=== PATIENT | male | born 1955 | race American Indian/Alaskan Native ===

== ENCOUNTER 2020-05-20 16:09 | Emergency (ER) | payer MEDICARE, SELFPAY | END 2020-05-20 17:44 | disposition left against medical advice (07) | PROVIDERS: Emergency Provider Emergency Medicine | DX: R51.9 Headache, unspecified (principal) | CPT/HCPCS: 99281 ==

== ENCOUNTER 2020-05-21 11:43 | Emergency (ER) | payer MEDICARE, SELFPAY ==
--- NOTE | 2020-05-21 11:59 | ECG_ITS ---
Test Reason : ARM PAIN Blood Pressure : / mmHG Vent. Rate : 077 BPM Atrial Rate : 077 BPM P-R Int : 156 ms QRS Dur : 154 ms QT Int : 410 ms P-R-T Axes : 071 -60 078 degrees QTc Int : 463 ms Normal sinus rhythm Left axis deviation Left bundle branch block Abnormal ECG When compared with ECG of 18-MAY-2019 22:02, Left bundle branch block is now Present Referred By: Generic ED Physician Electronically Signed By:IMELDA CUEVAS MD
[2020-05-21 12:01] VITALS: BP 161/78; BP 181/94; PULSE 83; PULSE 84; RESP 18; TEMP 36.7; O2SAT 98; O2SAT 99; BMI 25.0
--- NOTE | 2020-05-21 12:45 | ED_ITS ---
HPI - General Adult General Chief complaint: General Medical Stated complaint: numbness/tingling Time Seen by Provider: 05/21/20 11:59 Source: patient Mode of arrival: ambulatory Limitations: no limitations History of Present Illness HPI narrative: Neck pain with right sided arm pain. In addition the patient states that his blood pressure is high Onset (ago): day(s) Location: head, right and upper extremity Radiation: neck Severity: mild Related Data Previous Rx's Medication Instructions Recorded meloxicam [Mobic] 15 mg PO DAILY #10 tab 05/21/20 Allergies Allergy/AdvReac Type Severity Reaction Status Date / Time penicillin V Allergy Unknown Unknown Verified 05/21/20 12:00 Penicillins Allergy Unknown RASH Unverified 04/14/20 15:47 Review of Systems Constitutional: Constitutional: Reports no additional constitutional complaints Eyes: Eyes: Reports no additional eye complaints ENT: Denies dizziness Cardiovascular: Cardiovascular: Reports no additional cardiovascular compla ints Respiratory: Respiratory: Reports as per HPI Gastrointestinal: Gastrointestinal: Reports no additional gastrointestinal complaints Musculoskeletal: Musculoskeletal: Reports no additional musculoskeletal complaints Integumentary/Breasts: Skin/Breast: Denies rash Neurologic: Reports system reviewed and no additional complaints, except as documented, Denies dizziness and Denies Sensory deficit (Neuro) Psychiatric: Psychiatric: Denies anxiety [facility] Past Medical History Medical History (Updated 05/21/20 @ 15:14 by Fab Harrell MD) Asthma Polio Social History Social History Advance Directives: No Advance Directives Information Provided: No Physical Exam Vital Signs: Vital Signs: Vital Signs Temp Pulse Resp BP Pulse Ox 05/21/20 12:01 98.0 F 83 18 161/78 H 99 Body Mass Index 25.0 Const: General: healthy appearing Nutritional Appearance: average body habitus Orientation/consciousness: oriented to person and patient oriented x3 Limitations: no limitations HENMT: Head: Yes normal to inspection Ears: external ears normal General nose exam: Normal external nose present Mouth: Normal oral and palatal mucosa present and oropharynx normal Throat: Yes posterior oropharynx normal Eyes: General: appearance normal, both eyes and all related structures Neck: Other: supple Neck: Yes normal visual inspection Chest: Chest palpation & inspection: normal inspection of the chest Resp: Auscultation: clear to auscultation bilaterally Cardio: Jugular venous distension: no JVD Rate: regular rate Rhythm: regular rhythm Heart sounds: S1 normal heart sound present and S2 normal heart sound present GI: Inspection: Yes normal to inspection Palpation (GI): Soft to palpation, nontender and No hepatosplenomegaly present Auscultation: normal bowel sounds : General: Yes no CVA tenderness Back/Spine/Pelvis: Back: no CVA tenderness Skin: General skin exam: no rashes or lesions noted Neuro: Other: old left atrophied leg secondary to polio, otherwise nonfocal exam General: oriented to person and patient oriented x3 Cranial nerves: Yes CN's II-XII intact bilaterally Motor exam (neuro): Other motor observations present (nonfocal exam outside of atrophied left leg) Sensory Exam: No Sensory deficit (Neuro) Extrem: General: Yes normal to inspection Psych: Appearance: grossly normal Course Course Course Narrative: patient with headache and radicular pain with cervical degenerative disease will dc on [facility] Medical Decision Making MDM Narrative Medical decision making narrative: patient with headache and neck pain most consistent with cervical radiculopaty, head cT negative, Cspine with degenerative changes. Patient with sliht elevation of blood pressure and glucose which can be managed by his PMD as an outpatient Lab Data Result diagrams: 05/21/20 14:36 05/21/20 14:36 Labs: Lab Results 05/21/20 05/21/20 Range/Units 14:36 14:36 WBC 9.1 (4.8-10.8) X10*3/uL RBC 4.91 (4.60-5.80) X10*6/uL Hgb 14.2 (14.0-18.0) g/dl Hct 40.7 L (42-52) % MCV 82.9 (80-98) fL MCH 28.9 (27.0-33.0) pg MCHC 34.9 (31.0-36.0) g/dl RDW 11.9 (11.0-16.0) % Plt Count 234 (160-400) X10*3/uL MPV 9.7 (9.4-12.4) fL Immature Gran % (Auto) 0.3 (0.0-0.4) % Neut % (Auto) 80.7 H (45-73) % Lymph % (Auto) 15.5 L (20-40) % Davison % (Auto) 3.1 (2-11) % Eos % (Auto) 0.1 (0-4) % Baso % (Auto) 0.3 (0-2) % Lymph # (Auto) 1.4 (1.2-4.9) X10*3/uL Davison # (Auto) 0.3 (0.1-1.2) X10*3/uL Eos # (Auto) 0.0 (0.0-0.4) X10*3/uL Baso # (Auto) 0.0 (0.0-0.2) X10*3/uL Abs Immat Gran (auto) 0.03 (0.00-0.03) X10*3/uL Absolute Neuts (auto) 7.3 (2.0-8.3) X10*3/uL Absolute Nucleated RBC 0.000 (0.0-0.012) X10*3/uL Nucleated RBC % (auto) 0.0 (0.0-0.2) /100WBC Sodium 137 (135-145) mmol/L Potassium 4.1 (3.3-5.1) mmol/l Chloride 102 (96-108) mmol/L Carbon Dioxide 26 (22-29) mmol/L Anion Gap 13 (12-20) BUN 13 (9-16) mg/dL Creatinine 0.69 (0.5-1.4) mg/dL Estim Creat Clear Calc 92.8 Estimated GFR > 60 Random Glucose 206 H (60-115) mg/dL Calcium 9.4 (8.4-10.2) mg/dL ECG Data Attestation: I personally reviewed and interpreted this ECG as follows: Interpretation: sinus rate of 80, LBBB old from02/26/18, no acute [facility] Discharge Plan Discharge Clinical Impression: Radicular pain in right arm Headache Qualifiers: Headache type: other headache syndrome Qualified Code(s): G44.89 - Other headache syndrome Patient Disposition: Home, Self-Care Instructions: Acute Headache (ED), Acute Neck Pain (ED) Prescriptions: New meloxicam [Mobic] 15 mg tablet 15 mg PO DAILY Qty: 10 RF: 0 Referrals: Physician,Unknown [Primary Care Provider] - 2 days (Call your doctor for blood pressure check and high sugars as well)
--- NOTE | 2020-05-21 12:51 | CT_ITS ---
EXAMINATION: CT HEAD WITHOUT CONTRAST CLINICAL INFORMATION: Right-sided headache COMPARISON: Portions of a previous study 05/18/19 TECHNIQUE: Multidetector CT examination of the head is performed without contrast. DLP: 757 mGy-cm FINDINGS: There is no evidence of a recent intracranial hemorrhage or extra-axial collection. The midline structures are nondisplaced. The ventricles, cisterns, and sulci are within normal limits. There is no evidence of an intra-axial mass. There are no suspicious focal areas of abnormal brain attenuation. The maddox-white interface is within normal limits. There is no evidence of acute territorial infarct. The mastoids are under pneumatized. CT/CT head/brain wo con IMPRESSION: 1. There is no evidence of a recent intracranial hemorrhage. 2. No acute infarct. 3. No suspicious interval change
--- NOTE | 2020-05-21 12:51 | XR_ITS ---
EXAMINATION: XR CERVICAL SPINE CLINICAL INFORMATION: Radicular neck pain radiating down right arm COMPARISON: None TECHNIQUE: 3 views of the cervical spine were obtained. FINDINGS: Degenerative changes are present in this finding at most levels with mild disc space narrowing and slight sclerosis and osteophyte formation. The findings are most marked at C3-C4, C5-C6 and C6-C7. No soft tissue swelling, fractures or dislocations are seen. XR/XR cervical spine 3V IMPRESSION: Degenerative changes cervical spine as described above
--- NOTE | 2020-05-21 14:27 | PC.NURSE ---
UPDATE TO ELDER ESPINAL VIA PHONE. [phone]
[2020-05-21] MEDS: Ketorolac Tromethamine 30 MG/ML VIAL IVPUSH (14:41)
[2020-05-21 14:44] LABS: MANUAL DIFF FLAG NO
[2020-05-21 14:48] LABS: Basophils Percent Auto 0.3 % (0-2); Eosinophils Percent Auto 0.1 % (0-4); Hematocrit 40.7 % (42-52); Hemoglobin 14.2 g/dl (14.0-18.0); Imm Gran Abs Auto 0.03 X10*3/uL (0.00-0.03); Imm Gran Pct Auto 0.3 % (0.0-0.4); Lymphocytes Absolute Auto 1.4 X10*3/uL (1.2-4.9); Lymphocytes Percent Auto 15.5 % (20-40); Mean Corpuscular HGB Conc 34.9 g/dl (31.0-36.0); Mean Corpuscular Hemoglobin 28.9 pg (27.0-33.0); Mean Corpuscular Volume 82.9 fL (80-98); Mean Platelet Volume 9.7 fL (9.4-12.4); Monocytes Absolute Auto 0.3 X10*3/uL (0.1-1.2); Monocytes Percent Auto 3.1 % (2-11); Neutrophils Absolute Auto 7.3 X10*3/uL (2.0-8.3); Neutrophils Percent Auto 80.7 % (45-73); Platelet Count 234 X10*3/uL (160-400); Red Blood Count 4.91 X10*6/uL (4.60-5.80); Red Cell Distribution Width 11.9 % (11.0-16.0); White Blood Count 9.1 X10*3/uL (4.8-10.8)
[2020-05-21 15:06] LABS: Anion Gap 13 (12-20); Blood Urea Nitrogen 13 mg/dL (9-16); Calcium 9.4 mg/dL (8.4-10.2); Carbon Dioxide 26 mmol/L (22-29); Chloride 102 mmol/L (96-108); Creatinine Clr Calc Pharmacy 92.8; Estimated Glomerular Filt Rate > 60; Glucose Random 206 mg/dL (60-115); Potassium 4.1 mmol/l (3.3-5.1); Sodium 137 mmol/L (135-145)
[2020-05-21 15:11] VITALS: BP 175/83; PULSE 86; RESP 16; TEMP 36.9; O2SAT 99
--- NOTE | 2020-05-21 15:17 | PC.NURSE ---
PAIN IMPROVED 3/10. IS AMBULATORY TO BR WITH CRUTCH IS BASELINE
== END 2020-05-21 15:54 | disposition home or self-care (01) ==
PROVIDERS: Emergency Provider Emergency Medicine
DX: G44.89 Other headache syndrome (principal); M79.601 Pain in right arm; Z79.899 Other long term (current) drug therapy
CPT/HCPCS: 36415; 70450; 72040; 80048; 85025; 93005; 96374; 99284; J1885

== ENCOUNTER → 2020-06-16 14:32 | Outpatient (BNVA) | payer MEDICARE, SELFPAY | PROVIDERS: PCP Family Medicine; Referring Provider Family Medicine; Visit Provider Urology | DX: N40.1 Benign prostatic hyperplasia with lower urinary tract symptoms (principal); N13.8 Other obstructive and reflux uropathy; R35.1 Nocturia; R39.12 Poor urinary stream; N39.0 Urinary tract infection, site not specified; Z79.899 Other long term (current) drug therapy | CPT/HCPCS: 51798; 81002; 99212 ==

== ENCOUNTER 2020-08-03 10:42 | Outpatient (REF) | payer OTHER, SELFPAY | END 2020-08-03 10:43 | disposition home or self-care (01) | LOC: HO.LAB 10:42 | PROVIDERS: Visit Provider Internal Medicine | DX: Z20.828 Contact with and (suspected) exposure to other viral communicable diseases (principal) | CPT/HCPCS: 36415; C9803; U0003 ==

== ENCOUNTER 2020-08-17 11:36 | Outpatient (REF) | payer OTHER, SELFPAY | END 2020-08-17 11:37 | disposition home or self-care (01) | LOC: HO.LAB 11:36 | PROVIDERS: Visit Provider Internal Medicine | DX: Z20.822 Contact with and (suspected) exposure to COVID-19 (principal) | CPT/HCPCS: 36415; C9803; U0003 ==

== ENCOUNTER 2020-10-17 09:42 | Outpatient (REF) | payer OTHER, SELFPAY | END 2020-10-17 09:43 | disposition home or self-care (01) | LOC: HO.LAB 09:42 | PROVIDERS: Visit Provider Internal Medicine | DX: Z20.822 Contact with and (suspected) exposure to COVID-19 (principal) | CPT/HCPCS: 36415; C9803; U0003; U0005 ==

== ENCOUNTER 2020-10-21 09:09 | Outpatient (REF) | payer OTHER, SELFPAY | END 2020-10-21 09:10 | disposition home or self-care (01) | LOC: HO.LAB 09:09 | PROVIDERS: Visit Provider Internal Medicine | DX: N50.811 Right testicular pain (principal); N40.1 Benign prostatic hyperplasia with lower urinary tract symptoms; N13.8 Other obstructive and reflux uropathy; R35.1 Nocturia; Z79.899 Other long term (current) drug therapy; Z20.822 Contact with and (suspected) exposure to COVID-19 | CPT/HCPCS: 36415; 99212; C9803; U0003; U0005 ==

== ENCOUNTER → 2020-12-27 09:20 | Outpatient (BNVA) | payer OTHER, SELFPAY | PROVIDERS: Visit Provider Urology | DX: N39.0 Urinary tract infection, site not specified (principal); N40.1 Benign prostatic hyperplasia with lower urinary tract symptoms; N13.8 Other obstructive and reflux uropathy; R35.1 Nocturia; R39.12 Poor urinary stream | CPT/HCPCS: 51798; 99212 ==

== ENCOUNTER 2021-02-09 12:36 | Outpatient (REF) | payer MEDICARE, SELFPAY | END 2021-02-09 12:37 | disposition home or self-care (01) | LOC: HO.LAB 12:36 | PROVIDERS: Visit Provider Internal Medicine | DX: Z20.822 Contact with and (suspected) exposure to COVID-19 (principal) | CPT/HCPCS: C9803; U0003; U0005 ==

== ENCOUNTER 2021-03-27 09:22 | Day surgery (SDC) | payer MEDICARE, SELFPAY ==
[2021-03-22 08:42] VITALS: BMI 25.0
--- NOTE | 2021-03-24 11:41 | P.CONAN_ITS ---
Documented by User: Martha Figueredo NP 03/24/21 11:42 HPI - Anesthesia Eval Consult details Narrative: 65yo M for Laser Ablation Prostate w/Green Light PMFSH Active Problems Active Problems: All Active Problems (Updated 03/22/21 @ 08:41 by Sharmaine Curran RN) BPH w urinary obs/LUTS (Acute) Nocturia more than twice per night (Acute) Weak urinary stream (Acute) Orchalgia (Acute) Chronic UTI (urinary tract infection) (Acute) Past Medical History Medical History Asthma BPH (benign prostatic hyperplasia) Diabetes Elevated cholesterol Polio Surgical History Surgical History Surgical history unknown Social History Social History Alcohol intake: never Patient Tobacco Use Status: Tobacco use Unknown Advance Directives: No (unknown-voicemail message left) Advance Directives Information Provided: No Advance Directives on File: No Meds Allergies Allergy/AdvReac Type Severity Reaction Status Date / Time Penicillins Allergy Intermediate RASH Verified 03/20/21 12:54 Home Medications Medication Instructions Recorded Confirmed Last Taken Type aspirin 81 mg tablet,delayed 81 mg PO DAILY 06/16/20 06/16/20 Unknown History release atorvastatin 40 mg tablet 40 mg PO DAILY 06/16/20 06/16/20 Unknown History fluticasone propionate 110 1,000,000 mcg PO BID 06/16/20 06/16/20 Unknown History mcg/actuation HFA aerosol inhaler lisinopril 10 mg tablet 10 mg PO DAILY 06/16/20 06/16/20 Unknown History metformin 1,000 mg tablet 1,000 mg PO BID 06/16/20 06/16/20 Unknown History tamsulosin 0.4 mg capsule 0.4 mg PO DAILY 06/16/20 06/16/20 Unknown History acetaminophen 650 mg 650 mg PO Q8H PRN 10/21/20 Unknown History tablet,extended release albuterol sulfate 90 mcg/actuation 0 mcg INHALATION 10/21/20 Unknown History aerosol inhaler benzonatate 100 mg capsule 100 mg PO TID 10/21/20 Unknown History blood sugar diagnostic #10 ea 12/27/20 Unknown History diclofenac sodium 1 % topical gel 1 ea TOPICAL QID 12/27/20 Unknown History lancets 28 gauge #100 ea 12/27/20 Unknown History Exam Exam Date and Time: March 24, 2021 1141 Height,Weight and Vital Signs: Height 5 ft 5 in Weight 68.039 kg Narrative Narrative: EKG 04/2020 Vent. Rate : 077 BPM ? ? Atrial Rate : 077 BPM ?? P-R Int : 156 ms? QRS Dur : 154 ms ? ? QT Int : 410 ms ? ? ? P-R-T Axes : 071 -60 078 degrees ?? QTc Int : 463 ms ? Normal sinus rhythm Left axis deviation Left bundle branch block Abnormal ECG When compared with ECG of 18-MAY-2019 22:02, Left bundle branch block is now Present Assessment and Plan Assessment Anesthesia Assessment: Chart Reviewed Documented by User: Elisa Newton MD 03/27/21 12:33 [facility] Past Medical History Medical History Asthma BPH (benign prostatic hyperplasia) Diabetes Elevated cholesterol Polio Family History Family history of problems with anesthesia: No Surgical History Surgical History Surgical history unknown History of Problems with Anesthesia: No Social History Social History Alcohol intake: never Patient Tobacco Use Status: Tobacco use Unknown Advance Directives: No (unknown-voicemail message left) Advance Directives Information Provided: No Advance Directives on File: No Meds Allergies Allergy/AdvReac Type Severity Reaction Status Date / Time Penicillins Allergy Intermediate RASH Verified 03/20/21 12:54 Home Medications Medication Instructions Recorded Confirmed Last Taken Type aspirin 81 mg tablet,delayed 81 mg PO DAILY 06/16/20 06/16/20 Unknown History release atorvastatin 40 mg tablet 40 mg PO DAILY 06/16/20 06/16/20 Unknown History fluticasone propionate 110 1,000,000 mcg PO BID 06/16/20 06/16/20 Unknown History mcg/actuation HFA aerosol inhaler lisinopril 10 mg tablet 10 mg PO DAILY 06/16/20 06/16/20 Unknown History metformin 1,000 mg tablet 1,000 mg PO BID 06/16/20 06/16/20 Unknown History tamsulosin 0.4 mg capsule 0.4 mg PO DAILY 06/16/20 06/16/20 Unknown History acetaminophen 650 mg 650 mg PO Q8H PRN 10/21/20 Unknown History tablet,extended release albuterol sulfate 90 mcg/actuation 0 mcg INHALATION 10/21/20 Unknown History aerosol inhaler benzonatate 100 mg capsule 100 mg PO TID 10/21/20 Unknown History blood sugar diagnostic #10 ea 12/27/20 Unknown History diclofenac sodium 1 % topical gel 1 ea TOPICAL QID 12/27/20 Unknown History lancets 28 gauge #100 ea 12/27/20 Unknown History Exam Airway Mallampati Class: II TM Dist: >3cm Neck ROM: Full Assessment and Plan Assessment Anesthesia Assessment: Anesthesia Plan Discussed Final Anesthetic Review Family History of Problems with Anesthesia: No History of Problems with Anesthesia: No NPO: Yes ASA Class: II Final Preanesthetic Review: No Changes in Pt Med Stat, Meds/Allgs Chart Reviewed, Consent Obtained/Reviewed and Anes Risks/Benef Reviewed Patient Risk: Low Procedure Risk: Low Assessment/Block/Sedation in SS: Assess/Block/Sedation-SS Anesthetic Plan Anesthetic Plan: GA Disposition: Standard PACU
[2021-03-27] VITALS (7 sets, daily range): BP systolic 114–135; BP diastolic 53–74; PULSE 65–75; RESP 14–18; TEMP 36.1–36.4; O2SAT 98–100
[2021-03-27] MEDS: Lactated Ringers 1,000 ML 100 ML IVCONT (11:57)
[2021-03-27] MEDS: levoFLOXacin/D5W 500 MG/100 ML PIGGYBACK 100 MG IV (12:03)
[2021-03-27 12:04] LABS: Glucose, Whole Blood 131 mg/dL (60-115)
--- NOTE | 2021-03-27 12:18 | P.HPSUR_ITS ---
Pre-Procedural Eval Section A Date of Service: 03/27/21 Section B Chief Complaint: Benign Prostatic hyperplasia Details of Present Illness: Laser enucleation of prostate Relevant Social History: None Present Medications: see Short Stay Collaborative assessment Medical History: No relevant PMH History of Previous Operations: No relevant previous surgery Allergies: Allergies Allergy/AdvReac Type Severity Reaction Status Date / Time Penicillins Allergy Intermediate RASH Verified 03/20/21 12:54 Review of Systems Sugical H&P ROS: Negative: Constitution, Cardiovascular, Respiratory, Neurological, Psychiatric, Hem-Onc, Allergic/Immunologic, Gastrointestinal, Ge nitourinary, Musculoskeletal, Integumentary, Endocrine and Eyes/Ears/Nose/Throat Exam Surgical H&P Exam: Normal: HEENT, Normal: Heart, Normal: Lungs, Normal: Extremities, Normal: Abdomen, Normal: Skin and Normal: Neurological Plan Diagnosis/Plan: Unchanged (GreenLight laser enucleation of the prostate) I have reviewed the history and physical and performed a pertinent physical examination on my patient. No changes have occurred unless specified.
--- NOTE | 2021-03-27 13:14 | P.OP_ITS ---
Operative Note Operative Note Date of Service: 03/27/21 Narrative: PreOperative Diagnosis: Recurrent BPH Post Operative Diagnosis: Recurrent BPH with bladder diverticula Procedure: 1. Transurethral incision of the prostate with GreenLight laser 2. Ablation of 2 bladder diverticula Surgeon: Dr Rusty Ho Anesthesia: General Indications for procedure: This is a 65-year-old male. Persistent urgency frequency. Prior prostate procedure recommendation for repeat TURP with examination of bladder during anesthesia. Procedure: After informed consent was verified the patient was brought to the operating room and placed in a supine position. Anesthesia was administered per protocol. The patient was placed in a modified dorsal lithotomy position and prepped and draped in a sterile fashion. Safety pause time-out was performed. A 23 Danish laser cystoscope was inserted per urethra. There was apical annular stricture which was passed. Left lateral lobe recurrent. There was also marked trabeculation throughout the bladder indicative of OAB phenomena. There were 2 small bladder diverticulum noted. The 1st step used the GreenLight laser to ablate bladder diverticulum. Incisions in each diverticulum were made at the 9 and 3 o'clock position in order to relax the diverticulum. Using low power settings and 20 w the mucosa in each was ablated to create scarring. On the prostate the recurrent left lateral lobe was ablated using 80 w settings. Two incisions were made in line with the ureteric orifice coming down to the veru in taken down to the level of the bladder fibers. These both exposed stones were imbedded in the deep tissue. At the completion of the procedure a belladonna suppository was placed. A 22 Danish cystoscope with 30 degree balloon was placed. This was placed on drainage. He tolerated procedure well was extubated in operating and transferred in stable condition to the recovery area Total power used 7500 joules, 2 minutes 10 sec lasing time Pathology: [] Drains: []
[2021-03-27] MEDS: fentaNYL citrate/PF 100 MCG/2 ML VIAL 50 MCG IVPUSH (13:44)
[2021-03-27] MEDS: oxyCODONE HCl Immed Release 5 MG TABLET PO (13:44)
== END 2021-03-27 14:50 | disposition home or self-care (01) ==
PROVIDERS: Visit Provider Urology
PROC: (CPT 52648; principal; 2021-03-27 11:30)
DX: N40.1 Benign prostatic hyperplasia with lower urinary tract symptoms (principal); R35.0 Frequency of micturition; R39.15 Urgency of urination; N32.3 Diverticulum of bladder; N32.89 Other specified disorders of bladder; J45.909 Unspecified asthma, uncomplicated; E11.9 Type 2 diabetes mellitus without complications; Z79.84 Long term (current) use of oral hypoglycemic drugs; Z79.82 Long term (current) use of aspirin; Z79.51 Long term (current) use of inhaled steroids; Z79.899 Other long term (current) drug therapy; Z88.0 Allergy status to penicillin
CPT/HCPCS: 52648; 52214; 52305; 82947; J1100; J1956; J2250; J2405; J3010

== ENCOUNTER → 2021-03-30 08:26 | Outpatient (BNVA) | payer MEDICARE, SELFPAY | PROVIDERS: Visit Provider Urology | DX: R35.1 Nocturia (principal); N40.1 Benign prostatic hyperplasia with lower urinary tract symptoms; N13.8 Other obstructive and reflux uropathy; N32.81 Overactive bladder; R33.8 Other retention of urine; E11.9 Type 2 diabetes mellitus without complications; E78.00 Pure hypercholesterolemia, unspecified; Z86.12 Personal history of poliomyelitis; Z88.0 Allergy status to penicillin; Z46.6 Encounter for fitting and adjustment of urinary device | CPT/HCPCS: 51700; 51798; 99212 ==

== ENCOUNTER 2021-04-08 15:46 | Emergency (ER) | payer MEDICARE, SELFPAY ==
--- NOTE | 2021-04-08 20:54 | PC.NURSE ---
Pt from home with family. Pt reports he had a procedure on 03/07 to check his prostate. Pt and family state that since the procedure, he has had blood in his urine but yesterday, pt states that he passed many blood clots. Prt reports +dysuria since the procedure, states he was given ABX by the MD who performed his procedure. UA obtained and sent. Awaiting primary MD berry.
[2021-04-08 20:59] VITALS: BP 104/48; PULSE 98; RESP 18; TEMP 36.8; O2SAT 99; BMI 19.2
[2021-04-08 21:23] LABS: Appearance Urine HAZY; Color Urine YELLOW; Glucose Urine UA NEG (NEG); Leukocyte Esterase Urine 3+ (NEG); Nitrite Urine NEG (NEG); UACC Culture Trigger YES; Urine Blood 3+ (NEG); Urine Ketones NEG (NEG); Urine Protein TRACE MG/DL (NEG-TRACE)
--- NOTE | 2021-04-08 22:05 | ED_ITS ---
HPI - Male Genitourinary General Chief complaint: Urogenital-Male Stated complaint: blood in urine Time Seen by Provider: 04/08/21 21:44 Source: patient and family (Daughter) Mode of arrival: ambulatory History of Present Illness HPI Narrative: 65-year-old male with history diabetes and BPH underwent prostatic surgery on 03/30 and states that since that time he has had continued hematuria and continues to have burning on urination. He denies any associated fever, chills but states he is having some right-sided flank pain. And otherwise denies any nausea or vomiting. In addition, he denies any headache, dizziness, shortness of breath, palpitations, or fatigue. Related Data Home Medications Medication Instructions Recorded Confirmed aspirin 81 mg tablet,delayed 81 mg PO DAILY 06/16/20 06/16/20 release atorvastatin 40 mg tablet 40 mg PO DAILY 06/16/20 06/16/20 fluticasone propionate 110 1,000,000 mcg PO BID 06/16/20 06/16/20 mcg/actuation HFA aerosol inhaler lisinopril 10 mg tablet 10 mg PO DAILY 06/16/20 06/16/20 metformin 1,000 mg tablet 1,000 mg PO BID 06/16/20 06/16/20 tamsulosin 0.4 mg capsule 0.4 mg PO DAILY 06/16/20 06/16/20 acetaminophen 650 mg 650 mg PO Q8H PRN 10/21/20 tablet,extended release albuterol sulfate 90 mcg/actuation 0 mcg INHALATION 10/21/20 aerosol inhaler benzonatate 100 mg capsule 100 mg PO TID 10/21/20 blood sugar diagnostic #10 ea 12/27/20 diclofenac sodium 1 % topical gel 1 ea TOPICAL QID 12/27/20 lancets 28 gauge #100 ea 12/27/20 alcohol swabs 1 pad TOPICAL TID 03/30/21 Previous Rx's Medication Instructions Recorded meloxicam 15 mg tablet (Mobic) 15 mg PO DAILY #10 tab 05/21/20 sulfamethoxazole 800 1 tab PO BID 14 Days #28 tab 06/16/20 mg-trimethoprim 160 mg tablet (Bactrim DS) tramadol 50 mg tablet 50 mg PO Q8H PRN 7 Days #20 tab 09/28/20 sulfamethoxazole 800 1 tab PO BID 5 Days #10 tab 10/21/20 mg-trimethoprim 160 mg tablet (Bactrim DS) finasteride 5 mg tablet 5 mg PO DAILY 90 Days #90 tab 02/16/21 trimethoprim 100 mg tablet 100 mg PO Q12H 10 Days #20 tab 03/27/21 oxybutynin chloride 10 mg 10 mg PO DAILY 30 Days #30 tab 03/30/21 tablet,extended release 24 hr sulfamethoxazole 800 1 tab PO Q12H 10 Days #20 tab 04/08/21 mg-trimethoprim 160 mg tablet (Bactrim DS) Allergies Allergy/AdvReac Type Severity Reaction Status Date / Time Penicillins Allergy Intermediate RASH Verified 04/08/21 21:03 Review of Systems Review of Systems: Pertinent positives and negatives as stated in HPI 10 point review of systems is otherwise negative. [facility] Past Medical History Source: nursing notes reviewed Medical History Asthma BPH (benign prostatic hyperplasia) Diabetes Elevated cholesterol Polio Surgical History Surgical history unknown Social History Social History Alcohol intake: never Patient Tobacco Use Status: Tobacco use Unknown Advance Directives: No Advance Directives Information Provided: No Physical Exam Vital Signs: Vital Signs: Last Vital Signs Temp 98.3 F 04/08/21 20:59 Pulse 98 04/08/21 20:59 Resp 18 04/08/21 20:59 BP 104/48 L 04/08/21 20:59 Pulse Ox 99 04/08/21 20:59 Body Mass Index 19.2 VITAL SIGNS: Reviewed. GENERAL: Well developed, well nourished, in no acute distress. HEAD: Normocephalic/atraumatic EYES: PERRLA, EOMI OROPHARYNX: no oral lesions noted, posterior pharynx clear LUNGS: Normal breath sounds. No adventitious sounds or accessory muscle use. SpO2<99> CARDIOVASCULAR: Regular rate and rhythm without noted murmurs ABDOMEN: Soft, tenderness on palpation over suprapubic area without rebound, non-distended with bowel sounds, no CVA tenderness SKIN: Inspection of the skin reveals no rashes NEUROLOGIC: Alert and oriented x 4. Course Course Course Narrative: 65-year-old male with history and clinical presentation suggestive of hematuria likely residual from prostatic procedure. With the cystitis symptoms and evidence on the urinalysis of infection patient will be treated for a prostatitis and initial Bactrim will be provided here in the emergency room. Urinalysis did show hematuria, but patient is certainly in asymptomatic for blood loss. Patient understands and plans on following up with Dr. León in the office on Saturday morning. MDM - Male Genitourinary Lab Data Labs: Lab Results 04/08/21 Range/Units 20:53 Urine Color YELLOW Urine Appearance HAZY Urine pH 6.0 (5.0-8.0) Ur Specific Saxis 1.010 (1.005-1.025) Urine Protein TRACE (NEG-TRACE) MG/DL Urine Glucose (UA) NEG (NEG) MG/DL Urine Ketones NEG (NEG) MG/DL Urine Blood 3+ H (NEG) Urine Nitrite NEG (NEG) Ur Leukocyte Esterase 3+ H (NEG) Discharge Plan Discharge Clinical Impression: Prostatitis Patient Disposition: Home, Self-Care Instructions: Prostatitis (ED) Additional Instructions: 1. Reanude todos los medicamentos caseros. 2. Contin?e bebiendo xochilt agua. 3. Complete todo el ciclo de antibi?ticos y meet un seguimiento con el Dr. Ho el lunes por la ma?adrianna. Regrese a la bety de emergencias por un empeoramiento kaitlyn de los s?ntomas. Prescriptions: New sulfamethoxazole-trimethoprim [Bactrim DS] 800-160 mg tablet 1 tab PO Q12H 10 Days Qty: 20 RF: 0 No Action tramadol 50 mg tablet 50 mg PO Q8H PRN (Reason: pain) 7 Days Qty: 20 RF: 0 finasteride 5 mg tablet 5 mg PO DAILY 90 Days Qty: 90 RF: 2 meloxicam [Mobic] 15 mg tablet 15 mg PO DAILY Qty: 10 RF: 0 trimethoprim 100 mg tablet 100 mg PO Q12H 10 Days Qty: 20 RF: 0 tamsulosin 0.4 mg capsule 0.4 mg PO DAILY RF: 0 atorvastatin 40 mg tablet 40 mg PO DAILY RF: 0 metformin 1,000 mg tablet 1,000 mg PO BID RF: 0 fluticasone propionate 110 mcg/actuation HFA aerosol inhaler 1,000,000 mcg PO BID RF: 0 aspirin 81 mg tablet,delayed release (DR/EC) 81 mg PO DAILY RF: 0 lisinopril 10 mg tablet 10 mg PO DAILY RF: 0 sulfamethoxazole-trimethoprim [Bactrim DS] 800-160 mg tablet 1 tab PO BID 14 Days Qty: 28 RF: 0 sulfamethoxazole-trimethoprim [Bactrim DS] 800-160 mg tablet 1 tab PO BID 5 Days Qty: 10 RF: 0 oxybutynin chloride 10 mg tablet extended release 24hr 10 mg PO DAILY 30 Days Qty: 30 RF: 1 Referrals: Rusty Ho MD [Physician] - 2 days (Patient with cystitis like symptoms, continued hematuria, positive leukocyte esterase and started on Bactrim DS.) Print Language: Bulgarian
[2021-04-08 22:22] LABS: Bacteria Urine 1+ /LPF; Mucus Urine 1+ /LPF; RBC Urine 30-49 /HPF (0); Squamous Epithelial Cell Urine 1+ /LPF; WBC Clumps Urine NOTED
[2021-04-08 22:33] VITALS: BP 119/68; PULSE 82; RESP 16
--- NOTE | 2021-04-08 22:36 | PC.NURSE ---
Pt and family at bed anxious for discharge, refusing to wait for architectural technician.
== END 2021-04-08 22:37 | disposition home or self-care (01) ==
PROVIDERS: Emergency Provider Student in an Organized Health Care Education/Training Program
DX: N41.9 Inflammatory disease of prostate, unspecified (principal)
CPT/HCPCS: 81001; 87086; 87088; 87186; 99283; 99284

== ENCOUNTER 2021-05-08 18:27 | Inpatient (IN) | payer MEDICARE, SELFPAY ==
--- NOTE | ~2021-05-08 | US_ITS ---
EXAMINATION: US SCROTUM CLINICAL INFORMATION: Testicular pain and swelling. COMPARISON: None TECHNIQUE: A sonogram of the scrotum was performed assessing maddox-scale appearance and color Doppler flow. Spectral Doppler analysis of the arterial and venous flow were performed in the testes bilaterally. FINDINGS: RIGHT: Right testicle measures 3.7 x 2.5 x 2.7 cm, volume 12.8 mL. There is some heterogeneous Betty 80 of the right testicle but focal testicular parenchymal lesions are visualized. Spectral Doppler analysis of the arterial and venous flow is increased in the right testis. The epididymis is diffusely enlarged, heterogeneous, and hypervascular. There is a small right hydrocele with a few low-level internal echoes. Right epididymal Doppler flow is increased. LEFT: Left testicle measures 3.9 x 2.0 x 2.2 cm, volume 8.7 mL. There is some heterogeneity of the left testicle but no focal testicular parenchymal lesions are visualized. Spectral Doppler analysis of the arterial and venous flow is normal in the left testis. Left epididymal head is normal in size. No left hydrocele or varicocele is seen. Left epididymal Doppler flow is normal. US/US scrotum doppler IMPRESSION: The right epididymis is enlarged, heterogeneous, and hypervascular consistent with acute right epididymitis. There is asymmetrically increased vascularity within the right testicle compared to the left suggesting component of acute orchitis as well.
--- NOTE | ~2021-05-08 | CT_ITS ---
EXAMINATION: CT ABDOMEN AND PELVIS WITHOUT CONTRAST CLINICAL INFORMATION: Flank pain and abdominal pain. Testicular swelling. COMPARISON: CT abdomen/pelvis dated from 12/15/2019. TECHNIQUE: Multidetector volumetric imaging was performed from the superior aspect of the liver through the pubic symphysis. Sagittal and coronal reformatted images were obtained on the technologist's workstation. This CT examination was performed using dose optimization techniques as appropriate, variously including the following: *Automated exposure control *Adjustment of mA and/or kV according to patient size (this includes techniques or standardized protocols for targeted exams where dose is matched to indication/reason for exam; i.e. extremities or head) *Use of iterative reconstruction technique DLP: 355 mGy-cm FINDINGS: LUNG BASES: Tiny calcified granuloma in the right lower lobe (80 to: 4). Mild subsegmental atelectasis. No focal consolidation or pleural effusion. LIVER, GALLBLADDER, AND BILIARY TREE: The liver is normal in size, shape, and attenuation. No focal hepatic lesion or biliary ductal dilatation is present. The gallbladder is unremarkable with no evidence of radiopaque gallstones, gallbladder wall thickening, or obvious pericholecystic inflammatory changes. PANCREAS: A few small parenchymal hypodensities likely representing areas of intraparenchymal fat and are similar to prior. The main pancreatic duct is nondilated. No surrounding free fluid or fat stranding. SPLEEN: Unremarkable. ADRENAL GLANDS: Unremarkable. KIDNEYS AND URETERS: The kidneys are normal in size, shape, and attenuation. Redemonstration of a 3.6 cm cyst in the left kidney (54:6) and an exophytic 1.8 cm cyst off the upper pole of the right kidney (28:3). In the lower pole of the left kidney (50: 6) and upper pole of the right kidney (47:6) there are too small to characterize hypodensities that statistically are likely to represent simple cysts and do not requires further workup. In the mid pole the right kidney there is a questionable punctate nonobstructive stone (50: 6). No hydronephrosis, or hydroureter. No perinephric stranding. BLADDER: The urinary bladder wall is slightly trabeculated and very minimally thickened. There is no significant perivesical fat stranding. GASTROINTESTINAL TRACT: The stomach is nondilated. There is fecalization of some loops of small bowel suggesting slow transit. There is significant stool burden throughout the colon, largest in the rectum without associated inflammatory changes. No bowel obstruction. Normal appendix. ABDOMINAL WALL: Tiny fat-containing umbilical hernia. LYMPH NODES: Lack of intravenous contrast and paucity of intra-abdominal fat limits evaluation of lymph nodes. However, accounting for these limitations, there is no lymphadenopathy by size criteria. VASCULAR: Scattered atherosclerotic disease of the abdominal aorta. No aneurysmal dilatation. PELVIC VISCERA: Prostatectomy. Refer to same day scrotal ultrasound for appreciation of findings suspicious for right epididymitis. OSSEOUS STRUCTURES: Again noted is asymmetric fatty atrophy of the muscles of the left hip and left thigh, unchanged. No acute or aggressive osseous abnormalities. Multilevel degenerative changes. CT/CT abdomen pelvis wo con IMPRESSION: Questionable punctate nonobstructing stone in the mid pole the right kidney. No hydronephrosis or hydroureter. Fecalization within some loops of the small bowel and large amount of stool throughout the colon suggests slow transit and constipation. Minimal trabeculation and thickening of the urinary bladder without significant perivesical fat stranding. Correlate clinically for cystitis. Refer to same day scrotal ultrasound for visualization of findings suspicious for right epididymitis and possibly right orchitis.
[2021-05-08 18:32] VITALS: BP 149/80; PULSE 110; RESP 16; TEMP 37.6; O2SAT 96; BMI 22.4
--- NOTE | 2021-05-08 20:12 | ED_ITS ---
HPI - Male Genitourinary General Chief complaint: Urogenital-Male Stated complaint: testicle pain Source: patient Mode of arrival: ambulatory Limitations: language barrier History of Present Illness HPI Narrative: 65-year-old male presents with 1 week of testicular pain and swelling, abdominal pain and a generalized feeling of unwellness. Has had a past history of orchitis. MD Complaint: testicle pain, testicle swelling and dysuria Onset (ago): week(s) (1) Duration: constant Location: right testicle and abdomen Severity: severe Severity scale (1-10): 10 Quality: aching Relieving factors: none Exacerbating factors: palpation and movement Associated symptoms: Reports denies other symptoms Related Data Home Medications Medication Instructions Recorded Confirmed aspirin 81 mg tablet,delayed 81 mg PO DAILY 06/16/20 06/16/20 release atorvastatin 40 mg tablet 40 mg PO DAILY 06/16/20 06/16/20 fluticasone propionate 110 1,000,000 mcg PO BID 06/16/20 06/16/20 mcg/actuation HFA aerosol inhaler lisinopril 10 mg tablet 10 mg PO DAILY 06/16/20 06/16/20 metformin 1,000 mg tablet 1,000 mg PO BID 06/16/20 06/16/20 tamsulosin 0.4 mg capsule 0.4 mg PO DAILY 06/16/20 06/16/20 acetaminophen 650 mg 650 mg PO Q8H PRN 10/21/20 tablet,extended release albuterol sulfate 90 mcg/actuation 0 mcg INHALATION 10/21/20 aerosol inhaler benzonatate 100 mg capsule 100 mg PO TID 10/21/20 blood sugar diagnostic #10 ea 12/27/20 diclofenac sodium 1 % topical gel 1 ea TOPICAL QID 12/27/20 lancets 28 gauge #100 ea 12/27/20 alcohol swabs 1 pad TOPICAL TID 03/30/21 Previous Rx's Medication Instructions Recorded meloxicam 15 mg tablet (Mobic) 15 mg PO DAILY #10 tab 05/21/20 sulfamethoxazole 800 1 tab PO BID 14 Days #28 tab 06/16/20 mg-trimethoprim 160 mg tablet (Bactrim DS) tramadol 50 mg tablet 50 mg PO Q8H PRN 7 Days #20 tab 09/28/20 sulfamethoxazole 800 1 tab PO BID 5 Days #10 tab 10/21/20 mg-trimethoprim 160 mg tablet (Bactrim DS) finasteride 5 mg tablet 5 mg PO DAILY 90 Days #90 tab 02/16/21 trimethoprim 100 mg tablet 100 mg PO Q12H 10 Days #20 tab 03/27/21 oxybutynin chloride 10 mg 10 mg PO DAILY 30 Days #30 tab 03/30/21 tablet,extended release 24 hr sulfamethoxazole 800 1 tab PO Q12H 10 Days #20 tab 04/08/21 mg-trimethoprim 160 mg tablet (Bactrim DS) cefuroxime axetil 500 mg tablet 500 mg PO BID 7 Days #14 tab 04/12/21 Allergies Allergy/AdvReac Type Severity Reaction Status Date / Time Penicillins Allergy Intermediate RASH Verified 04/08/21 21:03 Review of Systems Review of Systems: Constitutional: No Fever, No Chills ENT/Mouth: No Ear Pain, No Hoarseness, No sore throat Eyes: No Eye Pain, No Swelling, No Redness, No Foreign Body Cardiovascular: No Chest Pain, No SOB Respiratory: No Cough, No Dyspnea Gastrointestinal: Positive flank pain, No Nausea, No Vomiting, No Diarrhea, positive abdominal Pain Genitourinary: Positive right testicular pain and swelling, Dysuria, No Hematuria Musculoskeletal: No joint pain, No Myalgias, No Joint Swelling Skin: No Skin lacerations, No rash Neuro: No Weakness, No Numbness, No Paresthesias, No Loss of Consciousness, No Dizziness, No Headache Psych: No Anxiety/Panic, No Depression Heme/Lymph: no easy bruising, no Lymphadenopathy Endocrine: No Polyuria, No Polydipsia Yes all other systems are reviewed and are negative PMFSH Past Medical History Attestation statement: The following information was validated with the patient. Source: old records reviewed Medical History Asthma BPH (benign prostatic hyperplasia) Diabetes Elevated cholesterol Polio Surgical History Surgical history unknown Social History Social History Alcohol intake: never Patient Tobacco Use Status: Tobacco use Unknown Advance Directives: No Advance Directives Information Provided: No Physical Exam Vital Signs: Vital Signs: Last Vital Signs Temp 100 F 10/11/21 21:58 Pulse 94 05/08/21 21:58 Resp 15 05/08/21 22:06 BP 142/79 H 05/08/21 21:58 Pulse Ox 98 05/08/21 21:58 Body Mass Index 22.4 Appearance: Alert. Oriented X3. Moderate distress. Eyes: Pupils equal, round and reactive to light. Sclera nonicteric. ENT: Pharynx normal. Moist mucous membranes. Neck: Normal inspection. Neck supple. CVS: Normal heart rate and rhythm. Pulses normal. Respiratory: No respiratory distress. Breath sounds normal. Abdomen: Soft and diffusely tender, nonrigid, negative Spence's, McBurney's and psoas. Skin: Skin warm and dry. Normal skin color. Normal skin turgor. Extremities: No lower extremity edema. Moves all extremities against resistance. Neuro: No motor deficit. No sensory deficit. Cranial nerves 2-12 intact. : General: Yes CVA tenderness bilateral Penis: normal penis Meatus: meatus normal Scrotum: erythematous and scrotal swelling Testes: Enlarged testicle(s) present and epididymal tenderness Back/Spine/Pelvis: Back: CVA tenderness Course Course Course Narrative: 65-year-old male presents with 1 week of testicular pain and abdominal pain. Has a history of orchitis. Right testicle swollen, extraordinarily tender to palpation, more pain on elevation with both testicles. No inguinal hernia noted. No penile discharge or lesions noted. ordered te sticular duplex to rule out torsion, will give ceftriaxone and azithromycin to cover for GC chlamydia verses orchitis versus UTI versus pyelo. 10:30 p.m. tiger text consult with Dr. Ho regarding findings of Doppler and CT scan. Plan of care is to admit to Medicine with an addition of 1 g of cef triaxone to equal 2 g. 10:59 p.m. discussion with hospitalist regarding plan of care to admit for o rchitis, epididymitis, and kidney stone with trabeculated bladder. Consultations Consultation #1: Ambrocio Time: 23:00 MDM - Male Genitourinary MDM Narrative Medical decision making narrative: Orchitis, torsion, kidney stone Differential Diagnosis Differential diagnosis: Likely urinary tract infection, urethritis, epididymitis and prostatitis Medical Records Attestation: I reviewed the patient's medical records. Lab Data Attestation: I reviewed the patient's lab results. Result diagrams: 05/08/21 21:04 05/08/21 21:04 Labs: Lab Results 05/08/21 05/08/21 05/08/21 Range/Units 21:04 21:04 21:04 WBC 17.9 H (4.8-10.8) X10*3/uL RBC 4.67 (4.60-5.80) X10*6/uL Hgb 13.5 L (14.0-18.0) g/dl Hct 38.5 L (42-52) % MCV 82.4 (80-98) fL MCH 28.9 (27.0-33.0) pg MCHC 35.1 (31.0-36.0) g/dl RDW 12.7 (11.0-16.0) % Plt Count 200 (160-400) X10*3/uL MPV 10.2 (9.4-12.4) fL Immature Gran % (Auto) 0.6 H (0.0-0.4) % Neut % (Auto) 87.2 H (45-73) % Lymph % (Auto) 5.9 L (20-40) % [place] % (Auto) 6.0 (2-11) % Eos % (Auto) 0.1 (0-4) % Baso % (Auto) 0.2 (0-2) % Lymph # (Auto) 1.1 L (1.2-4.9) X10*3/uL [place] # (Auto) 1.1 (0.1-1.2) X10*3/uL Eos # (Auto) 0.0 (0.0-0.4) X10*3/uL Baso # (Auto) 0.0 (0.0-0.2) X10*3/uL Abs Immat Gran (auto) 0.11 H (0.00-0.03) X10*3/uL Absolute Neuts (auto) 15.6 H (2.0-8.3) X10*3/uL Absolute Nucleated RBC 0.000 (0.0-0.012) X10*3/uL Nucleated RBC % (auto) 0.0 (0.0-0.2) /100WBC Sodium 137 (135-145) mmol/L Potassium 4.7 (3.3-5.1) mmol/L Chloride 106 (96-108) mmol/L Carbon Dioxide 22 (22-29) mmol/L Anion Gap 14 (12-20) BUN 16 (9-16) mg/dL Creatinine 0.72 (0.5-1.4) mg/dL Estim Creat Clear Calc 87.4 Estimated GFR > 60 Random Glucose 188 H (60-115) mg/dL Lactic Acid (0.5-2.0) mmol/L Calcium 9.4 (8.4-10.2) mg/dL Total Bilirubin 0.6 (0.0-1.0) mg/dL AST 34 (5-37) U/L ALT 27 (0-40) U/L Alkaline Phosphatase 93 (39-117) U/L Total Protein 7.4 (6.5-8.0) g/dL Albumin 4.0 (3.5-5.0) g/dL Urine Color YELLOW Urine Appearance HAZY Urine pH 6.0 (5.0-8.0) Ur Specific [place] 1.020 (1.005-1.025) Urine Protein NEG (NEG-TRACE) MG/DL Urine Glucose (UA) NEG (NEG) MG/DL Urine Ketones NEG (NEG) MG/DL Urine Blood 2+ H (NEG) Urine Nitrite NEG (NEG) Ur Leukocyte Esterase 1+ H (NEG) Urine RBC 0-2 (0) /HPF Urine WBC 1-4 (0-4) /HPF Ur Squamous Epith Cells NONE /LPF Urine Bacteria 1+ /LPF Urine Mucus TRACE /LPF COVID-19 (MELODIE) (Negative) COVID-19 Clin Com 05/08/21 05/08/21 Range/Units 21:05 21:48 WBC (4.8-10.8) X10*3/uL RBC (4.60-5.80) X10*6/uL Hgb (14.0-18.0) g/dl Hct (42-52) % MCV (80-98) fL MCH (27.0-33.0) pg MCHC (31.0-36.0) g/dl RDW (11.0-16.0) % Plt Count (160-400) X10*3/uL MPV (9.4-12.4) fL Immature Gran % (Auto) (0.0-0.4) % Neut % (Auto) (45-73) % Lymph % (Auto) (20-40) % [place] % (Auto) (2-11) % Eos % (Auto) (0-4) % Baso % (Auto) (0-2) % Lymph # (Auto) (1.2-4.9) X10*3/uL [place] # (Auto) (0.1-1.2) X10*3/uL Eos # (Auto) (0.0-0.4) X10*3/uL Baso # (Auto) (0.0-0.2) X10*3/uL Abs Immat Gran (auto) (0.00-0.03) X10*3/uL Absolute Neuts (auto) (2.0-8.3) X10*3/uL Absolute Nucleated RBC (0.0-0.012) X10*3/uL Nucleated RBC % (auto) (0.0-0.2) /100WBC Sodium (135-145) mmol/L Potassium (3.3-5.1) mmol/L Chloride (96-108) mmol/L Carbon Dioxide (22-29) mmol/L Anion Gap (12-20) BUN (9-16) mg/dL Creatinine (0.5-1.4) mg/dL Estim Creat Clear Calc Estimated GFR Random Glucose (60-115) mg/dL Lactic Acid 0.9 (0.5-2.0) mmol/L Calcium (8.4-10.2) mg/dL Total Bilirubin (0.0-1.0) mg/dL AST (5-37) U/L ALT (0-40) U/L Alkaline Phosphatase (39-117) U/L Total Protein (6.5-8.0) g/dL Albumin (3.5-5.0) g/dL Urine Color Urine Appearance Urine pH (5.0-8.0) Ur Specific [place] (1.005-1.025) Urine Protein (NEG-TRACE) MG/DL Urine Glucose (UA) (NEG) MG/DL Urine Ketones (NEG) MG/DL Urine Blood (NEG) Urine Nitrite (NEG) Ur Leukocyte Esterase (NEG) Urine RBC (0) /HPF Urine WBC (0-4) /HPF Ur Squamous Epith Cells /LPF Urine Bacteria /LPF Urine Mucus /LPF COVID-19 (MELODIE) Negative (Negative) COVID-19 Clin Com See Note Imaging Data Scrotal ultrasound: Attestation: I personally reviewed and interpreted this imaging study as follows: Radiologist's impression: EXAMINATION: US SCROTUM CLINICAL INFORMATION: Testicular pain and swelling. COMPARISON: None TECHNIQUE: A sonogram of the scrotum was performed assessing maddox-scale appearance and color Doppler flow. Spectral Doppler analysis of the arterial and venous flow were performed in the testes bilaterally. FINDINGS: RIGHT: Right testicle measures 3.7 x 2.5 x 2.7 cm, volume 12.8 mL. There is some heterogeneous Betty 80 of the right testicle but focal testicular parenchymal lesions are visualized. Spectral Doppler analysis of the arterial and venous flow is increased in the right testis. The epididymis is diffusely enlarged, heterogeneous, and hypervascular. There is a small right hydrocele with a few low-level internal echoes. Right epididymal Doppler flow is increased. LEFT: Left testicle measures 3.9 x 2.0 x 2.2 cm, volume 8.7 mL. There is some heterogeneity of the left testicle but no focal testicular parenchymal lesions are visualized. Spectral Doppler analysis of the arterial and venous flow is normal in the left testis. Left epididymal head is normal in size. No left hydrocele or varicocele is seen. Left epididymal Doppler flow is normal. US/US scrotum doppler IMPRESSION: The right epididymis is enlarged, heterogeneous, and hypervascular consistent with acute right epididymitis. ? There is asymmetrically increased vascularity within the right testicle compared to the left suggesting component of acute orchitis as well. CT scan - abdomen: Attestation: I personally reviewed and interpreted this imaging study as follows: Radiologist's impression: EXAMINATION: CT ABDOMEN AND PELVIS WITHOUT CONTRAST? CLINICAL INFORMATION: Flank pain and abdominal pain. Testicular swelling.? COMPARISON: CT abdomen/pelvis dated from 12/15/2019.? TECHNIQUE: Multidetector volumetric imaging was performed from the superior aspect of the liver through the pubic symphysis. Sagittal and coronal reformatted images were obtained on the technologist's workstation.? This CT examination was performed using dose optimization techniques as appropriate, variously including the following: *Automated exposure control *Adjustment of mA and/or kV according to patient size (this includes techniques or standardized protocols for targeted exams where dose is matched to indication/reason for exam; i.e. extremities or head) *Use of iterative reconstruction technique DLP: 355 mGy-cm FINDINGS: LUNG BASES: Tiny calcified granuloma in the right lower lobe (80 to: 4). Mild subsegmental atelectasis. No focal consolidation or pleural effusion.? LIVER, GALLBLADDER, AND BILIARY TREE: The liver is normal in size, shape, and attenuation. No focal hepatic lesion or biliary ductal dilatation is present. The gallbladder is unremarkable with no evidence of radiopaque gallstones, gallbladder wall thickening, or obvious pericholecystic inflammatory changes.? PANCREAS: A few small parenchymal hypodensities likely representing areas of intraparenchymal fat and are similar to prior. The main pancreatic duct is nondilated. No surrounding free fluid or fat stranding.? SPLEEN: Unremarkable.? ADRENAL GLANDS: Unremarkable.? KIDNEYS AND URETERS: The kidneys are normal in size, shape, and attenuation. Redemonstration of a 3.6 cm cyst in the left kidney (54:6) and an exophytic 1.8 cm cyst off the upper pole of the right kidney (28:3). In the lower pole of the left kidney (50: 6) and upper pole of the right kidney (47:6) there are too small to characterize hypodensities that statistically are likely to represent simple cysts and do not requires further workup. In the mid pole the right kidney there is a questionable punctate nonobstructive stone (50: 6). No hydronephrosis, or hydroureter. No perinephric stranding. ? BLADDER: The urinary bladder wall is slightly trabeculated and very minimally thickened. There is no significant perivesical fat stranding. ? GASTROINTESTINAL TRACT: The stomach is nondilated. There is fecalization of some loops of small bowel suggesting slow transit. There is significant stool burden throughout the colon, largest in the rectum without associated inflammatory changes. No bowel obstruction. Normal appendix.? ABDOMINAL WALL: Tiny fat-containing umbilical hernia.? LYMPH NODES: Lack of intravenous contrast and paucity of intra-abdominal fat limits evaluation of lymph nodes. However, accounting for these limitations, there is no lymphadenopathy by size criteria. VASCULAR: Scattered atherosclerotic disease of the abdominal aorta. No aneurysmal dilatation. PELVIC VISCERA: Prostatectomy. Refer to same day scrotal ultrasound for appreciation of findings suspicious for right epididymitis.? OSSEOUS STRUCTURES: Again noted is asymmetric fatty atrophy of the muscles of the left hip and left thigh, unchanged. No acute or aggressive osseous abnormalities. Multilevel degenerative changes.? CT/CT abdomen pelvis wo con IMPRESSION: Questionable punctate nonobstructing stone in the mid pole the right kidney. No hydronephrosis or hydroureter. ? Fecalization within some loops of the small bowel and large amount of stool throughout the colon suggests slow transit and constipation. ? Minimal trabeculation and thickening of the urinary bladder without significant perivesical fat stranding. Correlate clinically for cystitis. Refer to same day scrotal ultrasound for visualization of findings suspicious for right epididymitis and possibly right orchitis. Critical Care Time Critical Care Time Critical Care Time: Yes Total Critical Care Time: 45 Attestation: I have personally provided critical care time exclusive of time spent on separately billable procedures. Time includes review of laboratory data, radiology results, discussion with consultants, and monitoring for potential decompensation. Interventions were performed as documented.
[2021-05-08 20:38] VITALS: BP 150/80; PULSE 98; RESP 16; TEMP 38.7; O2SAT 99
[2021-05-08 21:14] LABS: MANUAL DIFF FLAG NO
[2021-05-08 21:18] LABS: Appearance Urine HAZY; Basophils Percent Auto 0.2 % (0-2); Color Urine YELLOW; Eosinophils Percent Auto 0.1 % (0-4); Glucose Urine UA NEG (NEG); Hematocrit 38.5 % (42-52); Hemoglobin 13.5 g/dl (14.0-18.0); Imm Gran Abs Auto 0.11 X10*3/uL (0.00-0.03); Imm Gran Pct Auto 0.6 % (0.0-0.4); Leukocyte Esterase Urine 1+ (NEG); Lymphocytes Absolute Auto 1.1 X10*3/uL (1.2-4.9); Lymphocytes Percent Auto 5.9 % (20-40); Mean Corpuscular HGB Conc 35.1 g/dl (31.0-36.0); Mean Corpuscular Hemoglobin 28.9 pg (27.0-33.0); Mean Corpuscular Volume 82.4 fL (80-98); Mean Platelet Volume 10.2 fL (9.4-12.4); Monocytes Absolute Auto 1.1 X10*3/uL (0.1-1.2); Neutrophils Absolute Auto 15.6 X10*3/uL (2.0-8.3); Neutrophils Percent Auto 87.2 % (45-73); Nitrite Urine NEG (NEG); Platelet Count 200 X10*3/uL (160-400); Red Blood Count 4.67 X10*6/uL (4.60-5.80); Red Cell Distribution Width 12.7 % (11.0-16.0); UACC Culture Trigger YES; Urine Blood 2+ (NEG); Urine Ketones NEG (NEG); Urine Protein NEG (NEG-TRACE); White Blood Count 17.9 X10*3/uL (4.8-10.8)
[2021-05-08 21:25] LABS: Bacteria Urine 1+ /LPF; Mucus Urine TRACE /LPF
[2021-05-08 21:26] LABS: RBC Urine 0-2 /HPF (0)
[2021-05-08 21:47] LABS: Lactic Acid 0.9 mmol/L (0.5-2.0)
[2021-05-08 21:56] LABS: Alanine Aminotransferase 27 U/L (0-40); Alkaline Phosphatase 93 U/L (39-117); Anion Gap 14 (12-20); Aspartate Amino Transferase 34 U/L (5-37); Bilirubin Total 0.6 mg/dL (0.0-1.0); Blood Urea Nitrogen 16 mg/dL (9-16); Calcium 9.4 mg/dL (8.4-10.2); Carbon Dioxide 22 mmol/L (22-29); Chloride 106 mmol/L (96-108); Creatinine Clr Calc Pharmacy 87.4; Estimated Glomerular Filt Rate > 60; Glucose Random 188 mg/dL (60-115); Potassium 4.7 mmol/L (3.3-5.1); Sodium 137 mmol/L (135-145); Total Protein 7.4 g/dL (6.5-8.0)
[2021-05-08 21:58] VITALS: BP 142/79; PULSE 94; RESP 20; TEMP 37.7; O2SAT 98
[2021-05-08] MEDS: 0.9 % Sodium Chloride 1,000 ML 999 ML IVCONT (21:59)
--- NOTE | 2021-05-08 22:00 | PC.NURSE ---
Pt resting on stretcher in NAD, breathing with ease on RA. Pt English speaking primarily, able to communicate effectively in Slov[place] with this RN. Pt's labs obtained by DALE Bee with exception of 2nd set of blood cultures and lucas swab. This RN to collect remaining labs. Pt placed on bedside lunchroom monitor, VSS. Pt c/o R testicular pain. Pt to be medicated per MAR for pain/discomfort and with abx. Stretcher in lowest locked position, rails raised, call eid within reach. Pt with red fall prevention socks, red fall wrist band and red falling star posted outside of room.
[2021-05-08 22:06] VITALS: RESP 15
[2021-05-08] MEDS: cefTRIAXone sodium 1 GM in 0.9 % Sodium Chloride 50 ML IV (22:06)
[2021-05-08] MEDS: Morphine Sulfate 2 MG/ML CARTRIDGE IVPUSH (22:06)
[2021-05-08] MEDS: oxyCODONE HCl Immed Release 5 MG TABLET PO (22:07)
[2021-05-08] MEDS: Azithromycin 500 MG TABLET 1000 MG PO (22:07)
[2021-05-08 22:19] LABS: COVID-19 Test Negative (Negative); IDNOW Serial# 55D5AD1C
--- NOTE | 2021-05-08 23:00 | PM.IMHP ---
History of Present Illness Date of Service: 05/08/21 Chief Complaint: Abdominal pain/testicular pain 65-year-old male with a past medical history of hypertension, hyperlipidemia, diabetes, BPH, overactive bladder, history of UTIs, history of prostatitis presented to the hospital with a chief complaint of abdominal pain/testicular pain. Patient reports that for the past 1 week he has been having testicular pain; complains of urinary frequency and dysuria; also complains of lower abdominal discomfort. Patient reported subjective fevers. Denies any nausea vomiting or diarrhea. Denies any chest pain palpitations lightheadedness or dizziness. Denies any numbness tingling or focal weakness. Review of all other systems is negative except mentioned above ER course: Per ER team patient exam was fairly benign; noted mild tenderness in the lower abdomen; discussed with Dr. cano who recommended to admit to Medicine Service. Patient was given ceftriaxone and azithromycin. Cultures were sent. Admitted for further management. CT abdomen showed colonic stool as well as findings concerning for acute right epididymitis/orchitis. Ultrasound was negative for testicular torsion. [facility] Medical History (Updated 05/08/21 @ 23:00 by Felipe Albrecht MD) Asthma BPH (benign prostatic hyperplasia) Diabetes Elevated cholesterol Polio Pertinent family history: Reviewed; diabetes runs in the family Surgical History Surgical history unknown Social History Alcohol intake: never Patient Tobacco Use Status: Tobacco use Unknown Advance Directives: No Advance Directives Information Provided: No Meds Allergies Allergy/AdvReac Type Severity Reaction Status Date / Time Penicillins Allergy Intermediate RASH Verified 04/08/21 21:03 Active Medications: Current Medications Acetaminophen (Acetaminophen 325 Mg Tablet) 650 mg PO Q6H PRN PRN Reason: Pain, Mild (Pain Scale 1-3) Docusate Sodium (Docusate Sodium 100 Mg Capsule) 100 mg PO BID JULI Sodium Chloride (Ns) 1,000 mls @ 100 mls/hr IVCONT .Q10H JULI Magnesium Hydroxide (Milk Of Magnesia 30 Ml Oral.Susp) 30 ml PO DAILY PRN PRN Reason: Constipation Pharmacy Consult (Consult Rx Perform Med Rec) 1 each MISCELLANE ONCE STA Stop: 05/08/21 22:52 Sodium Chloride (0.9 % Sodium Chloride Flush 3 Ml Syringe) 3 ml IVFLUSH QSHIFT [facility] Home Medications Medication Instructions Recorded Confirmed Last Taken Type aspirin 81 mg tablet,delayed 81 mg PO DAILY 06/16/20 06/16/20 Unknown History release atorvastatin 40 mg tablet 40 mg PO DAILY 06/16/20 06/16/20 Unknown History fluticasone propionate 110 1,000,000 mcg PO BID 06/16/20 06/16/20 Unknown History mcg/actuation HFA aerosol inhaler lisinopril 10 mg tablet 10 mg PO DAILY 06/16/20 06/16/20 Unknown History metformin 1,000 mg tablet 1,000 mg PO BID 06/16/20 06/16/20 Unknown History tamsulosin 0.4 mg capsule 0.4 mg PO DAILY 06/16/20 06/16/20 Unknown History acetaminophen 650 mg 650 mg PO Q8H PRN 10/21/20 Unknown History tablet,extended release albuterol sulfate 90 mcg/actuation 0 mcg INHALATION 10/21/20 Unknown History aerosol inhaler benzonatate 100 mg capsule 100 mg PO TID 10/21/20 Unknown History blood sugar diagnostic #10 ea 12/27/20 Unknown History diclofenac sodium 1 % topical gel 1 ea TOPICAL QID 12/27/20 Unknown History lancets 28 gauge #100 ea 12/27/20 Unknown History alcohol swabs 1 pad TOPICAL TID 03/30/21 Unknown History Physical Exam Vital Signs and Narrative: Vital Signs: Last Vital Signs Temp 100 F 05/08/21 21:58 Pulse 94 05/08/21 21:58 Resp 15 05/08/21 22:06 BP 142/79 H 05/08/21 21:58 Pulse Ox 98 05/08/21 21:58 Body Mass Index 22.4 Gen: Appears be in no acute distress HEENT: NCAT, Moist mucosa. Pulmonary: Vesicular breath sounds, fair air entry CVS: Normal S1-S2 Abdomen: BS+, Soft, mildly tender in the lower abdomen; no guarding no rigidity Extremities: Warm well perfused Neuro: Alert and awake. Results Labs CBC and Chem 7: 05/08/21 21:04 05/08/21 21:04 Labs: Laboratory Results - last 24 hr 05/08/21 05/08/21 05/08/21 21:04 21:04 21:04 MCV 82.4 MCH 28.9 MCHC 35.1 RDW 12.7 Plt Count 200 MPV 10.2 Immature Gran % (Auto) 0.6 H Neut % (Auto) 87.2 H Lymph % (Auto) 5.9 L [place] % (Auto) 6.0 Eos % (Auto) 0.1 Baso % (Auto) 0.2 Lymph # (Auto) 1.1 L [place] # (Auto) 1.1 Eos # (Auto) 0.0 Baso # (Auto) 0.0 Abs Immat Gran (auto) 0.11 H Absolute Neuts (auto) 15.6 H Absolute Nucleated RBC 0.000 Nucleated RBC % (auto) 0.0 Anion Gap 14 Estim Creat Clear Calc 87.4 Estimated GFR > 60 Random Glucose 188 H Lactic Acid Calcium 9.4 Total Bilirubin 0.6 AST 34 ALT 27 Alkaline Phosphatase 93 Total Protein 7.4 Albumin 4.0 Urine Color YELLOW Urine Appearance HAZY Urine pH 6.0 Ur Specific [place] 1.020 Urine Protein NEG Urine Glucose (UA) NEG Urine Ketones NEG Urine Blood 2+ H Urine Nitrite NEG Ur Leukocyte Esterase 1+ H Urine RBC 0-2 Urine WBC 1-4 Ur Squamous Epith Cells NONE Urine Bacteria 1+ Urine Mucus TRACE COVID-19 (MELODIE) COVID-19 Clin Com 05/08/21 05/08/21 21:05 21:48 MCV MCH MCHC RDW Plt Count MPV Immature Gran % (Auto) Neut % (Auto) Lymph % (Auto) [place] % (Auto) Eos % (Auto) Baso % (Auto) Lymph # (Auto) [place] # (Auto) Eos # (Auto) Baso # (Auto) Abs Immat Gran (auto) Absolute Neuts (auto) Absolute Nucleated RBC Nucleated RBC % (auto) Anion Gap Estim Creat Clear Calc Estimated GFR Random Glucose Lactic Acid 0.9 Calcium Total Bilirubin AST ALT Alkaline Phosphatase Total Protein Albumin Urine Color Urine Appearance Urine pH Ur Specific [place] Urine Protein Urine Glucose (UA) Urine Ketones Urine Blood Urine Nitrite Ur Leukocyte Esterase Urine RBC Urine WBC Ur Squamous Epith Cells Urine Bacteria Urine Mucus COVID-19 (MELODIE) Negative COVID-19 Clin Com See Note Imaging Radiologist's Impressions: Impressions Scrotum Ultrasound 05/08/21 20:12 IMPRESSION: The right epididymis is enlarged, heterogeneous, and hypervascular consistent with acute right epididymitis. There is asymmetrically increased vascularity within the right testicle compared to the left suggesting component of acute orchitis as well. Abdomen/Pelvis CT 05/08/21 20:21 IMPRESSION: Questionable punctate nonobstructing stone in the mid pole the right kidney. No hydronephrosis or hydroureter. Fecalization within some loops of the small bowel and large amount of stool throughout the colon suggests slow transit and constipation. Minimal trabeculation and thickening of the urinary bladder without significant perivesical fat stranding. Correlate clinically for cystitis. Refer to same day scrotal ultrasound for visualization of findings suspicious for right epididymitis and possibly right orchitis. Assessment and Plan (1) Epididymitis: Status: Acute (2) Orchitis: Status: Acute (3) Kidney stone: Status: Acute 65-year-old male with a past medical history of hypertension, hyperlipidemia, diabetes, BPH, overactive bladder, history of UTIs, history of prostatitis presented to the hospital with a chief complaint of abdominal pain/testicular pain. Noted to have acute right epididymitis/orchitis. Also has constipation. Admitted for further management. Acute right epididymitis/orchitis: Will keep the patient on levofloxacin. Follow cultures Urology team was notified by the ER team; ID consult for further recommendations Constipation: Bowel regimen Diabetes: Insulin sliding scale. Hypertension/hyperlipidemia: Continue home medications History of BPH: Continue Flomax DVT prophylaxis: SCD boots Code status: Full code Quality Stroke Does the patient have a stroke diagnosis?: No VTE Prior VTE?: No VTE Risk Level:: Medical - low VTE Device Contraindication: N/A - Device Ordered VTE Drug Contraindication: Treatment Not Indicated
[2021-05-08] MEDS: levoFLOXacin/D5W 750 MG/150 ML PIGGYBACK 100 MG IV (23:26)
[2021-05-08] MEDS: 0.9 % Sodium Chloride 1,000 ML 100 ML IVCONT (23:27)
[2021-05-08 23:39] VITALS: BP 145/71; PULSE 100; RESP 16; TEMP 37.4; O2SAT 96
--- NOTE | 2021-05-08 23:45 | PC.NURSE ---
Pt resting on stretcher in NAD, breathing with ease on RA. Pt reports no pain at this time. Pt medicated per SEP, POC glucose assessed. Pt stretcher in low locked position, rails raised, call eid within reach.
[2021-05-08 23:57] LABS: Glucose, Whole Blood 185 mg/dL (60-115)
[2021-05-09 01:23] LABS: CT PCR NOT DETECTED (Not Detect.); NG PCR NOT DETECTED (Not Detect.)
[2021-05-09 02:00] VITALS: BP 136/79; PULSE 97; RESP 16; TEMP 37.2; O2SAT 97
--- NOTE | 2021-05-09 02:06 | PC.NURSE ---
Pt resting on stretcher in NAD, breathing with ease on RA. Pt denies pain at this time. Pt offers no complaints. Pt stretcher remains in lowest locked position, rails raised, call eid and urinal within reach.
[2021-05-09 04:00] VITALS: BP 142/76; PULSE 98; RESP 15; O2SAT 100
--- NOTE | 2021-05-09 06:46 | PHA.MEDREC ---
Pharmacy Consult ? Medication Reconciliation Med Rec complete overnight by RN. Pharmacy reviewed med rec. There are no remarkable issues for provider's attention. Tessa Beaver, VanessaD
[2021-05-09 07:15] LABS: MANUAL DIFF FLAG NO
[2021-05-09] MEDS: Acetaminophen 325 MG TABLET 650 MG PO (07:18)
[2021-05-09 07:23] LABS: Basophils Percent Auto 0.2 % (0-2); Eosinophils Percent Auto 0.1 % (0-4); Hematocrit 34.7 % (42-52); Hemoglobin 12.1 g/dl (14.0-18.0); Imm Gran Abs Auto 0.09 X10*3/uL (0.00-0.03); Imm Gran Pct Auto 0.5 % (0.0-0.4); Lymphocytes Absolute Auto 1.9 X10*3/uL (1.2-4.9); Lymphocytes Percent Auto 10.7 % (20-40); Mean Corpuscular HGB Conc 34.9 g/dl (31.0-36.0); Mean Corpuscular Hemoglobin 29.1 pg (27.0-33.0); Mean Corpuscular Volume 83.4 fL (80-98); Monocytes Absolute Auto 1.3 X10*3/uL (0.1-1.2); Monocytes Percent Auto 7.1 % (2-11); Neutrophils Absolute Auto 14.5 X10*3/uL (2.0-8.3); Neutrophils Percent Auto 81.4 % (45-73); Platelet Count 190 X10*3/uL (160-400); Red Blood Count 4.16 X10*6/uL (4.60-5.80); Red Cell Distribution Width 12.9 % (11.0-16.0); White Blood Count 17.8 X10*3/uL (4.8-10.8)
[2021-05-09 07:34] LABS: Glucose, Whole Blood 162 mg/dL (60-115)
[2021-05-09 08:06] VITALS: PULSE 78; O2SAT 98
[2021-05-09] MEDS: Albuterol Sulfate 90 MCG 8 GM INHALER 2 PUFF INHALE (08:06)
[2021-05-09 08:08] LABS: Anion Gap 9 (12-20); Blood Urea Nitrogen 10 mg/dL (9-16); Calcium 8.5 mg/dL (8.4-10.2); Carbon Dioxide 25 mmol/L (22-29); Chloride 108 mmol/L (96-108); Creatinine Clr Calc Pharmacy 98.3; Estimated Glomerular Filt Rate > 60; Glucose Random 162 mg/dL (60-115); Potassium 3.9 mmol/L (3.3-5.1); Sodium 138 mmol/L (135-145)
[2021-05-09] MEDS: 0.9 % Sodium Chloride 1,000 ML 100 ML IVCONT ×2 (08:52→21:48)
[2021-05-09 09:19] VITALS: BP 142/76
[2021-05-09] MEDS: Tamsulosin HCL 0.4 MG CAPSULE PO (09:19)
[2021-05-09] MEDS: lisinopriL 10 MG TABLET PO (09:19)
[2021-05-09] MEDS: Aspirin Enteric Coated 81 MG TABLET.DR PO (09:20)
[2021-05-09] MEDS: Docusate Sodium 100 MG CAPSULE PO ×2 (09:20→21:49)
[2021-05-09] MEDS: Finasteride 5 MG TABLET PO (10:01)
--- NOTE | 2021-05-09 12:45 | P.PNIM_ITS ---
Subjective Subjective Date of Service: 05/10/21 Interval History: Patient being followed for abdominal pain diagnosed to have acute right epididymitis and orchitis, at present feeling better with less abdominal pain, denies fever, no chills, denies dysuria. Review of Systems General no headache, no dizziness, no fever chills. CVS no chest pain, no palpitation. Respiratory no cough, no sob. Gastrointestinal no nausea, no vomiting, less abdominal pain no urinary frequency or dysuria Physical Exam Vital Signs: Vital Signs: Last Vital Signs Temp 98.9 F 05/09/21 02:00 Pulse 78 05/09/21 08:06 Resp 15 05/09/21 04:00 BP 142/76 H 05/09/21 09:19 Pulse Ox 100 05/09/21 04:00 Body Mass Index 22.4 General awake alert x3,no acute distress. Neck supple no JVD. CVS regular rate rhythm, Respiratory lungs clear to auscultation, no respiratory distress, no wheeze, no rhonchi. Gastrointestinal abdomen soft, mild lower abdomen tenderness, bowel sounds audible, no guarding , no rigidity. Extremities no edema. Neuro nonfocal , speech clear. scrotum erythematous and swollen with enlarged tender rt.testicles Skin no rash Objective Data Active Medications Acetaminophen (Acetaminophen 325 Mg Tablet) 650 mg PO Q6H PRN PRN Reason: Pain, Mild (Pain Scale 1-3) Last Admin: 05/09/21 07:18 Dose: 650 mg Documented by: GEORGE Albuterol Sulfate (Albuterol Sulfate 90 Mcg 8 Gm Inhaler) 2 puff INHALE DAILY [facility] Last Admin: 05/09/21 08:06 Dose: 2 puff Documented by: AMANDA Aspirin (Aspirin Enteric Coated 81 Mg Tablet.) 81 mg PO DAILY [facility] Last Admin: 05/09/21 09:20 Dose: 81 mg Documented by: GEORGE Atorvastatin Calcium (Atorvastatin Calcium 40 Mg Tablet) 40 mg PO BEDTIME [facility] Dextrose (Dextrose 50 % 25 Gm/50 Ml Vial) 25 gm IVPUSH Q15M PRN; Protocol PRN Reason: per Hypoglycemia Standing Ord. Docusate Sodium (Docusate Sodium 100 Mg Capsule) 100 mg PO BID [facility] Last Admin: 05/09/21 09:20 Dose: 100 mg Documented by: GEORGE Finasteride (Finasteride 5 Mg Tablet) 5 mg PO DAILY [facility] Last Admin: 05/09/21 10:01 Dose: 5 mg Documented by: GEORGE Glucose (Glucose Gel 15 Gm Gel..Gram.) 15 gm PO Q15M PRN; Protocol PRN Reason: per Hypoglycemia Standing Ord. Sodium Chloride (Ns) 1,000 mls @ 100 mls/hr IVCONT .Q10H [facility] Last Admin: 05/09/21 08:52 Dose: 100 mls/hr Documented by: GEORGE Levofloxacin (Levaquin) 750 mg in 150 mls @ 100 mls/hr IV Q24H [facility] Last Infusion: 05/09/21 01:02 Dose: 0 mls/hr Documented by: REMINGTON Insulin Human Lispro (Insulin Lispro 100 Unit/Ml 3 Ml Vial) 0 unit SUBCUT QIDACHS [facility]; Protocol Last Admin: 05/09/21 08:06 Dose: Not Given Documented by: GEORGE Non-Admin Reason: See Note Lisinopril (Lisinopril 10 Mg Tablet) 10 mg PO DAILY [facility]; Protocol Last Admin: 05/09/21 09:19 Dose: 10 mg Documented by: GEORGE Magnesium Hydroxide (Milk Of Magnesia 30 Ml Oral.Susp) 30 ml PO DAILY PRN PRN Reason: Constipation Melatonin (Melatonin 3 Mg Tablet) 6 mg PO BEDTIME PRN PRN Reason: Insomnia Oxybutynin Chloride (Oxybutynin Chloride Er 5 Mg Tab.Er.24) 10 mg PO DAILY [facility] Last Admin: 05/09/21 09:20 Dose: 10 mg Documented by: GEORGE Senna (Sennosides 8.6 Mg Tablet) 17.2 mg PO BEDTIME PRN PRN Reason: Constipation Sodium Chloride (0.9 % Sodium Chloride Flush 3 Ml Syringe) 3 ml IVFLUSH QSHIFT [facility] Last Admin: 05/09/21 08:06 Dose: Not Given Documented by: GEORGE Non-Admin Reason: Med Not Available Tamsulosin HCl (Tamsulosin Hcl 0.4 Mg Capsule) 0.4 mg PO DAILY [facility] Last Admin: 05/09/21 09:19 Dose: 0.4 mg Documented by: GEORGE Labs CBC & Chem 7: 05/10/21 10:57 05/09/21 06:57 Labs: Laboratory Results - last 24 hr 05/08/21 05/08/21 05/08/21 21:04 21:04 21:04 MCV 82.4 MCH 28.9 MCHC 35.1 RDW 12.7 Plt Count 200 MPV 10.2 Immature Gran % (Auto) 0.6 H Neut % (Auto) 87.2 H Lymph % (Auto) 5.9 L [place] % (Auto) 6.0 Eos % (Auto) 0.1 Baso % (Auto) 0.2 Lymph # (Auto) 1.1 L [place] # (Auto) 1.1 Eos # (Auto) 0.0 Baso # (Auto) 0.0 Abs Immat Gran (auto) 0.11 H Absolute Neuts (auto) 15.6 H Absolute Nucleated RBC 0.000 Nucleated RBC % (auto) 0.0 Anion Gap 14 Estim Creat Clear Calc 87.4 Estimated GFR > 60 POC Glucose Random Glucose 188 H Lactic Acid Calcium 9.4 Total Bilirubin 0.6 AST 34 ALT 27 Alkaline Phosphatase 93 Total Protein 7.4 Albumin 4.0 Urine Color YELLOW Urine Appearance HAZY Urine pH 6.0 Ur Specific [place] 1.020 Urine Protein NEG Urine Glucose (UA) NEG Urine Ketones NEG Urine Blood 2+ H Urine Nitrite NEG Ur Leukocyte Esterase 1+ H Urine RBC 0-2 Urine WBC 1-4 Ur Squamous Epith Cells NONE Urine Bacteria 1+ Urine Mucus TRACE Chlam trachomat DNA PCR COVID-19 (MELODIE) COVID-19 Clin Com N.gonorrhoeae DNA (PCR) 05/08/21 05/08/21 05/08/21 21:04 21:05 21:48 MCV MCH MCHC RDW Plt Count MPV Immature Gran % (Auto) Neut % (Auto) Lymph % (Auto) [place] % (Auto) Eos % (Auto) Baso % (Auto) Lymph # (Auto) [place] # (Auto) Eos # (Auto) Baso # (Auto) Abs Immat Gran (auto) Absolute Neuts (auto) Absolute Nucleated RBC Nucleated RBC % (auto) Anion Gap Estim Creat Clear Calc Estimated GFR POC Glucose Random Glucose Lactic Acid 0.9 Calcium Total Bilirubin AST ALT Alkaline Phosphatase Total Protein Albumin Urine Color Urine Appearance Urine pH Ur Specific [place] Urine Protein Urine Glucose (UA) Urine Ketones Urine Blood Urine Nitrite Ur Leukocyte Esterase Urine RBC Urine WBC Ur Squamous Epith Cells Urine Bacteria Urine Mucus Chlam trachomat DNA PCR NOT DETECTED COVID-19 (MELODIE) Negative COVID-19 Clin Com See Note N.gonorrhoeae DNA (PCR) NOT DETECTED 05/08/21 05/09/21 05/09/21 23:52 06:57 06:57 MCV 83.4 MCH 29.1 MCHC 34.9 RDW 12.9 Plt Count 190 MPV 10.0 Immature Gran % (Auto) 0.5 H Neut % (Auto) 81.4 H Lymph % (Auto) 10.7 L [place] % (Auto) 7.1 Eos % (Auto) 0.1 Baso % (Auto) 0.2 Lymph # (Auto) 1.9 [place] # (Auto) 1.3 H Eos # (Auto) 0.0 Baso # (Auto) 0.0 Abs Immat Gran (auto) 0.09 H Absolute Neuts (auto) 14.5 H Absolute Nucleated RBC 0.000 Nucleated RBC % (auto) 0.0 Anion Gap 9 L Estim Creat Clear Calc 98.3 Estimated GFR > 60 POC Glucose 185 H Random Glucose 162 H Lactic Acid Calcium 8.5 D Total Bilirubin AST ALT Alkaline Phosphatase Total Protein Albumin Urine Color Urine Appearance Urine pH Ur Specific [place] Urine Protein Urine Glucose (UA) Urine Ketones Urine Blood Urine Nitrite Ur Leukocyte Esterase Urine RBC Urine WBC Ur Squamous Epith Cells Urine Bacteria Urine Mucus Chlam trachomat DNA PCR COVID-19 (MELODIE) COVID-19 Clin Com N.gonorrhoeae DNA (PCR) 05/09/21 07:31 MCV MCH MCHC RDW Plt Count MPV Immature Gran % (Auto) Neut % (Auto) Lymph % (Auto) [place] % (Auto) Eos % (Auto) Baso % (Auto) Lymph # (Auto) [place] # (Auto) Eos # (Auto) Baso # (Auto) Abs Immat Gran (auto) Absolute Neuts (auto) Absolute Nucleated RBC Nucleated RBC % (auto) Anion Gap Estim Creat Clear Calc Estimated GFR POC Glucose 162 H Random Glucose Lactic Acid Calcium Total Bilirubin AST ALT Alkaline Phosphatase Total Protein Albumin Urine Color Urine Appearance Urine pH Ur Specific [place] Urine Protein Urine Glucose (UA) Urine Ketones Urine Blood Urine Nitrite Ur Leukocyte Esterase Urine RBC Urine WBC Ur Squamous Epith Cells Urine Bacteria Urine Mucus Chlam trachomat DNA PCR COVID-19 (MELODIE) COVID-19 Clin Com N.gonorrhoeae DNA (PCR) Microbiology Microbiology Results: Microbiology 05/08/21 Unknown Urine Culture - Preliminary Urine clean catch - Clean Catch Midstream Gram negative nora Assessment and Plan (1) Epididymitis: Status: Acute (2) Orchitis: Status: Acute (3) Diabetes: Status: Acute (4) Overactive bladder: Status: Acute Assessment and Plan: 65-year-old male with a past medical history of hypertension, hyperlipidemia, diabetes, BPH, overactive bladder, history of UTIs, history of prostatitis presented to the hospital with a chief complaint of abdominal pain/testicular pain.? Noted to have acute right epididymitis/orchitis.? Sepsis due to Acute right epididymitis/orchitis: Continue IV Levaquin Fever resolved persistent leukocytosis Urine culture growing Gram-negative rods, blood cultures x2 pending Await Urology input Case discussed with ID she agrees with above antibiotic Constipation:? Bowel regimen Diabetes: Blood sugars stable, continue diabetic diet and Insulin sliding scale. Hypertension/hyperlipidemia:? Continue home medications History of BPH:? Continue Flomax, oxybutynin and Proscar DVT prophylaxis:? SCD boots Code status:? Full code Quality Stroke Does the patient have a stroke diagnosis?: No VTE Prior VTE?: No VTE Risk Level:: Medical - low VTE Device Contraindication: N/A - Device Ordered VTE Drug Contraindication: Treatment Not Indicated
[2021-05-09 12:47] LABS: Glucose, Whole Blood 119 mg/dL (60-115)
--- NOTE | 2021-05-09 14:42 | MHC.CM.PN ---
Met with patient and conference interpreter in regards to discharge planning. Patient lives with his , ambulates with crutches and had no services prior to coming to the hospital. PCP verified as Wilber [facility]. HCP completed, signed and witnessed. Original given to patient. Copy placed in chart. IMM explained and signed. Patient received 2 Covid vaccines but doesn't know which brand or when. Patient's daughter will transport him home when medically stable. Continue to monitor for d/c needs.
[2021-05-09 17:53] LABS: Glucose, Whole Blood 156 mg/dL (60-115)
--- NOTE | 2021-05-09 19:12 | PC.NURSE ---
REPORT FROM BRITTANIE AT 19:30, PT ADMIT AND AWAITING ROOM ASSIGNMENT.
[2021-05-09 19:25] VITALS: BP 133/70; PULSE 84; RESP 16; O2SAT 99
--- NOTE | 2021-05-09 20:26 | PC.NURSE ---
URINAL EMPTIED, APROX 500 ML URINE. PT REPORT GIVEN TO FLOOR. PT READY FOR TRANSPORT.
[2021-05-09 21:16] VITALS: BP 148/67; PULSE 82; RESP 15; TEMP 36.6; O2SAT 99
[2021-05-09 21:23] VITALS: BMI 23.4
[2021-05-09 21:23] LABS: Glucose, Whole Blood 173 mg/dL (60-115)
[2021-05-09] MEDS: Atorvastatin Calcium 40 MG TABLET PO (21:49)
[2021-05-09] MEDS: levoFLOXacin/D5W 750 MG/150 ML PIGGYBACK 100 MG IV (21:49)
[2021-05-10] VITALS: BP 148/79; PULSE 77; RESP 16; TEMP 37; O2SAT 98
[2021-05-10 03:16] VITALS: BP 146/73; PULSE 79; RESP 16; TEMP 36.4; O2SAT 100
[2021-05-10 07:14] VITALS: BP 132/72; PULSE 72; RESP 18; TEMP 36.7; O2SAT 97
[2021-05-10 07:19] LABS: Glucose, Whole Blood 117 mg/dL (60-115)
[2021-05-10] MEDS: Tamsulosin HCL 0.4 MG CAPSULE PO (07:49)
[2021-05-10] MEDS: Docusate Sodium 100 MG CAPSULE PO (07:50)
[2021-05-10] MEDS: lisinopriL 10 MG TABLET PO (07:50)
[2021-05-10] MEDS: Finasteride 5 MG TABLET PO (07:50)
[2021-05-10] MEDS: Aspirin Enteric Coated 81 MG TABLET.DR PO (07:50)
[2021-05-10 11:17] LABS: MANUAL DIFF FLAG NO
[2021-05-10 11:20] LABS: Basophils Percent Auto 0.4 % (0-2); Eosinophils Absolute Auto 0.1 X10*3/uL (0.0-0.4); Eosinophils Percent Auto 1.6 % (0-4); Hematocrit 34.9 % (42-52); Hemoglobin 12.1 g/dl (14.0-18.0); Imm Gran Abs Auto 0.03 X10*3/uL (0.00-0.03); Imm Gran Pct Auto 0.4 % (0.0-0.4); Lymphocytes Absolute Auto 1.5 X10*3/uL (1.2-4.9); Lymphocytes Percent Auto 18.3 % (20-40); Mean Corpuscular HGB Conc 34.7 g/dl (31.0-36.0); Mean Corpuscular Hemoglobin 29.2 pg (27.0-33.0); Mean Corpuscular Volume 84.1 fL (80-98); Mean Platelet Volume 9.8 fL (9.4-12.4); Monocytes Absolute Auto 0.5 X10*3/uL (0.1-1.2); Monocytes Percent Auto 6.4 % (2-11); Neutrophils Absolute Auto 5.9 X10*3/uL (2.0-8.3); Neutrophils Percent Auto 72.9 % (45-73); Platelet Count 194 X10*3/uL (160-400); Red Blood Count 4.15 X10*6/uL (4.60-5.80); Red Cell Distribution Width 12.9 % (11.0-16.0); White Blood Count 8.1 X10*3/uL (4.8-10.8)
[2021-05-10 11:36] VITALS: BP 114/62; PULSE 76; RESP 18; TEMP 36.4; O2SAT 98
[2021-05-10 11:40] LABS: Glucose, Whole Blood 114 mg/dL (60-115)
--- NOTE | 2021-05-10 12:27 | P.CNUR_ITS ---
History of Present Illness Consult details Consult date: 05/09/21 Narrative: Mendez is a male known to Urology Prior prostate procedure Presents with epididymitis UA performed has no evidence of UTI responding to iv antibiotics Treat for 14 days Review of Systems Constitutional: Constitutional: Denies chills and Denies fever(s) Cardiovascular: Cardiovascular: Reports no additional cardiovascular complaints and Denies syncope Respiratory: Respiratory: Denies cough Gastrointestinal: Gastrointestinal: Denies abdominal pain and Denies heartburn Genitourinary: Genitourinary: Reports as per HPI and Denies change in libido Neurologic: Denies syncope Psychiatric: Psychiatric: Denies change in libido Endocrine: Endocrine: Denies change in libido [facility] Past Medical History Medical History Asthma BPH (benign prostatic hyperplasia) Diabetes Elevated cholesterol Overactive bladder Polio Surgical History Surgical History (Updated 05/24/21 @ 14:05 by ANA Melendez) History of surgery Surgical history unknown Social History Social History Household Members: Spouse Housing: House Do you presently have visiting nurse or other home services: No Alcohol intake: never Patient Tobacco Use Status: Never used Tobacco service: No Current occupational status: retired Meds Allergies Allergy/AdvReac Type Severity Reaction Status Date / Time Penicillins Allergy Intermediate RASH Verified 05/24/21 14:04 Active Medications: Current Medications Acetaminophen (Acetaminophen 325 Mg Tablet) 650 mg PO Q6H PRN PRN Reason: Pain, Mild (Pain Scale 1-3) Last Admin: 05/09/21 07:18 Dose: 650 mg Documented by: Albuterol Sulfate (Albuterol Sulfate 90 Mcg 8 Gm Inhaler) 2 puff INHALE DAILY [facility] Last Admin: 05/10/21 08:30 Dose: Not Given Documented by: Aspirin (Aspirin Enteric Coated 81 Mg Tablet.Dr) 81 mg PO DAILY [facility] Last Admin: 05/10/21 07:50 Dose: 81 mg Documented by: Atorvastatin Calcium (Atorvastatin Calcium 40 Mg Tablet) 40 mg PO BEDTIME [facility] Last Admin: 05/09/21 21:49 Dose: 40 mg Documented by: Dextrose (Dextrose 50 % 25 Gm/50 Ml Vial) 25 gm IVPUSH Q15M PRN; Protocol PRN Reason: per Hypoglycemia Standing Ord. Docusate Sodium (Docusate Sodium 100 Mg Capsule) 100 mg PO BID [facility] Last Admin: 05/10/21 07:50 Dose: 100 mg Documented by: Finasteride (Finasteride 5 Mg Tablet) 5 mg PO DAILY [facility] Last Admin: 05/10/21 07:50 Dose: 5 mg Documented by: Glucose (Glucose Gel 15 Gm Gel..Gram.) 15 gm PO Q15M PRN; Protocol PRN Reason: per Hypoglycemia Standing Ord. Levofloxacin (Levaquin) 750 mg in 150 mls @ 100 mls/hr IV Q24H [facility] Last Infusion: 05/09/21 23:46 Dose: Infused Documented by: Insulin Human Lispro (Insulin Lispro 100 Unit/Ml 3 Ml Vial) 0 unit SUBCUT QIDACHS [facility]; Protocol Last Admin: 05/10/21 12:00 Dose: Not Given Documented by: Lisinopril (Lisinopril 10 Mg Tablet) 10 mg PO DAILY [facility]; Protocol Last Admin: 05/10/21 07:50 Dose: 10 mg Documented by: Magnesium Hydroxide (Milk Of Magnesia 30 Ml Oral.Susp) 30 ml PO DAILY PRN PRN Reason: Constipation Melatonin (Melatonin 3 Mg Tablet) 6 mg PO BEDTIME PRN PRN Reason: Insomnia Oxybutynin Chloride (Oxybutynin Chloride Er 5 Mg Tab.Er.24) 10 mg PO DAILY [facility] Last Admin: 05/10/21 07:49 Dose: 10 mg Documented by: Senna (Sennosides 8.6 Mg Tablet) 17.2 mg PO BEDTIME PRN PRN Reason: Constipation Sodium Chloride (0.9 % Sodium Chloride Flush 3 Ml Syringe) 3 ml IVFLUSH QSHIFT [facility] Last Admin: 05/10/21 07:51 Dose: Not Given Documented by: Tamsulosin HCl (Tamsulosin Hcl 0.4 Mg Capsule) 0.4 mg PO DAILY [facility] Last Admin: 05/10/21 07:49 Dose: 0.4 mg Documented by: Home Medications Medication Instructions Recorded Confirmed Last Taken Type blood sugar diagnostic #10 ea 12/27/20 Unknown History lancets 28 gauge #100 ea 12/27/20 Unknown History acetaminophen 650 mg 650 mg PO DAILY 05/08/21 05/08/21 Unknown History tablet,extended release (8 Hour Pain Reliever) albuterol sulfate 90 mcg/actuation 2 puff INHALATION DAILY 05/08/21 05/08/21 Unknown History aerosol inhaler (Ventolin HFA) aspirin 81 mg tablet,delayed 1 tab PO DAILY 05/08/21 05/08/21 Unknown History release atorvastatin 40 mg tablet 1 tab PO BEDTIME 05/08/21 05/08/21 Unknown History diclofenac sodium 1 % topical gel 1 applic TOPICAL QID 05/08/21 05/08/21 Unknown History finasteride 5 mg tablet 1 tab PO DAILY 05/08/21 05/08/21 Unknown History fluticasone propionate 110 2 puff INHALATION BID 05/08/21 05/08/21 Unknown History mcg/actuation HFA aerosol inhaler (Flovent HFA) lisinopril 10 mg tablet 1 tab PO DAILY 05/08/21 05/08/21 Unknown History metformin 1,000 mg tablet 1 tab PO BID 05/08/21 05/08/21 Unknown History tamsulosin 0.4 mg capsule 1 cap PO DAILY 05/08/21 05/08/21 Unknown History blood-glucose meter (DZZOMStyle #1 ea 05/24/21 Unknown History Moffit Lite) Physical Exam Vital Signs: Vital Signs: Last Vital Signs Temp 97.6 F 05/10/21 11:36 Pulse 76 05/10/21 11:36 Resp 18 05/10/21 11:36 BP 114/62 05/10/21 11:36 Pulse Ox 98 05/10/21 11:36 Body Mass Index 23.4 Const: General: cooperative, healthy appearing, comfortable and no acute distress Orientation/consciousness: patient oriented x3 HENMT: Face and sinus: Yes normal facial exam Mouth: moist mucous membranes Neck: Neck: Yes normal visual inspection, Yes full ROM and Yes trachea midline Chest: Chest palpation & inspection: normal inspection of the chest Resp: Effort & Inspection: normal respiratory effort, able to speak in complete sentences and no respiratory distress GI: Inspection: Yes normal to inspection Back/Spine/Pelvis: Cervical Spine: normal cervical lordosis Thoracic/Lumbar Spine: thoracic and lumbar spine normal to inspection Skin: General skin exam: no rashes or lesions noted Neuro: General: patient oriented x3, gait normal, tone normal and moves all extremities Extrem: General: Yes normal to inspection and Yes capillary refill normal Results Labs Result diagrams: 05/10/21 10:57 05/09/21 06:57 Labs: Abnormal lab results 05/09/21 05/09/21 05/09/21 Range/Units 12:42 17:47 21:19 RBC (4.60-5.80) X10*6/uL Hgb (14.0-18.0) g/dl Hct (42-52) % Lymph % (Auto) (20-40) % POC Glucose 119 H 156 H 173 H (60-115) mg/dL 05/10/21 05/10/21 Range/Units 07:12 10:57 RBC 4.15 L (4.60-5.80) X10*6/uL Hgb 12.1 L (14.0-18.0) g/dl Hct 34.9 L (42-52) % Lymph % (Auto) 18.3 L (20-40) % POC Glucose 117 H (60-115) mg/dL Short CBC 05/10/21 Range/Units 10:57 WBC 8.1 (4.8-10.8) X10*3/uL Hgb 12.1 L (14.0-18.0) g/dl Hct 34.9 L (42-52) % Plt Count 194 (160-400) X10*3/uL Urine 05/08/21 Range/Units 21:04 Urine Color YELLOW Urine Appearance HAZY Urine pH 6.0 (5.0-8.0) Ur Specific [place] 1.020 (1.005-1.025) Urine Protein NEG (NEG-TRACE) MG/DL Urine Glucose (UA) NEG (NEG) MG/DL All other labs normal. Assessment and Plan (1) Epididymitis: Status: Acute Outpatient follow-up of stream Procedures Date of Service Date of Service: 05/10/21
--- NOTE | 2021-05-10 13:03 | P.DS_ITS ---
DS: Providers Provider Date of Service: 05/10/21 Date of admission: 05/08/21 22:57 Primary care physician: Wilber Bush MD Consults: 05/08/21 22:53 Consult to Infectious Diseases Routine Consulting Provider: Cheli Benito Reason for consultation: Orchitis/epidimitis 05/08/21 23:00 Consult to Urology Routine Consulting Provider: Rusty Cano Reason for consultation: renal stone; epididymitis/orchitis DS: Diagnosis Discharge Diagnosis (1) Epididymitis: Status: Acute (2) Orchitis: Status: Acute (3) Diabetes: Status: Acute (4) Overactive bladder: Status: Acute DS: Summary Hospital Course Hospital Course: History of presenting illness Date of Service: 05/08/21 Chief Complaint: Abdominal pain/testicular pain 65-year-old male with a past medical history of hypertension, hyperlipidemia, diabetes, BPH, overactive bladder, history of UTIs, history of prostatitis presented to the hospital with a chief complaint of abdominal pain/testicular pain. Patient reports that for the past 1 week he has been having testicular pain; complains of urinary frequency and dysuria; also complains of lower abdominal discomfort.? Patient reported subjective fevers. Denies any nausea vomiting or diarrhea. Denies any chest pain palpitations lightheadedness or dizziness. Denies any numbness tingling or focal weakness. Review of all other systems is negative except mentioned above ER course: Per ER team patient exam was fairly benign; noted mild tenderness in the lower abdomen; discussed with Dr. cano who recommended to admit to Medicine Service.? Patient was given ceftriaxone and azithromycin.? Cultures were sent.? Admitted for further management. CT abdomen showed colonic stool as well as findings concerning for acute right epididymitis/orchitis. Ultrasound was negative for testicular torsion. Hospital course 65-year-old male with a past medical history of hypertension, hyperlipidemia, diabetes, BPH, overactive bladder, history of UTIs, history of prostatitis presented to the hospital with a chief complaint of abdominal pain/testicular pain.? Noted to have acute right epididymitis/orchitis and sepsis, patient treated with IV antibiotics urine culture grew E coli blood cultures x2 remain negative, patient seen by Urology they recommend outpatient follow-up. Case discussed with infectious disease Dr. Benito she recommend 2 weeks of by mouth antibiotic since patient is hemodynamically stable abdominal pain has resolved, with significant improvement in right testicular swelling and redness therefore he is being discharged home to finish 2 weeks course of Ceftin twice daily and to have outpatient follow-up with Dr. Cano CT scan of abdomen also showed Constipation, therefore he is being discharged on stool softeners, recommend to drink plenty of fluids and avoid constipation Diabetes:? Blood sugars stable, continue diabetic diet and metformin Hypertension/hyperlipidemia:? Continue home medications History of BPH:? Continue Flomax, oxybutynin and Proscar and follow-up with Dr. Cano. Time Spent with Patient Time attestation: Total time spent providing and/or coordinating discharge services: Discharge coordination time: Greater than 30 minutes Quality: Stroke Does the patient have a stroke diagnosis?: No Physical Exam Vital Signs: Vital Signs: Last Vital Signs Temp 97.6 F 05/10/21 11:36 Pulse 76 05/10/21 11:36 Resp 18 05/10/21 11:36 BP 114/62 05/10/21 11:36 Pulse Ox 98 05/10/21 11:36 Body Mass Index 23.4 General awake aler t x3,no acute dist ress.? Neck supple no JVD. CVS? regu lar rate rhythm, R espiratory lungs c lear to auscultati on, no respiratory distress, no whee ze, no rhonchi. Ga strointestinal abd omen soft, nontend er, bowel sounds a udible, no guardin g , no rigidity. E xtremities no? sharon ma. Neuro nonfocal , speech clear. G U? significant imp rovement in scrota l erythema and rt. testicular tendern ess Skin no rash DS: Data Data Completed and Pending Labs on day of discharge: Laboratory Results - last 24 hr 05/09/21 05/09/21 05/10/21 17:47 21:19 07:12 WBC RBC Hgb Hct MCV MCH MCHC RDW Plt Count MPV Immature Gran % (Auto) Neut % (Auto) Lymph % (Auto) [place] % (Auto) Eos % (Auto) Baso % (Auto) Lymph # (Auto) [place] # (Auto) Eos # (Auto) Baso # (Auto) Abs Immat Gran (auto) Absolute Neuts (auto) Absolute Nucleated RBC Nucleated RBC % (auto) POC Glucose 156 H 173 H 117 H 05/10/21 05/10/21 10:57 11:34 WBC 8.1 RBC 4.15 L Hgb 12.1 L Hct 34.9 L MCV 84.1 MCH 29.2 MCHC 34.7 RDW 12.9 Plt Count 194 MPV 9.8 Immature Gran % (Auto) 0.4 Neut % (Auto) 72.9 Lymph % (Auto) 18.3 L [place] % (Auto) 6.4 Eos % (Auto) 1.6 Baso % (Auto) 0.4 Lymph # (Auto) 1.5 [place] # (Auto) 0.5 Eos # (Auto) 0.1 Baso # (Auto) 0.0 Abs Immat Gran (auto) 0.03 Absolute Neuts (auto) 5.9 Absolute Nucleated RBC 0.000 Nucleated RBC % (auto) 0.0 POC Glucose 114 Preliminary micro results at discharge 05/08/21 21:56 Blood Culture - Preliminary Blood - Venous No growth after 24 hours. 05/08/21 21:04 Blood Culture - Preliminary Blood - Venous No growth after 24 hours. Discharge Plan Discharge Patient Disposition: Home, Self-Care Discharge Diagnosis: Sepsis Acute Epididymitis Constipation Referrals: Wilber Bush MD [Primary Care Provider] - 1 Week Discharge Medications: New docusate sodium 100 mg Capsule 100 mg PO BID Qty: 60 RF: 0 cefuroxime axetil 500 mg tablet 500 mg PO Q12H 14 Days Qty: 28 RF: 0 Continued atorvastatin 40 mg tablet 1 tab PO BEDTIME RF: 0 oxybutynin chloride 10 mg tablet extended release 24hr 1 tab PO DAILY RF: 0 aspirin 81 mg tablet,delayed release (DR/EC) 1 tab PO DAILY RF: 0 acetaminophen [8 Hour Pain Reliever] 650 mg tablet extended release 650 mg PO DAILY RF: 0 tamsulosin 0.4 mg capsule 1 cap PO DAILY RF: 0 metformin 1,000 mg tablet 1 tab PO BID RF: 0 lisinopril 10 mg tablet 1 tab PO DAILY RF: 0 albuterol sulfate [Ventolin HFA] 90 mcg/actuation HFA aerosol inhaler 2 puff inhalation DAILY RF: 0 finasteride 5 mg tablet 1 tab PO DAILY RF: 0 Flovent HFA 110 mcg/actuation HFA aerosol inhaler 2 puff inhalation BID RF: 0 diclofenac sodium 1 % gel 1 applic topical QID RF: 0 Discharge Orders: Discharge Order (Routine); Ordered 05/10/21 Ordered By: Ashli Moore Diet: diabetic diet Activity on Discharge: As tolerated Stand Alone Forms: Patient Portal Discharge page Care Plan Goals: take ceftin twice daily for 2 weeks and follow-up with Urology Health Concerns: cont. all home meds drink fluids,avoid constipation take stool softners as needed Plan of Treatment: outpt. follow up with pcp and uro in 1 -2 weeks Assessment: as above
--- NOTE | 2021-05-10 13:27 | MHC.CM.PN ---
PATIENT IS RETURNING HOME WITH NO NEED FOR SERVICES RN AWARE OF PLAN. FAMILY TO TRANSPORT.
== END 2021-05-10 13:59 | disposition home or self-care (01) | DRG 872 ==
LOC: HO.ED 22:58 → HO.EDOVER 23:10 → HO.S3 05-09 18:42
PROVIDERS: Nurse Practitioner Family; Admitting Provider Hospitalist; Emergency Provider Emergency Medicine Emergency Medical Services; PCP Internal Medicine; Visit Provider Hospitalist
DX: A41.9 Sepsis, unspecified organism (principal); N45.3 Epididymo-orchitis; N40.0 Benign prostatic hyperplasia without lower urinary tract symptoms; N20.0 Calculus of kidney; E11.9 Type 2 diabetes mellitus without complications; K59.00 Constipation, unspecified; B96.20 Unspecified Escherichia coli [E. coli] as the cause of diseases classified elsewhere; I10 Essential (primary) hypertension; E78.5 Hyperlipidemia, unspecified; Z87.440 Personal history of urinary (tract) infections; Z20.822 Contact with and (suspected) exposure to COVID-19; Z79.82 Long term (current) use of aspirin; Z79.84 Long term (current) use of oral hypoglycemic drugs; Z79.899 Other long term (current) drug therapy
CPT/HCPCS: 36415; 74176; 80048; 80053; 81001; 82947; 83605; 85025; 87040; 87086; 87088; 87186; 87491; 87591; 87635; 93975; 94640; 99285; J0696; J1956; J2270

== ENCOUNTER 2021-05-16 13:47 | Outpatient (REF) | payer MEDICARE, SELFPAY | END 2021-05-16 13:48 | disposition home or self-care (01) | LOC: HO.LAB 13:47 | PROVIDERS: Visit Provider Internal Medicine | DX: Z20.822 Contact with and (suspected) exposure to COVID-19 (principal) | CPT/HCPCS: C9803; U0003; U0005 ==

== ENCOUNTER → 2021-05-24 13:50 | Outpatient (BNVA) | payer MEDICARE, SELFPAY | PROVIDERS: PCP Internal Medicine; Visit Provider Urology | DX: N45.2 Orchitis (principal); N40.1 Benign prostatic hyperplasia with lower urinary tract symptoms; N13.8 Other obstructive and reflux uropathy; N32.81 Overactive bladder; E11.9 Type 2 diabetes mellitus without complications; E78.00 Pure hypercholesterolemia, unspecified; Z88.0 Allergy status to penicillin | CPT/HCPCS: 51798; 99212 ==

== ENCOUNTER → 2021-11-29 13:14 | Outpatient (BNVA) | payer MEDICARE, SELFPAY | PROVIDERS: PCP Internal Medicine; Visit Provider Urology | DX: N40.1 Benign prostatic hyperplasia with lower urinary tract symptoms (principal); N13.8 Other obstructive and reflux uropathy; R35.1 Nocturia; R39.12 Poor urinary stream | CPT/HCPCS: 51798; 99212 ==

== ENCOUNTER 2022-04-04 14:55 | Outpatient (REF) | payer MEDICARE, SELFPAY | END 2022-04-04 14:56 | disposition home or self-care (01) | LOC: HO.LAB 14:55 | PROVIDERS: PCP Internal Medicine; Visit Provider Urology | DX: N40.1 Benign prostatic hyperplasia with lower urinary tract symptoms (principal); N13.8 Other obstructive and reflux uropathy; N39.0 Urinary tract infection, site not specified | CPT/HCPCS: 52000; 99212 ==

== ENCOUNTER 2022-04-09 11:14 | Outpatient (REF) | payer OTHER, SELFPAY ==
[2022-04-09 12:18] LABS: Urine Cytology See Pathology rpt
== END 2022-04-09 11:15 | disposition home or self-care (01) ==
LOC: HO.LAB 11:14
PROVIDERS: Visit Provider Urology
DX: R31.29 Other microscopic hematuria (principal)
CPT/HCPCS: 88112

== ENCOUNTER 2022-05-24 09:03 | Outpatient (REF) | payer OTHER, SELFPAY ==
--- NOTE | ~2022-05-24 | US_ITS ---
EXAMINATION: US RETROPERITONEAL LIMITED (RENAL ONLY) CLINICAL INFORMATION: Calculus of kidney. COMPARISON: CT abdomen and pelvis 05/08/2021. Renal ultrasound 03/15/2019. TECHNIQUE: Real-time imaging of the kidneys. Technically difficult study secondary to bowel gas. FINDINGS: RIGHT KIDNEY: 8.5 x 3.5 x 4.4 cm (SAG x AP x TRV). The kidney is normal in size, contour, and echogenicity. Renal cortical thickness is normal. No renal calculi or hydronephrosis. There is a 2.2 cm simple cyst in the upper to midpole, for which no imaging follow-up is routinely recommended. LEFT KIDNEY: 9.6 x 5.1 x 5.0 cm (SAG x AP x TRV). The kidney is normal in size, contour, and echogenicity. Renal cortical thickness is normal. No renal calculi or hydronephrosis. There is a 3.6 cm simple cyst in the interpolar region for which no imaging follow-up is routinely recommended. US/US renal BI IMPRESSION: No nephrolithiasis or hydronephrosis.
== END 2022-05-24 09:04 | disposition home or self-care (01) ==
LOC: HO.US 09:03
PROVIDERS: Visit Provider Urology
DX: N20.0 Calculus of kidney (principal); N39.0 Urinary tract infection, site not specified
CPT/HCPCS: 76775

== ENCOUNTER → 2022-06-07 14:47 | Outpatient (BNVA) | payer OTHER, SELFPAY | PROVIDERS: PCP Internal Medicine; Visit Provider Urology | DX: N45.2 Orchitis (principal); N40.1 Benign prostatic hyperplasia with lower urinary tract symptoms; N13.8 Other obstructive and reflux uropathy; R35.1 Nocturia | CPT/HCPCS: Q3014 ==

== ENCOUNTER 2022-07-29 08:20 | Emergency (ER) | payer OTHER, SELFPAY ==
--- NOTE | ~2022-07-29 | XR_ITS ---
EXAMINATION: XR CHEST CLINICAL INFORMATION: Shortness of breath COMPARISON: May 18, 2019 TECHNIQUE: 2 views of the chest were obtained. FINDINGS: No significant abnormality is noted involving the heart, lungs, mediastinum, bony thorax or soft tissues. XR/XR chest 2V IMPRESSION: No acute disease.
[2022-07-29 08:23] VITALS: BP 120/60; PULSE 89; RESP 19; TEMP 36.6; O2SAT 98; BMI 26.6
[2022-07-29 09:24] LABS: Influenza A PCR NEGATIVE (Negative); Influenza B PCR NEGATIVE (Negative); Resp Syncy Virus RNA Qual PCR NEGATIVE (Negative); SARS COV2 PCR INHOUSE POSITIVE (Negative)
--- NOTE | 2022-07-29 09:56 | ED_ITS ---
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 Patient was exposed to his was also was having the same symptoms but no recent travel. Related Data Home Medications Medication Instructions Recorded Confirmed blood sugar diagnostic #10 ea 12/27/20 04/18/22 lancets 28 gauge #100 ea 12/27/20 04/18/22 acetaminophen 650 mg 650 mg PO DAILY 05/08/21 04/18/22 tablet,extended release (8 Hour Pain Reliever) albuterol sulfate 90 mcg/actuation 2 puff inhalation DAILY 05/08/21 04/18/22 aerosol inhaler (Ventolin HFA) aspirin 81 mg tablet,delayed 1 tab PO DAILY 05/08/21 04/18/22 release atorvastatin 40 mg tablet 1 tab PO BEDTIME 05/08/21 04/18/22 fluticasone propionate 110 2 puff inhalation BID 05/08/21 04/18/22 mcg/actuation HFA aerosol inhaler (Flovent HFA) lisinopril 10 mg tablet 1 tab PO DAILY 05/08/21 04/18/22 metformin 1,000 mg tablet 1 tab PO BID 05/08/21 04/18/22 blood-glucose meter (FreeStyle #1 ea 05/24/21 04/18/22 [place] Lite kit) alcohol swabs (Easy Touch Alcohol 1 pad topical TID 06/04/22 Prep Pads) Previous Rx's Medication Instructions Recorded finasteride 5 mg tablet 5 mg PO DAILY #90 tabs 04/09/22 docusate calcium 240 mg capsule 240 mg PO BEDTIME PRN constipation 04/18/22 90 days #90 caps oxybutynin chloride 10 mg 10 mg PO DAILY #90 tabs 05/17/22 tablet,extended release 24 hr bisacodyl 5 mg tablet,delayed 10 mg PO ONCE 1 day #2 tabs 07/04/22 release (Dulcolax (bisacodyl)) polyethylene glycol 3350 17 238 g PO ONCE 1 day #238 grams 07/04/22 gram/dose oral powder (Miralax) Allergies Allergy/AdvReac Type Severity Reaction Status Date / Time Penicillins Allergy Intermediate RASH Verified 06/04/22 14:28 Review of Systems Review of Systems: All other systems are reviewed and are negative Constitutional: Reports as per HPI and Reports no additional constitutional complaints Eyes: Reports as per HPI and Reports no additional eye complaints Reports system reviewed and no additional complaints, except as documented Cardiovascular: Reports as per HPI and Reports no additional cardiovascular complaints Respiratory: Reports as per HPI and Reports no additional respiratory complaints Gastrointestinal: Reports as per HPI and Reports no additional gastrointestinal complaints Genitourinary: Reports no additional female genitourinary complaints Musculoskeletal: Reports no additional musculoskeletal complaints Skin/Breast: Reports system reviewed and no additional complaints, except as docu Psychiatric: Reports no additional psychiatric complaints Endocrine: Reports no additional endocrine complaints Hematologic/Lymphatic: Reports no additional hematologic/lymphatic complaints Allergic/Immunologic: Reports no additional allergic/immunologic complaints Reports system reviewed and no additional complaints, except as documented and Reports Abnormal speech present [facility] Past Medical History Medical History Asthma BPH (benign prostatic hyperplasia) Diabetes Overactive bladder Polio Surgical History History of surgery Surgical history unknown Family History Family History Father Substance use disorder Mother Diabetes Hypertension Asthma Brother No problems noted. Social History Social History Household Members: Spouse Housing: House Do you presently have visiting nurse or other home services: No Alcohol intake: never Patient Tobacco Use Status: Former Tobacco user Tobacco use type: Cigarette e-Cigarette/Vaping Use: Never Used Second Hand Smoke Exposure: No Advance Directives: Yes Advance Directives on File: Yes Advance Directives Date on File: 04/18/22 service: No Current occupational status: retired Cognitive needs: Yes Hearing needs: No Vision needs: No Physical Exam Vital Signs: Vital Signs: Last Vital Signs Temp 98 F 07/29/22 08:23 Pulse 89 07/29/22 08:23 Resp 19 07/29/22 08:23 BP 120/60 07/29/22 08:23 Pulse Ox 98 07/29/22 08:23 O2 Del Method 07/29/22 08:23 BMI result Body Mass Index 26.6 Vital signs have been reviewed as appeared to be correct. Blood pressure normal. Heart rate normal. Respiration rate normal. Temperature normal. Oxygen saturation normal. Appearance: Alert. Oriented X3. No acute distress. Head: Normal external exam. Normocephalic. Atraumatic. No Pereyra signs noted. No raccoon eyes noted Eyes: PERRLA. EOMI. Conjunctiva and sclera normal. Eyelids normal. ENT: TM's Normal. Pharynx normal. Uvula midline. Moist mucous membranes. No trismus noted. No drooling noted. No muffled voice noted. Neck: Normal inspection. Neck supple. FROM. No adenopathy. Thyroid Normal. No me ningeal signs. No neck mass noted. CVS: Normal heart rate and rhythm. Heart sound normal. No murmurs noted. Pulses normal throughout. Respiratory: No respiratory distress. Painless inspiration. Breath sounds normal. No wheezes/rales/rhonchi noted. Chest nontender. No accessory muscle usage noted or decreased air movement noted. Abdomen: Soft and nontender. Bowel sounds normal in all 4 quadrants. No distention noted. No organomegaly noted. No visible injury noted. Back: No CVA tenderness. Full range of motion noted. Skin: Skin warm and dry. Normal skin color. Normal skin turgor. No ra shes/lesions/lacerations noted. Extremities: No lower extremity edema. Extremities exhibit normal range of motion. Extremities nontender. Neuro: Oriented X 3. Cranial nerve exam: II-XII are grossly intact No motor deficit. No sensory deficit. Reflexes normal. Course Course Course Narrative: COVID-19 infection, patient was instructed to use Tylenol to control fever and symptoms and stay home for self quarantine for 5 days, keep social distancing, facemask, frequent handwashing. Medical Decision Making Differential Diagnosis Differential Diagnoses: The differential diagnosis associated with the pres entation includes (RSV, COVID-19 infection, influenza, pneumonia.) Lab Data MDM Lab Attestation statement: I reviewed the patient's lab results. Labs: Lab Results 07/29/22 Range/Units 08:29 Influenza Type A (PCR) NEGATIVE (Negative) Influenza Type B (PCR) NEGATIVE (Negative) RSV RNA Qual (PCR) NEGATIVE (Negative) SARS-CoV-2 RNA (RT-PCR) POSITIVE A (Negative) Independent Interpretation I performed an independent interpretation of an: Plain X-Ray (No acute pathology.) Radiology Impression Discussion of test interpretation with radiology: I have reviewed the radiologist's reading. Discharge Plan Discharge Clinical Impression: COVID-19 virus infection Patient Disposition: Home, Self-Care Instructions: COVID-19 (Coronavirus Disease 2019) (ED) Prescriptions: No Action finasteride 5 mg tablet 5 mg PO DAILY Qty: 90 1RF oxybutynin chloride 10 mg tablet extended release 24hr 10 mg PO DAILY Qty: 90 3RF bisacodyl [Dulcolax (bisacodyl)] 5 mg tablet,delayed release (DR/EC) 10 mg PO ONCE 1 Days Qty: 2 0RF Rx Instructions: take orally as directed prior to colonoscopy polyethylene glycol 3350 [Miralax] 17 gram/dose powder 238 g PO ONCE 1 Days Qty: 238 0RF Rx Instructions: take orally as directed prior to colonoscopy atorvastatin 40 mg tablet 1 tab PO BEDTIME aspirin 81 mg tablet,delayed release (DR/EC) 1 tab PO DAILY acetaminophen [8 Hour Pain Reliever] 650 mg tablet extended release 650 mg PO DAILY metformin 1,000 mg tablet 1 tab PO BID lisinopril 10 mg tablet 1 tab PO DAILY albuterol sulfate [Ventolin HFA] 90 mcg/actuation HFA aerosol inhaler 2 puff inhalation DAILY Flovent HFA 110 mcg/actuation HFA aerosol inhaler 2 puff inhalation BID docusate calcium 240 mg capsule 240 mg PO BEDTIME PRN (Reason: constipation) 90 Days Qty: 90 1RF (DME) lancets 28 gauge misc See Rx Instructions topical TID Qty: 100 Rx Instructions: As directed (DME) blood sugar diagnostic Strip See Rx Instructions Not Applicable .MEDSUPPLY Qty: 10 Rx Instructions: As directed (DME) blood-glucose meter [FreeStyle [place] Lite] Kit See Rx Instructions .ROUTE .MEDSUPPLY Qty: 1 Rx Instructions: As directed alcohol swabs [Easy Touch Alcohol Prep Pads] Pads, Medicated 1 pad topical TID Referrals: Ashley Butcher MD [Primary Care Provider] -
== END 2022-07-29 10:16 | disposition home or self-care (01) ==
PROVIDERS: Emergency Provider Emergency Medicine; PCP Internal Medicine
DX: U07.1 COVID-19 (principal)
CPT/HCPCS: 0241U; 71046; 99283

== ENCOUNTER 2022-12-03 10:28 | Outpatient (REF) | payer OTHER, SELFPAY ==
[2022-12-03 13:35] LABS: Alanine Aminotransferase 25 U/L (0-40); Albumin Level 3.9 g/dL (3.5-5.0); Alkaline Phosphatase 88 U/L (39-117); Anion Gap 13 (12-20); Aspartate Amino Transferase 19 U/L (5-37); Bilirubin Total 0.6 mg/dL (0.0-1.0); Blood Urea Nitrogen 13 mg/dL (9-16); Calcium 9.6 mg/dL (8.4-10.2); Carbon Dioxide 25 mmol/L (22-29); Chloride 108 mmol/L (96-108); Cholesterol 158 mg/dL; Estimated Glomerular Filt Rate > 60; Glucose Fasting 160 mg/dL (60-99); HDL Cholesterol 51 mg/dL; LDL Cholesterol Calculated 89 mg/dl; Potassium 4.4 mmol/L (3.3-5.1); Sodium 142 mmol/L (135-145); Total Protein 6.7 g/dL (6.5-8.0); Triglycerides 91 mg/dL
[2022-12-03 19:14] LABS: Creatinine Urine 80.07 mg/dL; Microalbum/Creatinine Ratio Ur 34.9 ug/mg cr
== END 2022-12-03 10:29 | disposition home or self-care (01) ==
LOC: HO.LAB 10:28
PROVIDERS: PCP Internal Medicine; Visit Provider Internal Medicine
DX: E11.9 Type 2 diabetes mellitus without complications (principal); E78.5 Hyperlipidemia, unspecified
CPT/HCPCS: 36415; 80053; 80061; 82043

== ENCOUNTER → 2022-12-04 11:29 | Outpatient (BNVA) | payer OTHER, SELFPAY | PROVIDERS: PCP Internal Medicine; Visit Provider Urology | DX: N40.1 Benign prostatic hyperplasia with lower urinary tract symptoms (principal); N13.8 Other obstructive and reflux uropathy; R32 Unspecified urinary incontinence; R35.1 Nocturia; N45.3 Epididymo-orchitis; Z79.82 Long term (current) use of aspirin; Z79.899 Other long term (current) drug therapy | CPT/HCPCS: 51798; 99212 ==

== ENCOUNTER → 2023-01-02 07:43 | Day surgery (SDC) | payer OTHER, SELFPAY ==
[2022-12-31 15:02] VITALS: BMI 21.6
--- NOTE | 2023-01-01 12:07 | P.CONAN_ITS ---
Documented by User: Martha Figueredo NP 01/01/23 12:07 HPI - Anesthesia Eval Consult details Narrative: 67yo M for Colonoscopy PMFSH Active Problems Active Problems: All Active Problems (Updated 12/31/22 @ 15:57 by Ashley Jamison MD) Leg length discrepancy (Acute) History of post-polio syndrome (Acute) BPH w urinary obs/LUTS (Acute) Nocturia more than twice per night (Acute) Weak urinary stream (Acute) Orchalgia (Acute) Chronic UTI (urinary tract infection) (Acute) Epididymitis (Acute) Orchitis (Acute) Kidney stone (Acute) Hyperlipidemia LDL goal <70 (Acute) Weight loss (Acute) Essential hypertension (Acute) Constipation by delayed colonic transit (Acute) COVID-19 virus infection (Acute) Physical exam (Acute) Urinary incontinence (Acute) Asthma (Acute) Diabetes (Acute) Past Medical History Medical History (Updated 12/31/22 @ 15:57 by Ashley Jamison MD) Asthma BPH (benign prostatic hyperplasia) Diabetes Overactive bladder Polio Family History Family History Father Substance use disorder Mother Diabetes Hypertension Asthma Brother No problems noted. Family history of problems with anesthesia: No Surgical History Surgical History (Updated 12/31/22 @ 15:02 by Sujey Lopez RN) History of surgery History of surgery on lower extremity Hx of colonoscopy History of Problems with Anesthesia: No Social History Social History Household Members: Spouse Housing: House Are you a primary rn wound care to a significant other at home: No Do you presently have visiting nurse or other home services: No Alcohol intake: never Patient Tobacco Use Status: Never used Tobacco e-Cigarette/Vaping Use: Never Used Second Hand Smoke Exposure: No Have you been hit, kicked, punched, or otherwise hurt by someone within the past year? If so, by whom?: No Are you DNR?: No Advance Directives: Yes Advance Directives Information Provided: No Advance Directives on File: Yes Advance Directives Date on File: 04/18/22 Recently lost weight without trying: No Nutrition Risks: No Nutritional Risk service: No Current occupational status: retired Cognitive needs: Yes Hearing needs: No Vision needs: No Meds Allergies Allergy/AdvReac Type Severity Reaction Status Date / Time Penicillins Allergy Intermediate RASH, itchy Verified 12/31/22 14:57 Home Medications Medication Instructions Recorded Confirmed Last Taken Type blood sugar diagnostic #10 ea 12/27/20 12/04/22 Unknown History lancets 28 gauge #100 ea 12/27/20 12/04/22 Unknown History acetaminophen 650 mg 650 mg PO DAILY 05/08/21 12/04/22 Unknown History tablet,extended release (8 Hour Pain Reliever) albuterol sulfate 90 mcg/actuation 2 puff inhalation DAILY 05/08/21 12/31/22 Unknown History aerosol inhaler (Ventolin HFA) aspirin 81 mg tablet,delayed 1 tab PO DAILY 05/08/21 01/02/23 12/26/22 History release atorvastatin 40 mg tablet 1 tab PO BEDTIME 05/08/21 12/31/22 Unknown History fluticasone propionate 110 2 puff inhalation BID 05/08/21 12/31/22 Unknown History mcg/actuation HFA aerosol inhaler (Flovent HFA) lisinopril 10 mg tablet 1 tab PO DAILY 05/08/21 12/31/22 Unknown History blood-glucose meter (FreeStyle #1 ea 05/24/21 12/04/22 Unknown History [place] Lite kit) alcohol swabs (Easy Touch Alcohol 1 pad topical TID 06/04/22 12/04/22 Unknown History Prep Pads) Exam Exam Date and Time: January 01, 2023 1207 Height,Weight and Vital Signs: Height 5 ft 5 in Weight 58.967 kg Pertinent Lab Results Pertinent Lab Results: Laboratory Tests 05/10/21 12/03/22 10:57 10:46 WBC 8.1 Hgb 12.1 L Hct 34.9 L Plt Count 194 Sodium 142 Potassium 4.4 Chloride 108 Carbon Dioxide 25 BUN 13 Creatinine 0.80 Assessment and Plan Assessment Anesthesia Assessment: Chart Reviewed Final Anesthetic Review Family History of Problems with Anesthesia: No History of Problems with Anesthesia: No Documented by User: Celestina Perez MD 01/02/23 08:51 [facility] Past Medical History Medical History (Updated 12/31/22 @ 15:57 by Ashlye Jamison MD) Asthma BPH (benign prostatic hyperplasia) Diabetes Overactive bladder Polio Family History Family History Father Substance use disorder Mother Diabetes Hypertension Asthma Brother No problems noted. Surgical History Surgical History (Updated 12/31/22 @ 15:02 by Sujey Lopez RN) History of surgery History of surgery on lower extremity Hx of colonoscopy Social History Social History Household Members: Spouse Housing: House Are you a primary rn wound care to a significant other at home: No Do you presently have visiting nurse or other home services: No Alcohol intake: never Patient Tobacco Use Status: Never used Tobacco e-Cigarette/Vaping Use: Never Used Second Hand Smoke Exposure: No Have you been hit, kicked, punched, or otherwise hurt by someone within the past year? If so, by whom?: No Are you DNR?: No Advance Directives: Yes Advance Directives Information Provided: No Advance Directives on File: Yes Advance Directives Date on File: 04/18/22 Recently lost weight without trying: No Nutrition Risks: No Nutritional Risk service: No Current occupational status: retired Cognitive needs: Yes Hearing needs: No Vision needs: No Meds Allergies Allergy/AdvReac Type Severity Reaction Status Date / Time Penicillins Allergy Intermediate RASH, itchy Verified 12/31/22 14:57 Home Medications Medication Instructions Recorded Confirmed Last Taken Type blood sugar diagnostic #10 ea 12/27/20 12/04/22 Unknown History lancets 28 gauge #100 ea 12/27/20 12/04/22 Unknown History acetaminophen 650 mg 650 mg PO DAILY 05/08/21 12/04/22 Unknown History tablet,extended release (8 Hour Pain Reliever) albuterol sulfate 90 mcg/actuation 2 puff inhalation DAILY 05/08/21 12/31/22 Unknown History aerosol inhaler (Ventolin HFA) aspirin 81 mg tablet,delayed 1 tab PO DAILY 05/08/21 01/02/2312/26/23 History release atorvastatin 40 mg tablet 1 tab PO BEDTIME 05/08/21 12/31/22 Unknown History fluticasone propionate 110 2 puff inhalation BID 05/08/21 12/31/22 Unknown History mcg/actuation HFA aerosol inhaler (Flovent HFA) lisinopril 10 mg tablet 1 tab PO DAILY 05/08/21 12/31/22 Unknown History blood-glucose meter (FreeStyle #1 ea 05/24/21 12/04/22 Unknown History [place] Lite kit) alcohol swabs (Easy Touch Alcohol 1 pad topical TID 06/04/22 12/04/22 Unknown History Prep Pads) Exam Airway Mallampati Class: II TM Dist: >3cm Neck ROM: Full Heart: rrr Lungs: cta Assessment and Plan Assessment Anesthesia Assessment: Anesthesia Plan Discussed and Chart Reviewed Final Anesthetic Review NPO: Yes ASA Class: III Final Preanesthetic Review: No Changes in Pt Med Stat, Meds/Allgs Chart Reviewed and Consent Obtained/Reviewed Patient Risk: Intermediate Procedure Risk: Intermediate Anesthetic Plan Anesthetic Plan: MAC: Disposition: Standard PACU
[2023-01-02 08:07] LABS: Glucose, Whole Blood 181 mg/dL (60-115)
[2023-01-02 08:11] VITALS: BP 125/73; PULSE 76; RESP 18; TEMP 36.1; O2SAT 99
[2023-01-02] MEDS: Lactated Ringers 1,000 ML 100 ML IVCONT (08:40)
[2023-01-02 08:43] VITALS: BMI 21.6
--- NOTE | 2023-01-02 08:45 | PC.NURSE ---
Chest clear, slightly diminished base, no wheezing.
--- NOTE | 2023-01-02 08:46 | MHC.SHP ---
Pre-Procedural Eval Section A Date of Service: 01/02/23 Section B Chief Complaint: Encounter for screening for malignant neoplasm of Relevant Family History (Specify if Yes): No Relevant Social History: None Present Medications: see Short Stay Collaborative assessment Medical History: Significant History (Asthma BPH (benign prostatic hyperplasia) Diabetes Overactive bladder Polio) History of Previous Operations: Relevant previous surgery/procedure and date(s) (History of surgery History of surgery on lower extremity Hx of colonoscopy) Allergies: Allergies Allergy/AdvReac Type Severity Reaction Status Date / Time Penicillins Allergy Intermediate RASH, itchy Verified 12/31/22 14:57 Review of Systems Sugical H&P ROS: Negative: Constitution, Cardiovascular, Respiratory, Neurological, Psychiatric, Hem-Onc, Allergic/Immunologic, Gastrointestinal, Genitourinary, Musculoskeletal, Integumentary, Endocrine and Eyes/Ears/Nose/Throat Exam Surgical H&P Exam: Normal: HEENT, Normal: Heart, Normal: Lungs, Normal: Extremities, Normal: Abdomen, Normal: Skin and Normal: Neurological Plan Diagnosis/Plan: Unchanged I have reviewed the history and physical and performed a pertinent physical examination on my patient. No changes have occurred unless specified. Time Spent With Patient Time: Total time managing care of this patient today ____ minutes.
[2023-01-02] MEDS: Sodium Phosphate,Mono-Dibasic 133 ML ENEMA PR (08:47)
--- NOTE | 2023-01-02 08:50 | PC.NURSE ---
[facility] Warp Yarn Sorter at bedside, all data verified. Patient has no further questions
--- NOTE | 2023-01-02 09:01 | W.PM.OPN ---
Operative Note Operative Note Date of Service: 01/02/23 Narrative: Operative Information Procedure Description: Colonoscopy Indication: screening Anesthesia: MAC COLONOSCOPY Instrument: Olympus variable stiffness pediatric scope 190L Colonoscopy Monitoring: Vital signs and clinical assessment, continuous EKG monitoring, Pulse oximetry, Carbon Dioxide monitoring and blood pressure monitoring were done throughout the procedure. Colon withdrawal time was 8 minutes. Procedure: The patient was placed in the left lateral decubitis position and pre-procedure medications were administered. After a digital rectal examination of the ano-rectum, the video colonoscope was inserted into the rectum and advanced through the colon to the cecum/TI. The colonoscope was slowly withdrawn in a retrograde panoramic fashion and the colon mucosa was carefully examined including a retroflexed view of the rectum. Findings and interventions are described below. Procedure Difficulty: moderate due to looping Findings: Terminal Ileum-not intubated due to looping Cecum:normal Ascending Colon: normal Transverse Colon - 4-5 mm sessile polyp removed with cold forceps Descending Colon:normal Sigmoid Colon: normal Rectum: Retroflexion with small internal hemorrhoids, grade I Anorectum - normal Colon preparation: [place] Bowel Preparation Scale Right colon; 1-2 Transverse colon: 2 Left colon; 2 (0 = Unprepared colon segment with mucosa not seen due to solid stool that cannot be cleared. 1 = Portion of mucosa of the colon segment seen, but other areas of the colon segment not well seen due to staining, residual stool and/or opaque liquid. 2 = Minor amount of residual staining, small fragments of stool and/or opaque liquid, but mucosa of colon segment seen well. 3 = Entire mucosa of colon segment seen well with no residual staining, small fragments of stool or opaque liquid) Impression and Post Procedure Diagnosis: polyp internal hemorrhoids Plan: High fiber diet leaflet Avoid straining at stool, epsom salts and sitz bath, anusol supps or cream Repeat Colonoscopy in 3 years due to fair prep on right side or earlier if clinically indicated Above findings were reviewed with the patient and relevant handouts were provided if indicated.
[2023-01-02 09:28] VITALS: BP 103/52; PULSE 71; RESP 16; TEMP 36.2; O2SAT 96
[2023-01-02 09:45] VITALS: BP 114/57; PULSE 70; RESP 16; TEMP 36.2; O2SAT 98
--- NOTE | 2023-01-02 11:22 | PC.NURSE ---
Patient assisted to chair demonstrating safe technique and representing competent decision making. Patient stated and demonstrated safe dressing and that he would like to dress himself. Discussed to stay seated while dressing. patient repeated back...patient while behind curtain heard yelling suzi Where in which case I pulled the curtain back to find the patient on the ground holding the back of his head. At no time did the patient loose consciousness. Patient lifted to chair with md. Pastrana's assistance who went to speak with md. Burleson. patient assisted with team back to stretcher where he remained until md. brar assessed at bedside. As per md. Brar see her note on the anesthesia record. Patient refused transfer to e.d. and with network services project manager present signed ama stating he feels well and does not with to go to e.d. Patient brought home in wheelchair.
== END | disposition home or self-care (01) ==
PROVIDERS: PCP Internal Medicine; Visit Provider Internal Medicine Gastroenterology
PROC: 0DJD8ZZ Inspection of Lower Intestinal Tract, Via Natural or Artificial Opening Endoscopic (ICD-10-PCS; CPT 45378; principal; 2023-01-02 09:20)
DX: Z12.11 Encounter for screening for malignant neoplasm of colon (principal); K63.5 Polyp of colon; N32.81 Overactive bladder; K64.0 First degree hemorrhoids; J45.909 Unspecified asthma, uncomplicated; E11.9 Type 2 diabetes mellitus without complications; N40.1 Benign prostatic hyperplasia with lower urinary tract symptoms; N39.498 Other specified urinary incontinence; R39.12 Poor urinary stream; R35.1 Nocturia; M21.762 Unequal limb length (acquired), left tibia; Z86.12 Personal history of poliomyelitis; Z79.82 Long term (current) use of aspirin; Z79.51 Long term (current) use of inhaled steroids; Z79.899 Other long term (current) drug therapy; Z88.0 Allergy status to penicillin
CPT/HCPCS: 45380; 82947; 88305

== ENCOUNTER 2023-03-25 07:54 | Outpatient (AMB) | payer OTHER, SELFPAY ==
--- NOTE | 2023-03-25 07:57 | MHC.PC.OV ---
Vital Signs 03/25/23 07:58 Height 5 ft 5 in Weight 124 lb BMI 20.6 BP 114/70 Blood Pressure Location Lt brachial Position Sitting Intake Visit Reasons: dm Intake Note: Patient here for a follow up DM Extractor And Wringer Operator Required: No Accompanied by: Self / Same As Patient Allergies Penicillins Allergy (Intermediate, Verified 03/25/23 08:08) RASH, itchy Medication List - Last Reconciled 03/25/23 by Ashley Jamison MD acetaminophen ER (8 Hour Pain Reliever) 650 mg PO DAILY PRN 90 days [adult diapers pull-ups As directed] alcohol swabs (Easy Touch Alcohol Prep Pads) 1 pad topical TID aspirin 81 mg PO DAILY 90 days atorvastatin 40 mg PO BEDTIME 90 days blood sugar diagnostic As directed blood-glucose meter (FreeStKashmir Luxury Hair [place] Lite kit) As directed disposable gloves As directed docusate calcium 240 mg PO BEDTIME PRN 90 days finasteride 5 mg PO DAILY fluticasone propionate 110 mcg/actuation (Flovent HFA) 2 puffs inhalation BID 30 days lancets As directed [left foot brace/Kafo adjustment As directed] lisinopril 10 mg PO DAILY 90 days metformin 1,000 mg PO BID 90 days oxybutynin chloride ER 10 mg PO DAILY [personal wipes As directed] sitagliptin phosphate (Januvia) 25 mg PO DAILY 90 days Ventolin HFA 90 mcg/actuation (albuterol sulfate) 2 puffs inhalation DAILY 30 days NS Tobacco use date assessed: 08/07/22 Fall risk assessment: No Falls in past year Last assessed Fall Risk: 03/25/23 Dental Screening Dental Screen Date: 03/25/23 Did you have a dental visit in the last 12 months?: No Did you have a dental problem in the last 6 months where you did not have access to dental care?: No Was dental information given to patient?: Patient has dentist HPI HPI Comments History of Present Illness Details This is a 67-year-old male with hypertension, diabetes mellitus type 2, hyperlipidemia and constipation that comes today for follow-up on his conditions. Blood pressure stable. A1c not on goal and I will increase Januvia from 25 mg to 50 mg. Lipid panel will be order and his LDL goal should be less than 70. Constipation stable with medications. 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 Complains of left foot deformity due to special boot not fitting properly. [facility] Medical History Asthma BPH (benign prostatic hyperplasia) Diabetes Overactive bladder Polio Surgical History History of surgery History of surgery on lower extremity Hx of colonoscopy Family History Father Substance use disorder Mother Diabetes Hypertension Asthma Brother No problems noted. Social History Household Members: Spouse Housing: House Are you a primary career resource specialist to a significant other at home: No Do you presently have visiting nurse or other home services: No Alcohol intake: never Patient Tobacco Use Status: Never used Tobacco e-Cigarette/Vaping Use: Never Used Second Hand Smoke Exposure: No Advance Directives Date on File: 04/18/22 service: No Current occupational status: retired Cognitive needs: Yes Hearing needs: No Vision needs: No Questionnaire Thrive Questionnaire Date Thrive assessed: 11/21/22 KEN-7 AMB Questionnaire KEN-7 Date KEN - 7 assessed: 11/21/22 Source: Developed by Drs. Nikhil Guevara, Brianna Barrera, Cr Christensen and colleagues, with an educational adan from [employer]. Review of Systems Const All systems reviewed & are unremarkable except as noted in HPI and below Eyes Reports no additional complaints, Denies change in vision and Denies other visual disturbances Card Denies chest pain at rest, Denies chest pain with activity, Denies edema, Denies irregular heart rhythm, Denies claudication, Denies dyspnea, Denies dyspnea on exertion, Denies orthopnea, Denies paroxysmal nocturnal dyspnea and Denies slow heart rate Resp Denies cough, Denies dyspnea and Denies dyspnea on exertion GI Denies abdominal pain, Denies change in bowel habits, Denies excessive flatus, Denies nausea and Denies vomiting Denies urinary hesitancy, Denies urinary incontinence and Denies urinary urgency Musc Denies abnormal gait, Denies atrophy, Denies deformity and Denies limited range of motion Skin/Breast Denies bleeding lesions, Denies changing lesions and Denies rash Neuro Denies abnormal gait and Denies lack of coordination Physical exam (Primary Care) Vital Signs: Last Vital Signs BP 114/70 03/25/23 07:58 BMI result Body Mass Index 20.6 Tobacco/Smoking Status: Tobacco use Status Tobacco use date assessed 08/07/22 03/25/23 08:05 Patient Tobacco Use Status Never used Tobacco 03/25/23 08:05 Tobacco use type 11/21/22 13:59 e-Cigarette/Vaping Use Never Used 03/25/23 08:05 Thrive Assessment: Date of Thrive Assessment Date Thrive assessed 11/21/22 03/25/23 08:05 Eyes General: appearance normal, both eyes and all related structures Eyelids: Yes eyelids normal Conjunctivae: conjunctivae normal Neck Neck: Yes normal visual inspection and Yes supple Resp Effort & Inspection: normal respiratory effort Auscultation: clear to auscultation bilaterally Cardio Jugular venous distension: no JVD Rate: regular rate Rhythm: regular rhythm Heart sounds: S1 normal heart sound present and S2 normal heart sound present Extrem Other: left foot inwardly deviated and significantly smaller than the right. Left leg shorter than the right General: Yes full ROM Results AMB Hemoglobin A1c AMB Hemoglobin A1c 7.3 % Last Edit by ANA Yo on 03/25/23 08:10 Results Reviewed Results Reviewed: Laboratory Last Values Hgb A1c (Clinic) 7.3 % (4.0-6.0) H 03/25/23 08:05 Assessment and Plan Assessment & Plan (1) Diabetes: Comment: taking metformin Code(s): E11.9 - Type 2 diabetes mellitus without complications Plan: Continue metformin. Increase Januvia from 25 mg to 50 mg. A1c goal is equal or less than 7%. (2) Essential hypertension: Code(s): I10 - Essential (primary) hypertension Plan: Continue lisinopril. Blood pressure goal is equal or less than 130/80. (3) Hyperlipidemia LDL goal <70: Code(s): E78.5 - Hyperlipidemia, unspecified Plan: Continue statins. Repeat lipid panel. LDL goal is less than 70. (4) Constipation by delayed colonic transit: Code(s): K59.01 - Slow transit constipation Plan: Continue docusate as needed. Orders: Orders Lipid Panel Today E78.5 - Hyperlipidemia, unspecified Microalbumin, Random (w Creat) Today E11.9 - Type 2 diabetes mellitus without complications Comprehensive [place]. Panel Fast Today E11.9 - Type 2 diabetes mellitus without complications Complete Blood Count Auto Diff Today D64.9 - Anemia, unspecified IRON PROFILE Today D64.9 - Anemia, unspecified AMB Hemoglobin A1c Today E11.9 - Type 2 diabetes mellitus without complications Medications: New sitagliptin phosphate (Januvia) 50 mg PO DAILY 90 days 90 tabs 1RF E11.9 - Type 2 diabetes mellitus without complications Discontinued sitagliptin phosphate (Januvia) Discontinued Reason: Patient Completed Course 25 mg PO DAILY 90 days 90 tabs 0RF Coding Level of Care Code Est Pt Level 4 (06409) Diagnoses Diabetes E11.9 Essential hypertension I10 Hyperlipidemia LDL goal <70 E78.5 Constipation by delayed colonic transit K59.01 Time Spent (min) 23
[2023-03-25 07:58] VITALS: BP 114/70; BMI 20.6
== END 2023-03-25 08:16 | disposition home or self-care (01) ==
PROVIDERS: PCP Internal Medicine; Visit Provider Internal Medicine
DX: E11.9 Type 2 diabetes mellitus without complications (principal); I10 Essential (primary) hypertension; E78.5 Hyperlipidemia, unspecified; K59.01 Slow transit constipation
CPT/HCPCS: 83036; 99214

== ENCOUNTER 2023-03-26 09:08 | Outpatient (REF) | payer OTHER, SELFPAY ==
[2023-03-26 09:24] LABS: MANUAL DIFF FLAG NO
[2023-03-26 09:30] LABS: Basophils Percent Auto 0.7 % (0-2); Eosinophils Absolute Auto 0.1 X10*3/uL (0.0-0.4); Eosinophils Percent Auto 2.2 % (0-4); Hemoglobin 13.4 g/dl (14.0-18.0); Imm Gran Abs Auto 0.01 X10*3/uL (0.00-0.03); Imm Gran Pct Auto 0.2 % (0.0-0.4); Lymphocytes Absolute Auto 2.3 X10*3/uL (1.2-4.9); Lymphocytes Percent Auto 38.9 % (20-40); Mean Corpuscular HGB Conc 34.4 g/dl (31.0-36.0); Mean Corpuscular Hemoglobin 28.3 pg (27.0-33.0); Mean Corpuscular Volume 82.5 fL (80.0-98.0); Mean Platelet Volume 9.7 fL (9.4-12.4); Monocytes Absolute Auto 0.4 X10*3/uL (0.1-1.2); Monocytes Percent Auto 6.3 % (2-11); Neutrophils Percent Auto 51.7 % (45-73); Platelet Count 240 X10*3/uL (160-400); Red Blood Count 4.73 X10*6/uL (4.60-5.80); Red Cell Distribution Width 12.8 % (11.0-16.0); White Blood Count 5.8 X10*3/uL (4.8-10.8)
[2023-03-26 10:27] LABS: Alanine Aminotransferase 18 U/L (0-40); Albumin Level 3.8 g/dL (3.5-5.0); Alkaline Phosphatase 71 U/L (39-117); Anion Gap 9 (12-20); Aspartate Amino Transferase 19 U/L (5-37); Bilirubin Total 0.3 mg/dL (0.0-1.0); Blood Urea Nitrogen 20 mg/dL (9-16); Calcium 9.6 mg/dL (8.4-10.2); Carbon Dioxide 24 mmol/L (22-29); Chloride 112 mmol/L (96-108); Cholesterol 171 mg/dL (<200); Estimated Glomerular Filt Rate > 60; Glucose Fasting 153 mg/dL (60-99); HDL Cholesterol 43 mg/dL (>40); Iron 50 mcg/dL (45-160); LDL Cholesterol Calculated 108 mg/dL (<100); Percent Iron Saturation 20 % (15-50); Potassium 4.1 mmol/L (3.3-5.1); Sodium 141 mmol/L (135-145); Total Iron Binding Capacity 253 mcg/dL (228-428); Total Protein 7.1 g/dL (6.5-8.0); Triglycerides 103 mg/dL (<150); Unsaturated Iron Binding 203 ug/dL
[2023-03-26 10:43] LABS: Vitamin D 25-OH Total 41.9 ng/mL (>30)
[2023-03-26 10:55] LABS: Creatinine Urine 78.31 mg/dL; Microalbum/Creatinine Ratio Ur 42.1 ug/mg cr (<30)
[2023-03-26 10:56] LABS: Folate 12.9 ng/mL (> or = 4.0); Vitamin B12 528 pg/mL (200-900)
== END 2023-03-26 09:09 | disposition home or self-care (01) ==
LOC: HO.LAB 09:08
PROVIDERS: PCP Internal Medicine; Visit Provider Internal Medicine
DX: E11.9 Type 2 diabetes mellitus without complications (principal); D64.9 Anemia, unspecified; I10 Essential (primary) hypertension; E78.5 Hyperlipidemia, unspecified; E53.8 Deficiency of other specified B group vitamins; E55.9 Vitamin D deficiency, unspecified
CPT/HCPCS: 36415; 80053; 80061; 82043; 82306; 82607; 82746; 83540; 85025

== ENCOUNTER 2023-04-13 09:54 | Emergency (ER) | payer OTHER, SELFPAY ==
--- NOTE | ~2023-04-13 | CT_ITS ---
EXAMINATION: CT ABDOMEN AND PELVIS WITH CONTRAST CLINICAL INFORMATION: Left lower quadrant pain COMPARISON: Renal ultrasound 05/24/2022, CT abdomen and pelvis 05/08/2021 TECHNIQUE: Multidetector volumetric images were obtained from the superior aspect of the liver through the pubic symphysis following administration 85 mL of Omnipaque 350 intravenous contrast. Sagittal and coronal reformatted images were obtained on the technologist's workstation. Oral contrast: No This CT examination was performed using dose optimization techniques as appropriate, variously including the following: *Automated exposure control *Adjustment of mA and/or kV according to patient size (this includes techniques or standardized protocols for targeted exams where dose is matched to indication/reason for exam; i.e. extremities or head) *Use of iterative reconstruction technique DLP: 269 mGy-cm FINDINGS: LUNG BASES: The visualized lung bases are unremarkable. LIVER, GALLBLADDER, AND BILIARY TREE: The liver is normal in size, shape, and attenuation. No focal hepatic lesion or biliary ductal dilatation is present. The gallbladder is unremarkable with no evidence of radiopaque gallstones, gallbladder wall thickening, or obvious pericholecystic inflammatory changes. PANCREAS: Unremarkable. SPLEEN: Unremarkable. ADRENAL GLANDS: Unremarkable. KIDNEYS AND URETERS: The kidneys are normal in size, shape, and attenuation. No hydronephrosis, hydroureter, or calculi seen. No perinephric stranding. Multiple bilateral benign Bosniak class I renal cysts are noted which require no additional imaging or follow-up. No solid renal masses are seen. BLADDER: Unremarkable. GASTROINTESTINAL TRACT: The small and large bowel are unremarkable. The appendix is not identified but there is no evidence of appendicitis. ABDOMINAL WALL: No significant hernia is appreciated. LYMPH NODES: No retroperitoneal lymphadenopathy VASCULAR: Unremarkable. PELVIC VISCERA: Status post prostatectomy. OSSEOUS STRUCTURES: Mild scoliosis is present with degenerative changes in the spine. No bony destructive lesions CT/CT abdomen pelvis w IV con IMPRESSION: A cause for the patient's left lower quadrant pain has not been found. Incidental findings as described above. Fleischner guidelines were followed.
[2023-04-13 09:56] VITALS: BP 109/70; PULSE 85; RESP 14; TEMP 36.3; O2SAT 98; BMI 20.8
[2023-04-13 10:41] LABS: MANUAL DIFF FLAG NO
[2023-04-13 10:49] LABS: Basophils Percent Auto 0.3 % (0-2); Eosinophils Percent Auto 0.3 % (0-4); Hematocrit 39.5 % (42.0-52.0); Hemoglobin 13.6 g/dl (14.0-18.0); Imm Gran Abs Auto 0.03 X10*3/uL (0.00-0.03); Imm Gran Pct Auto 0.3 % (0.0-0.4); Lymphocytes Absolute Auto 1.6 X10*3/uL (1.2-4.9); Mean Corpuscular HGB Conc 34.4 g/dl (31.0-36.0); Mean Corpuscular Hemoglobin 28.1 pg (27.0-33.0); Mean Corpuscular Volume 81.6 fL (80.0-98.0); Mean Platelet Volume 9.8 fL (9.4-12.4); Monocytes Absolute Auto 0.4 X10*3/uL (0.1-1.2); Neutrophils Absolute Auto 6.5 x10*3/uL (2.0-8.3); Neutrophils Percent Auto 75.1 % (45-73); Platelet Count 239 X10*3/uL (160-400); Red Blood Count 4.84 X10*6/uL (4.60-5.80); Red Cell Distribution Width 12.6 % (11.0-16.0); White Blood Count 8.7 X10*3/uL (4.8-10.8)
[2023-04-13 10:58] LABS: Alanine Aminotransferase 14 U/L (0-40); Albumin Level 3.8 g/dL (3.5-5.0); Alkaline Phosphatase 70 U/L (39-117); Anion Gap 11 (12-20); Aspartate Amino Transferase 17 U/L (5-37); Bilirubin Total 0.4 mg/dL (0.0-1.0); Blood Urea Nitrogen 13 mg/dL (9-16); Calcium 9.9 mg/dL (8.4-10.2); Carbon Dioxide 23 mmol/L (22-29); Chloride 108 mmol/L (96-108); Creatinine Clr Calc Pharmacy 85.9; Estimated Glomerular Filt Rate > 60; Glucose Random 141 mg/dL (60-115); Lipase 32 U/L (8-78); Potassium 4.1 mmol/L (3.3-5.1); Sodium 138 mmol/L (135-145); Total Protein 7.1 g/dL (6.5-8.0)
--- NOTE | 2023-04-13 10:58 | ED.ABDPAIN ---
HPI - Abdominal Pain General Chief Complaint: Abdominal Pain Stated Complaint: ABD PAIN Time Seen by Provider: 04/13/23 10:01 Source: patient Mode of arrival: ambulatory History of Present Illness HPI narrative: 67-year-old male who presents with abdominal discomfort for the past couple of days without associated fevers or chills but reports nausea but unable to vomit. Patient has continued to have bowel movements and describes the pain is being the left lower quadrant. Patient is a known diabetic. Related Data Home Medications Medication Instructions Recorded Confirmed blood sugar diagnostic #10 ea 12/27/20 03/25/23 lancets 28 gauge #100 ea 12/27/20 03/25/23 blood-glucose meter (FreeStyle #1 ea 05/24/21 03/25/23 Ringle Lite kit) alcohol swabs (Easy Touch Alcohol 1 pad topical TID 06/04/22 03/25/23 Prep Pads) Previous Rx's Medication Instructions Recorded adult diapers pull-ups #240 ea 11/01/22 disposable gloves #100 ea 11/01/22 personal wipes #200 ea 11/01/22 left foot brace/Kafo adjustment #1 ea 01/07/23 Ventolin HFA 90 mcg/actuation 2 puff inhalation DAILY 30 days 01/24/23 aerosol inhaler (albuterol sulfate) #18 grams acetaminophen 650 mg 650 mg PO DAILY PRN fever or pain 01/24/23 tablet,extended release (8 Hour 90 days #90 tabs Pain Reliever) aspirin 81 mg tablet,delayed 81 mg PO DAILY 90 days #90 tabs 01/24/23 release docusate calcium 240 mg capsule 240 mg PO BEDTIME PRN constipation 01/24/23 90 days #90 caps finasteride 5 mg tablet 5 mg PO DAILY #90 tabs 01/24/23 lisinopril 10 mg tablet 10 mg PO DAILY 90 days #90 tabs 01/24/23 metformin 1,000 mg tablet 1,000 mg PO BID 90 days #180 tabs 01/24/23 oxybutynin chloride 10 mg 10 mg PO DAILY #90 tabs 01/24/23 tablet,extended release 24 hr fluticasone propionate 110 2 puff inhalation BID 30 days #12 02/23/23 mcg/actuation HFA aerosol inhaler grams (Flovent HFA) sitagliptin phosphate 50 mg tablet 50 mg PO DAILY 90 days #90 tabs 03/25/23 (Januvia) atorvastatin 80 mg tablet 80 mg PO BEDTIME 90 days #90 tabs 03/27/23 nitrofurantoin 100 mg PO Q12H 7 days #14 caps 04/13/23 monohydrate/macrocrystals 100 mg capsule (Macrobid) Allergies Allergy/AdvReac Type Severity Reaction Status Date / Time Penicillins Allergy Intermediate RASH, itchy Verified 03/25/23 08:08 Review of Systems Review of Systems Pertinent positives and negatives as stated in [facility] Past Medical History Source: nursing notes reviewed Medical History Overactive bladder BPH (benign prostatic hyperplasia) Diabetes Asthma Polio Surgical History History of surgery on lower extremity Hx of colonoscopy History of surgery Family History Family History Father Substance use disorder Mother Diabetes Hypertension Asthma Brother No problems noted. Social History Social History Household Members: Spouse Housing: House Are you a primary day care home provider to a significant other at home: No Do you presently have visiting nurse or other home services: No Alcohol intake: never Patient Tobacco Use Status: Never used Tobacco e-Cigarette/Vaping Use: Never Used Second Hand Smoke Exposure: No Advance Directives: Yes Advance Directives on File: Yes Advance Directives Date on File: 04/18/22 service: No Current occupational status: retired Cognitive needs: Yes Hearing needs: No Vision needs: No Physical Exam ED Vital Signs: Vital Signs - 24 hr 04/13/23 09:56 04/13/23 12:29 Temperature 97.4 F Pulse Rate 85 72 Respiratory Rate 14 16 Blood Pressure 109/70 155/86 H Pulse Oximetry 98 98 Oxygen Delivery Method Room Air Room Air BMI result Body Mass Index 20.8 VITAL SIGNS: Reviewed. GENERAL: Well developed, well nourished, in no acute distress. HEAD: Normocephalic/atraumatic EYES: PERRLA, EOMI EARS: Ext canals without abnormality NOSE: Nares patent bilateral OROPHARYNX: no oral lesions noted, posterior pharynx clear NECK: Supple, no adenopathy LUNGS: Normal breath sounds. No adventitious sounds or accessory muscle use. SpO2<98> CARDIOVASCULAR: Regular rate and rhythm without noted murmurs ABDOMEN: Soft, LLQ pain on palpation without rebound, non-distended with hypoactive bowel sounds. MUSCULOSKELETAL: No tenderness, deformities, or effusions noted on gross inspection. EXTREMITIES: No cyanosis, clubbing or edema. SKIN: Inspection of the skin reveals no rashes NEUROLOGIC: Alert and oriented x 4. Strength and sensation to light touch were grossly intact x 4. Medical Decision Making Medical Decision Making [facility] Narrative: 67-year-old male with history and clinical presentation, DDX: SBO, divertiluitis, urinary retention, UTI, renal colic I reviewed all investigations and hematologic indices are negative for leukocytosis and chronically stable normocytic anemia without thrombocytopenia. Chemistry indices are grossly within normal limits without evidence of LORE and no electrolyte or liver enzyme abnormalities. There is a mild hyperglycemia. CT scan is negative for SBO, renal colic, diverticulitis no evidence to suggest cholecystitis. Bladder scan with significant from was 400 cc of urine within the bladder, patient was able to void a very small amount and PVR-over 200. Urinalysis significant for wbc's and bacteria and will be treated with antibiotics despite the fact that there is no leukocyte esterase or nitrite positivity. Patient had a Thompson catheter placed and will be discharged with a leg bag and provided a referral for Urology. All of this was explained to him via a dry transfer worker. Differential Diagnosis Differential Diagnoses: The differential diagnosis associated with the presentation includes Please see the discussion above Admission/Observation Consideration of admission/observation: Escalation of care including admission/observation considered Please see the discussion above Lab Data [facility] Lab Attestation statement: I reviewed the patient's lab results. Please see the discussion above 04/13/23 10:34 04/13/23 10:34 Labs: Lab Results 04/13/23 04/13/23 Range/Units 10:34 14:41 WBC 8.7 (4.8-10.8) X10*3/uL RBC 4.84 (4.60-5.80) X10*6/uL Hgb 13.6 L (14.0-18.0) g/dl Hct 39.5 L (42.0-52.0) % MCV 81.6 (80.0-98.0) fL MCH 28.1 (27.0-33.0) pg MCHC 34.4 (31.0-36.0) g/dl RDW 12.6 (11.0-16.0) % Plt Count 239 (160-400) X10*3/uL MPV 9.8 (9.4-12.4) fL Immature Gran % (Auto) 0.3 (0.0-0.4) % Neut % (Auto) 75.1 H (45-73) % Lymph % (Auto) 19.0 L (20-40) % [place] % (Auto) 5.0 (2-11) % Eos % (Auto) 0.3 (0-4) % Baso % (Auto) 0.3 (0-2) % Lymph # (Auto) 1.6 (1.2-4.9) X10*3/uL [place] # (Auto) 0.4 (0.1-1.2) X10*3/uL Eos # (Auto) 0.0 (0.0-0.4) X10*3/uL Baso # (Auto) 0.0 (0.0-0.2) X10*3/uL Abs Immat Gran (auto) 0.03 (0.00-0.03) X10*3/uL Absolute Neuts (auto) 6.5 (2.0-8.3) x10*3/uL Absolute Nucleated RBC 0.000 (0.0-0.012) X10*3/uL Nucleated RBC % (auto) 0.0 (0.0-0.2) /100WBC Sodium 138 (135-145) mmol/L Potassium 4.1 (3.3-5.1) mmol/L Chloride 108 (96-108) mmol/L Carbon Dioxide 23 (22-29) mmol/L Anion Gap 11 L (12-20) BUN 13 (9-16) mg/dL Creatinine 0.66 (0.5-1.4) mg/dL Estim Creat Clear Calc 85.9 Estimated GFR > 60 Random Glucose 141 H (60-115) mg/dL Calcium 9.9 (8.4-10.2) mg/dL Total Bilirubin 0.4 (0.0-1.0) mg/dL AST 17 (5-37) U/L ALT 14 (0-40) U/L Alkaline Phosphatase 70 (39-117) U/L Total Protein 7.1 (6.5-8.0) g/dL Albumin 3.8 (3.5-5.0) g/dL Lipase 32 (8-78) U/L Urine Color Yellow Urine Appearance Clear Urine pH 6.0 (5.0-9.0) Ur Specific [place] >= 1.030 H (1.005-1.025) Urine Protein Negative (Neg-Trace) mg/dL Urine Glucose (UA) Negative (Negative) mg/dL Urine Ketones Negative (Negative) mg/dL Urine Blood Trace H (Negative) Urine Nitrite Negative (Negative) Ur Leukocyte Esterase Negative (Negative) Urine RBC 0-2 (0-2) /HPF Urine WBC 6-10 H (0-5) /HPF Ur Squamous Epith Cells 0-2 (0-2) /HPF Urine Bacteria 4+ (None Seen) Hyaline Casts 0-2 (0-2) /LPF Radiology Impression Discussion of test interpretation with radiology: I have reviewed the radiologist's reading. Radiologist Impression: Please see the discussion above External Record Review External record reviewed: Outpatient record, Prior outpatient labs and Prior outpatient radiology Chronic Conditions Patient?s care impacted by: Hypertension Medications Administered Discontinued Medications Generic Name Dose Route Start Last Admin Trade Name Freq PRN Reason Stop Dose Admin Iohexol 85 ml 04/13/23 11:40 04/13/23 11:41 Iohexol 350 Mg/Ml 100 Ml Infus..Btl IV 04/13/23 11:41 85 ml ONCE ONE Administration Lidocaine HCl 10 ml 04/13/23 14:36 04/13/23 14:54 Lidocaine Hcl 2 % Urojet 10 Ml Jel.Pf.Hayde TOPICAL 04/13/23 14:37 10 ml ONCE ONE Administration Critical Care Time Critical Care Time Critical Care Time: Yes Total Critical Care Time: 30 Attestation: I personally attest to this time spent taking care of the patient. Discharge Plan Discharge Clinical Impression: Urinary retention, Acute UTI, Difficult Thompson catheter placement Patient Disposition: Home, Self-Care Instructions: Urinary Retention in Men (ED), Urinary Tract Infection in Men (ED), Thompson Catheter Placement and Care (ED) Additional Instructions: 1. Reanudar todos los medicamentos caseros seg?n lo recetado. 2. Complete el tratamiento con antibi?ticos seg?n lo prescrito. 3. Llame al ur?logo el lunes por la ma?ashley para programar sanket fly para sanket reevaluaci?n y un mayor tratamiento ambulatorio. 4. Tambi?n meet un seguimiento con hall proveedor de atenci?n primaria el lunes por la ma?ashley. Regrese a la bety de emergencias si los s?ntomas empeoran. 1. Resume all home medications as prescribed. 2. Complete the course of antibiotics as prescribed. 3. Please call the urologist on Saturday to set up an appointment for re-evaluation and further outpatient management. 4. Please follow-up with your primary care provider on Saturday as well. Return to the ER for any worsening symptoms. Prescriptions: New nitrofurantoin monohyd/m-cryst [Macrobid] 100 mg capsule 100 mg PO Q12H 7 Days Qty: 14 0RF Rx Instructions: must administer with a meal/food No Action (DME) adult diapers pull-ups small See Rx Instructions .Route .MEDSUPPLY Qty: 240 11RF Rx Instructions: As directed (DME) disposable gloves Package See Rx Instructions .Route Qty: 100 11RF Rx Instructions: As directed (DME) personal wipes See Rx Instructions .Route .MEDSUPPLY Qty: 200 11RF Rx Instructions: As directed (DME) left foot brace/Kafo adjustment See Rx Instructions .Route .MEDSUPPLY Qty: 1 0RF Rx Instructions: As directed acetaminophen [8 Hour Pain Reliever] 650 mg tablet extended release 650 mg PO DAILY PRN (Reason: fever or pain) 90 Days Qty: 90 2RF albuterol sulfate [Ventolin HFA] 90 mcg/actuation HFA aerosol inhaler 2 puff inhalation DAILY 30 Days Qty: 18 2RF aspirin 81 mg tablet,delayed release (DR/EC) 81 mg PO DAILY 90 Days Qty: 90 1RF docusate calcium 240 mg capsule 240 mg PO BEDTIME PRN (Reason: constipation) 90 Days Qty: 90 1RF metformin 1,000 mg tablet 1,000 mg PO BID 90 Days Qty: 180 2RF lisinopril 10 mg tablet 10 mg PO DAILY 90 Days Qty: 90 1RF finasteride 5 mg tablet 5 mg PO DAILY Qty: 90 1RF oxybutynin chloride 10 mg tablet extended release 24hr 10 mg PO DAILY Qty: 90 3RF fluticasone propionate [Flovent HFA] 110 mcg/actuation HFA aerosol inhaler 2 puff inhalation BID 30 Days Qty: 12 1RF atorvastatin 80 mg tablet 80 mg PO BEDTIME 90 Days Qty: 90 1RF Januvia 50 mg tablet 50 mg PO DAILY 90 Days Qty: 90 1RF (DME) lancets 28 gauge misc See Rx Instructions topical TID Qty: 100 Rx Instructions: As directed (DME) blood sugar diagnostic Strip See Rx Instructions Not Applicable .MEDSUPPLY Qty: 10 Rx Instructions: As directed (DME) blood-glucose meter [FreeStyle Ringle Lite] Kit See Rx Instructions .ROUTE .MEDSUPPLY Qty: 1 Rx Instructions: As directed alcohol swabs [Easy Touch Alcohol Prep Pads] Pads, Medicated 1 pad topical TID Referrals: Batsheva Wood MD [Physician] - Ashley Butcher MD [Primary Care Provider] - Print Language: Armenian
[2023-04-13] MEDS: iohexoL 350 MG/ML 100 ML INFUS..BTL 85 ML IV (11:41)
[2023-04-13 12:29] VITALS: BP 155/86; PULSE 72; RESP 16; O2SAT 98
--- NOTE | 2023-04-13 14:36 | PC.NURSE ---
unsuccessful first attempt at placing coude tip weiss cath. aware. order for urojet and second nurse will attempt
[2023-04-13 14:49] LABS: Appearance Urine Clear; Color Urine Yellow; Glucose Urine UA Negative (Negative); Leukocyte Esterase Urine Negative (Negative); Nitrite Urine Negative (Negative); Specific Gravity - Urine >= 1.030 (1.005-1.025); UMIC TRIGGER UACC YES; Urine Blood Trace (Negative); Urine Ketones Negative (Negative); Urine Protein Negative (Neg-Trace)
[2023-04-13 14:54] LABS: Bacteria Urine 4+ (None Seen); Hyaline Casts Urine 0-2 /LPF (0-2); RBC Urine 0-2 /HPF (0-2); Squamous Epithelial Cell Urine 0-2 /HPF (0-2); UACC Culture Trigger YES
[2023-04-13] MEDS: Lidocaine HCl 2 % Urojet 10 ML JEL.PF.APP TOPICAL (14:54)
[2023-04-13 15:17] VITALS: BP 146/81; PULSE 72; RESP 18; TEMP 36.5; O2SAT 99
[2023-04-13] MEDS: Nitrofurantoin Monohyd/M-Cryst 100 MG CAPSULE PO (15:31)
== END 2023-04-13 15:37 | disposition home or self-care (01) ==
PROVIDERS: Emergency Provider Student in an Organized Health Care Education/Training Program; PCP Internal Medicine
DX: N39.0 Urinary tract infection, site not specified (principal); R33.9 Retention of urine, unspecified; R10.9 Unspecified abdominal pain
CPT/HCPCS: 36415; 51702; 74177; 80053; 81001; 83690; 85025; 87086; 87088; 87186; 99284; Q9967

== ENCOUNTER → 2023-04-23 09:15 | Outpatient (BNVA) | payer OTHER, SELFPAY | PROVIDERS: PCP Internal Medicine; Visit Provider Urology | DX: R33.9 Retention of urine, unspecified (principal) | CPT/HCPCS: 51700; 51798 ==

== ENCOUNTER 2023-06-06 08:47 | Outpatient (AMB) | payer OTHER, SELFPAY ==
--- NOTE | 2023-06-06 09:19 | A.OFFVIS_ITS ---
Intake Intake Visit Reasons: 6m follow up/PVR Intake Note: Patient is Present for Follow Up Urology Medication:Finasteride, Oxybutynin Antibiotic Allergies: Penicillins Blood Thinners: Aspirin PVR: 0 Allergies Penicillins Allergy (Intermediate, Verified 06/06/23 09:20) RASH, itchy Medication List - Last Reconciled 06/06/23 by Rusty Ho MD acetaminophen ER (8 Hour Pain Reliever) 650 mg PO DAILY PRN 90 days [adult diapers pull-ups As directed] alcohol swabs (Easy Touch Alcohol Prep Pads) 1 pad topical TID aspirin 81 mg PO DAILY 90 days atorvastatin 80 mg PO BEDTIME 90 days blood sugar diagnostic As directed blood-glucose meter (FreeStyle [place] Lite kit) As directed disposable gloves As directed docusate calcium 240 mg PO BEDTIME PRN 90 days finasteride 5 mg PO DAILY fluticasone propionate 110 mcg/actuation (Flovent HFA) 2 puffs inhalation BID 30 days lancets As directed [left foot brace/Kafo adjustment As directed] lisinopril 10 mg PO DAILY 90 days metformin 1,000 mg PO BID 90 days nitrofurantoin monohyd/m-cryst 100 mg (Macrobid) 100 mg PO Q12H 7 days oxybutynin chloride ER 10 mg PO DAILY [personal wipes As directed] sitagliptin phosphate (Januvia) 50 mg PO DAILY 90 days Ventolin HFA 90 mcg/actuation (albuterol sulfate) 2 puffs inhalation DAILY 30 days NS HPI HPI Comments History of Present Illness Details Mendez is a pleasant [place]ian speaking male. He is a patient of . He is seen for the following urologic conditions - lower urinary tract symptoms - prior epididymo-orchitis Liberian translation provided in office by qualified emergency medical services coordinator Can stop finasteride Continues with oxybutynin for diabetic cystopathy with overactive bladder 6 month review tele Lower Urinary Tract Symptoms: Had marginal improvement with urination with tamsulosin Current visit is for further evaluation of, lower urinary tract symptoms, predominate irritative symptoms. Current treatment includes medication, tamsulosin and finasteride - cystoscopy 04/19 prior TURP, inflamed bladder post UTI - responded to 3 months low-dose antibiotic Results from testing include renal/bladder us Yes 02/14 bladder trabeculation Prostate with calcifications PVR 50 prostate size 20 Testicular/Scotal orchalgia-swelling: Setting of diabetes Episode January 2020 that resolved with antibiotics Primary complaint of pain and swelling, right, testicle(s). The symptoms started or were observed: two weeks ago. Onset of pain was gradual. Imaging includes testicular ultrasound - epididymo-orchitis right side. Relevant medical history diabetes Yes Complicated infected surgery none heavy physical exertion No epididymitis No prostatitis No recent UTIs No STD's No urinary catheterization No irritable bowel syndrome No PFSH Medical History (Updated 06/06/23 @ 09:48 by Rusty Ho MD) Overactive bladder BPH (benign prostatic hyperplasia) Diabetes Asthma Polio Surgical History History of surgery on lower extremity Hx of colonoscopy History of surgery Family History Father Substance use disorder Mother Diabetes Hypertension Asthma Brother No problems noted. Social History Household Members: Spouse Housing: House Are you a primary critical care unit nurse to a significant other at home: No Do you presently have visiting nurse or other home services: No Alcohol intake: never Patient Tobacco Use Status: Never used Tobacco e-Cigarette/Vaping Use: Never Used Second Hand Smoke Exposure: No Advance Directives Date on File: 04/18/22 service: No Current occupational status: retired Cognitive needs: Yes Hearing needs: No Vision needs: No Review of Systems Const Denies chills and Denies fever(s) Card Reports no additional complaints and Denies syncope Resp Denies cough GI Denies abdominal pain and Denies heartburn Reports as per HPI and Denies change in libido Neuro Denies syncope Psych Denies change in libido Endo Denies change in libido Physical Exam Const General: cooperative, healthy appearing, comfortable and no acute distress Orientation/consciousness: patient oriented x3 HEENT Face and sinus: Yes normal facial exam Mouth: moist mucous membranes Neck Neck: Yes normal visual inspection, Yes full ROM and Yes trachea midline Chest Chest palpation & inspection: normal inspection of the chest Resp Effort & Inspection: normal respiratory effort, able to speak in complete sentences and no respiratory distress GI Inspection: Yes normal to inspection Back/Spine/Pelvis Cervical Spine: normal cervical lordosis Thoracic/Lumbar Spine: thoracic and lumbar spine normal to inspection Skin General skin exam: no rashes or lesions noted Neuro General: patient oriented x3, gait normal, tone normal and moves all extremities Extrem General: Yes normal to inspection and Yes capillary refill normal Office Procedures Post Void Residual Post Residual Void Post Void Residual (PVR): 0 11999-Edls Void Residual by ultrasound Assessment & Plan Assessment & Plan (1) Nocturia more than twice per night: Code(s): R35.1 - Nocturia (2) Overactive bladder: Code(s): N32.81 - Overactive bladder Plan Continue oxybuytinin Orders: Orders AMB Post Void Residual by ultrasound Today R32 - Unspecified urinary incontinence Medications: Refilled oxybutynin chloride ER 10 mg PO DAILY 90 tabs 3RF Discontinued finasteride Discontinued Reason: Patient Completed Course 5 mg PO DAILY 90 tabs 1RF Patient Instructions: Imaging studies, laboratory and physical exam results were discussed and reviewed in detail. No major barriers to patient understanding were identified. An opportunity to ask questions regarding the treatment plan was provided. All questions were answered. The patient expressed understanding and agreement with the above treatment plan. The patient is aware they should contact our office by phone for worsening of their current condition or the appearance of new urologic symptoms. Compliance is encouraged with any medications and followup testing that is ordered. It is a privilege to participate in the urologic care of your patient. If you have any questions or concerns regarding treatment for the above conditions, or other urologic issues, please do not hesitate to contact me. The office telephone contact is [phone]. This note is constructed using voice recognition software. While every effort has been made to ensure accuracy galvanizer errors may have been included. Yours sincerely, Dr Rusty Ho MD, [facility] - Urology Providers of Expert, Compassionate Care for the Genitourinary System Coding Level of Care Code Est Pt Level 3 (14060) Diagnoses Nocturia more than twice per night R35.1 Overactive bladder N32.81 CPT Codes Post Residual Void - PVR CPT Code: 12932-Etxh Void Residual by ultrasound ([id number])
== END 2023-06-06 09:44 | disposition home or self-care (01) ==
PROVIDERS: Visit Provider Urology
DX: R35.1 Nocturia (principal); N32.81 Overactive bladder
CPT/HCPCS: 99213

== ENCOUNTER → 2023-06-06 08:47 | Outpatient (BNVA) | payer OTHER, SELFPAY | PROVIDERS: Visit Provider Urology | DX: R35.1 Nocturia (principal); N32.81 Overactive bladder | CPT/HCPCS: 51798; 99212 ==

== ENCOUNTER 2023-12-05 09:36 | Outpatient (AMB) | payer OTHER, SELFPAY ==
--- NOTE | 2023-12-05 09:38 | MHC.OFFVIS ---
Intake Visit Reasons: 6m follow up Intake Note: Patient is Present for Telephone Follow Up For Urology Med: Oxybutynin Antibiotic Allergy:Penicillins Blood Thinner:Aspirin Allergies Penicillins Allergy (Intermediate, Verified 06/06/23 09:20) RASH, itchy Medication List - Last Reconciled 12/05/23 by Rusty Ho MD acetaminophen ER (8 Hour Pain Reliever) 650 mg PO DAILY PRN 90 days [adult diapers pull-ups As directed] alcohol swabs (Easy Touch Alcohol Prep Pads) 1 pad topical TID aspirin 81 mg PO DAILY 90 days atorvastatin 80 mg PO BEDTIME 90 days blood sugar diagnostic As directed blood-glucose meter (FreeStyle [place] Lite kit) As directed disposable gloves As directed docusate calcium 240 mg PO BEDTIME PRN 90 days fluticasone furoate 50 mcg/actuation (Arnuity Ellipta) 1 inh inhalation DAILY 30 days fluticasone propionate 110 mcg/actuation 2 puffs inhalation BID 30 days lancets As directed [left foot brace/Kafo adjustment As directed] lisinopril 10 mg PO DAILY 90 days meloxicam 15 mg PO DAILY 30 days metformin 1,000 mg PO BID 90 days nitrofurantoin monohyd/m-cryst 100 mg (Macrobid) 100 mg PO Q12H 7 days oxybutynin chloride ER 10 mg PO DAILY [personal wipes As directed] sitagliptin phosphate (Januvia) 50 mg PO DAILY 90 days sulfamethoxazole-trimethoprim 800-160 mg (Bactrim DS) 1 tab PO BID 14 days Ventolin HFA 90 mcg/actuation (albuterol sulfate) 2 puffs inhalation DAILY 30 days NS HPI Comments Details: Mendez is a pleasant [place] Korean speaking male. He is a patient of . He is seen for the following urologic conditions - lower urinary tract symptoms - prior epididymo-orchitis South Korean translation provided in office by qualified biomedical engineering aide Telemedicine Evaluation 15 min Consultation Doximity Hayde Video attempted Previously stopped finasteride Continues with oxybutynin for diabetic cystopathy with overactive bladder Six-month follow-up office PSA Lower Urinary Tract Symptoms: Had marginal improvement with urination with tamsulosin Current visit is for further evaluation of, lower urinary tract symptoms, predominate irritative symptoms. Current treatment includes medication, tamsulosin and finasteride - cystoscopy 04/19 prior TURP, inflamed bladder post UTI - responded to 3 months low-dose antibiotic Results from testing include renal/bladder us Yes 02/14 bladder trabeculation Prostate with calcifications PVR 50 prostate size 20 Testicular/Scotal orchalgia-swelling: Setting of diabetes Episode January 2020 that resolved with antibiotics Primary complaint of pain and swelling, right, testicle(s). The symptoms started or were observed: two weeks ago. Onset of pain was gradual. Imaging includes testicular ultrasound - epididymo-orchitis right side. Relevant medical history diabetes Yes Complicated infected [facility] Medical History (Updated 06/06/23 @ 09:48 by Rusty Ho MD) Overactive bladder BPH (benign prostatic hyperplasia) Diabetes Asthma Polio Surgical History History of surgery on lower extremity Hx of colonoscopy History of surgery Family History Father Substance use disorder Mother Diabetes Hypertension Asthma Brother No problems noted. Social History Household Members: Spouse Housing: House Are you a primary daycare provider to a significant other at home: No Do you presently have visiting nurse or other home services: No Alcohol intake: never Patient Tobacco Use Status: Never used Tobacco e-Cigarette/Vaping Use: Never Used Second Hand Smoke Exposure: No Advance Directives Date on File: 04/18/22 service: No Current occupational status: retired Cognitive needs: Yes Hearing needs: No Vision needs: No Review of Systems Const All systems reviewed & are unremarkable except as noted in HPI and below Reports no additional complaints Resp Reports no additional complaints GI Reports no additional complaints Reports as per HPI Musc Reports no additional complaints Physical Exam Telemedicine evaluation Appropriate responses Regular breathing rate and rhythm HEENT Head: Yes normal to inspection Ears: hearing grossly normal bilaterally Eyes General: appearance normal, both eyes and all related structures Neck Neck: Yes normal visual inspection Chest Chest palpation & inspection: normal inspection of the chest Resp Effort & Inspection: normal respiratory effort and able to speak in complete sentences Telehealth Telehealth [facility]health [facility] Location of provider rendering services: practice address Location of patient: address on file Patient Identification confirmed using: Name, : Yes Telehealth method: video Patient verbally consented to treatment: Yes Patient verbally consented to billing insurance company: Yes Patient informed of any privacy concerns related to visit: Yes Minutes spent on Phone/Video with Pt.: 15 Assessment & Plan Assessment & Plan (1) Overactive bladder: Code(s): N32.81 - Overactive bladder Category: Medical (2) BPH w urinary obs/LUTS: Code(s): N40.1 - Benign prostatic hyperplasia with lower urinary tract symptoms; N13.8 - Other obstructive and reflux uropathy Category: Medical (3) Nocturia more than twice per night: Code(s): R35.1 - Nocturia Category: Medical Plan Six-month follow-up Orders: Orders Prostate Specific Antigen 6 Months N13.8 - Other obstructive and reflux uropathy, N40.1 - Benign prostatic hyperplasia with lower urinary tract symptoms Patient Instructions: Imaging studies, laboratory and physical exam results were discussed and reviewed in detail. No major barriers to patient understanding were identified. An opportunity to ask questions regarding the treatment plan was provided. All questions were answered. The patient expressed understanding and agreement with the above treatment plan. The patient is aware they should contact our office by phone for worsening of their current condition or the appearance of new urologic symptoms. Compliance is encouraged with any medications and followup testing that is ordered. It is a privilege to participate in the urologic care of your patient. If you have any questions or concerns regarding treatment for the above conditions, or other urologic issues, please do not hesitate to contact me. The office telephone contact is [phone]. This note is constructed using voice recognition software. While every effort has been made to ensure accuracy cloth reeler errors may have been included. Yours sincerely, Dr Rusty Ho MD, [facility] - Urology Providers of Expert, Compassionate Care for the Genitourinary System Coding Level of Care Code Tele Est Pt Level 3 (79012) Diagnoses Overactive bladder N32.81 BPH w urinary obs/LUTS N40.1; N13.8 Nocturia more than twice per night R35.1
== END 2023-12-05 09:55 | disposition home or self-care (01) ==
LOC: HO.HUSH 09:36
PROVIDERS: PCP Internal Medicine; Visit Provider Urology
DX: N32.81 Overactive bladder (principal); N40.1 Benign prostatic hyperplasia with lower urinary tract symptoms; N13.8 Other obstructive and reflux uropathy; R35.1 Nocturia
CPT/HCPCS: 99213

== ENCOUNTER → 2023-12-05 09:36 | Outpatient (BNVA) | payer OTHER, SELFPAY | PROVIDERS: PCP Internal Medicine; Visit Provider Urology ==

== ENCOUNTER 2024-02-19 12:23 | Outpatient (REF) | payer OTHER, SELFPAY ==
--- NOTE | ~2024-02-19 | XR_ITS ---
EXAMINATION: XR CHEST CLINICAL INFORMATION: Shortness of breath COMPARISON: 07/29/2022, without interval change TECHNIQUE: 2 views of the chest were obtained. FINDINGS: No significant abnormality is noted involving the heart, lungs, mediastinum, bony thorax or soft tissues. XR/XR chest 2V IMPRESSION: Unremarkable examination without interval change.
== END 2024-02-19 12:24 | disposition home or self-care (01) ==
LOC: HO.XRAY 12:23
PROVIDERS: PCP Internal Medicine; Visit Provider Internal Medicine
DX: J45.20 Mild intermittent asthma, uncomplicated (principal); R63.4 Abnormal weight loss
CPT/HCPCS: 36415; 71046; 87209; 87329; 87338

== ENCOUNTER 2024-02-20 09:25 | Outpatient (REF) | payer OTHER, SELFPAY ==
[2024-02-20 14:07] LABS: MANUAL DIFF FLAG NO
[2024-02-20 14:10] LABS: Basophils Absolute Auto 0.1 X10*3/uL (0.0-0.2); Basophils Percent Auto 0.8 % (0-2); Eosinophils Absolute Auto 0.1 X10*3/uL (0.0-0.4); Eosinophils Percent Auto 2.2 % (0-4); Hematocrit 38.6 % (42.0-52.0); Hemoglobin 12.9 g/dl (14.0-18.0); Imm Gran Abs Auto 0.02 X10*3/uL (0.00-0.03); Imm Gran Pct Auto 0.3 % (0.0-0.4); Lymphocytes Absolute Auto 2.2 X10*3/uL (1.2-4.9); Lymphocytes Percent Auto 37.3 % (20-40); Mean Corpuscular HGB Conc 33.4 g/dl (31.0-36.0); Mean Corpuscular Hemoglobin 28.4 pg (27.0-33.0); Mean Platelet Volume 10.4 fL (9.4-12.4); Monocytes Absolute Auto 0.4 X10*3/uL (0.1-1.2); Monocytes Percent Auto 6.6 % (2-11); Neutrophils Absolute Auto 3.1 x10*3/uL (2.0-8.3); Neutrophils Percent Auto 52.8 % (45-73); Platelet Count 232 X10*3/uL (160-400); Red Blood Count 4.54 X10*6/uL (4.60-5.80); Red Cell Distribution Width 12.8 % (11.0-16.0)
[2024-02-20 14:34] LABS: Alanine Aminotransferase 18 U/L (0-40); Albumin Level 3.7 g/dL (3.5-5.0); Alkaline Phosphatase 67 U/L (39-117); Anion Gap 12 (12-20); Aspartate Amino Transferase 18 U/L (5-37); Bilirubin Total 0.3 mg/dL (0.0-1.0); Blood Urea Nitrogen 16 mg/dL (9-16); Calcium 9.6 mg/dL (8.4-10.2); Carbon Dioxide 24 mmol/L (22-29); Chloride 110 mmol/L (96-108); Cholesterol 177 mg/dL (<200); Estimated Glomerular Filt Rate > 60; Glucose Random 118 mg/dL (60-115); HDL Cholesterol 46 mg/dL (>40); LDL Cholesterol Calculated 110 mg/dL (<100); Potassium 4.1 mmol/L (3.3-5.1); Sodium 142 mmol/L (135-145); Total Protein 6.7 g/dL (6.5-8.0); Triglycerides 107 mg/dL (<150)
[2024-02-20 14:42] LABS: TSH reflex Free T4 0.67 uIU/mL (0.32-4.0)
[2024-02-24 17:18] LABS: Immunoglobulin A 234 mg/dL (70-320); Transglutaminase IgA <1.0 U/mL
== END 2024-02-20 09:26 | disposition home or self-care (01) ==
LOC: HO.CHCLDS 09:25
PROVIDERS: Visit Provider Internal Medicine
DX: R63.4 Abnormal weight loss (principal)
CPT/HCPCS: 80053; 80061; 82784; 84443; 85025; 86364

== ENCOUNTER 2024-03-11 09:27 | Outpatient (REF) | payer OTHER, SELFPAY ==
[2024-03-11 14:32] LABS: Immature Retic Fraction 7.3 % (2.3-13.4); Retic HGB Equivalent 33.1 pg (30.0-35.0); Reticulocyte Percent 1.2 % (0.5-1.8); Reticulocytes Absolute 0.054 X10*6/uL (0.026-0.095)
[2024-03-11 14:53] LABS: Iron 87 mcg/dL (45-160); Percent Iron Saturation 34 % (15-50); Total Iron Binding Capacity 256 mcg/dL (228-428); Unsaturated Iron Binding 169 ug/dL
[2024-03-11 15:13] LABS: Ferritin 133 ng/mL (20-250)
== END 2024-03-11 09:28 | disposition home or self-care (01) ==
LOC: HO.CHCLDS 09:27
PROVIDERS: Visit Provider Internal Medicine
DX: D50.9 Iron deficiency anemia, unspecified (principal)
CPT/HCPCS: 36415; 82728; 83540; 85045

== ENCOUNTER 2024-04-01 12:51 | Outpatient (RCR) | payer OTHER, SELFPAY | END 2024-09-01 08:56 | disposition home or self-care (01) | LOC: HO.PT 12:51 | PROVIDERS: PCP Internal Medicine; Visit Provider Internal Medicine | DX: R39.81 Functional urinary incontinence (principal); R15.9 Full incontinence of feces ==

== ENCOUNTER 2024-05-11 13:02 | Emergency (ER) | payer OTHER, SELFPAY ==
--- NOTE | ~2024-05-11 | XR_ITS ---
EXAMINATION: XR SHOULDER, LEFT CLINICAL INFORMATION: Pain. COMPARISON: None available. TECHNIQUE: Four views of the left shoulder. FINDINGS: There is no fracture. No dislocation. No acute abnormality. Mild spurs and subchondral cystic changes from degenerative change at the acromioclavicular joint. No soft tissue calcification. XR/XR shoulder LT min 2V IMPRESSION: 1. No acute abnormality. 2. Mild degenerative change of the acromioclavicular joint. Electronically signed by: Juan Mckeon MD 05/11/2024 02:59 PM EDT RP
--- NOTE | ~2024-05-11 | XR_ITS ---
EXAMINATION: XR HUMERUS, LEFT CLINICAL INFORMATION: Pain. COMPARISON: None available. TECHNIQUE: AP and lateral views of the left humerus. FINDINGS: The bones and soft tissues are normal. No fracture. Imaged portions of the shoulder and elbow are unremarkable. XR/XR humerus LT IMPRESSION: Normal left humerus. Electronically signed by: uJan Mckeon MD 05/11/2024 03:11 PM EDT
[2024-05-11 13:08] VITALS: BP 115/67; PULSE 75; RESP 18; TEMP 37; O2SAT 99; BMI 22.0
--- NOTE | 2024-05-11 13:08 | ED_ITS ---
HPI - Extremity Injury (Upper) General Chief Complaint: Extremity Injury, Upper Stated Complaint: shoulder pain Time Seen by Provider: 05/11/24 15:28 Source: patient Mode of arrival: ambulatory Limitations: no limitations History of Present Illness ED Provider: Irlanda Boston PA-C HPI narrative: 68 yo male with history of DM, asthma, hx recurrent UTIs, BPH, HTN, constipation who presents to the ER for evaluation of left shoulder pain x2 days s/p struggling to change a tire at home. Patient states he was attempting to loosen a bolt when he felt a pain in his shoulder. He has tried lidocaine patch, icy hot, ibuprofen with some improvement in pain. He reports having polio when he was younger which resulted in a shorter left like in his resolved he does have to use a crutch on his left side. Pain is worse with using the crutch, but tolerable. Denies paresthesias, fever, N/V, CP, SOB. MD complaint: injury to: left and shoulder Onset (ago): day(s) Other Extremity Injury: left: shoulder Other injuries: none Place: home Relieving factors: none Exacerbating factors: movement of extremity Context: other Associated symptoms: denies other symptoms Related Data Home Medications ?Medication ?Instructions ?Recorded ?Confirmed blood sugar diagnostic #10 ea 12/27/20 12/05/23 lancets 28 gauge #100 ea 12/27/20 12/05/23 blood-glucose meter (FreeStyle #1 ea 05/24/21 12/05/23 [place] Lite kit) alcohol swabs (Easy Touch Alcohol 1 pad topical TID 06/04/22 12/05/23 Prep Pads) Previous Rx's ?Medication ?Instructions ?Recorded adult diapers pull-ups #240 ea 11/01/22 disposable gloves #100 ea 11/01/22 personal wipes #200 ea 11/01/22 left foot brace/Kafo adjustment #1 ea 01/07/23 Ventolin HFA 90 mcg/actuation 2 puff inhalation DAILY 30 days 01/24/23 aerosol inhaler (albuterol sulfate) #18 grams docusate calcium 240 mg capsule 240 mg PO BEDTIME PRN constipation 01/24/23 90 days #90 caps nitrofurantoin 100 mg PO Q12H 7 days #14 caps 04/13/23 monohydrate/macrocrystals 100 mg capsule (Macrobid) oxybutynin chloride 10 mg 10 mg PO DAILY #90 tabs 06/06/23 tablet,extended release 24 hr fluticasone furoate 50 1 inh inhalation DAILY 30 days #30 07/26/23 mcg/actuation blister powder for ea inhalation (Arnuity Ellipta) meloxicam 15 mg tablet 15 mg PO DAILY 30 days #30 tabs 08/29/23 sulfamethoxazole 800 1 tab PO BID 14 days #28 tabs 08/29/23 mg-trimethoprim 160 mg tablet (Bactrim DS) fluticasone propionate 110 2 puff inhalation BID 30 days #12 10/23/23 mcg/actuation HFA aerosol inhaler grams atorvastatin 80 mg tablet 80 mg PO BEDTIME 90 days #90 tabs 02/26/24 lisinopril 10 mg tablet 10 mg PO DAILY 90 days #90 tabs 03/23/24 metformin 1,000 mg tablet 1,000 mg PO BID 90 days #180 tabs 03/23/24 sitagliptin phosphate 50 mg tablet 50 mg PO DAILY 90 days #90 tabs 03/23/24 (Januvia) acetaminophen 650 mg 650 mg PO DAILY PRN fever or pain 04/13/24 tablet,extended release (8 Hour 90 days #90 tabs Pain Reliever) aspirin 81 mg tablet,delayed 81 mg PO DAILY 90 days #90 tabs 04/20/24 release lidocaine 5 % topical patch 1 patch topical DAILY #15 ea 05/11/24 Allergies Allergy/AdvReac Type Severity Reaction Status Date / Time Penicillins Allergy Intermediate RASH, itchy Verified 05/11/24 13:12 Review of Systems Review of Systems: Yes all other systems are reviewed and are negative [facility] Past Medical History Medical History Overactive bladder BPH (benign prostatic hyperplasia) Diabetes Asthma Polio Surgical History History of surgery on lower extremity Hx of colonoscopy History of surgery Family History Family History Father Substance use disorder Mother Diabetes Hypertension Asthma Brother No problems noted. Social History Social History Household Members: Spouse Housing: House Are you a primary janitor caretaker to a significant other at home: No Do you presently have visiting nurse or other home services: No Alcohol intake: never Patient Tobacco Use Status: Never used Tobacco e-Cigarette/Vaping Use: Never Used Second Hand Smoke Exposure: No Advance Directives: No Advance Directives Information Provided: No Advance Directives Date on File: 04/18/22 Do you have a plan to hurt others: No Plan service: No Current occupational status: retired Cognitive needs: Yes Hearing needs: No Vision needs: No Physical Exam Vital Signs: Vital Signs: Last Vital Signs Temp 98.3 F 05/11/24 16:58 Pulse 77 05/11/24 16:58 Resp 18 05/11/24 16:58 BP 116/63 05/11/24 16:58 Pulse Ox 99 05/11/24 16:58 O2 Del Method Room Air 05/11/24 16:58 BMI result Body Mass Index 22.0 Appearance: Alert. Oriented X3. Sitting on stretcher, in no acute distress. HEENT: No obvious external abnormalities to inspection. Neck: Normal inspection. Neck supple. CVS: Normal heart rate and rhythm. Pulses normal. Respiratory: No respiratory distress. Abdomen: Normal external inspection Skin: Skin warm and dry. Normal skin color. Normal skin turgor. No rashes. Extremities: Left shoulder- Mild pain and tenderness elicited upon palpation of shoulder, limited range of motion to shoulder flexion, extension, abduction, adduction, internal and external rotation due to pain. Patient unable to perform special tests for rotator cuff injury due to pain with ROM. No lower extremity edema. No joint swelling. Neuro/psych: Oriented X 3. No motor deficit. No sensory deficit. CN II-XII intact. Normal speech and cognition. Course Course Course Narrative: This is an RME: Additional HPI, ROS, PE not included below will be deferred to primary provider. RME assessment and note performed by: Renetta Vallejo PA-C This is a 10-wwve[age]vw-male, with a hx of hypertension, hyperlipidemia, diabetes, BPH, overactive bladder, history of UTIs, history of prostatitis, who presents to the ER with complaints of left shoulder pain x 2 days. He was attempting to change a tire today and felt pain in his left shoulder. Plan: xray left shoulder/humerus Medical Decision Making Medical Decision Making [facility] Narrative: 68 yo male with history of DM, asthma, hx recurrent UTIs, BPH, HTN, constipation who presents to the ER for evaluation of left shoulder pain x2 days s/p struggling to change a tire at home. On exam, patient is sitting comfortably in bed, nontoxic appearing, neurovascularly intact, with left shoulder mild pain and tenderness elicited upon palpation of shoulder, limited range of motion to shoulder flexion, extension, abduction, adduction, internal and external rotation due to pain. Patient unable to perform special tests for rotator cuff injury due to pain with ROM. Concern for shoulder sprain, strain, dislocation, fracture, rotator cuff injury, joint separation, OA, unlikely cellulitis, osteomyelitis as there is minimal to no swelling, warmth, erythema to the affected area. Plan: X-ray left shoulder and humerus Left shoulder x-ray showed no acute abnormalities, mild degenerative change noted to the acromioclavicular joint. Normal left humerus. Patient states that stable for discharge home with lidocaine patches. Patient to take OTC Tylenol p.r.n. for pain. Increase activity as tolerated & f/u with PCP and orthopedics as needed. Differential Diagnosis Differential Diagnoses: The differential diagnosis associated with the presentation includes As above. Independent Interpretation I performed an independent interpretation of an: Plain X-Ray Interpretation: no acute fracture or dislocation Radiology Impression Discussion of test interpretation with radiology: I have reviewed the radiologist's reading. External Record Review External record reviewed: Outpatient record, Prior outpatient labs and Prior outpatient radiology Prescription Management I considered prescription management with: Pain Medication Chronic Conditions Patient?s care impacted by: Hypertension Critical Care Time Critical Care Time Critical Care Time: No Discharge Plan Discharge Clinical Impression: Left shoulder strain Patient Disposition: Home, Self-Care Instructions: Shoulder Sprain (ED), Shoulder Pain (ED) Additional Instructions: continue motrin and tylenol as needed for pain follow up with your PCP and orthopedics if no improvement with rest, pain medication, ice and conservative management If you develop new or worsening symptoms call 911 or come back to the ER for further evaluation. XR/XR shoulder LT min 2V IMPRESSION: 1. No acute abnormality. 2. Mild degenerative change of the acromioclavicular joint. Prescriptions: New lidocaine 5 % adhesive patch,medicated 1 patch topical DAILY Qty: 15 0RF Rx Instructions: leave on most painful area for up to 12 hrs No Action (DME) adult diapers pull-ups small See Rx Instructions .Route .MEDSUPPLY Qty: 240 11RF Rx Instructions: As directed (DME) disposable gloves Package See Rx Instructions .Route Qty: 100 11RF Rx Instructions: As directed (DME) personal wipes See Rx Instructions .Route .MEDSUPPLY Qty: 200 11RF Rx Instructions: As directed (DME) left foot brace/Kafo adjustment See Rx Instructions .Route .MEDSUPPLY Qty: 1 0RF Rx Instructions: As directed albuterol sulfate [Ventolin HFA] 90 mcg/actuation HFA aerosol inhaler 2 puff inhalation DAILY 30 Days Qty: 18 2RF docusate calcium 240 mg capsule 240 mg PO BEDTIME PRN (Reason: constipation) 90 Days Qty: 90 1RF Arnuity Ellipta 50 mcg/actuation blister with device 1 inh inhalation DAILY 30 Days Qty: 30 4RF sulfamethoxazole-trimethoprim [Bactrim DS] 800-160 mg tablet 1 tab PO BID 14 Days Qty: 28 0RF meloxicam 15 mg tablet 15 mg PO DAILY 30 Days Qty: 30 0RF fluticasone propionate 110 mcg/actuation HFA aerosol inhaler 2 puff inhalation BID 30 Days Qty: 12 3RF atorvastatin 80 mg tablet 80 mg PO BEDTIME 90 Days Qty: 90 5RF lisinopril 10 mg tablet 10 mg PO DAILY 90 Days Qty: 90 5RF Januvia 50 mg tablet 50 mg PO DAILY 90 Days Qty: 90 5RF metformin 1,000 mg tablet 1,000 mg PO BID 90 Days Qty: 180 8RF acetaminophen [8 Hour Pain Reliever] 650 mg tablet extended release 650 mg PO DAILY PRN (Reason: fever or pain) 90 Days Qty: 90 8RF aspirin 81 mg tablet,delayed release (DR/EC) 81 mg PO DAILY 90 Days Qty: 90 5RF nitrofurantoin monohyd/m-cryst [Macrobid] 100 mg capsule 100 mg PO Q12H 7 Days Qty: 14 0RF Rx Instructions: must administer with a meal/food (DME) lancets 28 gauge misc See Rx Instructions topical TID Qty: 100 Rx Instructions: As directed (DME) blood sugar diagnostic Strip See Rx Instructions Not Applicable .MEDSUPPLY Qty: 10 Rx Instructions: As directed (DME) blood-glucose meter [FreeStyle [place] Lite] Kit See Rx Instructions .ROUTE .MEDSUPPLY Qty: 1 Rx Instructions: As directed alcohol swabs [Easy Touch Alcohol Prep Pads] Pads, Medicated 1 pad topical TID oxybutynin chloride 10 mg tablet extended release 24hr 10 mg PO DAILY Qty: 90 3RF Referrals: [facility] [place] Orthopedic Surgeons [Provider Group] (XR/XR shoulder LT min 2V IMPRESSION: 1. No acute abnormality. 2. Mild degenerative change of the acromioclavicular joint.) Interventions: ED Discharge Assessment Last Done: 05/11/24 16:58 Discharge Date/Time: 05/11/24 17:02 Print Language: Ethiopian
[2024-05-11 15:39] VITALS: BP 112/68; PULSE 72; RESP 18; TEMP 36.8; O2SAT 99
--- NOTE | 2024-05-11 15:40 | PC.NURSE ---
patient a&ox3, c/o 04/07 lt shoulder pain, vss, pt states he used lido patch at home without relief.
[2024-05-11 16:58] VITALS: BP 116/63; PULSE 77; RESP 18; TEMP 36.8; O2SAT 99
== END 2024-05-11 17:02 | disposition home or self-care (01) ==
PROVIDERS: Emergency Provider Emergency Medicine
DX: S46.912A Strain of unspecified muscle, fascia and tendon at shoulder and upper arm level, left arm, initial encounter (principal); M25.512 Pain in left shoulder; I10 Essential (primary) hypertension; E11.9 Type 2 diabetes mellitus without complications; X58.XXXA Exposure to other specified factors, initial encounter; Y93.89 Activity, other specified; Y92.89 Other specified places as the place of occurrence of the external cause; Y99.8 Other external cause status; Z79.899 Other long term (current) drug therapy; Z79.84 Long term (current) use of oral hypoglycemic drugs
CPT/HCPCS: 73030; 73060; 99283

== ENCOUNTER 2024-05-26 10:39 | Outpatient (AMB) | payer OTHER, SELFPAY ==
--- NOTE | 2024-05-26 10:59 | A.OFFVIS_ITS ---
Vital Signs 05/26/24 11:00 Height 5 ft 5 in Weight 130 lb BMI 21.6 Handedness Left Intake Visit Reasons: Left shoulder pain and weakness Intake Note: Mendez is a 68 year old male who presents with complaints of progressively worsening left shoulder pain and weakness. The patient states that his pain and weakness began approximately 1 year ago after lifting a heavy object. Then reaggravated his left shoulder recently while removing a tire. Since that time he has not been able to lift his left hand above shoulder height. He has failed the last 6 weeks of conservative treatment which has included physical therapy exercises, topical creams, Tylenol and anti-inflammatory medicines. He denies any other injuries. He has also tried lidocaine patches which gave him minimal relief. The patient states that prior to this recent injury he was able to lift his left hand above shoulder height without difficulty. Accompanied by: Daughter Allergies Penicillins Allergy (Intermediate, Verified 05/26/24 11:04) RASH, itchy Medication List - Last Reconciled 05/26/24 by Nato Rodriguez MD acetaminophen ER (8 Hour Pain Reliever) 650 mg PO DAILY PRN 90 days [adult diapers pull-ups As directed] alcohol swabs (Easy Touch Alcohol Prep Pads) 1 pad topical TID aspirin 81 mg PO DAILY 90 days atorvastatin 80 mg PO BEDTIME 90 days blood sugar diagnostic As directed blood-glucose meter (FreeStyle [place] Lite kit) As directed disposable gloves As directed docusate calcium 240 mg PO BEDTIME PRN 90 days fluticasone furoate 50 mcg/actuation (Arnuity Ellipta) 1 inh inhalation DAILY 30 days fluticasone propionate 110 mcg/actuation 2 puffs inhalation BID 30 days lancets As directed [left foot brace/Kafo adjustment As directed] lidocaine 5% 1 patch topical DAILY lisinopril 10 mg PO DAILY 90 days meloxicam 15 mg PO DAILY 30 days oxybutynin chloride ER 10 mg PO DAILY [personal wipes As directed] sitagliptin phosphate (Januvia) 50 mg PO DAILY 90 days Ventolin HFA 90 mcg/actuation (albuterol sulfate) 2 puffs inhalation DAILY 30 days NS [facility] Medical History Overactive bladder BPH (benign prostatic hyperplasia) Diabetes Asthma Polio Surgical History History of surgery on lower extremity Hx of colonoscopy History of surgery Family History Father Substance use disorder Mother Diabetes Hypertension Asthma Brother No problems noted. Social History Household Members: Spouse Housing: House Are you a primary healthcare interpreter to a significant other at home: No Do you presently have visiting nurse or other home services: No Alcohol intake: never Patient Tobacco Use Status: Never used Tobacco e-Cigarette/Vaping Use: Never Used Second Hand Smoke Exposure: No Advance Directives Date on File: 04/18/22 service: No Current occupational status: disabled Cognitive needs: Yes Hearing needs: No Vision needs: No Physical Exam Vital Signs: BMI result Body Mass Index 21.6 Const Other: Well-nourished well-developed very friendly male awake alert and oriented x3 in no acute distress Extrem Other: Bilateral upper extremity examination shows good capillary refill, no skin lesions noted, normal sensation light touch left shoulder examination shows decreased active range of motion but almost full passive range of motion when compared to his right shoulder, 3/5 strength with supraspinatus testing, positive impingement signs, tenderness over his acromioclavicular joint, no instability Results Reviewed Results Reviewed: X-rays of the patient's left shoulder taken previously show severe acromioclavicular joint space narrowing, a type 2 acromion, no acute bony abnormalities Assessment & Plan Assessment & Plan (1) Rotator cuff insufficiency of right shoulder: Code(s): M25.311 - Other instability, right shoulder Category: Medical Plan Mr. Yepez presents with progressively worsening left shoulder pain and weakness most likely due to a full-thickness rotator cuff tear. Thus, I will send the patient for an MRI of his left shoulder for further evaluation. I will see him back once the MRI is completed to discuss the findings and treatment options. He will continue with his range of motion exercises in the meantime to prevent stiffness. I spent 20 minutes in reviewing the patient's records and imaging studies, seeing the patient and documenting in the medical record. Orders: Orders MR shoulder RT wo con Today M25.311 - Other instability, right shoulder Coding Level of Care Code New Pt Level 3 (85253) Complex EM visit Add On G2211 Diagnoses Rotator cuff insufficiency of right shoulder M25.311
[2024-05-26 11:00] VITALS: BMI 21.6
== END 2024-05-26 11:27 | disposition home or self-care (01) ==
PROVIDERS: Visit Provider Orthopaedic Surgery
DX: M25.312 Other instability, left shoulder (principal)
CPT/HCPCS: 99203; G2211

== ENCOUNTER → 2024-05-26 10:39 | Outpatient (BNVA) | payer OTHER, SELFPAY | PROVIDERS: Visit Provider Orthopaedic Surgery | DX: M25.311 Other instability, right shoulder (principal) | CPT/HCPCS: 99202 ==

== ENCOUNTER 2024-06-03 10:00 | Outpatient (RCR) | payer OTHER, SELFPAY | END 2024-06-24 11:24 | disposition home or self-care (01) | LOC: HO.PT 10:00 | PROVIDERS: PCP Internal Medicine; Visit Provider Internal Medicine | DX: M54.50 Low back pain, unspecified (principal); G89.29 Other chronic pain | CPT/HCPCS: 97110; 97162 ==

== ENCOUNTER 2024-06-09 09:29 | Outpatient (REF) | payer OTHER, SELFPAY ==
[2024-06-09 11:38] LABS: Prostate Specific Antigen 5.64 ng/mL (<0.05-4.0)
== END 2024-06-09 09:30 | disposition home or self-care (01) ==
LOC: HO.LAB 09:29
PROVIDERS: PCP Internal Medicine; Visit Provider Urology
DX: N40.1 Benign prostatic hyperplasia with lower urinary tract symptoms (principal); N13.8 Other obstructive and reflux uropathy; Z12.5 Encounter for screening for malignant neoplasm of prostate
CPT/HCPCS: 36415; 84153

== ENCOUNTER 2024-06-10 09:38 | Outpatient (AMB) | payer OTHER, SELFPAY ==
--- NOTE | 2024-06-10 09:47 | MHC.OFFVIS ---
Intake Visit Reasons: 6M PSA/PVR(set) Intake Note: Patient is present for PSA/PVR Follow Up Urology Med: Oxybutynin Antibiotic Allergy: None Blood Thinner: Aspirin Last PVR:0ML Todays PVR:0ml Commercial Real Estate Agent Required: Yes Commercial Real Estate Agent Language: Propeller Mechanic Services: Commercial Real Estate Agent Present Director Compliance: Director Compliance Present Accompanied by: Self / Same As Patient Allergies Penicillins Allergy (Intermediate, Verified 06/10/24 09:50) RASH, itchy HPI Comments Details: Mendez is a pleasant Andorran speaking male. He is a patient of . He is seen for the following urologic conditions - lower urinary tract symptoms - prior epididymo-orchitis Andorran translation provided in office by qualified medical claims analyst Previously stopped finasteride Continues with oxybutynin for diabetic cystopathy with overactive bladder PVR 0 PSA 06/21 5.7 Repeat PSA in six-month on finasteride Continue oxybutynin Lower Urinary Tract Symptoms: Had marginal improvement with urination with tamsulosin Current visit is for further evaluation of, lower urinary tract symptoms, predominate irritative symptoms. Current treatment includes medication, tamsulosin and finasteride - cystoscopy 04/19 prior TURP, inflamed bladder post UTI - responded to 3 months low-dose antibiotic Results from testing include renal/bladder us Yes 02/14 bladder trabeculation Prostate with calcifications PVR 50 prostate size 20 Testicular/Scotal orchalgia-swelling: Setting of diabetes Episode January 2020 that resolved with antibiotics Primary complaint of pain and swelling, right, testicle(s). The symptoms started or were observed: two weeks ago. Onset of pain was gradual. Imaging includes testicular ultrasound - epididymo-orchitis right side. Relevant medical history diabetes Yes Complicated infected [facility] Medical History Overactive bladder BPH (benign prostatic hyperplasia) Diabetes Asthma Polio Surgical History History of surgery on lower extremity Hx of colonoscopy History of surgery Family History Father Substance use disorder Mother Diabetes Hypertension Asthma Brother No problems noted. Social History Household Members: Spouse Housing: House Are you a primary manager care to a significant other at home: No Do you presently have visiting nurse or other home services: No Alcohol intake: never Patient Tobacco Use Status: Never used Tobacco e-Cigarette/Vaping Use: Never Used Second Hand Smoke Exposure: No Advance Directives Date on File: 04/18/22 service: No Current occupational status: disabled Cognitive needs: Yes Hearing needs: No Vision needs: No Review of Systems Const Denies chills and Denies fever(s) Card Reports no additional complaints and Denies syncope Resp Denies cough GI Denies abdominal pain and Denies heartburn Reports as per HPI and Denies change in libido Neuro Denies syncope Psych Denies change in libido Endo Denies change in libido Physical Exam Const General: cooperative, healthy appearing, comfortable and no acute distress Orientation/consciousness: patient oriented x3 HEENT Face and sinus: Yes normal facial exam Mouth: moist mucous membranes Neck Neck: Yes normal visual inspection, Yes full ROM and Yes trachea midline Chest Chest palpation & inspection: normal inspection of the chest Resp Effort & Inspection: normal respiratory effort, able to speak in complete sentences and no respiratory distress GI Inspection: Yes normal to inspection Back/Spine/Pelvis Cervical Spine: normal cervical lordosis Thoracic/Lumbar Spine: thoracic and lumbar spine normal to inspection Skin General skin exam: no rashes or lesions noted Neuro General: patient oriented x3, gait normal, tone normal and moves all extremities Extrem General: Yes normal to inspection and Yes capillary refill normal Office Procedures Post Void Residual Post Residual Void Post Void Residual (PVR): 0 [id number] Void Residual by ultrasound Assessment & Plan Assessment & Plan (1) Elevated PSA: Code(s): R97.20 - Elevated prostate specific antigen [PSA] Category: Medical (2) Overactive bladder: Code(s): N32.81 - Overactive bladder Category: Medical Plan Restart finasteride Six-month follow-up repeat PSA Refill oxybutynin Orders: Orders AMB Post Void Residual by ultrasound Today N13.8 - Other obstructive and reflux uropathy, N40.1 - Benign prostatic hyperplasia with lower urinary tract symptoms PSA,Total (Free>4and<10) 6 Months R97.20 - Elevated prostate specific antigen [PSA] Medications: New finasteride 5 mg PO DAILY 90 days 90 tabs 1RF N13.8 - Other obstructive and reflux uropathy, N40.1 - Benign prostatic hyperplasia with lower urinary tract symptoms, R33.9 - Retention of urine, unspecified, R97.20 - Elevated prostate specific antigen [PSA] Refilled oxybutynin chloride ER 10 mg PO DAILY 90 tabs 3RF Patient Instructions: Imaging studies, laboratory and physical exam results were discussed and reviewed in detail. No major barriers to patient understanding were identified. An opportunity to ask questions regarding the treatment plan was provided. All questions were answered. The patient expressed understanding and agreement with the above treatment plan. The patient is aware they should contact our office by phone for worsening of their current condition or the appearance of new urologic symptoms. Compliance is encouraged with any medications and followup testing that is ordered. It is a privilege to participate in the urologic care of your patient. If you have any questions or concerns regarding treatment for the above conditions, or other urologic issues, please do not hesitate to contact me. The office telephone contact is [phone]. This note is constructed using voice recognition software. While every effort has been made to ensure accuracy cryptographic vulnerability analyst errors may have been included. Yours sincerely, Dr Rusty Ho MD, [facility] - Urology Providers of Expert, Compassionate Care for the Genitourinary System Coding Level of Care Code Est Pt Level 4 (75568) Diagnoses Elevated PSA R97.20 Overactive bladder N32.81 CPT Codes Post Residual Void - PVR CPT Code: 82132-[facility] Void Residual by ultrasound ([id number])
== END 2024-06-10 10:13 | disposition home or self-care (01) ==
PROVIDERS: PCP Internal Medicine; Visit Provider Urology
DX: R97.20 Elevated prostate specific antigen [PSA] (principal); N32.81 Overactive bladder
CPT/HCPCS: 99214

== ENCOUNTER → 2024-06-10 09:38 | Outpatient (BNVA) | payer OTHER, SELFPAY | PROVIDERS: PCP Internal Medicine; Visit Provider Urology | DX: N32.81 Overactive bladder (principal); R97.20 Elevated prostate specific antigen [PSA] | CPT/HCPCS: 51798; 99212 ==

== ENCOUNTER 2024-07-03 11:16 | Outpatient (REF) | payer OTHER, SELFPAY ==
--- OUTSIDE RECORDS SUMMARY | 2024-07-08 07:51 | XMS_ITS | Data Portability ---
Author Organization [employer] Address [address] [place] [phone] Care Team Providers Care Specialist Icu Name Role Phone [facility] Referring Provider [phone] Assessment Encounter Date Assessment Date Assessment LastModified by Organization Details LastModified Time 07/05/2023 07/05/2023 I have reviewed and agree with the assessment and plan as documented by the outpatient phlebotomist. I provided real-time medical direction for this encounter and was immediately available to provide additional phone-based assistance as needed. 67M presenting with right leg pain. Denies trauma or injury. Suspects related to overuse. Pt with no acute distress, vitals at baseline. No obvious trauma to lower extremities. Deformity to left lower leg at baseline. Will proceed with Toradol 15mg IM, no contraindications noted. Red flags and return precautions discussed. paysola Not available 07/05/2023 15:10:40 Plan of Treatment Reminders Order Date Submit Date Provider Last Modified By Organization Details Last Modified Time Details Appointments None recorded. Lab None recorded. Referral None recorded. Procedures None recorded. Surgeries None recorded. Imaging None recorded. Medication Orders ketorolac 15 mg/mL injection solution 2022 023 paysola Not available 15:11:43 Patient TargetsNo targets recorded. Patient InstructionsNo instructions recorded. Reason for Referral None Reported. Medical Equipment None Reported. Medications Name Sig Start Date Stop Date Status Note LastModified by Organization Details LastModified Time ketorolac 15 mg/mL injection solution Inject 1 mL as needed by intramuscul ar route. 2022 active Not Available Not Available Not Avai lable atorvastatin 40 mg tablet active Not Available Not Available Not Available atorvastatin 80 mg tablet TAKE 1 TABLET ORALLY AT BEDTIME FOR 90 DAYS active Not Available Not Available No t Available oxybutynin chloride ER 10 mg tablet,exten ded release 24 hr active Not Available Not Available Not Available FreeStyle Lancets 28 gauge active Not Available Not Available Not Available aspirin 81 mg tablet,delay ed release active Not Available Not Available N ot Available acetaminophe n ER 650 mg tablet,exten ded release active Not Available Not Available Not Available ketorolac 0.5 % eye drops PLACE 1 DROP IN BOTH EYES 4 TIMES DAILY active Not Available Not Available Not Available metformin 1,000 mg tablet TOME NORMA TABLETA DOS VECES AL D A active Not Available Not Available No t Available lisinopril 10 mg tablet active Not Available Not Available Not Available finasteride 5 mg tablet active Not Available Not Available Not Available Ventolin HFA 90 mcg/actuatio n aerosol inhaler active Not Available Not Available Not Available nitrofuranto in monohydrate/ macrocrystal s 100 mg capsule TOME NORMA C PSULA CADA 12 HORAS CON ALIMENTO POR 7 D active Not Available Not Available N ot Available Flovent HFA 110 mcg/actuatio n aerosol inhaler active Not Available Not Available Not Available Januvia 25 mg tablet active Not Available Not Available No t Available Januvia 50 mg tablet active Not Available Not Available No t Available FreeStyle Lite Strips active Not Available Not Available Not Available Easy Touch Alcohol Prep Pads active Not Available Not Available Not Available Vitals Date Recorded Heart rate Respiratory rate Body temperature Oxygen saturation Oxygen saturation in Arterial blood by Pulse oximetry Systolic blood pressure Diastolic blood pressure Provider Name and Address Organization Details Last Updated DateTime 3 65 /min 16 /min 98.4 [degF] 99 % 99 % 128 mm[Hg] 78 mm[Hg] Not Available [facility] - production 3 13:48:13 Social History None recorded. Functional Status None recorded. Mental Status None recorded. Family History Nothing Reported. Medical History No medical history recorded. Past Encounters Encounter ID Performer Location Encounter Start Date Encounter Closed Date Diagnosis/Indication Diagnosis SNOMED-CT Code Diagnosis ICD10 Code [id number] Polly Hook MD [facility] - [facility] [address] [place] [phone] 07/05/2023 13:48:11 07/08/2023 16:46:11 Pain in right lower limb 717034002 M79.604 Health Concerns Section Related Observation LastModified by Organization Detai ls LastModified Time None Recorded Concern Status LastModified by Organization Details LastModified Time None Recorded Advance Directives Directive None Recorded Payers Encounter Date Sequence Insurance Name Policy Number Policy Melara Covered Member ID Melara Member ID Guarantor Name 07/05/[address] [facility] - DOS ON OR AFTER 2022 - DUAL ELIGIBLE - RESIDENTIAL OPTIONS AND ONE CARE (MEDICARE REPLACEMENT/ADV ANTAGE - HMO) Mendez Yepez [id number] Mendez Yepez Notes Date Note Type Note Provider Name and Address Organization Details Recorded Time 07/05/2023 text/html [facility] Nursing Assessment: Reason For Request: right leg pain Chief Complaints: Pain PMH: Hypertension, Diabetes, COPD/Asthma Allergies: No Known Comments: Members daughter calling in to place a referral, member identified via /name. Member who had polio and his left leg never developed, and he usually hobbles on his right leg. At approximately 1 am member started experiencing pain to his right leg, and is now unable to fully press foot flat. It was noted that member did partake in strenuous activity yesterday (cleaning out a garage), question of pulled muscle. Member has attempted IBU with no relief. Denies falls, trauma, no swelling, bruising, redness or warmth. Member would like to be evaluated. .................. .................. .................. .................. .................. .................. .................. ............... [employer] Technical Lead Senior Developer Note From Alen Avila: Dispatched to the call address for the male with foot pain. Pt states he was working on cleaning a garage yesterday and thinks he over did it. He has a left leg deformity from and compensates with his right side. Pt states the top and bottom of his foot is sore to the point that it hurts to walk. Pt has taken Tylenol with little relief. Pt was found laying in bed, CAOx4, airway open and patent, breathing non labored, able to speak in full sentences, -JVD, -HEENT, skin PWD with good turgor, abd soft non tender/distended, pupils PERRL, +CMSx4, feet without edema, reddening or bruising. [facility] consulted. Pt advised to use ice/heat as needed and to take motrin. Pt advised to follow up with PCP. Pt given 600m PO Ibuprofen. Red flags discussed. ALL times are approx. .................. .................. .................. .................. .................. .................. .................. ............... Disposition: Fulfilled Polly Hook MD [address] [facility],[address], [place], [address], [place] - [employer] 07/05/2023 15:11:53
== END 2024-07-03 11:17 | disposition home or self-care (01) ==
LOC: HO.MRI 11:16
PROVIDERS: PCP Internal Medicine; Visit Provider Orthopaedic Surgery
DX: Z13.89 Encounter for screening for other disorder (principal)

== ENCOUNTER 2024-07-07 12:58 | Outpatient (REF) | payer OTHER, SELFPAY | END 2024-07-07 12:59 | disposition home or self-care (01) | LOC: HO.MRI 12:58 | PROVIDERS: PCP Internal Medicine; Visit Provider Orthopaedic Surgery | DX: M25.312 Other instability, left shoulder (principal) | CPT/HCPCS: 73221 ==

== ENCOUNTER 2024-08-20 09:34 | Outpatient (AMB) | payer OTHER, SELFPAY ==
[2024-08-20 09:36] VITALS: BMI 21.6
--- NOTE | 2024-08-20 09:36 | MHC.OFFVIS ---
Vital Signs 08/20/24 09:36 Height 5 ft 5 in Weight 130 lb BMI 21.6 Intake Visit Reasons: OV - Left Shoulder - Discuss Surgery Per Dr. Rodriguez Intake Note: Mendez is a 68 year old left hand dominant male who presents today as he was referred by Dr. Rodriguez to discuss possible surgical intervention of his left shoulder. Patient reports that he has had ongoing left shoulder pain for about 1 year now and has recently had increased pain since removing a tire. MRI done at [facility] [place]: IMPRESSION: 1. Completely torn and retracted supraspinatus tendon with mild muscle edema/atrophy and fatty infiltration. 2. Ill-defined undersurface partial tearing of the distal infraspinatus tendon. 3. Type os acromiale with mild degenerative change. Moderate hypertrophic acromioclavicular osteoarthritis. 4. Mild undersurface tearing of the posterior labrum. Degeneration/undersurface fraying of the superior labrum. 5. Moderate glenohumeral joint effusion. Allergies Penicillins Allergy (Intermediate, Verified 06/10/24 09:50) RASH, itchy HPI HPI OV - Left Shoulder - Discuss Surgery Per Dr. Rodriguez: Details: Mendez is a 68 year old -- hand dominant male who presents today as he was referred by Dr. Rodriguez to discuss possible surgical intervention of his left shoulder. Patient reports that he has had ongoing left shoulder pain for about 1 year now and has recently had increased pain since removing a tire. He felt good about 6 months ago so this is not chronic. He describes occasional pain at night and occasional difficulty with lifting activities but much of the time he states pain is minimal and tolerable. He is left-hand dominant. [facility] Medical History Overactive bladder BPH (benign prostatic hyperplasia) Diabetes Asthma Polio Surgical History History of surgery on lower extremity Hx of colonoscopy History of surgery Family History Father Substance use disorder Mother Diabetes Hypertension Asthma Brother No problems noted. Social History Household Members: Spouse Housing: House Are you a primary child care centre director to a significant other at home: No Do you presently have visiting nurse or other home services: No Alcohol intake: never Patient Tobacco Use Status: Never used Tobacco e-Cigarette/Vaping Use: Never Used Second Hand Smoke Exposure: No Advance Directives Date on File: 04/18/22 service: No Current occupational status: disabled Cognitive needs: Yes Hearing needs: No Vision needs: No Physical Exam Vital Signs: BMI result Body Mass Index 21.6 Extrem Other: Left shoulder with full range of motion. There is 4/5 strength with empty can testing but otherwise pretty unremarkable exam Results Reviewed Results Reviewed: I personally reviewed the MR images. MRI done at [facility] [place]: IMPRESSION: 1. Completely torn and retracted supraspinatus tendon with mild muscle edema/atrophy and fatty infiltration. 2. Ill-defined undersurface partial tearing of the distal infraspinatus tendon. 3. Type os acromiale with mild degenerative change. Moderate hypertrophic acromioclavicular osteoarthritis. 4. Mild undersurface tearing of the posterior labrum. Degeneration/undersurface fraying of the superior labrum. 5. Moderate glenohumeral joint effusion. Assessment & Plan Assessment & Plan (1) Rotator cuff insufficiency of left shoulder: Code(s): M25.312 - Other instability, left shoulder Category: Medical Plan: Rotator cuff insufficiency bordering on rotator cuff arthropathy but he has only been in pain for a few months and his motions maintained. I recommend injections should the pain worsen and/or physical therapy but at this time he will modify his activities. No surgery recommended. He will follow up as needed. Coding Level of Care Code Est Pt Level 3 (10905) Diagnoses Rotator cuff insufficiency of left shoulder M25.312
--- OUTSIDE RECORDS SUMMARY | 2024-08-20 10:44 | XMS_ITS | Clinical Summary ---
Author Organization [address] [facility] Address [address] [place] [address] Phone Care Team Providers Care Rubber Attacher Name Role Phone Mt Guerrero MD Primary Care Provider [phone] Allergies Active Allergy Reactions Criticality Noted Date Comments Penicillins 07/16/2024 Medications No known medications Active Problems Problem Noted Date Diagnosed Date Type 2 diabetes mellitus 07/13/2024 Functional urinary incontinence 07/13/2024 Full incontinence of feces 07/13/2024 Weight loss 07/13/2024 Chronic midline low back pain without sciatica 1 09/13/2023 Mild intermittent asthma 07/13/2024 Leg length discrepancy 07/13/2024 Encounters Date Type Department Care Team Description 07/16/2024 9:00 AM EST Consult Orthopedic Surgery [facility] [address] [phone] Brenden Longoria, DPM Poliomyelitis (Primary Dx); Acquired unequal limb length; Neuropathy; Dermatophytosis of nail; Pain in toe of left foot; Pain in toe of right foot; Corns and callosities; Metatarsalgia of both feet; Diabetic mononeuropathy simplex (CMS/HCC); Type II diabetes mellitus with peripheral circulatory disorder (CMS/HCC) from Last 3 Months Social History Tobacco Use Types Packs/Day Years Used Date Smoking Tobacco: Never Assessed Sex and Gender Information Value Date Recorded Sex Assigned at Not on file Gender Identity Not on file Sexual Orientation Not on file Job Start Date Occupation Industry Not on file Not on file Not on file Last Filed Vital Signs Vital Sign Reading Time Taken Comments Blood Pressure - - Pulse - - Temperature - - Respiratory Rate - - Oxygen Saturation - - Inhaled Oxygen Concentration - - Weight 61.7 kg (136 lb) 07/16/2024 9:14 AM EST Height 165.1 cm (5' 5 ) 07/16/2024 9:14 AM EST Body Mass Index 22.63 07/16/2024 9:14 AM EST Plan of Treatment Upcoming Encounters Date Type Department Care Team (Late st Contact Info) Description 10/14/2024 1:30 PM EDT Office Visit Orthopedic Surgery - [place] [address] [phone] Brenden Longoria, DPM [address] [place] [address] Health Maintenance Due Date Last Done Comments Diabetes: Annual GFR (Glomerular Filtration Rate) 1954 Diabetes: Annual Foot Exam 1964 Diabetes: Annual Retina Eye Exam 1964 RSV Immunization Patients 60+ Years Old (1 - Risk 60-74 years 1-dose series) 2014 Zoster Vaccines (2 of 3) 04/02/2017 02/05/2017 Colorectal Cancer Screening: Colonoscopy 06/26/2022 Falls Risk Assessment 06/26/2022 Hepatitis C Screening 06/26/2022 Social Influencers of Health Screening 06/26/2022 Diabetes: Annual Urine Albumin-Creatinine Ratio (uACR) 07/13/2024 Diabetes: Blood Sugar Control Test (HGBA1C) 11/10/2024 05/12/2024 Depression Screening 02/18/2025 02/19/2024 DTaP,Tdap,and Td Vaccines (4 - Td or Tdap) 10/02/2026 10/02/2016, 02/21/2012, 07/17/2007 Cholesterol Screening (Lipid Panel) 02/19/2029 02/20/2024 COVID-19 Vaccine Completed 05/12/2024, 11/2020, 01/09/2021 Influenza Vaccine Completed 05/12/2024, , 04/30/2019, Additional history exists Pneumococcal Vaccine: 65+ Years Completed 05/12/2024, 09/10/2016, 08/12/2015, Additional history exists HIB Vaccines Aged Out No longer eligi ble based on patient's age to complete this topic HPV Vaccines Aged Out No longer eligi ble based on patient's age to complete this topic Hepatitis A Vaccines Aged Out No long er eligible based on patient's age to complete this topic Hepatitis B Vaccines Aged Out No long er eligible based on patient's age to complete this topic IPV Vaccines Aged Out No longer eligi ble based on patient's age to complete this topic MMR Vaccines Aged Out No longer eligi ble based on patient's age to complete this topic Meningococcal ACWY Vaccine Aged Out N o longer eligible based on patient's age to complete this topic RSV Immunization Patients Under 20 months Aged Out No longer eligible based on patient's age to complete this topic Varicella Vaccines Aged Out No longer eligible based on patient's age to complete this topic Care Teams Rubber Attacher Relationship Specialty Start Date End Date Mt Guerrero MD [address] [place] [address] PCP - General 04/15/24
== END 2024-08-20 10:09 | disposition home or self-care (01) ==
PROVIDERS: PCP Internal Medicine; Visit Provider Orthopaedic Surgery
DX: M25.312 Other instability, left shoulder (principal)
CPT/HCPCS: 99213

== ENCOUNTER → 2024-08-20 09:34 | Outpatient (BNVA) | payer OTHER, SELFPAY | PROVIDERS: PCP Internal Medicine; Visit Provider Orthopaedic Surgery | DX: M25.312 Other instability, left shoulder (principal) | CPT/HCPCS: 99212 ==

== ENCOUNTER 2024-09-24 12:03 | Outpatient (REF) | payer OTHER, SELFPAY ==
--- OUTSIDE RECORDS SUMMARY | 2024-09-24 14:35 | XMS_ITS | Data Portability ---
Author Organization [employer] Address [address] [place] [address] Care Team Providers Care Attending Urologist Name Role Phone [facility] Referring Provider Assessment Encounter Date Assessment Date Assessment LastModified by Organization Details LastModified Time 07/05/2023 07/05/2023 I have reviewed and agree with the assessment and plan as documented by the hogshead mat inspector. I provided real-time medical direction for this [...] Diagnosis/Indication Diagnosis SNOMED-CT Code Diagnosis ICD10 Code Diagnosis Note [id number] Polly Hook MD Main - [facility] [address] [place] [phone] 07/05/2023 13:48:11 07/08/2023 16:46:11 Pain in right lower limb [id number] M79.604 Health Concerns Section Related Observation LastModified by Organization Detai ls LastModified Time None Recorded Concern Status LastModified by Organization Details LastModified Time None Recorded Advance Directives Directive None Recorded Payers Encounter Date Sequence Insurance Name Policy Number Policy Melara Covered Member ID Melara Member ID Guarantor Name 07/05/2023 1 [facility] - DOS ON OR AFTER 2022 - DUAL ELIGIBLE - HALFWAY OPTIONS AND ONE CARE (MEDICARE REPLACEMENT/ADV ANTAGE - HMO) Mendez Yepez [id number] Mendez Yepez Notes Date Note Type Note [...] .................. .................. .................. .................. .................. .................. ............... Core Shaper Sides Note From Alen Avila: Dispatched to the [...] ............... Disposition: Fulfilled Polly Hook MD [address] [facility],[address], [place], [address], [place] - [employer] 07/05/2023 15:11:53
--- OUTSIDE RECORDS SUMMARY | 2024-09-24 14:35 | XMS_ITS | Clinical Summary ---
Author Organization 175 [facility] Address [address] [place] [address] Phone Care Team Providers Care Translator Interpreter Name Role Phone Mt Guerrero MD Primary Care Provider [phone] Allergies Active Allergy Reactions Criticality Noted Date [...] 07/16/2024 9:00 AM EST Consult Orthopedic Surgery - [place] [address] [phone] Brenden Longoria, DPM Poliomyelitis (Primary [...] Recorded Sex Assigned at Not on file Legal Sex Male 10:11 AM EST Gender Identity Not on file Sexual Orientation Not on file Last Filed Vital Signs [...] PM EDT Office Visit Orthopedic Surgery - [place] [address] [phone] Brenden Longoria, DPM [address] [address] Health Maintenance Due Date Last Done Comments [...] , 04/30/2019, Additional history exists Pneumococcal Vaccine: 50+ Years Completed 05/12/2024, 09/10/2016, 08/12/2015, Additional history [...] patient's age to complete this topic Meningococcal B Vacine Aged Out No lo nger eligible based on patient's age to complete this topic RSV Immunization Patients Under 20 months Aged Out No longer eligible based on patient's age to complete this topic Varicella Vaccines Aged Out No longer eligible based on patient's age to complete this topic Insurance [employer] [id number] Care Teams Translator Interpreter Relationship Specialty Start Date End Date Mt Guerrero MD [address] [place] [address] PCP - General 04/15/24
[2024-09-24 15:06] LABS: Creatinine Urine 79.33 mg/dL; Microalbum/Creatinine Ratio Ur 30.2 ug/mg cr (<30)
[2024-09-25 08:14] LABS: ~HepC Num1 0.11 S/CO (0.00-0.79); ~Hepatitis C Antibody Nonreactive (Nonreactive)
== END 2024-09-24 12:04 | disposition home or self-care (01) ==
LOC: HO.CHCLDS 12:03
PROVIDERS: Visit Provider Internal Medicine
DX: E11.65 Type 2 diabetes mellitus with hyperglycemia (principal)
CPT/HCPCS: 36415; 82043; 82570; 86803

== ENCOUNTER 2024-11-23 09:16 | Outpatient (REF) | payer OTHER, SELFPAY ==
--- OUTSIDE RECORDS SUMMARY | 2024-11-23 10:10 | XMS_ITS | Encounter Summary ---
Author Organization [employer] Address [address] [facility] [address] [place] [address] Care Team Providers Care Director Of Public Works Name Role Phone Mt Guerrero MD Primary Care Provider [phone] Encounter Details Date Type Department Care Team (Late st Contact Info) Description 08/07/2023 Abstract [facility] [address] [place] [address] Bertha Edwards DDS [address] [place], [place] [phone] Social History Tobacco Use Types Packs/Day Years Used Date Smoking Tobacco: Never Passive Smoke Exposure: Never Smokeless Tobacco: Never Alcohol Use Standard Drinks/Week Comments Defer 0 (1 standard drink = 0.6 oz pur e alcohol) Sex and Gender Information Value Date Recorded Sex Assigned at Male 05/28/2022 10:16 AM EDT Legal Sex Male 10:16 AM EDT Gender Identity Male 05/28/2022 10:16 AM EDT Sexual Orientation Straight 05/28/2022 10 :16 AM EDT documented as of this encounter Plan of Treatment Upcoming Encounters Date Type Department Care Team (Late st Contact Info) Description 11/27/2024 8:00 AM EDT Office Visit [facility] [address] [place] [address] Maria Alejandra Danielson DMD 12/03/2024 9:00 AM EDT Medication Management [facility] PED[facility] [address] [place] [address] Vero Molina, PharmD [address] [place], [place] [phone] 12/22/2024 9:30 AM EDT Office Visit [facility] [address] [place] [address] Mt Guerrero MD [address] [place] [address] documented as of this encounter Visit Diagnoses Not on filedocumented in this encounter Care Teams Director Of Public Works Relationship Specialty Start Date End Date Mt Guerrero MD [address] [place] [address] PCP - General Internal Medicine 02/19/24 documented as of this encounter
--- OUTSIDE RECORDS SUMMARY | 2024-11-23 10:10 | XMS_ITS | Data Portability ---
Author Organization [employer] Address [address] [place] [phone] Care Team Providers Care School Photographs Detailer Name Role Phone [facility] Referring Provider [phone] Assessment Encounter Date Assessment Date Assessment LastModified by Organization Details LastModified Time 07/05/2023 07/05/2023 I have reviewed and agree with the assessment and plan as documented by the health club manager. I provided real-time medical direction for this [...] SNOMED-CT Code Diagnosis ICD10 Code Diagnosis Note [id number] Polly Hook MD Main - [facility] [address] [place] [phone] 07/05/2023 13:48:11 07/08/2023 16:46:11 Pain in right lower limb [id number] M79.604 Health Concerns Section Related Observation LastModified by Organization Detai ls LastModified Time None Recorded Concern Status LastModified by Organization Details LastModified Time None Recorded Advance Directives Directive None Recorded Payers Encounter Date Sequence Insurance Name Policy Number Policy Melara Covered Member ID Melara Member ID Guarantor Name 07/05/2023 1 [facility] - DOS ON OR AFTER 2022 - DUAL ELIGIBLE - [employer]CI OPTIONS AND ONE CARE (MEDICARE REPLACEMENT/ADV ANTAGE - HMO) Mendez Yepez [id number] Mendez Yepez Notes Date Note Type Note [...] .................. .................. .................. .................. .................. .................. ............... Clinical Lab Clerk Note From Alen Avila: Dispatched to the [...] ............... Disposition: Fulfilled Polly Hook MD [address] [facility],[address], [place], [address], [place] - [employer] 07/05/2023 15:11:53
--- OUTSIDE RECORDS SUMMARY | 2024-11-23 10:10 | XMS_ITS | Encounter Summary ---
Author Organization [employer] Address [address] [facility] [address] [place] [address] Care Team Providers Care Dental Cream Maker Name Role Phone Mt Guerrero MD Primary Care Provider [phone] Encounter Details Date Type Department Care Team (Latest Contact Info) Description 09/22/2018 Abstract [facility] Dental, Provider, DDS Social History Tobacco Use Types Packs/Day Years [...] Upcoming Encounters Date Type Department Care Team ( st Contact Info) Description 11/27/2024 8:00 AM EDT Office Visit [facility] ADULT DENTAL [address] [place] [address] Maria Alejandra Danielson DMD 12/03/2024 9:00 AM EDT Medication Management [facility] MED & PEDS [address] [place] [address] Vero Molina, PharmD [address] [place] [address] 12/22/2024 9:30 AM EDT Office Visit [facility] MED [facility] PEDS [address] [place] [address] Mt Guerrero MD [address] [place] [address] documented as of this encounter Visit Diagnoses Not on filedocumented in this encounter Care Teams Dental Cream Maker Relationship Specialty Start Date End Date Mt Guerrero MD [address] [place] [address] PCP - General Internal Medicine 02/19/24 documented as of this encounter
--- OUTSIDE RECORDS SUMMARY | 2024-11-23 10:10 | XMS_ITS | Clinical Summary ---
Author Organization 175 [facility] Address 175 [place] [address] Phone Care Team Providers Care Washery Boss Name Role Phone Mt Guerrero MD Primary Care Provider [phone] [phone] Allergies Active Allergy Reactions Criticality Noted Date Comments Penicillins 07/16/2024 Medications No known medications Active Problems Problem Noted Date Diagnosed Date Type 2 diabetes mellitus (CMS/[facility] V24, CMS/[facility] V 28) 07/13/2024 Functional urinary incontinence 07/13/2024 Full incontinence of feces 07/13/2024 Weight loss 07/13/2024 Chronic midline low back pain without sciatica 1 09/13/2023 Mild intermittent asthma 07/13/2024 Leg length discrepancy 07/13/2024 Social History Tobacco Use Types Packs/Day Years [...] Upcoming Encounters Date Type Department Care Team ([facility] Contact Info) Description 12/28/2024 10:45 AM EDT Office Visit Orthopedic Surgery [facility] [address] [phone] Brenden Longoria, DPM [address] [address] Health Maintenance Due Date Last Done Comments Diabetes: Annual GFR (Glomerular Filtration Rate) 1954 Diabetes: Annual Foot Exam 1964 Diabetes: Annual Retina Eye Exam 1964 RSV Immunization Adult Patients (1 - Risk 60-74 years 1-dose series) 2014 Zoster Vaccines (2 of 3) 04/02/2017 02/05/2017 Colorectal Cancer Screening: Colonoscopy 06/26/2022 Falls Risk Assessment 06/26/2022 Hepatitis C Screening 06/26/2022 Social Influencers of Health Screening 06/26/2022 Diabetes: Annual Urine Albumin-Creatinine Ratio (uACR) 07/13/2024 COVID-19 Vaccine ( season) 2024 05/12/2024, 01/30/2021, 01/09/2021 Diabetes: Blood Sugar Control Test (HGBA1C) 11/10/2024 05/12/2024 Depression Screening 02/18/2025 02/19/2024 DTaP,Tdap,and Td Vaccines (4 - Td or Tdap) 10/02/2026 10/02/2016, 02/21/2012, 07/17/2007 Cholesterol Screening (Lipid Panel) 02/19/2029 02/20/2024 Influenza Vaccine Completed 05/12/2024, , 04/30/2019, Additional [...] age to complete this topic Meningococcal B Vaccine Aged Out No l onger eligible based on patient's age to complete this topic RSV Immunization Patients Under 20 months Aged Out No longer eligible based on patient's age to complete this topic Varicella Vaccines Aged Out No longer eligible based on patient's age to complete this topic Insurance [employer] [place] [id number] Care Teams Washery Boss Relationship Specialty Start Date End Date Mt Guerrero MD [address] [place] [address] PCP - General 04/15/24
--- OUTSIDE RECORDS SUMMARY | 2024-11-23 10:10 | XMS_ITS | Encounter Summary ---
Author Organization [employer] Address 75 [facility] 7t [place] [address] Care Team Providers Care Neon Electrician Name Role Phone Mt Guerrero MD Primary Care Provider [phone]- [phone] Reason for Visit * Reason Comments Med Refill Encounter Details Date Type Department Care Team (Late Contact Info) Description 06/24/2024 Refill [facility] MEDICINE [address] [place], [place] [phone] Mt Guerrero MD [address] [place], [place] [phone] Social History Tobacco Use Types Packs/Day Years Used Date Smoking Tobacco: Never Passive Smoke Exposure: Never Smokeless Tobacco: Never Alcohol Use Standard Drinks/Week Comments Defer 0 (1 standard drink = 0.6 oz pur e alcohol) Depression Answer Date Recorded Patient Health Questionnaire-9 Score 8 02/19/2024 Patient Health Questionnaire-9 Score 8 02/19/2024 Last PHQ-9: Questionnaire Data Not on file 0 02/19/2024 Depression Answer Date Recorded Patient Health Questionnaire-2 Score 1 02/19/2024 Sex and Gender Information Value Date Recorded Sex Assigned at Male 05/28/2022 10:16 AM EDT Legal Sex Male 10:16 AM EDT Gender Identity Male 05/28/2022 10:16 AM EDT Sexual Orientation Straight 05/28/2022 10 :16 AM EDT documented as of this encounter Plan of Treatment Upcoming Encounters Date Type Department Care Team (Late Contact Info) Description 11/27/2024 8:00 AM EDT Office Visit [facility] ADULT DENTAL [address] [place], [place] [phone] Maria Alejandra Danielson DMD 12/03/2024 9:00 AM EDT Medication Management [facility] PED[facility] [address] [place] [address] Vero Molina, PharmD 230 [place] [address] 12/22/2024 9:30 AM EDT Office Visit [facility] 505 [place] [address] Mt Guerrero MD [address] [place] [address] documented as of this encounter Visit Diagnoses Not on filedocumented in this encounter Additional Health Concerns Assessment Noted Time PHQ-9 Depression Total Score: 8 02/19/20 10:12 AM EDT documented as of this encounter Care Teams Neon Electrician Relationship Specialty Start Date End Date Mt Guerrero MD [address] [place] [address] PCP - General Internal Medicine 02/19/24 documented as of this encounter
--- OUTSIDE RECORDS SUMMARY | 2024-11-23 10:10 | XMS_ITS | Encounter Summary ---
Author Organization [employer] Address 75 [facility] 7t [place] [address] Care Team Providers Care Chicken And Fish Cleaner Name Role Phone Mt Guerrero MD Primary Care Provider [phone]- [phone] Encounter Details Date Type Department Care Team (Late Contact Info) Description 05/12/2024 Orders Only [facility] MED & PEDS [address] [place] [address] Mt Guerrero MD [address] [place] [address] Social History Tobacco Use Types Packs/Day Years [...] Description 11/27/2024 8:00 AM EDT Office Visit [facility] ADULT DENTAL 505 [place] [address] Maria Alejandra Danielson DMD 12/03/2024 9:00 AM EDT Medication Management [facility] MED & PEDS [address] [place], [place] [phone] Vero Molina, PharmD 230 [place] [address] 12/22/2024 9:30 AM EDT Office Visit [facility] MED & PEDS [address] [place], [place] [phone] Mt Guerrero MD [address] [place] [address] documented as of this encounter Procedures Procedure Name Priority Date/Time Associated Diagnosis Comments HM COLONOSCOPY Routine 01/28/2023 3:17 PM EDT documented in this encounter Results * Hm Colonoscopy (01/28/2023 3:17 PM EDT) Mt Guerrero MD HEALTH MAINTENANCE Final Re sult documented in this encounter Visit Diagnoses Not on filedocumented in this encounter Additional Health Concerns Assessment Noted Time PHQ-9 Depression Total Score: 8 02/19/20 10:12 AM EDT documented as of this encounter Care Teams Chicken And Fish Cleaner Relationship Specialty Start Date End Date Mt Guerrero MD [address] [place] [address] PCP - General Internal Medicine 02/19/24 documented as of this encounter
--- OUTSIDE RECORDS SUMMARY | 2024-11-23 10:10 | XMS_ITS | Clinical Summary ---
Author Organization [employer] Address 75 [facility] 7t [place] [address] Care Team Providers Care Floor Broker Name Role Phone Mt Guerrero MD Primary Care Provider Allergies Active Allergy Reactions Criticality Noted Date Comments Penicillin G 10/21/2017 Medications acetaminophen (Tylenol 8 Hour) 650 MG ER tablet 3 Active Aspirin Low Dose 81 MG EC tablet 3 Active lisinopril 10 MG tablet 3 Active oxybutynin XL (Ditropan-XL) 10 MG 24 hr tablet 3 Active SITagliptin (Januvia) 50 MG tabletIndicatio ns:Type 2 diabetes mellitus with hyperglycemia, without long-term current use of insulin ([facility]) Take 1 tablet (50 mg) by mouth Once per day. 30 tablet 11 4 05/12/20 25 Active finasteride (Proscar) 5 MG tablet Take 1 tablet (5 mg) by mouth Once per day. 90 tablet 4 Active Arnuity Ellipta 100 MCG/ACT inhaler INHALE 1 PUFF BY MOUTH ONCE A DAY RINSE MOUTH WITH WATER AFTER USE TO REDUCE AFTERTASTE AND INCIDENT OF CANDIDIASIS . DO NOT SWALLOW 30 each 3 5 Active Ventolin HFA 108 (90 Base) MCG/ACT inhaler INHALE TWO PUFFS BY MOUTH EVERY 4 TO 6 HOURS NEEDED FOR WHEEZING ( BULK) 18 g 1 5 Active atorvastatin (Lipitor) 40 MG tablet TAKE ONE TABLET BY MOUTH ONCE DAILY ^1R4 30 tablet 2 5 Active Active Problems Problem Noted Date Diagnosed Date Poliomyelitis 09/24/2024 Benign prostatic hyperplasia 02/19/2024 Overview (02/19/2024): sees urohx turp Diabetes mellitus 02/19/2024 Hematuria 02/19/2024 Overview (02/19/2024): neg w/up from uro, followed by uro (dr jesus) Asthma 02/19/2024 Calculus of kidney 02/19/2024 Overview (02/19/2024): neg ct 04/04 for stones Urinary incontinence 02/19/2024 Full incontinence of feces 02/19/2024 Encounters Date Type Department Care Team Description 11/11/[address] [address] Mt Guerrero MD Results 10/29/[address] [address] Mt Guerrero MD 10/28/[address] [address] Mt Guerrero MD Appointment Request 10/09/[address] [address] Mt Guerrero MD 10/02/2024 9:00 AM EST Office Visit [facility] ADULT DENTAL [address] [place] [address] Sujey Aguilar DDS 09/25/[address] [address] Mt Guerrero MD Results 09/24/2024 11:30 AM EST Office Visit [facility] MED & PEDS [address] [place] [address] Mt Guerrero MD Type 2 diabetes mellitus with hyperglycemia, without long-term current use of insulin ([facility]) (Primary Dx); Benign prostatic hyperplasia, unspecified whether lower urinary tract symptoms present; Functional urinary incontinence; Poliomyelitis 09/24/[address] [address] Mt Guerrero MD 09/24/2024 Travel 09/21/2024 Telephone [facility] MED & PEDS [address] [place] [address] Mt Guerrero MD CHART PREP 09/10/2024 Patient Outreach [facility] MED[facility]INE [address] [place] [address] Mt Guerrero MD Pre-visit Planning (Pre visit planning LVM ) 08/31/2024 Orders Only [facility] ADULT DENTAL [address] [place] [address] Russel Garner DMD from Last 3 Months Immunizations Name Administration Dates Next Due Influenza Whole 05/20/2006 Influenza injectable quadriv alent preservative free 08/07/2022 Influenza, High Dose Seasona l, Preservative Free 05/12/2024 Influenza, IIV3, injectable 04/30/2019,0 08/11/2018,06/03/2017,09/10,06/22/2013,03/25/2012,04/12/2011 ,04/27/2010,07/17/2007 Influenza, Injectable, MDCK, preservative free 08/12/2015 Pfizer Covid-19 Vaccine 12+ 05/12/2024 Pneumococcal Conjugate PCV 13 09/10/2016 Pneumococcal Conjugate PCV 20 05/12/2024 Pneumococcal Polysaccharide PPSV23 08/12/2015, RSV Bivalent 10/08/2024 Td (adult), 5 Lf tetanus tox oid, preservative free, adsorbed 02/21/2012 Td (adult), unspecified 07/17/2007 Tdap 10/08/2024,10/02/2016 Zoster, live 02/05/2017 Family History Medical History Relation Name Comments Diabetes type II Brother Heart attack Brother Diabetes type II Mother Hypertension Mother Relation Name Status Comments Brother Maternal Grandfather Alive Mother Social History Tobacco Use Types Packs/Day Years Used Date Smoking Tobacco: Never Passive Smoke Exposure: Never Smokeless Tobacco: Never Tobacco Cessation:Counseling Given: Not Answered Alcohol Use Standard Drinks/Week Comments Defer 0 (1 standard drink = 0.6 oz pur e alcohol) Depression Answer Date Recorded Patient Health Questionnaire-9 Score 1 09/24/2024 Patient Health Questionnaire-9 Score 1 09/24/2024 Last PHQ-9: Questionnaire Data Not on file 0 09/24/2024 Housing Stability Answer Date Recorded What is your housing situation today? I have melinda denson 09/24/[address] you li ve. Do you have problems with any of the following? None of the above 09/24/2024 Food Insecurity Answer Date Recorded Within the past 12 months, y ou worried that your food would run out before you got money to buy more: Never True 09/24/2024 Within the past 12 months,th e food you bought just didn't last and you didn't have enough money to get more: Never True Transportation Answer Date Recorded In the past 12 months, has l ack of transportation kept you from medical appts, meetings, work or from getting things needed for daily living? No 09/24/2024 Utilities Answer Date Recorded In the past 12 months, has t he electric, gas, oil or water company threatened to shut off services in your home? No 09/24/2024 Depression Answer Date Recorded Patient Health Questionnaire-2 Score 0 09/24/2024 Internet Access Answer Date Recorded Internet Access Q1 Yes 09/24/2024 Internet Access Q2 Not on file 09/24/2024 Sex and Gender Information Value Date Recorded Sex Assigned at Male 05/28/2022 10:16 AM EDT Legal Sex Male 10:16 AM EDT Gender Identity Male 05/28/2022 10:16 AM EDT Sexual Orientation Straight 05/28/2022 10 :16 AM EDT Last Filed Vital Signs Vital Sign Reading Time Taken Comments Blood Pressure 130/70 10/02/2024 9:02 AM EST Pulse 78 09/24/2024 11:34 AM EST Temperature 36.4 ??C (97.6 ??F) 05/12/2024 2:07 PM ED T Respiratory Rate 20 09/24/2024 11:34 AM EST Oxygen Saturation 99% 09/24/2024 11:34 AM EST Inhaled Oxygen Concentration - - Weight 60.8 kg (134 lb) 09/24/2024 11:34 AM EST Height 165.1 cm (5' 5 ) 09/24/2024 11:34 AM EST Body Mass Index 22.3 09/24/2024 11:34 AM EST Plan of Treatment Upcoming Encounters Date Type Department Care Team (Late st Contact Info) Description 11/27/2024 8:00 AM EDT Office Visit [facility] ADULT DENTAL [address] [place], [place] [phone] Maria Alejandra Danielson DMD 12/03/2024 9:00 AM EDT Medication Management [facility] MED & PEDS [address] [place], [place] [phone] Vero Molina, PharmD [address] [place] [address] 12/22/2024 9:30 AM EDT Office Visit [facility] MED & PEDS [address] [place], [place] [phone] Mt Guerrero MD 505 [place], [place] [phone] Health Maintenance Due Date Last Done Comments CT Colonography 1954 FIT DNA/Cologuard 1954 FIT 1954 FOBT 1955 Sigmoidoscopy 1954 Diabetes: Foot Exam 1964 Eye Exam 1964 Zoster Vaccines (2 of 3) 04/02/2017 02/05/2017 Diabetes: Hemoglobin A1C 12/22/2024 025, 05/12/2024, 02/19/2024 Dental Oral Exam 12/29/2024 06/29/2024, , 09/14/2020, Additional history exists Dental Prophylaxis 12/29/2024 06/29/2024, 0 04/26/2023, 04/17/2019, Additional history exists Lipid Panel 02/19/2025 02/20/2024 Dental X-Ray: Bitewings 06/30/2025 06/29/20, 04/26/2023, 09/14/2020, Additional history exists Alcohol/Substance Use Screening 09/24/2025 09/24/2024 Depression Screening 09/24/2025 09/24/2024, 02/27/20 25 Diabetes: Urine Protein Screening 09/24/2025 09/24/2024 SDOH Screening 09/24/2025 09/24/2024 Tobacco Screening 10/02/2025 10/02/2024 Colonoscopy 01/03/2026 05/12/2024, 07/0 09/2022, 01/02/2023 Colorectal Cancer Screening 01/03/2026 Dental X-Ray: Full Mouth 10/09/2026 024, 04/26/2023, 10/21/2017 DTaP/Tdap/Td Vaccines (3 - Td or Tdap) 10/08/2034 10/08/2024, 10/02/2016, 02/21/2012, Additional history exists COVID-19 Vaccine Completed 05/12/2024, 11/2020, 01/09/2021 Influenza Vaccine Completed 05/12/2024, , 04/30/2019, Additional history exists Pneumococcal Vaccine: 50+ Years Completed 05/12/2024, 09/10/2016, 08/12/2015, Additional history exists Hepatitis C Screening Completed 09/24/2024 RSV Patients and Patients Aged 60 years or older Completed 10/08/2024 HIB Vaccines Aged Out No longer eligi [...] patient's age to complete this topic Meningococcal Vaccine Aged Out No [place] eligible based on patient's age to complete this topic RSV under 20 months Aged Out No longe r eligible based on patient's age to complete this topic Rotavirus Vaccines Aged Out No longer eligible based on patient's age to complete this topic Procedures Procedure Name Priority Date/Time Associated Diagnosis Comments DENTURE IMPRESSION Routine 10/02/2024 9: 00 AM EST POCT GLUCOSE Routine 09/24/2024 1:45 PM EST Type 2 diabetes mellitus with hyperglycemia, without long-term current use of insulin ([facility]) POCT GLYCATED HEMOGLOBIN, TOTAL Routine 09/24/2024 1:44 PM EST Type 2 diabetes mellitus with hyperglycemia, without long-term current use of insulin (CMS/HCC) ALBUMIN, RANDOM URINE W/CREATININE Routine 09/24/2024 12:10 PM EST Type 2 diabetes mellitus with hyperglycemia, without long-term current use of insulin (CMS/HCC) HEPATITIS C AB W/REFL TO HCV RNA, QN, PCR Routine 09/24/2024 12:04 PM EST Type 2 diabetes mellitus with hyperglycemia, without long-term current use of insulin (CMS/HCC) Full PROPHYLAXIS - ADULT Routine 06/29/2024 1:00 PM EST Partial edentulism, unspecified edentulism class BITEWINGS - 4 RADIOGRAPHIC IMAGES Routine 06/29/2024 1:00 PM EST Partial edentulism, unspecified edentulism class PERIODIC ORAL EVALUATION - ESTABLISHED PATIENT Routine 06/29/2024 1:00 PM EST Partial edentulism, unspecified edentulism class COLONOSCOPY Routine 05/12/2024 3:09 PM EDT LIPID PANEL, STANDARD Routine 02/20/2024 9:34 AM EDT Weight loss PANORAMIC RADIOGRAPHIC IMAGE Routine 10/09/2023 9:30 AM EDT from Last 3 Months or Most Recently Relevant to Health Maintenance Results * POCT Glucose (09/24/2024 1:45 PM EST) Glucose Blood, POC 190 60 - 200 mg/dL QC Media Lot # [id number] Lot# Expiration Date [id number] Comment:random Blood Capillary blood specimen / Unknown 09/24/2024 1:45 PM EST Mt Guerrero MD POINT OF CARE TEST ENTER/ED IT ORDERABLES Final Result * (ABNORMAL) POCT HGB A1C (09/24/2024 1:44 PM EST) Hemoglobin A1C 8.2(A) 4.0 - 6.0 % QC Media Lot # [id number] Lot# Expiration Date [id number] Blood 09/24/2024 1:44 PM EST Mt Guerrero MD POINT OF CARE TEST ENTER/ED IT ORDERABLES Final Result * (ABNORMAL) Albumin, Random Urine W/Creatinine (09/24/2024 12:10 PM EST) Creatinine, Urine 79.33 mg/dL [facility] Microalbumin Urine 24.0 mg/L H [facility] Microalbum Creatinine Ratio Ur 30.2(H) <30 ug/mg cr [facility] Comment:Albumin/Creatinine R atio Reference Ranges: Normal: < 30 ug/mg creatinine Microalbuminuria: 30 - 300 ug/mg creatinineClinical Albuminuria: > 300 ug/mg creatinine Urine (Urine, Random) 09/24/2024 12:10 PM EST 09/24/2024 2:06 PM EST us Mt Guerrero MD LAB URINE ORDERABLES Final Result Performing Organization Address City/[facility]/ZIP Co de Phone Number [facility] [address] [place] [phone] * Hepatitis C Antibody with Reflex to HCV, RNA, Quantitative, Real-Time PCR (09/24/2024 12:04 PM EST) Hepatitis C Antibody Nonreactive Nonreactive [facility] Comment:Antibodies to HCV no t detected; does not exclude early acuteHCV infection. Blood Venous blood specimen / Unknown 09/24/2024 12:04 PM EST 09/24/2024 2:20 PM EST Mt Guerrero MD LAB BLOOD ORDERABLES Final Result Performing Organization Address City/[facility]/ZIP Co de Phone Number [facility] [address] [place] [phone] * (ABNORMAL) Lipid Panel, Standard (02/20/2024 9:34 AM EDT) Triglycerides 107 <150 mg/dL [facility] Comment:Desirable Triglyceri de: less than 150 mg/dLBorderline High Triglyceride 150-199 mg/dLHigh Triglyceride: 200-499 mg/dLVery High Triglyceride: greater than or equal to 5OO mg/dL Cholesterol 177 <200 mg/dL [facility] Comment:Desirable Cholestero l: less than 200 mg/dLBorderline High Cholesterol: 200-239 mg/dLHigh Cholesterol: greater than 239 mg/dL LDL Cholesterol Calculated 110(H) <100 mg/dL [facility] Comment:Desirable LDL: less than 100 mg/dLNear Optimal/Above Optimal LDL: 110- 129 mg/dLBorderline High LDL: 130-159 mg/dLHigh LDL: 160-189 mg/dLVery High LDL: greater than or equal to 190 mg/dL HDL Cholesterol 46 >40 mg/dL [facility] Comment:Desirable HDL: great er than 40 mg/dL Note: This HDL assay may give artificially low results in patients with liver disease. Blood Venous blood specimen / Unknown 02/20/2024 9:34 AM EDT 02/20/2024 2:03 PM EDT us Mt Guerrero MD LAB BLOOD ORDERABLES Final Result [facility] [address] [place] [phone] * Colonoscopy (01/28/2023 3:17 PM EDT) us Mt Guerrero MD HEALTH MAINTENANCE Final Re sult from Last 3 Months or Most Recently Relevant to Health Maintenance Insurance [id number]PC OPTIONS (O D-SNP) DENTAL [facility] Care Teams Floor Broker Relationship Specialty Start Date End Date Mt Guerrero MD [address] [place] [phone] PCP - General Internal Medicine 02/19/24
--- OUTSIDE RECORDS SUMMARY | 2024-11-23 10:10 | XMS_ITS | Encounter Summary ---
Author Organization [employer] Address [address] [facility] [address] [place] [address] Care Team Providers Care Hvac Sheet Metal Installer Helper Name Role Phone Mt Guerrero MD Primary Care Provider [phone]- [phone] Reason for Visit * Reason Onset Date Comments Appointment Request 10/28/2024 Encounter Details Date Type Department Care Team ([facility] st Contact Info) Description 10/28/2024 Telephone [facility] MEDICINE [address] [place] [address] Mt Guerrero MD [address] [place] [address] Appointment Request Social History Tobacco Use Types Packs/Day Years [...] AM EDT documented as of this encounter Miscellaneous Notes * Telephone Encounter - Janneth Bledsoe - 10/28/2024 2:18 PM EDT Tc from pt requesting r/s 10/29 with Vero Molina. (Appt Note: ICE PULLER CDTM (IP) documented in this encounter Plan of Treatment Upcoming Encounters Date Type Department Care Team (Late st Contact Info) Description 11/27/2024 8:00 AM EDT Office Visit [facility] ADULT DENTAL [address] [place] [address] Maria Alejandra Danielson DMD 12/03/2024 9:00 AM EDT Medication Management [facility] MED & PEDS [address] [place] [address] Vero Molina, PharmD [address] [place] [address] 12/22/2024 9:30 AM EDT Office Visit [facility] MED & PEDS [address] [place] [address] Mt Guerrero MD [address] [place] [address] documented as of this encounter Visit Diagnoses Not on filedocumented in this encounter Additional Health Concerns Assessment Noted Time PHQ-9 Depression Total Score: 1 09/24/19 25 11:38 AM EST documented as of this encounter Care Teams Hvac Sheet Metal Installer Helper Relationship Specialty Start Date End Date Mt Guerrero MD [address] [place] [address] PCP - General Internal Medicine 02/19/24 documented as of this encounter
--- OUTSIDE RECORDS SUMMARY | 2024-11-23 10:10 | XMS_ITS | Encounter Summary ---
Author Organization [employer] Address 75 [facility] 7t [place] [address] Care Team Providers Care Surgical Sales Representative Name Role Phone Mt Guerrero MD Primary Care Provider [phone]- [phone] Encounter Details Date Type Department Care Team (Late st Contact Info) Description 02/20/2024 Orders Only [facility] [address] [place] [address] Provider, MD Curtis Social History Tobacco Use Types Packs/Day Years [...] Description 11/27/2024 8:00 AM EDT Office Visit [facility] ADULT DENTAL [address] [place] [address] Maria Alejandra Danielson DMD 12/03/2024 9:00 AM EDT Medication Management [facility] MED & PEDS [address] [place], [place] [phone] Vero Molina PharmD [address] [place] [address] 12/22/2024 9:30 AM EDT Office Visit [facility] MED & PEDS [address] [place] [address] Mt Guerrero MD [address] [place] [address] documented as of this encounter Procedures Procedure Name Priority Date/Time Associated Diagnosis Comments SURGICAL PATHOLOGY Routine 01/03/2024 9:48 AM EDT documented in this encounter Results * Surgical Pathology (01/03/2024 9:48 AM EDT) us Historical Provider LAB PATHOLOGY ORDERABLES Final Result documented in this encounter Visit Diagnoses Not on filedocumented in this encounter Additional Health Concerns Assessment Noted Time PHQ-9 Depression Total Score: 8 02/19/20 10:12 AM EDT documented as of this encounter Care Teams Surgical Sales Representative Relationship Specialty Start Date End Date Mt Guerrero MD [address] [place] [address] PCP - General Internal Medicine 02/19/24 documented as of this encounter
--- OUTSIDE RECORDS SUMMARY | 2024-11-23 10:10 | XMS_ITS | Encounter Summary ---
Author Organization [employer] Address 75 [facility] 7t [place] [address] Care Team Providers Care Electro Mechanical Technologist Name Role Phone Mt Guerrero MD Primary Care Provider +1- [phone] Reason for Visit * Reason Comments Med Refill Encounter Details Date Type Department Care Team (Late Contact Info) Description 06/24/[address] [facility] MEDICINE [address] [place], [place] [phone] Mt Guerrero MD [address] [place], [place] [phone] Social History Tobacco Use Types Packs/Day Years [...] Description 11/27/2024 8:00 AM EDT Office Visit [facility] ADULT DENTAL [address] [place], [place] [phone] Maria Alejandra Danielson DMD 12/03/2024 9:00 AM EDT Medication Management [facility]ED[facility] [address] [place] [address] Vero Molina, PharmD 230 [place] [address] 12/22/2024 9:30 AM EDT Office Visit [facility] [address] [place] [address] Mt Guerrero MD [address] [place] [address] documented as of this encounter Visit Diagnoses Not on filedocumented in this encounter Additional Health Concerns Assessment Noted Time PHQ-9 Depression Total Score: 8 02/19/20 10:12 AM EDT documented as of this encounter Care Teams Electro Mechanical Technologist Relationship Specialty Start Date End Date Mt Guerrero MD [address] [place] [address] PCP - General Internal Medicine 02/19/24 documented as of this encounter
--- OUTSIDE RECORDS SUMMARY | 2024-11-23 10:10 | XMS_ITS | Encounter Summary ---
Author Organization [employer] Address 75 [facility] 7t [place] [address] Care Team Providers Care Safety Person Name Role Phone Mt Guerrero MD Primary Care Provider +1- [phone] Reason for Visit * Reason Comments Med Refill Encounter Details Date Type Department Care Team (Late Contact Info) Description 06/24/2024 Refill [facility] MEDICINE 230 [place], [place] [phone] Mt Guerrero MD 505 [place], [place] [phone] Social History Tobacco Use Types Packs/Day Years [...] Description 11/27/2024 8:00 AM EDT Office Visit [facility] CHC ADULT DENTAL [address] [place], [place] [phone] Maria Alejandra Danielson DMD 12/03/2024 9:00 AM EDT Medication Management [facility] MED & PEDS [address] [place] [address] Vero Molina, PharmD 230 [place] [address] 12/22/2024 9:30 AM EDT Office Visit [facility] MED & PEDS [address] [place] [address] Mt Guerrero MD 505 [place] [address] documented as of this encounter Visit Diagnoses Not on filedocumented in this encounter Additional Health Concerns Assessment Noted Time PHQ-9 Depression Total Score: 8 02/19/20 10:12 AM EDT documented as of this encounter Care Teams Safety Person Relationship Specialty Start Date End Date Mt Guerrero MD 505 [place] [address] PCP - General Internal Medicine 02/19/24 documented as of this encounter
--- OUTSIDE RECORDS SUMMARY | 2024-11-23 10:10 | XMS_ITS | Encounter Summary ---
Author Organization [employer] Address 75 [facility] 7t [place] [address] Care Team Providers Care Linux System Admin Name Role Phone Mt Guerrero MD Primary Care Provider +1- [phone] Encounter Details Date Type Department Care Team (Latest Contact Info) Description 09/14/2020 Abstract [facility] CONVERSIONS Dental, Provider, DDS Social History Tobacco [...] Description 11/27/2024 8:00 AM EDT Office Visit [facility] ADULT DENTAL 505 [place] [address] Maria Alejandra Danielson DMD 12/03/2024 9:00 AM EDT Medication Management [facility] MED & PEDS 505 [place] [address] Vero Molina, PharmD 230 [place] [address] 12/22/2024 9:30 AM EDT Office Visit [facility] MED & PEDS 505 [place] [address] Mt Guerrero MD 505 [place] [address] documented as of this encounter Visit Diagnoses Not on filedocumented in this encounter Care Teams Linux System Admin Relationship Specialty Start Date End Date Mt Guerrero MD [address] [place] [address] PCP - General Internal Medicine 02/19/24 documented as of this encounter
--- OUTSIDE RECORDS SUMMARY | 2024-11-23 10:10 | XMS_ITS | Encounter Summary ---
Author Organization [employer] Address 75 [facility] 7t [place] [address] Care Team Providers Care Superintendent Terminal Name Role Phone Mt Guerrero MD Primary Care Provider +1- [phone] Encounter Details Date Type Department Care Team (Latest Contact Info) Description 04/17/2019 Abstract [facility] CONVERSIONS Dental, Provider, DDS Social History Tobacco [...] Description 11/27/2024 8:00 AM EDT Office Visit [facility] ADULT DENTAL 505 [place] [address] Maria Alejandra Danielson DMD 12/03/2024 9:00 AM EDT Medication Management [facility] MED & PEDS 505 [place] [address] Vero Molina, PharmD 230 [place] [address] 12/22/2024 9:30 AM EDT Office Visit [facility] MED & PEDS [address] [place] [address] Mt Guerrero MD 505 [place] [address] documented as of this encounter Visit Diagnoses Not on filedocumented in this encounter Care Teams Superintendent Terminal Relationship Specialty Start Date End Date Mt Guerrero MD [address] [place] [address] PCP - General Internal Medicine 02/19/24 documented as of this encounter
--- OUTSIDE RECORDS SUMMARY | 2024-11-23 10:10 | XMS_ITS | Encounter Summary ---
Author Organization [employer] Address 75 [facility] 7t [place] [address] Care Team Providers Care Career Developer Name Role Phone Mt Guerrero MD Primary Care Provider +1- [phone] Encounter Details Date Type Department Care Team (Late st Contact Info) Description 06/07/2023 Abstract [facility] ADULT DENTAL 505 [place] [address] Bertha Edwards DDS 505 [place], [place] [phone] Social History Tobacco Use Types Packs/Day Years [...] 8:00 AM EDT Office Visit [facility] ADULT DENTAL 505 [place] [address] Maria Alejandra Danielson DMD 12/03/2024 9:00 AM EDT Medication Management [facility] MED & PEDS 505 [place] [address] Vero Molina, PharmD 230 [place], [place] [phone] 12/22/2024 9:30 AM EDT Office Visit [facility] MED & PEDS 505 [place] [address] Mt Guerrero MD 505 [place] [address] documented as of this encounter Visit Diagnoses Not on filedocumented in this encounter Care Teams Career Developer Relationship Specialty Start Date End Date Mt Guerrero MD 505 [place] [address] PCP - General Internal Medicine 02/19/24 documented as of this encounter
--- OUTSIDE RECORDS SUMMARY | 2024-11-23 10:10 | XMS_ITS | Encounter Summary ---
Author Organization [employer] Address 75 [facility] 7t [place] [address] Care Team Providers Care Vacuum Drum Drier Operator Name Role Phone Mt Guerrero MD Primary Care Provider +1- [phone] Encounter Details Date Type Department Care Team (Late st Contact Info) Description 02/20/2024 Orders Only [facility] MED & PEDS [address] [place], [place] [phone] Mt Guerrero MD 505 [place] [address] Microcytic anemia (Primary Dx) Social History Tobacco Use Types Packs/Day Years [...] Description 11/27/2024 8:00 AM EDT Office Visit [facility] ADULT DENTAL 505 [place] [address] Maria Alejandra Danielson DMD 12/03/2024 9:00 AM EDT Medication Management [facility] MED & PEDS [address] [place] [address] Vero Molina, PharmD [address] [place] [address] 12/22/2024 9:30 AM EDT Office Visit [facility] MED & PEDS [address] [place] [address] Mt Guerrero MD [address] [place] [address] documented as of this encounter Procedures Procedure Name Priority Date/Time Associated Diagnosis Comments IRON AND TOTAL IRON BINDING CAPACITY Routine 03/11/2024 9:30 AM EDT Microcytic anemia RETICULOCYTE COUNT Routine 03/11/2024 9: 30 AM EDT Microcytic anemia FERRITIN Routine 03/11/2024 9:30 AM EDT Microcytic anemia documented in this encounter Results * Reticulocyte Count (03/11/2024 9:30 AM EDT) Reticulocytes Absolute 0.054 0.026 - 0.095 X10*6/uL [facility] Immature Retic Fraction 7.3 2.3 - 13.4 % [facility] Retic HGB Equivalent 33.1 30.0 - 35.0 pg [facility] Reticulocyte Percent 1.2 0.5 - 1.8 % [facility] Blood Venous blood specimen / Unknown 03/11/2024 9:30 AM EDT 03/11/2024 2:20 PM EDT Mt Guerrero MD LAB BLOOD ORDERABLES Final Result [facility] [address] [place] [address] [phone] * Ferritin (03/11/2024 9:30 AM EDT) Ferritin 133 20 - 250 ng/mL [facility] Blood Venous blood specimen / Unknown 03/11/2024 9:30 AM EDT 03/11/2024 2:20 PM EDT us Mt Guerrero MD LAB BLOOD ORDERABLES Final Result Performing Organization Address [facility] de Phone Number [facility] [address] [place] [phone] * Iron And Total Iron Binding Capacity (03/11/2024 9:30 AM EDT) Iron 87 45 - 160 mcg/dL [facility] Total Iron Binding Capacity 256 228 - 428 mcg/dL [facility] Percent Iron Saturation 34 15 - 50 % [facility] Unsaturated Iron Binding 169 ug/dL [facility] Blood Venous blood specimen / Unknown 03/11/2024 9:30 AM EDT 03/11/2024 2:20 PM EDT us Mt Guerrero MD LAB BLOOD ORDERABLES Final Result Performing Organization Address [facility] Phone Number [facility] [address] [place] [phone] documented in this encounter Visit Diagnoses Diagnosis Microcytic anemia- Primary Unspecified iron deficiency anemia documented in this encounter Additional Health Concerns Assessment Noted Time PHQ-9 Depression Total Score: 8 02/19/20 10:12 AM EDT documented as of this encounter Care Teams Vacuum Drum Drier Operator Relationship Specialty Start Date End Date Mt Guerrero MD [address] [place] [address] PCP - General Internal Medicine 02/19/24 documented as of this encounter
--- OUTSIDE RECORDS SUMMARY | 2024-11-23 10:10 | XMS_ITS | Encounter Summary ---
Author Organization [employer] Address [address] [place] [address] 7t [place] [address] Care Team Providers Care Dyed Yarn Operator Name Role Phone Mt Guerrero MD Primary Care Provider +1- [phone] Reason for Referral * Consultation (Routine) - Pending Review Specialty Diagnoses / Procedures Referred By Jonathan beaulieu Referred To Contact Podiatry Diagnoses Type 2 diabetes mellitus with hyperglycemia, without long-term current use of insulin ([facility]) Mt Guerrero MD [address] [place] [address] Phone: tel: fax: Brenden Longoria DPM Phone: tel: fax: Referral ID Status Reason Start Date Expiration Date Visits Requested Visits Authorized [id number] Pending Review Specialty Services Required 04/13/2024 04/13/2025 1 1 * Consultation (Routine) - Closed Specialty Diagnoses / Procedures Referred By Jonathan beaulieu Referred To Contact Physical Therapy Diagnoses Chronic midline low back pain without sciatica Mt Guerrero MD [address] [place] [address] Phone: tel: fax: [facility] Physical Therapy [address] [place] [address] Phone: tel: fax: Referral ID Status Reason Start Date Expiration Date V isits Requested Visits Authorized [id number] Closed Specialty Services Required 04/03/2024 04/03/2025 1 1 Encounter Details Date Type Department Care Team ([facility] Contact Info) Description 04/03/[address] [facility] MED & PEDS [address] [place] [address] Mt Guerrero MD [address] [place] [address] Chronic midline low back pain without sciatica (Primary Dx); Type 2 diabetes mellitus with hyperglycemia, without long-term current use of insulin ([facility]) Social History Tobacco Use Types Packs/Day Years [...] Description 11/27/2024 8:00 AM EDT Office Visit [facility] ADULT DENTAL [address] [place] [address] Maria Alejandra Danielson DMD 12/03/2024 9:00 AM EDT Medication Management [facility] MED & PEDS [address] [place] [address] Vero Molina, PharmD 230 [place] [address] 12/22/2024 9:30 AM EDT Office Visit [facility] MED & PEDS [address] [place] [address] Mt Guerrero MD [address] [place] [address] Scheduled Referrals Name Type Priority Associated Diagnoses Orde r Schedule Referral to Physical Therapy Outpatient Referral Routine Chronic midline low back pain without sciatica Expected: 04/03/2024 (Approximate), Expires: 04/03/2025 Referral to Podiatry Outpatient Referral Routine Type 2 diabetes mellitus with hyperglycemia, without long-term current use of insulin (CMS/HCC) Expected: 04/13/2024 (Approximate), Expires: 04/13/2025 documented as of this encounter Visit Diagnoses Diagnosis Chronic midline low back pain without sciatica- Primary Type 2 diabetes mellitus with hyperglycemia, without long-term current use of insulin (CMS/HCC) documented in this encounter Additional Health Concerns Assessment Noted Time PHQ-9 Depression Total Score: 8 02/19/20 24 10:12 AM EDT documented as of this encounter Care Teams Dyed Yarn Operator Relationship Specialty Start Date End Date Mt Guerrero MD [address] [place] [address] PCP - General Internal Medicine 02/19/24 documented as of this encounter
[2024-11-23 10:55] LABS: PSA,Total (Free>4and<10) 3.77 ng/mL (0.00-4.00)
== END 2024-11-23 09:17 | disposition home or self-care (01) ==
LOC: HO.LAB 09:16
PROVIDERS: PCP Internal Medicine; Visit Provider Urology
DX: R97.20 Elevated prostate specific antigen [PSA] (principal); Z12.5 Encounter for screening for malignant neoplasm of prostate
CPT/HCPCS: 36415; 84153

== ENCOUNTER 2024-12-22 09:52 | Outpatient (REF) | payer OTHER, SELFPAY ==
--- OUTSIDE RECORDS SUMMARY | 2024-12-22 10:31 | XMS_ITS | Encounter Summary ---
Author Organization [employer] Address 75 [facility] 7t [place] [address] Care Team Providers Care Assessment Manager Name Role Phone Mt Guerrero MD Primary Care Provider +1- [phone] Vero Molina PharmD Unavailable [phone] Encounter Details Date Type Department Care Team (Latest Contact Info) Description 09/14/2020 Abstract [facility] CONVERSIONS Dental, Provider, DDS Social History Tobacco [...] Care Team (Late st Contact Info) Description 12/31/2024 9:30 AM EDT Medication Management [facility] MED & PEDS [address] [place] [address] Vero Molina, PharmD [address] [place] [address] 03/23/2025 3:15 PM EDT Office Visit [facility] MED & PEDS [address] [place] [address] Mt Guerrero MD [address] [place] [address] documented as of this encounter Visit Diagnoses Not on filedocumented in this encounter Care Teams Assessment Manager Relationship Specialty Start Date End Date Mt Guerrero MD [address] [place] [address] PCP - General Internal Medicine 02/19/24 Vero Molina PharmD [address] [place] [address] Pharmacist Internal Medicine 12/03/24 documented as of this encounter
[2024-12-22 14:33] LABS: MANUAL DIFF FLAG NO
[2024-12-22 14:36] LABS: Basophils Percent Auto 0.6 % (0-2); Eosinophils Absolute Auto 0.2 X10*3/uL (0.0-0.4); Eosinophils Percent Auto 2.9 % (0-4); Hematocrit 38.4 % (42.0-52.0); Hemoglobin 12.9 g/dl (14.0-18.0); Imm Gran Abs Auto 0.02 X10*3/uL (0.00-0.03); Imm Gran Pct Auto 0.4 % (0.0-0.4); Lymphocytes Absolute Auto 1.9 X10*3/uL (1.2-4.9); Lymphocytes Percent Auto 36.3 % (20-40); Mean Corpuscular HGB Conc 33.6 g/dl (31.0-36.0); Mean Corpuscular Hemoglobin 28.4 pg (27.0-33.0); Mean Corpuscular Volume 84.6 fL (80.0-98.0); Mean Platelet Volume 11.1 fL (9.4-12.4); Monocytes Absolute Auto 0.4 X10*3/uL (0.1-1.2); Monocytes Percent Auto 7.9 % (2-11); Neutrophils Absolute Auto 2.7 x10*3/uL (2.0-8.3); Neutrophils Percent Auto 51.9 % (45-73); Platelet Count 182 X10*3/uL (160-400); Red Blood Count 4.54 X10*6/uL (4.60-5.80); Red Cell Distribution Width 12.8 % (11.0-16.0); White Blood Count 5.2 X10*3/uL (4.8-10.8)
[2024-12-22 15:03] LABS: Alanine Aminotransferase 30 U/L (0-40); Albumin Level 3.7 g/dL (3.5-5.0); Alkaline Phosphatase 67 U/L (39-117); Anion Gap 9 (12-20); Aspartate Amino Transferase 46 U/L (5-37); Bilirubin Total 0.4 mg/dL (0.0-1.0); Blood Urea Nitrogen 24 mg/dL (9-16); Carbon Dioxide 26 mmol/L (22-29); Chloride 109 mmol/L (96-108); Cholesterol 194 mg/dL (<200); Estimated Glomerular Filt Rate > 60; Glucose Random 127 mg/dL (60-115); HDL Cholesterol 45 mg/dL (>40); LDL Cholesterol Calculated 121 mg/dL (<100); Potassium 4.4 mmol/L (3.3-5.1); Sodium 140 mmol/L (135-145); Total Protein 6.6 g/dL (6.5-8.0); Triglycerides 141 mg/dL (<150)
[2024-12-22 15:06] LABS: Creatinine Urine 58.24 mg/dL; Microalbum/Creatinine Ratio Ur 27.4 ug/mg cr (<30)
[2024-12-22 15:09] LABS: TSH reflex Free T4 1.08 uIU/mL (0.32-4.0)
== END 2024-12-22 09:53 | disposition home or self-care (01) ==
LOC: HO.CHCLDS 09:52
PROVIDERS: Visit Provider Internal Medicine
DX: E11.65 Type 2 diabetes mellitus with hyperglycemia (principal)
CPT/HCPCS: 36415; 80053; 80061; 82043; 82570; 84443; 85025

== ENCOUNTER 2024-12-23 09:45 | Outpatient (REF) | payer OTHER, SELFPAY ==
[2024-12-23 16:52] LABS: Urine Cytology See Pathology rpt
== END 2024-12-23 09:46 | disposition home or self-care (01) ==
LOC: HO.LAB 09:45
PROVIDERS: PCP Internal Medicine; Visit Provider Urology
DX: N39.0 Urinary tract infection, site not specified (principal)
CPT/HCPCS: 81003; 88112; 99212

== ENCOUNTER 2024-12-23 09:45 | Outpatient (AMB) | payer OTHER, SELFPAY ==
--- NOTE | 2024-12-23 10:05 | A.OFFVIS_ITS ---
Intake Visit Reasons: 6m/ PSA Intake Note: Patient is present for 6M/PSA Urology Medication:OXYBUTYNIN,FINASTERIDE Antibiotic Allergy:PENICILLINS Blood Thinner:ASPIRIN New Business Clerk Required: No Allergies Penicillins Allergy (Intermediate, Verified 12/23/24 10:06) RASH, itchy HPI Comments Details: Mendez is a pleasant Sami speaking male. He is a patient of . 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 Current treatment includes medication, tamsulosin and finasteride - cystoscopy 04/19 prior TURP, inflamed bladder post UTI - responded to 3 months low-dose antibiotic Results from testing include renal/bladder us Yes 02/14 bladder trabeculation Prostate with calcifications PVR 50 prostate size 20 Testicular/Scotal orchalgia-swelling: Setting of diabetes Episode January 2020 that resolved with antibiotics Primary complaint of pain and swelling, right, testicle(s). The symptoms started or were observed: two weeks ago. Onset of pain was gradual. Imaging includes testicular ultrasound - epididymo-orchitis right side. Relevant medical history diabetes Yes Complicated infected PFSH Medical History Overactive bladder BPH (benign prostatic hyperplasia) Diabetes Asthma Polio Surgical History History of surgery on lower extremity Hx of colonoscopy History of surgery Family History Father Substance use disorder Mother Diabetes Hypertension Asthma Brother No problems noted. Social History Household Members: Spouse Housing: House Are you a primary behavioral health care manager to a significant other at home: No Do you presently have visiting nurse or other home services: No Alcohol intake: never Patient Tobacco Use Status: Never used Tobacco e-Cigarette/Vaping Use: Never Used Second Hand Smoke Exposure: No Advance Directives Date on File: 04/18/22 service: No Current occupational status: disabled Cognitive needs: Yes Hearing needs: No Vision needs: No Review of Systems Const Denies chills and Denies fever(s) Card Reports no additional complaints and Denies syncope Resp Denies cough GI Denies abdominal pain and Denies heartburn Reports as per HPI and Denies change in libido Neuro Denies syncope Psych Denies change in libido Endo Denies change in libido Physical Exam Const General: cooperative, healthy appearing, comfortable and no acute distress Orientation/consciousness: patient oriented x3 HEENT Face and sinus: Yes normal facial exam Mouth: moist mucous membranes Neck Neck: Yes normal visual inspection, Yes full ROM and Yes trachea midline Chest Chest palpation & inspection: normal inspection of the chest Resp Effort & Inspection: normal respiratory effort, able to speak in complete sentences and no respiratory distress GI Inspection: Yes normal to inspection Back/Spine/Pelvis Cervical Spine: normal cervical lordosis Thoracic/Lumbar Spine: thoracic and lumbar spine normal to inspection Skin General skin exam: no rashes or lesions noted Neuro General: patient oriented x3, gait normal, tone normal and moves all extremities Extrem General: Yes normal to inspection and Yes capillary refill normal Results AMB Urinalysis, Automated UA Leukoctes 70 Og/uL Last Edit by SHITAL Stallworth on 12/23/24 10:24 UA Nitrite Positive Last Edit by SHITAL Stallworth on 12/23/24 10:24 UA Urobilinogen 0.2 mg/dL Last Edit by SHITAL Stallworth on 12/23/24 10:2 4 UA Protein 15 mg/dL Last Edit by SHITAL Stallworth on 12/23/24 10:24 UA pH 6.0 Last Edit by SHITAL Stallworth on 12/23/24 10:24 UA Blood 80 Félix/uL Last Edit by SHITAL Stallworth on 12/23/24 10:24 UA Specific [place] 1.020 Last Edit by SHITAL Stallworth on 12/23/24 10: 24 UA Ketone Negative Last Edit by SHITAL Stallworth on 12/23/24 10:24 UA Bilirubin 0 mg/dL Last Edit by SHITAL Stallworth on 12/23/24 10:24 UA Glucose 0 mg/dL Last Edit by SHITAL Stallworth on 12/23/24 10:24 Results Reviewed Results Reviewed: Laboratory Last Values Urine pH (Auto) 6.0 12/23/24 10:23 Specific [place] (Auto) 1.020 12/23/24 10:23 Urine Protein (Auto) 15 mg/dL 12/23/24 10:23 Glucose (UA)(Auto) 0 mg/dL 12/23/24 10:23 Urine Ketones (Auto) Negative 12/23/24 10:23 Urine Blood (Auto) 80 Félix/uL 12/23/24 10:23 Urine Nitrite (Auto) Positive 12/23/24 10:23 Urine Bilirubin (Auto) 0 mg/dL 12/23/24 10:23 Urine Urobilinogen (Auto) 0.2 mg/dL 12/23/24 10:23 Leukocyte Esterase (Auto) 70 Og/uL 12/23/24 10:23 Assessment & Plan Assessment & Plan (1) BPH w urinary obs/LUTS: Code(s): N40.1 - Benign prostatic hyperplasia with lower urinary tract symptoms; N13.8 - Other obstructive and reflux uropathy Category: Medical (2) Overactive bladder: Code(s): N32.81 - Overactive bladder Category: Medical Plan Six-month follow-up PSA and PVR Orders: Orders Urine Cytology Today N39.0 - Urinary tract infection, site not specified AMB Urinalysis Automated Today Z13.9 - Encounter for screening, unspecified Patient Instructions: This note is constructed using voice recognition software. While every effort has been made to ensure accuracy risk advisor errors may have been included. Imaging studies, laboratory and physical exam results were discussed and reviewed in detail. No major barriers to patient understanding were identified. An opportunity to ask questions regarding the treatment plan was provided. All questions were answered. The patient expressed understanding and agreement with the above treatment plan. The patient is aware they should contact our office by phone for worsening of their current condition or the appearance of new urologic symptoms. Compliance is encouraged with any medications and followup testing that is ordered. It is a privilege to participate in the urologic care of your patient. If you have any questions or concerns regarding treatment for the above conditions, or other urologic issues, please do not hesitate to contact me. The office telephone contact is [phone]. Sincerely, Dr Rusty Ho MD, [facility] - Urology Compassionate Specialist Care for the Genitourinary System Coding Level of Care Code Est Pt Level 3 (64422) Complex EM visit Add On G2211 Diagnoses BPH w urinary obs/LUTS N40.1; N13.8 Overactive bladder N32.81
== END 2024-12-23 10:52 | disposition home or self-care (01) ==
LOC: HO.HUSH 09:45
PROVIDERS: PCP Internal Medicine; Visit Provider Urology
DX: N40.1 Benign prostatic hyperplasia with lower urinary tract symptoms (principal); N13.8 Other obstructive and reflux uropathy; N32.81 Overactive bladder; Z13.9 Encounter for screening, unspecified
CPT/HCPCS: 99213; G2211

== ENCOUNTER 2025-02-19 09:09 | Outpatient (REF) | payer OTHER, SELFPAY ==
--- NOTE | ~2025-02-19 | US_ITS ---
CLINICAL HISTORY: Transaminitis Ultrasound of the abdomen Comparison: CT/SR - CT ABDOMEN PELVIS WITH IV CONTRAST - 04/13/23 11:25 EDT Findings: The liver is normal in size, measuring 13.7cm. Normal echogenicity without focal lesions. Normal flow is visualized within the portal vein. Dilation of the intrahepatic bile ducts in the right lobe of the liver, not seen on the prior study. No cholelithiasis. No gallbladder wall thickening or pericholecystic fluid. Negative Spence's sign. The common bile duct is normal, measuring 0.4cm. Unremarkable limited evaluation of the pancreas. The right kidney is normal in echogenicity and size, measuring 10.2cm. No nephrolithiasis or hydronephrosis. There are multiple cysts, largest is in the midportion measures 2.3 x 1.3 x 1.7 cm. The left kidney is normal echogenicity and size, measuring 12.2cm. No nephrolithiasis or hydronephrosis. There are multiple cysts, the largest measures 3.8 x 4.0 x 4.5 cm. The spleen is without focal lesions and normal in size, measuring 7.9cm. The aorta and IVC are unremarkable. No ascites. Impression: Intrahepatic biliary ductal dilatation of uncertain etiology. No extrahepatic biliary ductal dilatation. Evaluate further with cross-sectional imaging. Consider CT or MR liver mass protocol. This document has been electronically signed by: Evette Taylor MD on 02/20/2025 14:32:10
--- OUTSIDE RECORDS SUMMARY | 2025-02-19 09:26 | XMS_ITS | Clinical Summary ---
Author Organization [facility] Address [address] [place] [address] Phone Care Team Providers Care Aircraft Worker Name Role Phone Mt Guerrero MD Primary Care Provider [phone] [phone] Allergies Active Allergy Reactions Criticality Noted Date Comments Penicillins 07/16/2024 Medications No known medications Active Problems Problem Noted Date Diagnosed Date Type 2 diabetes mellitus (CMS/[facility] V24, CMS/[facility] V 28) 07/13/2024 Functional urinary incontinence 07/13/2024 [...] 07/16/2024 9:14 AM EST Plan of Treatment Health Maintenance Due Date Last Done Comments [...] Diabetes: Annual Urine Albumin-Creatinine Ratio (uACR) 07/13/2024 Depression Screening 07/29/2024 COVID-19 Vaccine ( season) 2024 05/12/2024, 01/30/2021, 01/09/2021 Diabetes: Blood Sugar Control Test (HGBA1C) 11/10/2024 05/12/2024 Influenza Vaccine (#1) 2025 , 08/07/2022, 04/30/2019, Additional history exists DTaP,Tdap,and Td Vaccines (4 - Td or Tdap) 10/02/2026 10/02/2016, 02/21/2012, 07/17/2007 Cholesterol Screening (Lipid Panel) 02/19/2029 02/20/2024 Pneumococcal Vaccine: 50+ Years Completed 05/12/2024, 09/10/2016, [...] to complete this topic Insurance [employer] Care Teams Aircraft Worker Relationship Specialty Start Date End Date Mt Guerrero MD [address] [place] [address] PCP - General 04/15/24
== END 2025-02-19 09:10 | disposition home or self-care (01) ==
LOC: HO.US 09:09
PROVIDERS: PCP Internal Medicine; Visit Provider Internal Medicine
DX: R74.01 Elevation of levels of liver transaminase levels (principal)
CPT/HCPCS: 76700

== ENCOUNTER → 2025-02-19 09:13 | Outpatient (BNV) | payer OTHER, SELFPAY | PROVIDERS: PCP Internal Medicine; Visit Provider Radiology Diagnostic Radiology | DX: R74.01 Elevation of levels of liver transaminase levels (principal) | CPT/HCPCS: 76700 ==

== ENCOUNTER 2025-04-08 10:24 | Outpatient (REF) | payer MEDICARE, MEDICAID, SELFPAY ==
--- NOTE | ~2025-04-08 | MR_ITS ---
EXAMINATION: MR ABDOMEN WITHOUT THEN WITH IV CONTRAST HISTORY: Disease of biliary tract COMPARISON: Correlation is made with an abdominal ultrasound dated 02/19/2025. TECHNIQUE: Axial in and out of phase T1-weighted gradient echo, axial diffusion weighted, and axial and coronal HASTE T2 with fat saturation images were obtained through the abdomen. Subsequently, fat suppressed axial and coronal T1-weighted images were obtained after the intravenous administration of 6.5 mL Gadavist. FINDINGS: Liver: There is no loss of signal intensity in the liver on opposed phase imaging to suggest steatosis. There is no enhancing liver mass. The hepatic and portal veins are patent. There is no intrahepatic biliary dilatation. Gallbladder/biliary tree: No gallstones are identified. The common bile duct is normal in caliber. No intraluminal filling defects are identified to suggest choledocholithiasis. Spleen: The spleen is unremarkable. Pancreas: The pancreas is unremarkable. There is no enhancing pancreatic mass. The pancreatic duct is normal in caliber. Adrenals: The adrenal glands are unremarkable. Kidneys: There are bilateral renal cysts measuring up to 1.9 cm on the right and 4.5 cm on the left.. There is no hydronephrosis. Lymph nodes: There is no retroperitoneal lymphadenopathy in the upper abdomen. Fluid: There is no ascites in the upper abdomen. Visualized bowel: The visualized small and large bowel loops are unremarkable in appearance. Visualized bones: The visualized bones demonstrate normal marrow signal intensity. MR/MR abdomen wo/w con IMPRESSION: 1. No evidence of intrahepatic or extrahepatic biliary ductal dilatation. 2. Bilateral renal cysts as described. Electronically signed by: Nikhil Venegas MD 04/08/2025 11:40 AM EDT
== END 2025-04-08 10:25 | disposition home or self-care (01) ==
LOC: HO.MRI 10:24
PROVIDERS: PCP Internal Medicine; Visit Provider Internal Medicine
DX: K83.8 Other specified diseases of biliary tract (principal)
CPT/HCPCS: 74183; A9585

== ENCOUNTER → 2025-04-08 10:46 | Outpatient (BNV) | payer MEDICARE, MEDICAID, SELFPAY | PROVIDERS: PCP Internal Medicine; Visit Provider Radiology Diagnostic Radiology | DX: N28.1 Cyst of kidney, acquired (principal) | CPT/HCPCS: 74183 ==

== ENCOUNTER 2025-06-14 08:09 | Outpatient (REF) | payer OTHER, SELFPAY ==
[2025-06-14 09:58] LABS: PSA,Total (Free>4and<10) 5.59 ng/mL (0.00-4.00)
[2025-06-16 13:23] LABS: Free Prostate Spec Ag 0.5 ng/mL; Percent Free Prostate Spec Ag 9 % (calc) (>25)
== END 2025-06-14 08:10 | disposition home or self-care (01) ==
LOC: HO.LAB 08:09
PROVIDERS: Visit Provider Urology
DX: R97.20 Elevated prostate specific antigen [PSA] (principal); N40.1 Benign prostatic hyperplasia with lower urinary tract symptoms; N13.8 Other obstructive and reflux uropathy; Z12.5 Encounter for screening for malignant neoplasm of prostate
CPT/HCPCS: 36415; 84153; 84154

== ENCOUNTER 2025-06-22 09:51 | Outpatient (REF) | payer OTHER, SELFPAY | END 2025-06-22 09:52 | disposition home or self-care (01) | LOC: HO.LAB 09:51 | PROVIDERS: PCP Internal Medicine; Visit Provider Urology | DX: R97.20 Elevated prostate specific antigen [PSA] (principal); R32 Unspecified urinary incontinence; N39.0 Urinary tract infection, site not specified; N32.81 Overactive bladder | CPT/HCPCS: 51798; 87086; 87088; 87186; 99212 ==

== ENCOUNTER 2025-06-22 09:51 | Outpatient (AMB) | payer OTHER, SELFPAY ==
--- OUTSIDE RECORDS SUMMARY | 2025-06-21 09:30 | XMS_ITS | Encounter Summary ---
Demographics Address [address] [facility] [address] [place] [address] Mobile Phone Work Phone Home Phone Email Address Preferred Language es Marital Status Unknown Cheondoism Affiliation Unknown Race Other Race Ethnic Group Unknown Author Organization [employer] Address [address] [place] [address] Care Team Providers Care Assistant Printer Floor Covering Name Role Phone Mt Guerrero MD Primary Care Provider [phone] Vero Molina PharmD Unavailable [phone] Reason for Visit * Reason Comments Routine Cleaning Dental Exam Encounter Details Date Type Department Care Team ([facility] Contact Info) Description 06/21/2025 9:30 AM EST Office Visit [facility] [address] [place] [address] Karri Guerrero Dental calculus (Primary Dx) Social History Tobacco Use Types [...] AM EDT documented as of this encounter Last Filed Vital Signs Vital Sign Reading Time Taken Comments Blood Pressure 124/68 06/21/2025 9:41 AM EST Pulse 70 06/21/2025 9:41 AM EST Temperature - - Respiratory Rate - - Oxygen Saturation - - Inhaled Oxygen Concentration - - Weight - - Height - - Body Mass Index - - documented in this encounter Plan of Treatment Upcoming Encounters Date Type Department Care Team (Late st Contact Info) Description 06/29/2025 3:30 PM EST Office Visit [facility] [address] [place] [address] Danis Lewis [address] [place] [address] 08/05/2025 10:00 AM EST Medication Management [facility] [address] [place] [address] Vero Molina, PharmD [address] [place] [address] Scheduled Orders Name Type Priority Associated Diagnoses Orde r Schedule 18,19 18,19 LIMITED ORAL EVALUATION - PROBLEM FOCUSED Dental Routine [address] arting 06/21/2025 29 L 29 L RESIN-BASED COMPOSITE - 1 SURF, POSTERIOR Dental Routine [address] arting 06/21/2025 13 B 13 B RESIN-BASED COMPOSITE - 1 SURF, POSTERIOR Dental Routine [address] arting 06/21/2025 documented as of this encounter Procedures Procedure Name Priority Date/Time Associated Diagnosis Comments Full PROPHYLAXIS - ADULT Routine 025 9:30 AM EST ORAL HYGIENE INSTRUCTIONS Routine 2024 9:30 AM EST INTRAORAL - PERIAPICAL FIRST RADIOGRAPHIC IMAGE Routine 06/21/2025 9:30 AM EST INTRAORAL - PERIAPICAL EACH ADDITIONAL RADIOGRAPHIC IMAGE Routine 06/21/2025 9:30 AM EST CASE PRESENTATION, DETAILED AND EXTENSIVE TREATMENT PLANNING Routine 06/21/2025 9:30 AM EST BITEWINGS - 4 RADIOGRAPHIC IMAGES Routine 06/21/2025 9:30 AM EST documented in this encounter Visit Diagnoses Diagnosis Dental calculus- Primary Accretions on teeth documented in this encounter Additional Health Concerns Assessment Noted Time PHQ-9 Depression Total Score: 1 09/24/19 25 11:38 AM EST documented as of this encounter Care Teams Assistant Printer Floor Covering Relationship Specialty Start Date End Date Mt Guerrero MD [address] [place] [address] PCP - General Internal Medicine 02/19/24 Vero Molina PharmD [address] [place] [address] Pharmacist Internal Medicine 12/03/24 documented as of this encounter
--- NOTE | 2025-06-22 10:06 | MHC.OFFVIS ---
Intake Visit Reasons: 6M PSA/PVR Intake Note: Patient is present for 6M/PSA/PVR Urology Medication:OXYBUTYNIN,FINASTERIDE Antibiotic Allergy:PENICILLINS Blood Thinner:ASPIRIN PVR:0ml Director Payment Required: No Allergies Penicillins Allergy (Intermediate, Verified 06/22/25 10:07) RASH, itchy HPI Comments Details: Mendez is a pleasant Sinhala speaking male. He is a patient of . He is seen for the following urologic conditions - lower urinary tract symptoms - prior epididymo-orchitis Accompanied by his daughter who translates for him Current medications include oxybutynin for diabetic cystopathy with overactive bladder UA with chronic bladder infection - prior infections with E coli sensitive to nitrofurantoin, resistant to Bactrim and Levaquin. Start nitrofurantoin Add vitamin-C and methenamine PSA 06/21 5.7, 11/20 3.8, 06/22 5.9 Continue finasteride Continue oxybutynin Lower Urinary Tract Symptoms: Had marginal improvement with urination with tamsulosin Current visit is for further evaluation of, lower urinary tract symptoms, predominate irritative symptoms. Current treatment includes medication, tamsulosin and finasteride - cystoscopy 04/19 prior TURP, inflamed bladder post UTI - responded to 3 months low-dose antibiotic Results from testing include renal/bladder us Yes 02/14 bladder trabeculation Prostate with calcifications PVR 50 prostate size 20 Testicular/Scotal orchalgia-swelling: Setting of diabetes Episode January 2020 that resolved with antibiotics Primary complaint of pain and swelling, right, testicle(s). The symptoms started or were observed: two weeks ago. Onset of pain was gradual. Imaging includes testicular ultrasound - epididymo-orchitis right side. Relevant medical history diabetes Yes Complicated [facility] History Overactive bladder BPH (benign prostatic hyperplasia) Diabetes Asthma Polio Surgical History History of surgery on lower extremity Hx of colonoscopy History of surgery Family History Father Substance use disorder Mother Diabetes Hypertension Asthma Brother No problems noted. Social History Household Members: Spouse Housing: House Are you a primary day care director to a significant other at home: No Do you presently have visiting nurse or other home services: No Alcohol intake: never Patient Tobacco Use Status: Never used Tobacco e-Cigarette/Vaping Use: Never Used Second Hand Smoke Exposure: No Advance Directives Date on File: 04/18/22 service: No Current occupational status: disabled Cognitive needs: Yes Hearing needs: No Vision needs: No Review of Systems Const Denies chills and Denies fever(s) Card Reports no additional complaints and Denies syncope Resp Denies cough GI Denies abdominal pain and Denies heartburn Reports as per HPI and Denies change in libido Neuro Denies syncope Psych Denies change in libido Endo Denies change in libido Physical Exam Const General: cooperative, healthy appearing, comfortable and no acute distress Orientation/consciousness: patient oriented x3 HEENT Face and sinus: Yes normal facial exam Mouth: moist mucous membranes Neck Neck: Yes normal visual inspection, Yes full ROM and Yes trachea midline Chest Chest palpation & inspection: normal inspection of the chest Resp Effort & Inspection: normal respiratory effort, able to speak in complete sentences and no respiratory distress GI Inspection: Yes normal to inspection Back/Spine/Pelvis Cervical Spine: normal cervical lordosis Thoracic/Lumbar Spine: thoracic and lumbar spine normal to inspection Skin General skin exam: no rashes or lesions noted Neuro General: patient oriented x3, gait normal, tone normal and moves all extremities Extrem General: Yes normal to inspection and Yes capillary refill normal Office Procedures Post Void Residual Post Residual Void Post Void Residual (PVR): 0 [id number] Void Residual by ultrasound Results AMB Urinalysis, Automated UA Leukoctes 125 Og/uL Last Edit by SHITAL Quinones on 06/22/25 10:20 UA Nitrite Positive Last Edit by SHITAL Quinones on 06/22/25 10:20 UA Urobilinogen 0.2 mg/dL Last Edit by SHITAL Quinones on 06/22/25 10:20 UA Protein 15 mg/dL Last Edit by SHITAL Quinones on 06/22/25 10:20 UA pH 5.5 Last Edit by SHITAL Quinones on 06/22/25 10:20 UA Blood 80 Félix/uL Last Edit by SHITAL Quinones on 06/22/25 10:20 UA Specific Hayti 1.015 Last Edit by Shira Morales CCMA on 06/22/25 10:20 UA Ketone Negative Last Edit by Shira Morales [facility] on 06/22/25 10:20 UA Bilirubin 0 mg/dL Last Edit by Shiraabebe Morales, CCMA on 06/22/25 10:20 UA Glucose 0 mg/dL Last Edit by Shira Morales, [facility] on 06/22/25 10:20 Results Reviewed Results Reviewed: Laboratory Last Values Urine pH (Auto) 5.5 06/22/25 10:19 Specific Hayti (Auto) 1.015 06/22/25 10:19 Urine Protein (Auto) 15 mg/dL 06/22/25 10:19 Glucose (UA)(Auto) 0 mg/dL 06/22/25 10:19 Urine Ketones (Auto) Negative 06/22/25 10:19 Urine Blood (Auto) 80 Félix/uL 06/22/25 10:19 Urine Nitrite (Auto) Positive 06/22/25 10:19 Urine Bilirubin (Auto) 0 mg/dL 06/22/25 10:19 Urine Urobilinogen (Auto) 0.2 mg/dL 06/22/25 10:19 Leukocyte Esterase (Auto) 125 Og/uL 06/22/25 10:19 Assessment & Plan Assessment & Plan (1) Elevated PSA: Code(s): R97.20 - Elevated prostate specific antigen [PSA] Category: Medical (2) Urinary incontinence: Code(s): R32 - Unspecified urinary incontinence Category: Medical (3) Chronic UTI (urinary tract infection): Comment: Culture and treatment Code(s): N39.0 - Urinary tract infection, site not specified Category: Medical (4) Overactive bladder: Code(s): N32.81 - Overactive bladder Category: Medical Plan Four-month follow-up Orders: Orders PSA,Total (Free>4and<10) 4 Months R97.20 - Elevated prostate specific antigen [PSA] Urine Culture Today N39.0 - Urinary tract infection, site not specified Medications: New ascorbic acid (vitamin C) 1,000 mg PO DAILY 90 tabs 1RF 90 days N39.0 - Urinary tract infection, site not specified methenamine hippurate 1 g PO DAILY 90 tabs 1RF 90 days N39.0 - Urinary tract infection, site not specified nitrofurantoin macrocrystal 100 mg PO BID 14 caps 0RF 7 days N39.0 - Urinary tract infection, site not specified Patient Instructions: This note is constructed using voice recognition software. While every effort has been made to ensure accuracy nuclear auxiliary operator errors may have been included. Imaging studies, laboratory and physical exam results were discussed and reviewed in detail. No major barriers to patient understanding were identified. An opportunity to ask questions regarding the treatment plan was provided. All questions were answered. The patient expressed understanding and agreement with the above treatment plan. The patient is aware they should contact our office by phone for worsening of their current condition or the appearance of new urologic symptoms. Compliance is encouraged with any medications and followup testing that is ordered. It is a privilege to participate in the urologic care of your patient. If you have any questions or concerns regarding treatment for the above conditions, or other urologic issues, please do not hesitate to contact me. The office telephone contact is [phone]. Sincerely, Dr Rusty Ho MD, [facility] - Urology Compassionate Specialist Care for the Genitourinary System Coding Level of Care Code Complex visit Add On G2211 Diagnoses Elevated PSA R97.20 Urinary incontinence R32 Chronic UTI (urinary tract infection) N39.0 Overactive bladder N32.81 CPT Codes Post Residual Void - PVR CPT Code: 81348-[id number] Void Residual by ultrasound ([id number])
--- OUTSIDE RECORDS SUMMARY | 2025-06-22 11:40 | XMS_ITS | Encounter Summary ---
Author Organization [employer] Address [address] [facility] 7t [place] [address] Care Team Providers Care Agency Trainer Name Role Phone Mt Guerrero MD Primary Care Provider [phone] Vero Molina PharmD Unavailable [phone] Reason for Referral * Consultation (Routine) - Closed Specialty Diagnoses / Procedures Referred By Jonathan beaulieu Referred To Contact Podiatry Diagnoses Type 2 diabetes mellitus with hyperglycemia, without long-term current use of insulin (HCC) Mt Guerrero MD [address] [place] [address] Phone: tel: fax: Brenden Longoria DPM Phone: tel: fax: Referral ID Status Reason Start Date Expiration Date V isits Requested Visits Authorized [id number] Closed Specialty Services Required 04/13/2024 04/13/2025 1 1 * Consultation (Routine) - Closed Specialty Diagnoses / Procedures Referred By Jonathan beaulieu Referred To Contact Physical Therapy Diagnoses Chronic midline low back pain without sciatica Mt Guerrero MD [address] [place] [address] Phone: tel: fax: [facility] Physical Therapy [address] [place] [address] Phone: tel: fax: Referral ID Status Reason Start Date Expiration Date V isits Requested Visits Authorized [id number] Closed Specialty Services Required 04/03/2024 04/03/2025 1 1 Encounter Details Date Type Department Care Team ([facility] Contact Info) Description 04/03/2024 Orders Only [facility] [address] [place] [address] Mt Guerrero MD [address] [place] [address] Chronic midline low back pain without sciatica (Primary Dx); Type 2 diabetes mellitus with hyperglycemia, without long-term current use of insulin ([facility]) Social History Tobacco Use Types Packs/Day Years [...] Department Care Team (Late Contact Info) Description 06/29/2025 3:30 PM EST Office Visit [facility] [address] [place] [address] Danis Lewis [address] [place] [address] 08/05/2025 10:00 AM EST Medication Management [facility] [address] [place] [address] Vero Molina PharmD [address] [place] [address] Scheduled Referrals Name Type Priority Associated Diagnoses Orde r Schedule Referral to Physical Therapy Outpatient Referral Routine Chronic midline low back pain without sciatica Expected: 04/03/2024 (Approximate), Expires: 04/03/2025 Referral to Podiatry Outpatient Referral Routine Type 2 diabetes mellitus with hyperglycemia, without long-term current use of insulin ([facility]/HCC) Expected: 04/13/2024 (Approximate), Expires: 04/13/2025 documented as of this encounter Visit Diagnoses Diagnosis Chronic midline low back pain without sciatica- Primary Type 2 diabetes mellitus with hyperglycemia, without long-term current use of insulin ([facility]) documented in this encounter Additional Health Concerns Assessment Noted Time PHQ-9 Depression Total Score: 8 02/19/20 24 10:12 AM EDT documented as of this encounter Care Teams Agency Trainer Relationship Specialty Start Date End Date Mt Guerrero MD [address] [place] [address] PCP - General Internal Medicine 02/19/24 Vero Molina PharmD [address] [place] [address] Pharmacist Internal Medicine 12/03/24 documented as of this encounter
--- OUTSIDE RECORDS SUMMARY | 2025-06-22 11:40 | XMS_ITS | Encounter Summary ---
Demographics Address [address] [facility] [address] [place] [address] Mobile Phone Work Phone Home Phone Email Address Preferred Language es Marital Status Unknown Evangelical Affiliation Unknown Race Other Race Ethnic Group Unknown Author Organization [employer] Address [address] [facility] 7[address] [place] [address] Care Team Providers Care General Counselor Name Role Phone Mt Guerrero MD Primary Care Provider [phone] Vero Molina PharmD Unavailable [phone] Reason for Visit * Reason Onset Date Comments Dr. Debbie Kaur from [facility] speak with provider 02/17/2025 Encounter Details Date Type Department Care Team ([facility] st Contact Info) Description 02/17/2025 Telephone [facility] [address] [place], [place] [phone] Danis Lewis [address] [place] [address] Dr. Debbie Kaur from [facility] lab speak with provider Social History Tobacco Use Types Packs/Day Years [...] is your housing situation today? I have melnida denson 09/24/[address] you [...] encounter Miscellaneous Notes * Telephone Encounter - Aruna Byrd - 02/17/2025 10:34 AM EDT Message for Dr. Debbie Kaur from [facility] Dental lab called stating that they would like to speak provider directly concerning dental case. Please reach out to Natasha at [phone]. documented in this encounter Plan of Treatment Upcoming Encounters Date Type Department Care Team (Late st Contact Info) Description 06/29/2025 3:30 PM EST Office Visit [facility] [address] [place] [address] Danis Lewis [address] [place] [address] 08/05/2025 10:00 AM EST Medication Management [facility] [address] [place], [place] [phone] Vero Molina, PharmD [address] [place] [address] documented as of this encounter Visit Diagnoses Not on filedocumented in this encounter Additional Health Concerns Assessment Noted Time PHQ-9 Depression Total Score: 1 09/24/19 25 11:38 AM EST documented as of this encounter Care Teams General Counselor Relationship Specialty Start Date End Date Mt Guerrero MD [address] [place] [address] PCP - General Internal Medicine 02/19/24 Vero Molina PharmD [address] [place] [address] Pharmacist Internal Medicine 12/03/24 documented as of this encounter
--- OUTSIDE RECORDS SUMMARY | 2025-06-22 11:40 | XMS_ITS | Encounter Summary ---
Author Organization [employer] [facility] Address [address] [facility] [address] [place], [place] [address] Care Team Providers Care Solution Designer Name Role Phone Mt Guerrero MD Primary Care Provider [phone] Vero Molina PharmD Unavailable [phone] Encounter Details Date Type Department Care Team (Latest Contact Info) Description 04/17/2019 Abstract [facility] CONVERSIONS Dental, Provider, DDS Social History [...] Description 06/29/2025 3:30 PM EST Office Visit [facility] [address] [place] [address] Debbie, Danis [address] [place] [address] 08/05/2025 10:00 AM EST Medication Management [facility] [address] [place] [address] Vero Molina, PharmD [address] [place], [place] [phone] documented as of this encounter Visit Diagnoses Not on filedocumented in this encounter Care Teams Solution Designer Relationship Specialty Start Date End Date Mt Guerrero MD [address] [place] [address] PCP - General Internal Medicine 02/19/24 Vero Molina PharmD [address] [place] [address] Pharmacist Internal Medicine 12/03/24 documented as of this encounter
--- OUTSIDE RECORDS SUMMARY | 2025-06-22 11:40 | XMS_ITS | Encounter Summary ---
Author Organization [employer] [facility] Address [address] [facility] 7t [place] [address] Care Team Providers Care Roundsman Name Role Phone Mt Guerrero MD Primary Care Provider [phone] Vero Molina PharmD Unavailable [phone] Reason for Referral * Imaging (Routine) - Canceled Specialty Diagnoses / Procedures Referred By Jonathan beaulieu Referred To Contact Radiology Diagnoses Common bile duct dilatation Procedures MR Liver w/ Contrast Mt Guerrero MD [address] [place] [address] Phone: tel: fax: [facility] [address] [place] [phone] Phone: tel: fax: Referral ID Status Reason Start Date Expiration Date V isits Requested Visits Authorized [id number] Canceled 02/22/2025 02/22/2026 1 1 Encounter Details Date Type Department Care Team (Late st Contact Info) Description 02/22/2025 Orders Only [facility] [address] [place], [place] [phone] Mt Guerrero MD [address] [place], [place] [phone] Common bile duct dilatation (Primary Dx) Social History Tobacco Use Types [...] Upcoming Encounters Date Type Department Care Team ([facility] st Contact Info) Description 06/29/2025 3:30 PM EST Office Visit [facility] [address] [place] [address] Danis Lewis [address] [place] [address] 08/05/2025 10:00 AM EST Medication Management [facility] [address] [place] [address] Vero Molina PharmD [address] [place] [address] Scheduled Orders Name Type Priority Associated Diagnoses Orde r Schedule MR Liver w/ Contrast Imaging Routine Common bile duct dilatation Expected: 02/22/2025, Expires: 02/22/2026 documented as of this encounter Visit Diagnoses Diagnosis Common bile duct dilatation- Primary Other specified disorders of biliary tract documented in this encounter Additional Health Concerns Assessment Noted Time PHQ-9 Depression Total Score: 1 09/24/19 25 11:38 AM EST documented as of this encounter Care Teams Roundsman Relationship Specialty Start Date End Date Mt Guerrero MD [address] [place] [address] PCP - General Internal Medicine 02/19/24 Vero Molina PharmD [address] [place] [address] Pharmacist Internal Medicine 12/03/24 documented as of this encounter
--- OUTSIDE RECORDS SUMMARY | 2025-06-22 11:40 | XMS_ITS | Encounter Summary ---
Author Organization [employer] Address [address] [facility] 7t [place] [address] Care Team Providers Care Fish Worm Grower Name Role Phone Mt Guerrero MD Primary Care Provider Vero Molina PharmD Unavailable [phone] Reason for Visit * Reason Comments Med Refill Encounter Details Date Type Department Care Team ([facility] Contact Info) Description 06/24/2024 Refill [facility] [address] [place] [address] Mt Guerrero MD 505 [place] [address] Social History Tobacco Use Types Packs/Day Years [...] Description 06/29/2025 3:30 PM EST Office Visit [facility] ADULT DENTAL 505 [place] [address] Danis Lewis 505 [place] [address] 08/05/2025 10:00 AM EST Medication Management [facility] MED & PEDS [address] [place] [address] Vero Molina, PharmMontserrat 230 [place] [address] documented as of this encounter Visit Diagnoses Not on filedocumented in this encounter Additional Health Concerns Assessment Noted Time PHQ-9 Depression Total Score: 8 02/19/20 24 10:12 AM EDT documented as of this encounter Care Teams Fish Worm Grower Relationship Specialty Start Date End Date Mt Guerrero MD 505 [place] [address] PCP - General Internal Medicine 02/19/24 Vero Molina PharmD 230 [place] [address] Pharmacist Internal Medicine 12/03/24 documented as of this encounter
--- OUTSIDE RECORDS SUMMARY | 2025-06-22 11:40 | XMS_ITS | Encounter Summary ---
Author Organization [employer] [facility] Address [address] [facility] 7t [place] [address] Care Team Providers Care Feeder Catcher Name Role Phone Mt Guererro MD Primary Care Provider Vero Molina PharmD Unavailable [phone] Encounter Details Date Type Department Care Team (Late st Contact Info) Description 08/07/2023 Abstract [facility] ADULT DENTAL [address] [place] [address] Bertha Edwards, DDS 505 [place] [address] Social History Tobacco Use Types Packs/Day Years [...] Description 06/29/2025 3:30 PM EST Office Visit [facility] ADULT DENTAL [address] [place] [address] Danis Lewis 505 [place] [address] 08/05/2025 10:00 AM EST Medication Management [facility] MED & PEDS [address] [place] [address] Vero Molina PharmD 230 [place] [address] documented as of this encounter Visit Diagnoses Not on filedocumented in this encounter Care Teams Feeder Catcher Relationship Specialty Start Date End Date Mt Guerrero MD 505 [place] [address] PCP - General Internal Medicine 02/19/24 Vero Molina PharmD 230 [place] [address] Pharmacist Internal Medicine 12/03/24 documented as of this encounter
--- OUTSIDE RECORDS SUMMARY | 2025-06-22 11:40 | XMS_ITS | Encounter Summary ---
Author Organization [employer] Address [address] [facility] 7t [place] [address] Care Team Providers Care Express Manager Name Role Phone Mt Guerrero MD Primary Care Provider [phone] Vero Molina PharmD Unavailable [phone] Reason for Visit * Reason Comments Med Refill Encounter Details Date Type Department Care Team ([facility] Contact Info) Description 12/03/2024 Refill [facility] [address] [place] [address] Mt Guerrero MD 505 [place] [address] Social History Tobacco Use Types Packs/Day Years [...] Description 06/29/2025 3:30 PM EST Office Visit [facility] ADULT DENTAL 505 [place] [address] Danis Lewis 505 [place] [address] 08/05/2025 10:00 AM EST Medication Management [facility] MED & PEDS [address] [place] [address] Vero Molina, PharmD 230 [place] [address] documented as of this encounter Visit Diagnoses Not on filedocumented in this encounter Additional Health Concerns Assessment Noted Time PHQ-9 Depression Total Score: 1 09/24/19 25 11:38 AM EST documented as of this encounter Care Teams Express Manager Relationship Specialty Start Date End Date Mt Guerrero MD 505 [place] [address] PCP - General Internal Medicine 02/19/24 Vero Molina, PharmD 230 [place] [address] Pharmacist Internal Medicine 12/03/24 documented as of this encounter
--- OUTSIDE RECORDS SUMMARY | 2025-06-22 11:40 | XMS_ITS | Encounter Summary ---
Author Organization [employer] Address [address] [facility] 7t [place] [address] Care Team Providers Care Precinct Police Captain Name Role Phone Mt Guerrero MD Primary Care Provider Vero Molina PharmD Unavailable [phone] Reason for Visit * Reason Comments Med Refill Encounter Details Date Type Department Care Team ([facility] Contact Info) Description 06/24/2024 Refill [facility] [address] [place] [address] Mt Guerrero MD 505 [place] [address] Social History Tobacco Use Types Packs/Day Years [...] Description 06/29/2025 3:30 PM EST Office Visit [facility] ADULT DENTAL 505 [place] [address] Danis Lewis 505 [place] [address] 08/05/2025 10:00 AM EST Medication Management [facility] MED & PEDS 505 [place] [address] Vero Molina, PharmMontserrat 230 [place] [address] documented as of this encounter Visit Diagnoses Not on filedocumented in this encounter Additional Health Concerns Assessment Noted Time PHQ-9 Depression Total Score: 8 02/19/20 24 10:12 AM EDT documented as of this encounter Care Teams Precinct Police Captain Relationship Specialty Start Date End Date Mt Guerrero MD 505 [place] [address] PCP - General Internal Medicine 02/19/24 Vero Molina PharmD 230 [place] [address] Pharmacist Internal Medicine 12/03/24 documented as of this encounter
--- OUTSIDE RECORDS SUMMARY | 2025-06-22 11:40 | XMS_ITS | Encounter Summary ---
Author Organization [employer] Address [address] [facility] 7t [place] [address] Care Team Providers Care Senior Patrol Agent Name Role Phone Mt Guerrero MD Primary Care Provider [phone] Vero Molina PharmD Unavailable [phone] Reason for Visit * Reason Comments Med Refill Encounter Details Date Type Department Care Team ([facility] Contact Info) Description 06/24/2024 Refill [facility] MEDICINE 230 [place] [address] Mt Guerrero MD 505 [place] [address] Social History Tobacco Use Types Packs/Day Years [...] Description 06/29/2025 3:30 PM EST Office Visit [facility] ADULT DENTAL 505 [place] [address] Danis Lewis 505 [place] [address] 08/05/2025 10:00 AM EST Medication Management [facility] MED & PEDS 505 [place] [address] Vero Molina, PharmMontserrat [address] [place] [address] documented as of this encounter Visit Diagnoses Not on filedocumented in this encounter Additional Health Concerns Assessment Noted Time PHQ-9 Depression Total Score: 8 02/19/20 24 10:12 AM EDT documented as of this encounter Care Teams Senior Patrol Agent Relationship Specialty Start Date End Date Mt Guerrero MD 505 [place] [address] PCP - General Internal Medicine 02/19/24 Veor Molina PharmD 230 [place] [address] Pharmacist Internal Medicine 12/03/24 documented as of this encounter
--- OUTSIDE RECORDS SUMMARY | 2025-06-22 11:40 | XMS_ITS | Encounter Summary ---
Author Organization [employer] Address [address] [facility] 7t [place] [address] Care Team Providers Care Utility Gelatin Maker Name Role Phone Mt Guerrero MD Primary Care Provider Vero Molina PharmD Unavailable [phone] Encounter Details Date Type Department Care Team ([facility] Contact Info) Description 05/12/2024 Orders Only [facility] MED & PEDS [address] [place], [place] [phone] Mt Guerrero MD 505 [place], [place] [phone] Social History Tobacco Use Types Packs/Day Years [...] Description 06/29/2025 3:30 PM EST Office Visit [facility] ADULT DENTAL [address] [place] [address] Danis Lewis 505 [place] [address] 08/05/2025 10:00 AM EST Medication Management [facility] MED & PEDS [address] [place] [address] Vero Molina PharmD 230 [place] [address] documented as of this encounter Procedures Procedure [...] documented as of this encounter Care Teams Utility Gelatin Maker Relationship Specialty Start Date End Date Mt Guerrero MD 505 [place] [address] PCP - General Internal Medicine 02/19/24 Vero Molina PharmD 230 [place] [address] Pharmacist Internal Medicine 12/03/24 documented as of this encounter
--- OUTSIDE RECORDS SUMMARY | 2025-06-22 11:40 | XMS_ITS | Encounter Summary ---
Author Organization [employer] [facility] Address [address] [facility] 7t [place] [address] Care Team Providers Care Air Control Electronics Operator Name Role Phone Mt Guerrero MD Primary Care Provider Vero Molina PharmD Unavailable [phone] Encounter Details Date Type Department Care Team (Latest Contact Info) Description 09/22/2018 Abstract [facility] CONVERSIONS Dental, Provider, DDS Social [...] Description 06/29/2025 3:30 PM EST Office Visit [facility] ADULT DENTAL 505 [place] [address] Debbie, Danis 505 [place] [address] 08/05/2025 10:00 AM EST Medication Management [facility] MED & PEDS 505 [place] [address] Vero Molina, PharmD 230 [place], [place] [phone] documented as of this encounter Visit Diagnoses Not on filedocumented in this encounter Care Teams Air Control Electronics Operator Relationship Specialty Start Date End Date Mt Guerrero MD 505 [place] [address] PCP - General Internal Medicine 02/19/24 Vero Molina PharmD 230 [place] [address] Pharmacist Internal Medicine 12/03/24 documented as of this encounter
--- OUTSIDE RECORDS SUMMARY | 2025-06-22 11:40 | XMS_ITS | Encounter Summary ---
Author Organization [employer] Address [address] [facility] 7t [place] [address] Care Team Providers Care Wheel Braider Name Role Phone Mt Guerrero MD Primary Care Provider [phone] Vero Molina PharmD Unavailable [phone] Encounter Details Date Type Department Care Team (Late Contact Info) Description 02/20/2024 Orders Only [facility] Information Management 230 [place] [address] Provider, MD Curtis Social History Tobacco Use [...] Description 06/29/2025 3:30 PM EST Office Visit [facility] ADULT DENTAL 505 [place] [address] Danis Lewis 505 [place] [address] 08/05/2025 10:00 AM EST Medication Management [facility] MED & PEDS 505 [place] [address] Vero Molina PharmD 230 [place] [address] documented as of this encounter Procedures Procedure [...] documented as of this encounter Care Teams Wheel Braider Relationship Specialty Start Date End Date Mt Guerrero MD 505 [place] [address] PCP - General Internal Medicine 02/19/24 Vero Molina, Rosanne 230 [place] [address] Pharmacist Internal Medicine 12/03/24 documented as of this encounter
--- OUTSIDE RECORDS SUMMARY | 2025-06-22 11:40 | XMS_ITS | Encounter Summary ---
Author Organization [employer] Address [address] [facility] 7t [place] [address] Care Team Providers Care Furnace Repair Mechanic Name Role Phone Mt Guerrero MD Primary Care Provider Vero Molina PharmD Unavailable [phone] Encounter Details Date Type Department Care Team (Late st Contact Info) Description 02/20/2024 Orders Only [facility] MED & PEDS [address] [place], [place] [phone] Mt Guerrero MD 505 [place], [place] [phone] Microcytic anemia (Primary Dx) Social History Tobacco [...] 3:30 PM EST Office Visit [facility] ADULT DENTAL [address] [place], [place] [phone] Danis Lewis 505 [place] [address] 08/05/2025 10:00 AM EST Medication Management [facility] MED & PEDS [address] [place], [place] [phone] Vero Molina, PharmD [address] [place] [address] documented as of this encounter Procedures Procedure Name Priority Date/Time Associated Diagnosis Comments IRON AND TOTAL IRON BINDING CAPACITY Routine 03/11/2024 9:30 AM EDT Microcytic anemia RETICULOCYTE COUNT Routine 03/11/2024 9: 30 AM EDT Microcytic anemia FERRITIN Routine 03/11/2024 9:30 AM EDT Microcytic anemia documented in this encounter Results * Reticulocyte Count (03/11/2024 9:30 AM EDT) Reticulocytes Absolute 0.054 0.026 - 0.095 X10*6/uL [facility] Immature Retic Fraction 7.3 2.3 - 13.4 % [facility] Retic HGB Equivalent 33.1 30.0 - 35.0 pg [facility] Reticulocyte Percent 1.2 0.5 - 1.8 % [facility] Blood Venous blood specimen / Unknown 03/11/2024 9:30 AM EDT 03/11/2024 2:20 PM EDT us Mt Guerrero MD LAB BLOOD ORDERABLES Final Result [facility] [address] [place] [phone] [phone] * Ferritin (03/11/2024 9:30 AM EDT) Ferritin 133 20 - 250 ng/mL [facility] Blood Venous blood specimen / Unknown 03/11/2024 9:30 AM EDT 03/11/2024 2:20 PM EDT us Mt Guerrero MD LAB BLOOD ORDERABLES Final Result Performing Organization Address [facility] de Phone Number [facility] [address] [place] [phone] * Iron And Total Iron Binding Capacity (03/11/2024 9:30 AM EDT) Iron 87 45 - 160 mcg/dL [facility] Total Iron Binding Capacity 256 228 - 428 mcg/dL [facility] Percent Iron Saturation 34 15 - 50 % [facility] Unsaturated Iron Binding 169 ug/dL [facility] Blood Venous blood specimen / Unknown 03/11/2024 9:30 AM EDT 03/11/2024 2:20 PM EDT us Mt Guerrero MD LAB BLOOD ORDERABLES Final Result Performing Organization Address [facility] de Phone Number [facility] [address] [place] [phone] documented in this encounter Visit Diagnoses Diagnosis Microcytic anemia- Primary Unspecified iron deficiency anemia documented in this encounter Additional Health Concerns Assessment Noted Time PHQ-9 Depression Total Score: 8 02/19/20 24 10:12 AM EDT documented as of this encounter Care Teams Furnace Repair Mechanic Relationship Specialty Start Date End Date Mt Guerrero MD [address] [place] [address] PCP - General Internal Medicine 02/19/24 Vero Molina PharmD [address] [place] [address] Pharmacist Internal Medicine 12/03/24 documented as of this encounter
--- OUTSIDE RECORDS SUMMARY | 2025-06-22 11:40 | XMS_ITS | Encounter Summary ---
Author Organization [employer] Address [address] [facility] 7t [place] [address] Care Team Providers Care Chicken Stuffer Name Role Phone Mt Guerrero MD Primary Care Provider [phone] Vero Molina PharmD Unavailable [phone] Reason for Visit * Reason Onset Date Comments Appointment Request 10/28/2024 Encounter Details Date Type Department Care Team ([facility] Contact Info) Description 10/28/2024 Telephone [facility] 230 [place] [address] Mt Guerrero MD 505 [place] [address] Appointment Request Social History Tobacco Use Types [...] r/s 10/29 with Vero Molina. (Appt Note: FILTER PULP WASHER CDTM (IP) documented in this encounter Plan of Treatment Upcoming Encounters Date Type Department Care Team (Late st Contact Info) Description 06/29/2025 3:30 PM EST Office Visit [facility] ADULT DENTAL [address] [place] [address] Debbie Danis 505 [place] [address] 08/05/2025 10:00 AM EST Medication Management [facility] MED & PEDS [address] [place] [address] Vero Molina, PharmD 230 [place] [address] documented as of this encounter Visit Diagnoses Not on filedocumented in this encounter Additional Health Concerns Assessment Noted Time PHQ-9 Depression Total Score: 1 09/24/19 25 11:38 AM EST documented as of this encounter Care Teams Chicken Stuffer Relationship Specialty Start Date End Date Mt Guerrero MD 505 [place] [address] PCP - General Internal Medicine 02/19/24 Vero Molina PharmD [address] [place] [phone] Pharmacist Internal Medicine 12/03/24 documented as of this encounter
--- OUTSIDE RECORDS SUMMARY | 2025-06-22 11:40 | XMS_ITS | Encounter Summary ---
Author Organization [employer] [facility] Address [address] [facility] 7t [place] [address] Care Team Providers Care Transport Manager Name Role Phone Mt Guerrero MD Primary Care Provider [phone] Vero Molina PharmD Unavailable [phone] Reason for Referral * Imaging (Routine) - Closed Specialty Diagnoses / Procedures Referred By Jonathan beaulieu Referred To Contact Radiology Diagnoses Transaminitis Procedures US Abdomen Complete Mt Guerrero MD 505 [place] [address] Phone: tel: fax: [facility] [address] [place] [phone] Phone: tel: fax: Referral ID Status Reason Start Date Expiration Date Visits Re quested Visits Authorized [id number] Closed 12/22/2024 12/22/2025 1 1 Encounter Details Date Type Department Care Team (Late st Contact Info) Description 12/22/2024 Orders Only [facility] MED & PEDS 505 [place], [place] [phone] Mt Guerrero MD [address] [place], [place] [phone] Transaminitis (Primary Dx) Social History Tobacco Use Types [...] Description 06/29/2025 3:30 PM EST Office Visit [facility] ADULT DENTAL 505 [place] [address] Danis Lewis 505 [place] [address] 08/05/2025 10:00 AM EST Medication Management [facility] MED & PEDS [address] [place] [address] Vero Molina, PharmD 230 [place], [place] [phone] Scheduled Orders Name Type Priority Associated Diagnoses Orde r Schedule Alpha 1 Antitrypsin Lab Routine Transaminitis Expected: 12/22/2024 (Approximate), Expires: 12/22/2025 Immunoglobulins Panel, Serum Lab Routine Transaminitis Expected: 12/22/2024 (Approximate), Expires: 12/22/2025 Smooth Muscle Antibody with Reflex to Titer Lab Routine Transaminitis Expected: 12/22/2024 (Approximate), Expires: 12/22/2025 Iron And Total Iron Binding Capacity Lab Routine Transaminitis Expected: 12/22/2024, Expires: 12/22/2025 Reticulocyte Count Lab Routine Transaminitis Expected: 12/22/2024, Expires: 12/22/2025 Ferritin Lab Routine Transaminitis Expected: 12/22/2024, Expires: 12/22/2025 Basic Metabolic Panel Lab Routine Transaminitis Expected: 12/22/2024 (Approximate), Expires: 12/22/2025 documented as of this encounter Procedures Procedure Name Priority Date/Time Associated Diagnosis Comments US ABDOMEN COMPLETE Routine 02/20/2025 2 :32 PM EDT Transaminitis documented in this encounter Results * US Abdomen Complete (02/20/2025 2:32 PM EDT) Anatomical Region Laterality Modality Abdomen Ultrasound 02/20/2025 2:32 PM EDT Narrative 02/20/2025 2:34 PM EDT [facility] [address] [place] [phone] Ultrasound Report Signed Patient: Mendez Yepez MR#: [id number] : 1955 Acct:[id number] Age/Sex: 69 / M ADM Date: 02/19/25 Loc: HO.US Attending Dr: Mt Guerrreo MD Ordering Physician: Mt Guerrero MD Date of Service: 02/19/25 Procedure(s): US abdomen complete Accession Number(s): [id number] cc: Mt Guerrero MD CLINICAL HISTORY: Transaminitis Ultrasound of the abdomen Comparison: CT/SR - CT ABDOMEN PELVIS WITH IV CONTRAST - 04/13/23 11:25 EDT Findings: The liver is normal in size, measuring 13.7cm. Normal echogenicity without focal lesions. Normal flow is visualized within the portal vein. Dilation of the intrahepatic bile ducts in the right lobe of the liver, not seen on the prior study. No cholelithiasis. No gallbladder wall thickening or pericholecystic fluid. Negative Spence's sign. The common bile duct is normal, measuring 0.4cm. Unremarkable limited evaluation of the pancreas. The right kidney is normal in echogenicity and size, measuring 10.2cm. No nephrolithiasis or hydronephrosis. There are multiple cysts, largest is in the midportion measures 2.3 x 1.3 x 1.7 cm. The left kidney is normal echogenicity and size, measuring 12.2cm. No nephrolithiasis or hydronephrosis. There are multiple cysts, the largest measures 3.8 x 4.0 x 4.5 cm. The spleen is without focal lesions and normal in size, measuring 7.9cm. The aorta and IVC are unremarkable. No ascites. Impression: Intrahepatic biliary ductal dilatation of uncertain etiology. No extrahepatic biliary ductal dilatation. Evaluate further with cross-sectional imaging. Consider CT or MR liver mass protocol. This document has been electronically signed by: Evette Taylor MD on 02/20/2025 14:32:10 Dictated By: Evette Hollins MD Signed By: <Electronically signed by Evette Hollins MD in OV> 02/20/25 1433 DD/ 1432 TD/TT: 02/20/25 1432 Receptionist Doctor'S Office: Procedure Note Donotuseinterpreter, Image - 02/20/[address] [address] Ultrasound Report Signed Patient: Mendez YepezMR#: [id number] : 5Acct:[id number] Age/Sex: 69 / MADM Date: 02/19/25 Loc: HO.US Attending Dr: Mt Guerrero MD Ordering Physician: Mt Guerrero MD Date of Service: 02/19/25 Procedure(s): US abdomen complete Accession Number(s): [id number] cc: Mt Guerrero MD CLINICAL HISTORY: Transaminitis Ultrasound of the abdomen Comparison: CT/SR - CT ABDOMEN PELVIS WITH IV CONTRAST - 04/13/23 11:25 EDT Findings: The liver is normal in size, measuring 13.7cm. Normal echogenicity without focal lesions. Normal flow is visualized within the portal vein. Dilation of the intrahepatic bile ducts in the right lobe of the liver, not seen on the prior study. No cholelithiasis. No gallbladder wall thickening or pericholecystic fluid. Negative Spence's sign. The common bile duct is normal, measuring 0.4cm. Unremarkable limited evaluation of the pancreas. The right kidney is normal in echogenicity and size, measuring 10.2cm. No nephrolithiasis or hydronephrosis. There are multiple cysts, largest is in the midportion measures 2.3 x 1.3 x 1.7 cm. The left kidney is normal echogenicity and size, measuring 12.2cm. No nephrolithiasis or hydronephrosis. There are multiple cysts, the largest measures 3.8 x 4.0 x 4.5 cm. The spleen is without focal lesions and normal in size, measuring 7.9cm. The aorta and IVC are unremarkable. No ascites. Impression: Intrahepatic biliary ductal dilatation of uncertain etiology. No extrahepatic biliary ductal dilatation. Evaluate further with cross-sectional imaging. Consider CT or MR liver mass protocol. This document has been electronically signed by: Evette Taylor MD on 02/20/2025 14:32:10 Dictated By: Evette Hollins MD Signed By: <Electronically signed by Evette Hollins MD in OV> 02/20/25 1433 DD/ 1432 TD/TT: 02/20/25 1432 Receptionist Doctor'S Office: us Mt Guerrero MD IMG US PROCEDURES Final Res ult documented in this encounter Visit Diagnoses Diagnosis Transaminitis- Primary Nonspecific elevation of levels of transaminase or lactic acid dehydrogenase (LDH) documented in this encounter Additional Health Concerns Assessment Noted Time PHQ-9 Depression Total Score: 1 09/24/19 25 11:38 AM EST documented as of this encounter Care Teams Transport Manager Relationship Specialty Start Date End Date Mt Guerrero MD [address] [place] [address] PCP - General Internal Medicine 02/19/24 Vero Molnia PharmD [address] [place] [address] Pharmacist Internal Medicine 12/03/24 documented as of this encounter
--- OUTSIDE RECORDS SUMMARY | 2025-06-22 11:40 | XMS_ITS | Encounter Summary ---
Author Organization [employer] [facility] Address [address] [place] [address] Care Team Providers Care Bucket Pusher Name Role Phone Mt Guerrero MD Primary Care Provider Vero Molina PharmD Unavailable [phone] Encounter Details Date Type Department Care Team (Latest Contact Info) Description 09/14/2020 Abstract [facility] CONVERSIONS Dental, Provider, DDS Social [...] 3:30 PM EST Office Visit [facility] ADULT DENTAL [address] [place] [address] Debbie, Danis [address] [place] [address] 08/05/2025 10:00 AM EST Medication Management [facility] MED & PEDS [address] [place] [address] Vero Molina, PharmD [address] [place], [place] [phone] documented as of this encounter Visit Diagnoses Not on filedocumented in this encounter Care Teams Bucket Pusher Relationship Specialty Start Date End Date Mt Guerrero MD [address] [place] [address] PCP - General Internal Medicine 02/19/24 Vero Molina PharmD [address] [place] [phone] Pharmacist Internal Medicine 12/03/24 documented as of this encounter
--- OUTSIDE RECORDS SUMMARY | 2025-06-22 11:40 | XMS_ITS | Clinical Summary ---
Author Organization [address] [facility] Address [address] [place] [address] Phone Care Team Providers Care Philanthropy Officer Name Role Phone Mt Guerrero MD Primary Care Provider [phone] Allergies Active Allergy Reactions Criticality Noted Date Comments Penicillins 07/16/2024 Medications No known medications Active Problems Problem Noted Date Diagnosed Date Type 2 diabetes mellitus (CMS/[facility] V24, CMS/[facility] V 28) 07/13/2024 Functional urinary [...] Health Maintenance Due Date Last Done Comments Colorectal Cancer Screening: Colonoscopy 1955 Diabetes: Annual GFR (Glomerular Filtration Rate) 1955 Diabetes: Annual Foot Exam 1964 Diabetes: Annual Retina Eye Exam 1965 RSV Immunization Adult Patients (1 - Risk 50-74 years 1-dose series) 2004 Zoster Vaccines (2 of 3) 04/02/2017 02/05/2017 Falls Risk Assessment 06/26/2022 Hepatitis C Screening 06/26/2022 Social Influencers of Health Screening 06/26/2022 Diabetes: Annual Urine Albumin-Creatinine Ratio (uACR) 07/13/2024 Depression Screening 07/29/2024 Diabetes: Blood Sugar Control Test (HGBA1C) 11/10/2024 05/12/2024 COVID-19 Vaccine ( season) 2025 05/12/2024, 01/30/2021, 01/09/2021 Influenza Vaccine (#1) 2025 , 08/07/2022, 04/30/2019, [...] this topic Insurance [employer] Care Teams Philanthropy Officer Relationship Specialty Start Date End Date Mt Guerrero MD [address] [place] [address] PCP - General 04/15/24
--- OUTSIDE RECORDS SUMMARY | 2025-06-22 11:40 | XMS_ITS | Clinical Summary ---
Author Organization [employer] Address [address] [place] [address] Care Team Providers Care Lighthouse Keeper Name Role Phone Mt Guerrero MD Primary Care Provider Vero Molina PharmD Unavailable [phone] Allergies Active Allergy Reactions Criticality Noted Date Comments Penicillin G 10/21/2017 Medications acetaminophen (Tylenol 8 Hour) 650 MG ER tablet 04/07/20 23 Active Aspirin Low Dose 81 MG EC tablet 04/07/20 23 Active finasteride (Proscar) 5 MG tablet Take 1 tablet (5 mg) by mouth Once per day. 90 tablet 05/21/20 24 Active Ventolin HFA 108 (90 Base) MCG/ACT inhaler INHALE TWO PUFFS BY MOUTH EVERY 4 TO 6 HOURS NEEDED FOR WHEEZING ( BULK) 18 g 1 10/10/19 25 Active ketorolac (Acular) 0.5 % ophthalmic solution 11/25/19 25 Active SITagliptin (Januvia) 100 MG tablet Take 1 tablet (100 mg) by mouth Once per day. 30 tablet 5 12/04/19 25 Active atorvastatin (Lipitor) 40 MG tablet Take 1 tablet (40 mg) by mouth Once per day. 90 tablet 1 01/21/20 25 Active chlorhexidine (Peridex) 0.12 % solution Swish 15 mL morning and night for 1 minute. Spit, do not swallow. Do not eat or drink for 30 minutes following use. 473 mL 04/07/20 25 Active lisinopril 10 MG tablet TAKE 1 TABLET EVERY MORNING FOR BLOOD PRESSURE 30 tablet 1 06/01/20 25 Active fluticasone furoate (Arnuity Ellipta) 100 MCG/ACT inhaler INHALE 1 PUFF DAILY AT THE SAME TIME EACH DAY (FOR ASTHMA) 30 each 2 06/02/20 25 Active atorvastatin (Lipitor) 80 MG tablet TOME 1 TABLETA POR V A ORAL TODOS LOS D AL ACOSTARSE 11/30/19 25 Active fluticasone furoate (Arnuity Ellipta) 100 MCG/ACT inhaler Inhale 1 puff Once per day. Rinse mouth with water after use to reduce aftertaste and incidence of candidiasis. Do not swallow. 30 each 3 01/21/20 25 025 Discontinued lisinopril 10 MG tablet TAKE ONE TABLET EVERY MORNING (FOR BLOOD PRESSURE) 30 tablet 1 03/25/20 25 025 Discontinued Active Problems Problem Noted Date Diagnosed Date Poliomyelitis 09/24/2024 Benign prostatic hyperplasia 02/19/2024 Overview (02/19/2024): sees urohx turp Diabetes mellitus 02/19/2024 Hematuria 02/19/2024 Overview (02/19/2024): neg w/up from uro, followed by uro (dr jesus) Asthma 02/19/2024 Calculus of kidney 02/19/2024 Overview (02/19/2024): neg ct 04/04 for stones Urinary incontinence 02/19/2024 Full incontinence of feces 02/19/2024 Encounters Date Type Department Care Team Description 06/21/2025 9:30 AM EST Office Visit [facility] ADULT DENTAL [address] [place] [address] Karri Guerrero Dental calculus (Primary Dx) 06/07/2025 Orders Only [facility] [address] [place] [address] Curtis Bain MD 06/01/2025 Refill [facility] [address] [place] [address] Vero Molina PharmD 06/01/2025 Refill [facility] [address] [place] [address] Mt Guerrero MD 04/21/2025 10:30 AM EDT Office Visit [facility] [address] [place] [address] Mt Guerrero MD Type 2 diabetes mellitus with hyperglycemia, without long-term current use of insulin ([facility]) (Primary Dx); Benign prostatic hyperplasia, unspecified whether lower urinary tract symptoms present; Transaminitis; Dysuria 04/21/2025 Travel 04/20/2025 Telephone [facility] [address] [place] [address] Mt Guerrero MD Durable Medical Equipment 04/15/2025 Travel 04/13/2025 Results Follow-Up [facility] [address] [place] [address] Nicole Cho RN MR Abdomen w/ and w/o Contrast 04/07/2025 8:00 AM EDT Office Visit [facility] ADULT DENTAL [address] [place] [address] Danis Lewis 03/25/2025 Refill [facility] [address] [place] [address] Mt Guerrero MD 03/23/2025 Telephone [facility] [address] [place] [address] Mt Guerrero MD No Show 03/22/2025 Telephone [facility] [address] [place] [address] Mt Guerrero MD from Last 3 Months Immunizations Immunization Administration Dates Next Due HepB-CpG 04/15/2025,01/20/2025 Influenza Whole 05/20/2006 Influenza injectable quadriv alent [...] Td (adult), unspecified 07/17/2007 Tdap 10/08/2024,10/02/2016 Zoster, Recombinant 04/15/2025,01/20/2025 Zoster, live 02/05/2017 Family History Medical History [...] Pulse 70 06/21/2025 9:41 AM EST Temperature 36.6 C (97.8 F) 12/22/2024 9:19 AM EDT Respiratory Rate 20 04/21/2025 10:21 AM EDT Oxygen Saturation 98% 04/21/2025 10:21 AM EDT Inhaled Oxygen Concentration - - Weight 59.9 kg (132 lb) 04/21/2025 10:21 AM EDT Height 165.1 cm (5' 5 ) 04/21/2025 10:21 AM EDT Body Mass Index 21.97 04/21/2025 10:21 AM EDT Plan of Treatment Upcoming Encounters Date Type Department Care Team (Late st Contact Info) Description 06/29/2025 3:30 PM EST Office Visit [facility] [address] [place] [address] Debbie Danis [address] [place] [address] 08/05/2025 10:00 AM EST Medication Management [facility] [address] [place] [address] Vero Molina, PharmD [address] [facility] [place], [place] [phone] Health Maintenance Due Date Last Done Comments CT Colonography 1954 FIT DNA/Cologuard 1954 FIT 1954 FOBT 1955 Sigmoidoscopy 1955 Dental Oral Exam 12/29/2024 06/29/2024, , 09/14/2020, Additional history exists COVID-19 Vaccine ( season) 2025 05/12/2024, 01/30/2021, 01/09/2021 Influenza Vaccine (#1) 2025 , 08/07/2022, 04/30/2019, Additional history exists Diabetes: Hemoglobin A1C 07/15/2025 025, 12/22/2024, 09/24/2024, Additional history exists Alcohol/Substance Use Screening 09/24/2025 09/24/2024 Depression Screening 09/24/2025 09/24/2024, 09/24/19 SDOH Screening 09/24/2025 09/24/2024 Dental Prophylaxis 12/20/2025 06/21/2025, 1 08/30/2023, 04/26/2023, Additional history exists Diabetes: Foot Exam 12/22/2025 12/22/2024 Diabetes: Urine Protein Screening 12/22/2025 12/22/2024, 09/24/2024 Lipid Panel 12/22/2025 12/22/2024, 02/20/2024 Colonoscopy 01/03/2026 05/12/2024, 07/0 09/2022, 01/02/2023 Colorectal Cancer Screening 01/03/2026 Eye Exam 06/04/2026 06/04/2025 Tobacco Screening 06/21/2026 06/21/2025 Dental X-Ray: Bitewings 06/22/2026 06/21/20 25, 04/07/2025, 06/29/2024, Additional history exists Dental X-Ray: Full Mouth 10/09/2026 024, 04/26/2023, 10/21/2017 DTaP/Tdap/Td Vaccines (3 - Td or Tdap) 10/08/2034 10/08/2024, 10/02/2016, 02/21/2012, Additional history exists Pneumococcal Vaccine: 50+ Years Completed 05/12/2024, 09/10/2016, 08/12/2015, Additional history exists Hepatitis C Screening Completed 09/24/2024 RSV Patients and Patients Aged 60 years or older Completed 10/08/2024 Hepatitis B Vaccines Completed 04/15/2025, 01/21/20 Zoster Vaccines Completed 04/15/2025, 12/28, 02/05/2017 HIB Vaccines Aged Out No longer eligi [...] Procedure Name Priority Date/Time Associated Diagnosis Comments INTRAORAL - PERIAPICAL FIRST RADIOGRAPHIC IMAGE Routine 06/21/2025 9:30 AM EST BITEWINGS - 4 RADIOGRAPHIC IMAGES Routine 06/21/2025 9:30 AM EST CASE PRESENTATION, DETAILED AND EXTENSIVE TREATMENT PLANNING Routine 06/21/2025 9:30 AM EST ORAL HYGIENE INSTRUCTIONS Routine 06/21/2025 9:30 AM EST Full PROPHYLAXIS - ADULT Routine 06/21/2025 9:30 AM EST INTRAORAL - PERIAPICAL EACH ADDITIONAL RADIOGRAPHIC IMAGE Routine 06/21/2025 9:30 AM EST HM DIABETES EYE EXAM Routine 06/04/2025 9:55 AM EST POCT GLYCATED HEMOGLOBIN, TOTAL Routine 04/15/2025 10:38 AM EDT Type 2 diabetes mellitus with hyperglycemia, without long-term current use of insulin ([facility]) MR ABDOMEN W AND WO CONTRAST Routine 04/08/2025 10:46 AM EDT INTRAORAL - PERIAPICAL FIRST RADIOGRAPHIC IMAGE Routine 04/07/2025 8:00 AM EDT BITEWING - SINGLE RADIOGRAPHIC IMAGE Routine 04/07/2025 8:00 AM EDT RE-EVAL - POST-OP OFFICE VISIT Routine 04/07/2025 8:00 AM EDT ALBUMIN, RANDOM URINE W/CREATININE Routine 12/22/2024 10:00 AM EDT Type 2 diabetes mellitus with hyperglycemia, without long-term current use of insulin (CMS/HCC) LIPID PANEL, STANDARD Routine 12/22/2024 12:00 AM EDT Type 2 diabetes mellitus with hyperglycemia, without long-term current use of insulin (CMS/HCC) HEPATITIS C AB W/REFL TO HCV RNA, QN, PCR Routine 09/24/2024 12:04 PM EST Type 2 diabetes mellitus with hyperglycemia, without long-term current use of insulin (CMS/HCC) PERIODIC ORAL EVALUATION - ESTABLISHED PATIENT Routine 06/29/2024 1:00 PM EST Partial edentulism, unspecified edentulism class COLONOSCOPY Routine 05/12/2024 3:09 PM EDT PANORAMIC RADIOGRAPHIC IMAGE Routine 10/09/2023 9:30 AM EDT from Last 3 Months or Most Recently Relevant to Health Maintenance Results * Diabetes Eye Exam (06/04/2025 9:55 AM EST) Historical Provider MD HEALTH MAINTENANCE Final Result * (ABNORMAL) POCT A1c (04/15/2025 10:38 AM EDT) Hemoglobin A1C 7.5(A) 4.0 - 5.7 % QC Media Lot # [id number] Lot# Expiration Date ,693,[id number] Blood 04/15/2025 10:3 8 AM EDT Mt Guerrero MD POINT OF CARE TEST ENTER/ED IT ORDERABLES Final Result * MR Abdomen w/ and w/o Contrast (04/08/2025 10:46 AM EDT) Anatomical Region Laterality Modality Abdomen Magnetic Resonan ce 04/08/2025 10:4 6 AM EDT Narrative 04/08/2025 11:44 AM EDT [address] [address] Magnetic Resonance Report Signed Patient: Mendez Yepez MR#: [id number] : 1955 Acct:[id number] Age/Sex: 69 / M ADM Date: 04/08/25 Loc: HO.MRI Attending Dr: Mt Guerrero MD Ordering Physician: Mt Guerrero MD Date of Service: 04/08/25 Procedure(s): MR abdomen wo/w con Accession Number(s): [id number] cc: Mt Guerrero MD Reason for Exam: Disease of biliary tract EXAMINATION: MR ABDOMEN WITHOUT THEN WITH IV CONTRAST HISTORY: Disease of biliary tract COMPARISON: Correlation is made with an abdominal ultrasound dated 02/19/2025. TECHNIQUE: Axial in and out of phase T1-weighted gradient echo, axial diffusion weighted, and axial and coronal HASTE T2 with fat saturation images were obtained through the abdomen. Subsequently, fat suppressed axial and coronal T1-weighted images were obtained after the intravenous administration of 6.5 mL Gadavist. FINDINGS: Liver: There is no loss of signal intensity in the liver on opposed phase imaging to suggest steatosis. There is no enhancing liver mass. The hepatic and portal veins are patent. There is no intrahepatic biliary dilatation. Gallbladder/biliary tree: No gallstones are identified. The common bile duct is normal in caliber. No intraluminal filling defects are identified to suggest choledocholithiasis. Spleen: The spleen is unremarkable. Pancreas: The pancreas is unremarkable. There is no enhancing pancreatic mass. The pancreatic duct is normal in caliber. Adrenals: The adrenal glands are unremarkable. Kidneys: There are bilateral renal cysts measuring up to 1.9 cm on the right and 4.5 cm on the left.. There is no hydronephrosis. Lymph nodes: There is no retroperitoneal lymphadenopathy in the upper abdomen. Fluid: There is no ascites in the upper abdomen. Visualized bowel: The visualized small and large bowel loops are unremarkable in appearance. Visualized bones: The visualized bones demonstrate normal marrow signal intensity. MR/MR abdomen wo/w con IMPRESSION: 1. No evidence of intrahepatic or extrahepatic biliary ductal dilatation. 2. Bilateral renal cysts as described. Electronically signed by: Nikhil Venegas MD 04/08/2025 11:40 AM EDT RP Dictated By: Nikhil Venegas MD Signed By: <Electronically signed by Nikhil Venegas MD in OV> 04/08/25 1140 DD/ 1046 TD/TT: 04/08/25 1111 Grinder Machine Knife Setter: Procedure Note Donotuseinterpreter, Image - 04/08/[address] [address] Magnetic Resonance Report Signed Patient: Mendez YepezMR#: [id number] : 5Acct:[id number] Age/Sex: 69 / MADM Date: 04/08/25 Loc: HO.MRI Attending Dr: Mt Guerrero MD Ordering Physician: Mt Guerrero MD Date of Service: 04/08/25 Procedure(s): MR abdomen wo/w con Accession Number(s): [id number] cc: Mt Guerrero MD Reason for Exam: Disease of biliary tract EXAMINATION: MR ABDOMEN WITHOUT THEN WITH IV CONTRAST HISTORY: Disease of biliary tract COMPARISON: Correlation is made with an abdominal ultrasound dated 02/19/2025. TECHNIQUE: Axial in and out of phase T1-weighted gradient echo, axial diffusion weighted, and axial and coronal HASTE T2 with fat saturation images were obtained through the abdomen. Subsequently, fat suppressed axial and coronal T1-weighted images were obtained after the intravenous administration of 6.5 mL Gadavist. FINDINGS: Liver: There is no loss of signal intensity in the liver on opposed phase imaging to suggest steatosis. There is no enhancing liver mass. The hepatic and portal veins are patent. There is no intrahepatic biliary dilatation. Gallbladder/biliary tree: No gallstones are identified. The common bile duct is normal in caliber. No intraluminal filling defects are identified to suggest choledocholithiasis. Spleen: The spleen is unremarkable. Pancreas: The pancreas is unremarkable. There is no enhancing pancreatic mass. The pancreatic duct is normal in caliber. Adrenals: The adrenal glands are unremarkable. Kidneys: There are bilateral renal cysts measuring up to 1.9 cm on the right and 4.5 cm on the left.. There is no hydronephrosis. Lymph nodes: There is no retroperitoneal lymphadenopathy in the upper abdomen. Fluid: There is no ascites in the upper abdomen. Visualized bowel: The visualized small and large bowel loops are unremarkable in appearance. Visualized bones: The visualized bones demonstrate normal marrow signal intensity. MR/MR abdomen wo/w con IMPRESSION: 1. No evidence of intrahepatic or extrahepatic biliary ductal dilatation. 2. Bilateral renal cysts as described. Electronically signed by: Nikhil Venegas MD 04/08/2025 11:40 AM EDT RP Dictated By: Nikhil Venegas MD Signed By: <Electronically signed by Nikhil Venegas MD in OV> 04/08/25 1140 DD/ 1046 TD/TT: 04/08/25 1111 Grinder Machine Knife Setter: us Mt Guerrero MD IMG MRI PROCEDURES Final Re sult * Albumin, Random Urine W/Creatinine (12/22/2024 10:00 AM EDT) Creatinine, Urine 58.24 mg/dL [facility] Microalbumin Urine 16.0 mg/L [facility] Microalbum Creatinine Ratio Ur 27.4 <30 ug/mg cr [facility] Comment:Albumin/Creatinine R atio Reference Ranges: Normal: < 30 ug/mg creatinine Microalbuminuria: 30 - 300 ug/mg creatinineClinical Albuminuria: > 300 ug/mg creatinine Urine (Urine, Random) 12/22/2024 10:00 AM EDT 12/22/2024 2:32 PM EDT us Mt Guerrero MD LAB URINE ORDERABLES Final Result [facility] [address] [place] [phone] * (ABNORMAL) Lipid Panel, Standard (12/22/2024 12:00 AM EDT) Triglycerides 141 <150 mg/dL [facility] Comment:Desirable Triglyceri de: less than 150 mg/dLBorderline High Triglyceride 150-199 mg/dLHigh Triglyceride: 200-499 mg/dLVery High Triglyceride: greater than or equal to 5OO mg/dL Cholesterol 194 <200 mg/dL [facility] Comment:Desirable Cholestero l: less than 200 mg/dLBorderline High Cholesterol: 200-239 mg/dLHigh Cholesterol: greater than 239 mg/dL LDL Cholesterol Calculated 121(H) <100 mg/dL [facility] Comment:Desirable LDL: less than 100 mg/dLNear Optimal/Above Optimal LDL: 110- 129 mg/dLBorderline High LDL: 130-159 mg/dLHigh LDL: 160-189 mg/dLVery High LDL: greater than or equal to 190 mg/dL HDL Cholesterol 45 >40 mg/dL [facility] Comment:Desirable HDL: great er than 40 mg/dL Note: This HDL assay may give artificially low results in patients with liver disease. Blood Venous blood specimen / Unknown 12/22/2024 12/22/2024 us Mt Guerrero MD LAB BLOOD ORDERABLES Final Result Performing Organization Address [facility]/ZIP Co de Phone Number [facility] [address] [place] [phone] * Hepatitis C Antibody with Reflex to HCV, RNA, Quantitative, Real-Time PCR (09/24/2024 12:04 PM EST) Hepatitis C Antibody Nonreactive Nonreactive [facility] Comment:Antibodies to HCV no t detected; does not exclude early acuteHCV infection. Blood Venous blood specimen / Unknown 09/24/2024 12:04 PM EST 09/24/2024 2:20 PM EST us Mt Guerrero MD LAB BLOOD ORDERABLES Final Result Performing Organization Address [facility] Co de Phone Number [facility] [address] [place] [phone] * Hm Colonoscopy (01/28/2023 3:17 PM EDT) us Mt Guerrero MD HEALTH MAINTENANCE Final Re sult from Last 3 Months or Most Recently Relevant to Health Maintenance Insurance * Guarantor: Mendez Yepez Account Type Relation to Patient Date of Phone Billing Address Personal/Family Self 1955 [address] [facility] [address] [place] [address] [facility]LY [facility] [employer] (HMO D-SNP) [place] [phone] [facility] Care Teams Lighthouse Keeper Relationship Specialty Start Date End Date Mt Guerrero MD [address] [place] [address] PCP - General Internal Medicine 02/19/24 Vero Molina PharmD [address] [place] [phone] Pharmacist Internal Medicine 12/03/24
--- OUTSIDE RECORDS SUMMARY | 2025-06-22 11:40 | XMS_ITS | Encounter Summary ---
Author Organization [employer] Address [address] [place] [address] Care Team Providers Care Stripper Shovel Operator Name Role Phone Mt Guerrero MD Primary Care Provider [phone] Vero Molina PharmD Unavailable [phone] Reason for Referral * Imaging (Routine) - Authorized Specialty Diagnoses / Procedures Referred By Contac brittnee Referred To Contact Radiology Diagnoses Hypertrophy of bile duct (any) Procedures MRI Liver w/wo Contrast Mt Guerrero MD [address] [place] [address] Phone: tel: fax: [facility] [address] [place] [phone] Phone: tel: fax: Referral ID Status Reason Start Date Expiration Date V isits Requested Visits Authorized [id number] Authorized 03/16/2025 03/16/2026 1 1 Encounter Details Date Type Department Care Team (Late st Contact Info) Description 03/16/2025 Orders Only [facility] CHC MED & PEDS [address] [place], [place] [phone] Mt Guerrero MD [address] [place], [place] [phone] Hypertrophy of bile duct (any) (Primary Dx) Social History Tobacco Use Types [...] your housing situation today? I have melinda jarett 09/24/[address] you li [...] Upcoming Encounters Date Type Department Care Team ([facility] st Contact Info) Description 06/29/2025 3:30 PM EST Office Visit [facility] ADULT DENTAL [address] [place] [address] Danis Lewis [address] [place] [address] 08/05/2025 10:00 AM EST Medication Management [facility] MED & PEDS [address] [place] [address] Vero Molina, PharmD [address] [place] [address] Scheduled Orders Name Type Priority Associated Diagnoses Orde r Schedule MRI Liver w/wo Contrast Imaging Routine Hypertrophy of bile duct (any) Expected: 03/16/2025, Expires: 03/16/2026 documented as of this encounter Procedures Procedure Name Priority Date/Time Associated Diagnosis Comments MR ABDOMEN W AND WO CONTRAST Routine 04/08/2025 10:46 AM EDT documented in this encounter Results * MR Abdomen w/ and w/o Contrast (04/08/2025 10:46 AM EDT) Anatomical Region Laterality Modality Abdomen Magnetic Resonan ce 04/08/2025 10:4 6 AM EDT Narrative 04/08/2025 11:44 AM EDT [address] [address] Magnetic Resonance Report Signed Patient: Mendez Yepez MR#: [id number] : 1955 Acct:[id number] Age/Sex: 69 / M ADM Date: 04/08/25 Loc: HO.MRI Attending Dr: Mt Guerrero MD Ordering Physician: Mt Guerrero MD Date of Service: 04/08/25 Procedure(s): MR abdomen wo/w con Accession Number(s): [id number] cc: Mt Guerrero MD Reason for Exam: [...] Nikhil Venegas MD 04/08/2025 11:40 AM EDT Dictated By: Nikhil Venegas MD Signed By: <Electronically signed by Nikhil Venegas MD in OV> 04/08/25 1140 DD/ 1046 TD/TT: 04/08/25 1111 Size Painter: Procedure Note Donotuseinterpreter, Image - 04/08/[address] [address] Magnetic Resonance Report Signed Patient: Mendez Yepez#: [id number] : 5Acct:[id number] Age/Sex: 69 / MADM Date: 04/08/25 Loc: HO.MRI Attending Dr: Mt Guerrero MD Ordering Physician: Mt Guerrero MD Date of Service: 04/08/25 Procedure(s): MR abdomen wo/w con Accession Number(s): [id number] cc: Mt Guerrero MD Reason for Exam: [...] Nikhil Venegas MD 04/08/2025 11:40 AM EDT Dictated By: Nikhil Venegas MD Signed By: <Electronically signed by Nikhil Venegas MD in OV> 04/08/25 1140 DD/ 1046 TD/TT: 04/08/25 1111 Size Painter: us Mt Guerrero MD IMG MRI PROCEDURES Final Re sult documented in this encounter Visit Diagnoses Diagnosis Hypertrophy of bile duct (any)- Primary Other specified disorders of biliary tract documented in this encounter Additional Health Concerns Assessment Noted Time PHQ-9 Depression Total Score: 1 09/24/19 11:38 AM EST documented as of this encounter Care Teams Stripper Shovel Operator Relationship Specialty Start Date End Date Mt Guerrero MD [address] [place] [address] PCP - General Internal Medicine 02/19/24 Vero Molina PharmD [address] [place] [address] Pharmacist Internal Medicine 12/03/24 documented as of this encounter
--- OUTSIDE RECORDS SUMMARY | 2025-06-22 11:40 | XMS_ITS | Data Portability ---
Author Organization [employer] [facility] Address [address] [place] [address] Care Team Providers Care Project Development Director Name Role Phone [facility] Referring Provider [phone] Assessment Encounter Date Assessment Date Assessment LastModified by Organization Details LastModified Time 07/05/2023 07/05/2023 I have reviewed and agree with the assessment and plan as documented by the oil extractor. I provided real-time medical direction for this [...] rate Respiratory rate Body temperature Oxygen saturation Systolic And Diastolic Provider Name and Address Organization Details Last Updated DateTime 3 65 /min 16 /min 98.4 [degF] 99 % 128/78 mm[Hg] Not Available [facility] - production 3 13:48:13 Social History None recorded. Functional Status None recorded. Mental Status None recorded. Family History Nothing Reported. Medical History No medical history recorded. Past Encounters Encounter ID Performer Location Encounter Start Date Encounter Closed Date Diagnosis/Indication Diagnosis SNOMED-CT Code Diagnosis ICD10 Code Diagnosis IMO Codes Diagnosis Note [id number] Polly Hook MD Main - [facility] [address] [place] [address] 07/05/2023 13:48:11 07/08/2023 16:46:11 Pain in right lower limb [id number] M79.604 Health Concerns Section Related Observation LastModified by Organization Detai ls LastModified Time None Recorded Concern Status LastModified by Organization Details LastModified Time None Recorded Advance Directives Directive None Recorded Payers Insurance Date Sequence Insurance Name Policy Number Policy Melara Covered Member ID Melara Member ID Guarantor Name 01/21/2024 1 [facility] - DOS ON OR AFTER 2022 - DUAL ELIGIBLE - RETIREMENT OPTIONS AND ONE CARE (MEDICARE REPLACEMENT/ADV ANTAGE - HMO) Mendez Yepez [id number] Mendez Yepez Notes Date Note Type Note [...] .................. .................. .................. .................. .................. .................. ............... [employer] Counselor Note From Aeln Avila: Dispatched to the call address for [...] ............... Disposition: Fulfilled Polly Hook MD [address] [facility],[address], [place], [address], [place] - [employer] 07/05/2023 15:11:53
--- OUTSIDE RECORDS SUMMARY | 2025-06-22 11:40 | XMS_ITS | Encounter Summary ---
Demographics Address [address] [facility] [address] [place] [address] Mobile Phone Work Phone Home Phone Email Address Preferred Language es Marital Status Unknown Uatsdin Affiliation Unknown Race Other Race Ethnic Group Unknown Author Organization [employer] Address [address] [facility] [place] [address] Care Team Providers Care Exhaust Worker Name Role Phone Mt Guerrero MD Primary Care Provider [phone] Vero Molina PharmD Unavailable [phone] Encounter Details Date Type Department Care Team (Late st Contact Info) Description 06/07/2025 Orders Only [facility] CHC MED & PEDS [address] [place], [place] [phone] Provider, MD Curtis Social History Tobacco Use [...] Description 06/29/2025 3:30 PM EST Office Visit [facility] ADULT DENTAL [address] [place] [address] Danis Lewis [address] [place] [address] 08/05/2025 10:00 AM EST Medication Management [facility] MED & PEDS [address] [place] [address] Vero Molina, PharmD [address] [place] [address] documented as of this encounter Procedures Procedure Name Priority Date/Time Associated Diagnosis Comments DIABETES EYE EXAM Routine 06/04/2025 9:55 AM EST documented in this encounter Results * Diabetes Eye Exam (06/04/2025 9:55 AM EST) us Historical Provider HEALTH MAINTENANCE Final Result documented in this encounter Visit Diagnoses Not on filedocumented in this encounter Additional Health Concerns Assessment Noted Time PHQ-9 Depression Total Score: 1 09/24/19 25 11:38 AM EST documented as of this encounter Care Teams Exhaust Worker Relationship Specialty Start Date End Date Mt Guerrero MD [address] [place] [address] PCP - General Internal Medicine 02/19/24 Vero Molina PharmD [address] [place] [address] Pharmacist Internal Medicine 12/03/24 documented as of this encounter
--- OUTSIDE RECORDS SUMMARY | 2025-06-22 11:40 | XMS_ITS | Encounter Summary ---
Author Organization [employer] [facility] Address [address] [facility] [address] [place] [address] Care Team Providers Care Mechanics Handyman Name Role Phone Mt Guerrero MD Primary Care Provider Vero Molina PharmD Unavailable [phone] Encounter Details Date Type Department Care Team (Late st Contact Info) Description 06/07/2023 Abstract [facility] ADULT DENTAL [address] [place] [address] Bertha Edwards, DDS [address] [place] [address] Social History Tobacco Use Types Packs/Day Years [...] 3:30 PM EST Office Visit [facility] ADULT DENTAL [address] [place] [address] Danis Lewis [address] [place] [address] 08/05/2025 10:00 AM EST Medication Management [facility] MED & PEDS [address] [place] [address] Vero Molina PharmD [address] [place] [address] documented as of this encounter Visit Diagnoses Not on filedocumented in this encounter Care Teams Mechanics Handyman Relationship Specialty Start Date End Date Mt Guerrero MD [address] [place] [address] PCP - General Internal Medicine 02/19/24 Vero Molina PharmD [address] [place] [address] Pharmacist Internal Medicine 12/03/24 documented as of this encounter
== END 2025-06-22 10:41 | disposition home or self-care (01) ==
LOC: HO.HUSH 09:51
PROVIDERS: PCP Internal Medicine; Visit Provider Urology
DX: R97.20 Elevated prostate specific antigen [PSA] (principal); R32 Unspecified urinary incontinence; N39.0 Urinary tract infection, site not specified; N32.81 Overactive bladder
CPT/HCPCS: 99214; G2211

== ENCOUNTER 2025-07-12 14:41 | Outpatient (REF) | payer OTHER, SELFPAY ==
--- NOTE | ~2025-07-12 | CT_ITS ---
EXAMINATION: CT HEAD WITHOUT CONTRAST CLINICAL INFORMATION: Head trauma, racoon sign COMPARISON: 05/21/2020 TECHNIQUE: Contiguous axial imaging was performed from the skull base to vertex without intravenous administration of contrast. This CT examination was performed using dose optimization techniques as appropriate, variously including the following: *Automated exposure control *Adjustment of mA and/or kV according to patient size (this includes techniques or standardized protocols for targeted exams where dose is matched to indication/reason for exam; i.e. extremities or head) *Use of iterative reconstruction technique FINDINGS: There is no acute ischemic change. There is no intracranial hemorrhage. There is no mass-effect or midline shift. Basal cisterns and ventricles are within normal limits for age/cerebral volume. Orbits are symmetrical and unremarkable. Paranasal sinuses and mastoid air cells are pneumatized. There are no bony abnormalities. CT/CT head/brain wo IV con IMPRESSION: No acute intracranial abnormality. Electronically signed by: Ketan Larios MD 07/12/2025 03:41 PM [facility]
--- NOTE | ~2025-07-12 | CT_ITS ---
EXAMINATION: CT ORBIT WITHOUT CONTRAST CLINICAL INFORMATION: Head injury 2 days ago w/ raccoon sign COMPARISON: None available. TECHNIQUE: Axial CT was performed through the facial bones without contrast. Coronal and sagittal reformatted images were generated from the original axial data set. ALARA: The examination used one or more of the following radiation dose reduction techniques: Automated exposure control, iterative reconstruction, and/or adjustment of mA and/or KV. FINDINGS: There is lucency through the lateral wall of the right maxillary sinus, posterior inferiorly, most consistent with a vascular channel. No definite fractures are identified. Paranasal sinuses are clear. Orbits are unremarkable. CT/CT orbit BI wo IV con IMPRESSION: No acute bony abnormality. Electronically signed by: Ketan Larios MD 07/12/2025 03:45 PM [facility]
--- OUTSIDE RECORDS SUMMARY | 2025-07-12 21:11 | XMS_ITS | Data Portability ---
Author Organization [employer] [facility] Address [address] [place] [address] Care Team Providers Care Iuss Acoustic Analyst Name Role Phone [facility] Referring Provider Assessment Encounter Date Assessment Date Assessment LastModified by Organization Details LastModified Time 07/05/2023 07/05/2023 I have reviewed and agree with the assessment and plan as documented by the slitter service and setter. I provided real-time medical direction for this [...] ICD10 Code Diagnosis IMO Codes Diagnosis Note [id number] Polly Hook MD Main - [facility] [address] [place] [address] 07/05/2023 13:48:11 07/08/2023 16:46:11 Pain in right lower limb [id number] M79.604 Health Concerns Section Related Observation LastModified by Organization Detai ls LastModified Time None Recorded Concern Status LastModified by Organization Details LastModified Time None Recorded Advance Directives Directive None Recorded Payers Insurance Date Sequence Insurance Name Policy Number Policy Melara Covered Member ID Melara Member ID Guarantor Name 01/21/2024 1 [facility] - DOS ON OR AFTER 2022 - DUAL ELIGIBLE - [employer] OPTIONS AND ONE CARE (MEDICARE REPLACEMENT/ADV ANTAGE - HMO) Mendez Yepez [id number] Mendez Yepez Notes Date Note Type Note [...] .................. .................. .................. .................. .................. .................. ............... Tool Liaison Note From Alen Avila: Dispatched to the [...] ............... Disposition: Fulfilled Polly Hook MD [address] [facility],[address], [place], [address], [place] - [employer] 07/05/2023 15:11:53
--- OUTSIDE RECORDS SUMMARY | 2025-07-12 21:11 | XMS_ITS | Clinical Summary ---
Author Organization [address] [facility] Address [address] [place] [address] Phone Care Team Providers Care Public Relations Director Name Role Phone Mt Guerrero MD Primary Care Provider [phone] Allergies Active Allergy Reactions Criticality Noted Date [...] Upcoming Encounters Date Type Department Care Team ([facility] Contact Info) Description 10/07/2025 9:45 AM EDT Office Visit Orthopedic Surgery [place] [address] [address] Brenden Longoria, DPM [address] [address] Health Maintenance Due Date Last Done Comments Colorectal Cancer Screening: Colonoscopy 1955 Diabetes: Annual GFR (Glomerular Filtration Rate) 1955 Diabetes: Annual Foot Exam 1964 Diabetes: Annual Retina Eye Exam 1965 RSV Immunization Adult Patients (1 - Risk 50-74 years 1-dose series) 2004 Zoster Vaccines (2 of 3) 04/02/2017 02/05/2017 Abdominal Aortic Aneurysm (AAA) Screen 06/26/2022 Falls Risk Assessment 06/26/2022 Hepatitis C Screening 06/26/2022 Social Influencers of Health Screening 06/26/2022 Diabetes: Annual Urine Albumin-Creatinine Ratio (uACR) 07/13/2024 Depression Screening 07/29/2024 Diabetes: Blood Sugar Control Test (HGBA1C) 11/10/2024 05/12/2024 COVID-19 Vaccine ( - season) 2025 05/12/2024, 01/30/2021, 01/09/2021 Influenza Vaccine [...] this topic Insurance [employer] Care Teams Public Relations Director Relationship Specialty Start Date End Date Mt Guerrero MD [address] [place] [address] PCP - General 04/15/24
== END 2025-07-12 14:42 | disposition home or self-care (01) ==
LOC: HO.CT 14:41
PROVIDERS: PCP Internal Medicine; Visit Provider Nurse Practitioner Primary Care
DX: S09.90XA Unspecified injury of head, initial encounter (principal)
CPT/HCPCS: 70450; 70480

== ENCOUNTER → 2025-07-12 14:43 | Outpatient (BNV) | payer OTHER, SELFPAY | PROVIDERS: PCP Internal Medicine; Visit Provider Radiology Diagnostic Radiology | DX: S09.90XA Unspecified injury of head, initial encounter (principal) | CPT/HCPCS: 70450; 70480 ==

== ENCOUNTER 2025-07-26 09:32 | Emergency (ER) | payer OTHER, SELFPAY ==
--- NOTE | ~2025-07-26 | CT_ITS ---
CLINICAL HISTORY: Dizziness CT head without contrast Comparison: 07/12/2025 Findings: No intracranial mass, midline shift, hydrocephalus, or acute hemorrhage. No CT evidence of acute ischemia. Visualized paranasal sinuses and mastoid air cells normal. Orbits unremarkable. No skull fracture Impression: 1. No acute intracranial abnormalities. This document has been electronically signed by: Delonte Pleitez MD on 07/26/2025 18:15:53
--- NOTE | ~2025-07-26 | MR_ITS ---
CLINICAL HISTORY: dizziness, r/o cerebellar stroke Exam: Nonenhanced MRI brain. Comparison: Same day unenhanced CT brain. Findings: There is no cerebral edema or mass effect. White matter signal intensities are maintained. Diffusion weighted imaging reveals no restricted diffusion or MR evidence of acute ischemia. Susceptibility weighted imaging reveals no susceptibility artifact or evidence of intracranial hemorrhage. No sellar or parasellar lesions. Ventricular size and configuration are within normal limits. Cerebral cisterns are preserved. No significant signal abnormality seen within the paranasal sinuses or mastoid air cells. Preserved flow signal voids are present within visualized intracranial vasculature. Impression: 1. No acute intracranial abnormalities. This document has been electronically signed by: Delonte Pleitez MD on 07/26/2025 19:37:05
[2025-07-26 09:43] VITALS: BP 122/88; PULSE 88; RESP 18; TEMP 36.4; O2SAT 99; BMI 22.9
--- NOTE | 2025-07-26 09:44 | ED.DIZZY ---
HPI - Dizziness General Chief Complaint: Dizziness Stated Complaint: Dizziness, Blurry Vision Time Seen by Provider: 07/26/25 16:46 Source: patient and senior consumer insights consultant Mode of arrival: ambulatory Limitations: no limitations History of Present Illness ED Provider: DR. Dunbar HPI Narrative: A 69-year-old male PMHx HTN, HLD, dm, BPH, poliomyelitis, and prostatitis came in for evaluation of feeling dizzy and room spinning around, symptoms started on Saturday 2 days ago symptoms worse with changing position, patient did not seek immediate medical attention because his was sick and he wanted to make sure she is okay. Otherwise no weakness, no numbness, no blurry vision, no slurred speech. As a result of dizziness patient fell in the bathroom this morning. Patient is also complaining of left ear pain. Related Data Home Medications ?Medication ?Instructions ?Recorded ?Confirmed blood sugar diagnostic #10 ea 12/27/20 05/26/24 lancets 28 gauge #100 ea 12/27/20 05/26/24 blood-glucose meter (FreeStyle #1 ea 05/24/21 05/26/24 [place] Lite kit) alcohol swabs (Easy Touch Alcohol 1 pad topical TID 06/04/22 05/26/24 Prep Pads) Previous Rx's ?Medication ?Instructions ?Recorded adult diapers pull-ups #240 ea 11/01/22 disposable gloves #100 ea 11/01/22 personal wipes #200 ea 11/01/22 left foot brace/Kafo adjustment #1 ea 01/07/23 Ventolin HFA 90 mcg/actuation 2 puff inhalation DAILY 30 days 01/24/23 aerosol inhaler (albuterol sulfate) #18 grams docusate calcium 240 mg capsule 240 mg PO BEDTIME PRN constipation 01/24/23 90 days #90 caps fluticasone furoate 50 1 inh inhalation DAILY 30 days #30 07/26/23 mcg/actuation blister powder for ea inhalation (Arnuity Ellipta) meloxicam 15 mg tablet 15 mg PO DAILY 30 days #30 tabs 08/29/23 fluticasone propionate 110 2 puff inhalation BID 30 days #12 10/23/23 mcg/actuation HFA aerosol inhaler grams lisinopril 10 mg tablet 10 mg PO DAILY 90 days #90 tabs 08/26/24 sitagliptin phosphate 50 mg tablet 50 mg PO DAILY 90 days #90 tabs 03/23/24 (Januvia) acetaminophen 650 mg 650 mg PO DAILY PRN fever or pain 04/13/24 tablet,extended release (8 Hour 90 days #90 tabs Pain Reliever) aspirin 81 mg tablet,delayed 81 mg PO DAILY 90 days #90 tabs 04/20/24 release lidocaine 5 % topical patch 1 patch topical DAILY #15 ea 05/11/24 atorvastatin 80 mg tablet 80 mg PO BEDTIME 90 days #90 tabs 11/29/24 oxybutynin chloride 10 mg 10 mg PO DAILY #90 tabs 12/23/24 tablet,extended release 24 hr finasteride 5 mg tablet 5 mg PO DAILY 90 days #90 tabs 01/20/25 ascorbic acid (vitamin C) 1,000 mg 1,000 mg PO DAILY 90 days #90 tabs 06/22/25 tablet methenamine hippurate 1 gram tablet 1 g PO DAILY 90 days #90 tabs 06/22/25 nitrofurantoin macrocrystal 100 mg 100 mg PO BID 7 days #14 caps 06/22/25 capsule meclizine 25 mg tablet 25 mg PO BID PRN dizziness #14 tabs 07/26/25 cefuroxime axetil 500 mg tablet 500 mg PO BID 7 days #14 tabs 07/30/25 Allergies Allergy/AdvReac Type Severity Reaction Status Date / Time Penicillins Allergy Intermediate RASH, itchy Verified 07/26/25 09:52 Review of Systems Review of Systems: All other systems are reviewed and are negative Constitutional: Reports as per HPI and Reports no additional constitutional complaints Eyes: Reports as per HPI and Reports no additional eye complaints Reports system reviewed and no additional complaints, except as documented Cardiovascular: Reports as per HPI and Reports no additional cardiovascular complaints Respiratory: Reports as per HPI and Reports no additional respiratory complaints Gastrointestinal: Reports as per HPI and Reports no additional gastrointestinal complaints Genitourinary: Reports no additional female genitourinary complaints Musculoskeletal: Reports no additional musculoskeletal complaints Skin/Breast: Reports system reviewed and no additional complaints, except as docu Psychiatric: Reports no additional psychiatric complaints Endocrine: Reports no additional endocrine complaints Hematologic/Lymphatic: Reports no additional hematologic/lymphatic complaints Allergic/Immunologic: Reports no additional allergic/immunologic complaints Reports system reviewed and no additional complaints, except as documented and Reports Abnormal speech present [facility] Past Medical History Medical History Overactive bladder BPH (benign prostatic hyperplasia) Diabetes Asthma Polio Surgical History History of surgery on lower extremity Hx of colonoscopy History of surgery Family History Family History Father Substance use disorder Mother Diabetes Hypertension Asthma Brother No problems noted. Social History Social History Household Members: Spouse Housing: House Are you a primary healthcare insurance sales agent to a significant other at home: No Do you presently have visiting nurse or other home services: No Alcohol intake: never Patient Tobacco Use Status: Never used Tobacco e-Cigarette/Vaping Use: Never Used Second Hand Smoke Exposure: No Advance Directives Date on File: 04/18/22 service: No Current occupational status: disabled Cognitive needs: Yes Hearing needs: No Vision needs: No Physical Exam Vital Signs: Vital Signs: Last Vital Signs Temp 97.6 F 07/26/25 20:25 Pulse 72 07/26/25 20:25 Resp 16 07/26/25 20:25 BP 133/79 07/26/25 20:25 Pulse Ox 98 07/26/25 20:25 O2 Del Method Room Air 07/26/25 20:25 BMI result Body Mass Index 22.9 Vital signs have been reviewed and appear to be correct. Blood pressure elevated. Heart rate normal. Respiratory rate normal. Temperature normal. Oxygen saturation normal. Appearance: Alert. Oriented X3. No acute distress. Head: Normal external exam. Normocephalic. Atraumatic. No Pereyra signs noted. No raccoon eyes noted Eyes: PERRLA. EOMI. Conjunctiva and sclera normal. Eyelids normal. ENT: TM's Normal. Pharynx normal. Uvula midline. Moist mucous membranes. No trismus noted. No drooling noted. No muffled voice noted. Neck: Normal inspection. Neck supple. FROM. No adenopathy. Thyroid Normal. No meningeal signs. No neck mass noted. CVS: Normal heart rate and rhythm. Heart sound normal. No murmurs noted. Pulses normal throughout. Respiratory: No respiratory distress. Painless inspiration. Breath sounds normal. No wheezes/rales/rhonchi noted. Chest nontender. No accessory muscle usage noted or decreased air movement noted. Abdomen: Soft and nontender. Bowel sounds normal in all 4 quadrants. No distention noted. No organomegaly noted. No visible injury noted. Back: No CVA tenderness. Full range of motion noted. Skin: Skin warm and dry. Normal skin color. Normal skin turgor. No rashes/lesions/lacerations noted. Extremities: No lower extremity edema. Extremities exhibit normal range of motion. Extremities nontender. Neuro: Mental status: Normal attention, orientation, memory, and affect. Cranial nerves: Pupils are equal, round and reactive to light, EOMI, visual crocker are fall, face is symmetric, facial sensations are normal. Motor examination normal muscle tone, strength to 4 extremities. DTR are +2, planter's are flexor. Sensory exam; normal coordination, no ataxia, gait stable. Cerebellar exam: [id number] and [id number] is normal. Extrapyramidal system: No tremors, no rigidity with normal facial expressions. Pronator drift not present NIH Stroke Scale Time: 20:24 Level of Consciousness: Alert Level of Consciousness Questions: Answers both questions correctly Level of Consciousness Commands: Performs both tasks correctly Best Gaze: Normal Visual: No visual loss Facial Palsy: Normal Motor Arm (Right): No drift Motor Arm (Left): No drift Motor Leg (Right): No drift Motor Leg (Left): No drift Limb Ataxia: Absent Sensory: Normal Best Language: No aphasia Dysarthia: Normal Extinction and Inattention: No abnormality Score: 0 Course Course Course Narrative: This is a RME preformed in triage by Lien Maza PA-C. Date: 07/26/2025, time . Patient presents with headaches and dizziness with positional changes. Here on 07/12: had head CT. THis past Saturday dizzy with getting out of shower. Feels right ear pain (has myringosclerosis on this TM looked at in triage). Work UP: labs, UA, EKG, poc glucose Will defer full ROS and PE to treating provider. Patient will continued to be monitored in the interim. Reevaluation(s) Reevaluation #1: Two days of dizziness and spinning, normal neuro exam, CT/MRI are negative for acute stroke. Patient also complained of right ear pain with no infection, will start the patient on meclizine. Patient was instructed to slowly change his position and was prescribed meclizine and to follow-up with PCP. Time: 20:27 Reevaluation #2: 07/30/2024 0732 Rachele Humphries PA-C ----> Urine culture grew 50-100k of E. coli. Given patient's symptoms and history of UTI, will initiate treatment. Cefuroxime prescribed. Patient called, no answer, voicemail left. Medications Administered Discontinued Medications Generic Name Dose Route Start Last Admin Trade Name Freq PRN Reason Stop Dose Admin Cefuroxime Axetil 250 mg 07/26/25 17:55 07/26/25 18:23 Cefuroxime Axetil 250 Mg Tablet PO 07/26/25 17:56 250 mg ONCE ONE Administration Meclizine HCl 25 mg 07/26/25 17:56 07/26/25 18:23 Meclizine Hcl 25 Mg Tablet PO 07/26/25 17:57 25 mg ONCE ONE Administration Medical Decision Making Differential Diagnosis Differential Diagnoses: The differential diagnosis associated with the presentation includes (Central vertigo, peripheral vertigo, dehydration, electrolyte derangement, severe anemia.) Admission/Observation Consideration of admission/observation: Escalation of care including admission/observation considered Lab Data MDM Lab Attestation statement: I reviewed the patient's lab results. 07/26/25 10:17 07/26/25 10:17 Labs: Lab Results 07/26/25 07/26/25 Range/Units 10:17 17:07 WBC 5.7 (4.8-10.8) X10*3/uL RBC 4.74 (4.60-5.80) X10*6/uL Hgb 13.5 L (14.0-18.0) g/dl Hct 39.9 L (42.0-52.0) % MCV 84.2 (80.0-98.0) fL MCH 28.5 (27.0-33.0) pg MCHC 33.8 (31.0-36.0) g/dl RDW 12.6 (11.0-16.0) % Plt Count 198 (160-400) X10*3/uL MPV 10.0 (9.4-12.4) fL Immature Gran % (Auto) 0.3 (0.0-0.4) % Neut % (Auto) 51.3 (45-73) % Lymph % (Auto) 37.8 (20-40) % [place] % (Auto) 7.3 (2-11) % Eos % (Auto) 2.4 (0-4) % Baso % (Auto) 0.9 (0-2) % Lymph # (Auto) 2.2 (1.2-4.9) X10*3/uL [place] # (Auto) 0.4 (0.1-1.2) X10*3/uL Eos # (Auto) 0.1 (0.0-0.4) X10*3/uL Baso # (Auto) 0.1 (0.0-0.2) X10*3/uL Abs Immat Gran (auto) 0.02 (0.00-0.03) X10*3/uL Absolute Neuts (auto) 2.9 (2.0-8.3) x10*3/uL Absolute Nucleated RBC 0.000 (0.0-0.012) X10*3/uL Nucleated RBC % (auto) 0.0 (0.0-0.2) /100WBC Sodium 143 (135-145) mmol/L Potassium 3.9 (3.3-5.1) mmol/L Chloride 110 H (96-108) mmol/L Carbon Dioxide 28 (22-29) mmol/L Anion Gap 9 L (12-20) BUN 20 H (9-16) mg/dL Creatinine 0.73 (0.5-1.4) mg/dL Estim Creat Clear Calc 81.9 Estimated GFR > 60 Random Glucose 168 H (60-115) mg/dL Calcium 9.3 (8.4-10.2) mg/dL Magnesium 1.9 (1.6-2.6) mg/dL Total Bilirubin 0.4 (0.0-1.0) mg/dL AST 26 (5-37) U/L ALT 28 (0-40) U/L Alkaline Phosphatase 95 (39-117) U/L Troponin I High Sens < 2.7 (<3.5-35.0) ng/L Total Protein 6.8 (6.5-8.0) g/dL Albumin 3.9 (3.5-5.0) g/dL Urine Color Yellow Urine Appearance Clear Urine pH 5.0 (5.0-9.0) Ur Specific [place] 1.025 (1.005-1.025) Urine Protein Negative (Neg-Trace) mg/dL Urine Glucose (UA) Negative (Negative) mg/dL Urine Ketones Negative (Negative) mg/dL Urine Blood Trace H (Negative) Urine Nitrite Negative (Negative) Ur Leukocyte Esterase Small (1+) H (Negative) Urine RBC 0-2 (0-2) /HPF Urine WBC 21-50 H (0-5) /HPF Ur Squamous Epith Cells 3-5 (0-2) /HPF Urine Bacteria Trace (None Seen) Hyaline Casts 0-2 (0-2) /LPF Independent Interpretation I performed an independent interpretation of an: CT Scan (Head: No acute intracranial abnormality.) and MRI (Head: No acute intracranial abnormality.) Radiology Impression Discussion of test interpretation with radiology: I have reviewed the radiologist's reading. Discharge Plan Discharge Clinical Impression: Peripheral vertigo, Acute UTI Patient Disposition: Home, Self-Care Instructions: Urinary Tract Infection in Men (DC), Vertigo (ED) Prescriptions: New meclizine 25 mg tablet 25 mg PO BID PRN (Reason: dizziness) Qty: 14 0RF cefuroxime axetil 500 mg tablet 500 mg PO BID 7 Days Qty: 14 0RF No Action (DME) adult diapers pull-ups small See Rx Instructions .Route .MEDSUPPLY Qty: 240 11RF Rx Instructions: As directed (DME) disposable gloves Package See Rx Instructions .Route Qty: 100 11RF Rx Instructions: As directed (DME) personal wipes See Rx Instructions .Route .MEDSUPPLY Qty: 200 11RF Rx Instructions: As directed (DME) left foot brace/Kafo adjustment See Rx Instructions .Route .MEDSUPPLY Qty: 1 0RF Rx Instructions: As directed albuterol sulfate [Ventolin HFA] 90 mcg/actuation HFA aerosol inhaler 2 puff inhalation DAILY 30 Days Qty: 18 2RF docusate calcium 240 mg capsule 240 mg PO BEDTIME PRN (Reason: constipation) 90 Days Qty: 90 1RF Arnuity Ellipta 50 mcg/actuation blister with device 1 inh inhalation DAILY 30 Days Qty: 30 4RF meloxicam 15 mg tablet 15 mg PO DAILY 30 Days Qty: 30 0RF fluticasone propionate 110 mcg/actuation HFA aerosol inhaler 2 puff inhalation BID 30 Days Qty: 12 3RF lisinopril 10 mg tablet 10 mg PO DAILY 90 Days Qty: 90 5RF Januvia 50 mg tablet 50 mg PO DAILY 90 Days Qty: 90 5RF acetaminophen [8 Hour Pain Reliever] 650 mg tablet extended release 650 mg PO DAILY PRN (Reason: fever or pain) 90 Days Qty: 90 8RF aspirin 81 mg tablet,delayed release (DR/EC) 81 mg PO DAILY 90 Days Qty: 90 5RF atorvastatin 80 mg tablet 80 mg PO BEDTIME 90 Days Qty: 90 1RF finasteride 5 mg tablet 5 mg PO DAILY 90 Days Qty: 90 1RF lidocaine 5 % adhesive patch,medicated 1 patch topical DAILY Qty: 15 0RF Rx Instructions: leave on most painful area for up to 12 hrs (DME) lancets 28 gauge misc See Rx Instructions topical TID Qty: 100 Rx Instructions: As directed (DME) blood sugar diagnostic Strip See Rx Instructions Not Applicable .MEDSUPPLY Qty: 10 Rx Instructions: As directed (DME) blood-glucose meter [FreeStyle [place] Lite] Kit See Rx Instructions .ROUTE .MEDSUPPLY Qty: 1 Rx Instructions: As directed alcohol swabs [Easy Touch Alcohol Prep Pads] Pads, Medicated 1 pad topical TID oxybutynin chloride 10 mg tablet extended release 24hr 10 mg PO DAILY Qty: 90 3RF ascorbic acid (vitamin C) 1,000 mg tablet 1,000 mg PO DAILY 90 Days Qty: 90 1RF methenamine hippurate 1 gram tablet 1 g PO DAILY 90 Days Qty: 90 1RF nitrofurantoin macrocrystal 100 mg capsule 100 mg PO BID 7 Days Qty: 14 0RF Referrals: Mt Guerrero MD [Primary Care Provider, Medical] Interventions: ED Discharge Assessment Last Done: 07/26/25 20:25 Discharge Date/Time: 07/26/25 20:26 Print Language: Japanese
--- NOTE | 2025-07-26 09:54 | ECG_ITS ---
Test Reason : SOB Blood Pressure : */* mmHG Vent. Rate : 80 BPM Atrial Rate : 80 BPM P-R Int : 128 ms QRS Dur : 142 ms QT Int : 402 ms P-R-T Axes : 70 -68 89 degrees QTcB Int : 463 ms Normal sinus rhythm Left axis deviation Left bundle branch block Abnormal ECG When compared with ECG of 21-May-2020 11:54, No significant change was found Referred By: Lien Maza Electronically Signed By: NEEL MEDEROS
[2025-07-26 10:22] LABS: Hematocrit 39.9 % (42.0-52.0); Hemoglobin 13.5 g/dl (14.0-18.0); Imm Gran Abs Auto 0.02 X10*3/uL (0.00-0.03); Imm Gran Pct Auto 0.3 % (0.0-0.4); Lymphocytes Absolute Auto 2.2 X10*3/uL (1.2-4.9); MANUAL DIFF FLAG NO; Mean Corpuscular HGB Conc 33.8 g/dl (31.0-36.0); Mean Corpuscular Hemoglobin 28.5 pg (27.0-33.0); Mean Corpuscular Volume 84.2 fL (80.0-98.0); NRBC Abs Auto 0.000 X10*3/uL (0.0-0.012); NRBC Pct Auto 0.0 /100WBC (0.0-0.2); Platelet Count 198 X10*3/uL (160-400); Red Blood Count 4.74 X10*6/uL (4.60-5.80); White Blood Count 5.7 X10*3/uL (4.8-10.8)
[2025-07-26 10:37] LABS: Alanine Aminotransferase 28 U/L (0-40); Albumin Level 3.9 g/dL (3.5-5.0); Alkaline Phosphatase 95 U/L (39-117); Anion Gap 9 (12-20); Aspartate Amino Transferase 26 U/L (5-37); Blood Urea Nitrogen 20 mg/dL (9-16); Calcium 9.3 mg/dL (8.4-10.2); Carbon Dioxide 28 mmol/L (22-29); Chloride 110 mmol/L (96-108); Creatinine Clr Calc Pharmacy 81.9; Estimated Glomerular Filt Rate > 60; Magnesium 1.9 mg/dL (1.6-2.6); Potassium 3.9 mmol/L (3.3-5.1); Sodium 143 mmol/L (135-145); Total Protein 6.8 g/dL (6.5-8.0)
--- OUTSIDE RECORDS SUMMARY | 2025-07-26 11:34 | XMS_ITS | Encounter Summary ---
Author Organization [employer] Address [address] [facility] [address] [place] [address] Care Team Providers Care Arterial Embalmer Name Role Phone Mt Guerrero MD Primary Care Provider [phone] Vero Molina PharmD Unavailable [phone] Reason for Visit * Reason Comments Med Refill Encounter Details Date Type Department Care Team (Late Contact Info) Description 06/24/2024 Refill [facility] MED[facility] [address] [place] [address] Mt Guerrero MD [address] [place] [address] Social History Tobacco Use Types Packs/Day Years [...] Department Care Team (Late Contact Info) Description 08/05/2025 10:00 AM EST Medication Management [facility] MED & PEDS [address] [place] [address] Vero Molina PharmD [address] [place] [address] documented as of this encounter Visit Diagnoses Not on filedocumented in this encounter Additional Health Concerns Assessment Noted Time PHQ-9 Depression Total Score: 8 02/19/20 10:12 AM EDT documented as of this encounter Care Teams Arterial Embalmer Relationship Specialty Start Date End Date Mt Guerrero MD [address] [place] [address] PCP - General Internal Medicine 02/19/24 Vero Molina, Rosanne [address] [place] [address] Pharmacist Internal Medicine 12/03/24 documented as of this encounter
--- OUTSIDE RECORDS SUMMARY | 2025-07-26 11:34 | XMS_ITS | Encounter Summary ---
Author Organization [employer] Address [address] [place] [address] 7[address] [place] [address] Care Team Providers Care Nut Roaster Name Role Phone Mt Guerrero MD Primary Care Provider [phone] Vero Molina PharmD Unavailable [phone] Reason for Referral * Consultation (Routine) - Closed Specialty Diagnoses / Procedures Referred By Jonathan beaulieu Referred To Contact Podiatry Diagnoses Type 2 diabetes mellitus with hyperglycemia, without long-term current use of insulin (HCC) Mt Guerrero MD [address] [place] [address] Phone: tel: fax: Brenden Longoria DPM Phone: tel: fax: Referral ID Status Reason Start Date Expiration Date V isits Requested Visits Authorized [id number] Closed Specialty Services Required 04/13/2024 04/13/2025 1 1 * Consultation (Routine) - Closed Specialty Diagnoses / Procedures Referred By Jonathan beaulieu Referred To Contact Physical Therapy Diagnoses Chronic midline low back pain without sciatica Mt Guerrero MD [address] [place] [phone] Phone: tel: fax: [facility] [address] [place] [address] Phone: tel: fax: Referral ID Status Reason Start Date Expiration Date V isits Requested Visits Authorized [id number] Closed Specialty Services Required 04/03/2024 04/03/2025 1 1 Encounter Details Date Type Department Care Team (Late Contact Info) Description 04/03/2024 Orders Only [facility] MED & PEDS [address] [place] [address] Mt Guerrero MD [address] [place] [address] Chronic midline low back pain without sciatica (Primary Dx); Type 2 diabetes mellitus with hyperglycemia, without long-term current use of insulin ([facility]) Social History Tobacco Use Types Packs/Day [...] Description 08/05/2025 10:00 AM EST Medication Management [facility] MED & PEDS [address] [place] [address] Vero Molina, PharmD [address] [place] [address] Scheduled Referrals Name Type Priority Associated Diagnoses Orde r Schedule Referral to Physical Therapy Outpatient Referral Routine Chronic midline low back pain without sciatica Expected: 04/03/2024 (Approximate), Expires: 04/03/2025 Referral to Podiatry Outpatient Referral Routine Type 2 diabetes mellitus with hyperglycemia, without long-term current use of insulin ([facility]/HCC) Expected: 04/13/2024 (Approximate), Expires: 04/13/2025 documented as of this encounter Visit Diagnoses Diagnosis Chronic midline low back pain without sciatica- Primary Type 2 diabetes mellitus with hyperglycemia, without long-term current use of insulin ([facility]) documented in this encounter Additional Health Concerns Assessment Noted Time PHQ-9 Depression Total Score: 8 02/19/20 24 10:12 AM EDT documented as of this encounter Care Teams Nut Roaster Relationship Specialty Start Date End Date Mt Guerrero MD [address] [place] [phone] PCP - General Internal Medicine 02/19/24 Vero Molina PharmD [address] [place] [phone] Pharmacist Internal Medicine 12/03/24 documented as of this encounter
--- OUTSIDE RECORDS SUMMARY | 2025-07-26 11:34 | XMS_ITS | Encounter Summary ---
Author Organization [employer] Address [address] [facility] [address] [place] [address] Care Team Providers Care Fashion Stylist Name Role Phone Mt Guerrero MD Primary Care Provider [phone] Vero Molina PharmD Unavailable [phone] Encounter Details Date Type Department Care Team ([facility] Contact Info) Description 02/20/2024 Orders Only [facility] MED & PEDS [address] [place], [place] [phone] Mt Guerrero MD [address] [place] [address] Microcytic anemia (Primary Dx) Social History Tobacco [...] Description 08/05/2025 10:00 AM EST Medication Management [facility] MED & PEDS [address] [place] [address] Vero Molina, PharmD [address] [place] [address] documented as of this encounter Procedures Procedure Name Priority Date/Time Associated Diagnosis Comments IRON AND TOTAL IRON BINDING CAPACITY Routine 03/11/2024 9:30 AM EDT Microcytic anemia RETICULOCYTE COUNT Routine 03/11/2024 9: 30 AM EDT Microcytic anemia FERRITIN Routine 03/11/2024 9:30 AM EDT Microcytic anemia documented in this encounter Results * Reticulocyte Count (03/11/2024 9:30 AM EDT) Reticulocytes Absolute 0.054 0.026 - 0.095 X10*6/uL [facility] Immature Retic Fraction 7.3 2.3 - 13.4 % [facility] Retic HGB Equivalent 33.1 30.0 - 35.0 pg [facility] Reticulocyte Percent 1.2 0.5 - 1.8 % [facility] Blood Venous blood specimen / Unknown 03/11/2024 9:30 AM EDT 03/11/2024 2:20 PM EDT Mt Guerrero MD LAB BLOOD ORDERABLES Final Result [facility] [address] [place] [address] [phone] * Ferritin (03/11/2024 9:30 AM EDT) Ferritin 133 20 - 250 ng/mL [facility] Blood Venous blood specimen / Unknown 03/11/2024 9:30 AM EDT 03/11/2024 2:20 PM EDT us tM Guerrero MD LAB BLOOD ORDERABLES Final Result Performing Organization Address [facility] Co de Phone Number [facility] [address] [place] [phone] [phone] * Iron And Total Iron Binding Capacity (03/11/2024 9:30 AM EDT) Iron 87 45 - 160 mcg/dL [facility] Total Iron Binding Capacity 256 228 - 428 mcg/dL [facility] Percent Iron Saturation 34 15 - 50 % [facility] Unsaturated Iron Binding 169 ug/dL [facility] Blood Venous blood specimen / Unknown 03/11/2024 9:30 AM EDT 03/11/2024 2:20 PM EDT us Mt Guerrero MD LAB BLOOD ORDERABLES Final Result Performing Organization Address [facility] de Phone Number [facility] [address] [place] [phone] documented in this encounter Visit Diagnoses Diagnosis Microcytic anemia- Primary Unspecified iron deficiency anemia documented in this encounter Additional Health Concerns Assessment Noted Time PHQ-9 Depression Total Score: 8 02/19/20 24 10:12 AM EDT documented as of this encounter Care Teams Fashion Stylist Relationship Specialty Start Date End Date Mt Guerrero MD [address] [place] [phone] PCP - General Internal Medicine 02/19/24 Vero Molina PharmD [address] [place] [address] Pharmacist Internal Medicine 12/03/24 documented as of this encounter
--- OUTSIDE RECORDS SUMMARY | 2025-07-26 11:34 | XMS_ITS | Encounter Summary ---
Author Organization [employer] Address [address] [place] [address] Care Team Providers Care System Operation Superintendent Name Role Phone Mt Guerrero MD Primary Care Provider [phone] Vero Molina PharmD Unavailable [phone] Reason for Visit * Reason Onset Date Comments Appointment Request 10/28/2024 Encounter Details Date Type Department Care Team ([facility] Contact Info) Description 10/28/2024 Telephone [facility] [address] [place] [address] Mt Guerrero MD [address] [place] [address] Appointment Request Social History Tobacco Use Types [...] r/s 10/29 with Vero Molina. (Appt Note: [employer] CDTM (IP) documented in this encounter Plan of Treatment Upcoming Encounters Date Type Department Care Team (Late st Contact Info) Description 08/05/2025 10:00 AM EST Medication Management [facility] [address] [place] [address] Vero Molina, PharmD [address] [place] [address] documented as of this encounter Visit Diagnoses Not on filedocumented in this encounter Additional Health Concerns Assessment Noted Time PHQ-9 Depression Total Score: 1 09/24/19 25 11:38 AM EST documented as of this encounter Care Teams System Operation Superintendent Relationship Specialty Start Date End Date Mt Guerrero MD [address] [place] [address] PCP - General Internal Medicine 02/19/24 Vero Molina, Rosanne [address] [place] [id number] Pharmacist Internal Medicine 12/03/24 documented as of this encounter
--- OUTSIDE RECORDS SUMMARY | 2025-07-26 11:34 | XMS_ITS | Clinical Summary ---
Author Organization [employer] Address [address] [facility] [address] [place] [address] Care Team Providers Care Director Treasurer Name Role Phone Mt Guerrero MD Primary Care Provider [phone] Vero Molina PharmD Unavailable [phone] Allergies Active Allergy Reactions Criticality Noted Date Comments Penicillin G 10/21/2017 Medications acetaminophen (Tylenol 8 Hour) 650 MG ER tablet 3 Active Aspirin Low Dose 81 MG EC tablet 3 Active finasteride (Proscar) 5 MG tablet Take 1 tablet (5 mg) by mouth Once per day. 90 tablet 4 Active Ventolin HFA 108 (90 Base) MCG/ACT inhaler INHALE TWO PUFFS BY MOUTH EVERY 4 TO 6 HOURS NEEDED FOR WHEEZING ( BULK) 18 g 1 5 Active ketorolac (Acular) 0.5 % ophthalmic solution 5 Active SITagliptin (Januvia) 100 MG tablet Take 1 tablet (100 mg) by mouth Once per day. 30 tablet 5 07/21/2025 1:10 PM EST 5 Active atorvastatin (Lipitor) 40 MG tablet Take 1 tablet (40 mg) by mouth Once per day. 90 tablet 1 5 Active chlorhexidine (Peridex) 0.12 % solution Swish 15 mL morning and night for 1 minute. Spit, do not swallow. Do not eat or drink for 30 minutes following use. 473 mL 5 Active lisinopril 10 MG tablet TAKE 1 TABLET EVERY MORNING FOR BLOOD PRESSURE 30 tablet 1 5 Active fluticasone furoate (Arnuity Ellipta) 100 MCG/ACT inhaler INHALE 1 PUFF DAILY AT THE SAME TIME EACH DAY (FOR ASTHMA) 30 each 2 07/21/2025 1:10 PM EST 5 Active atorvastatin (Lipitor) 80 MG tablet TOME 1 TABLETA POR V A ORAL TODOS LOS D AL ACOSTARSE 5 Active Active Problems Problem Noted Date [...] Encounters Date Type Department Care Team Description 07/26/2025 Orders Only GENERIC EXTERNAL DATA DEPARTMENT Provider, Generic External Data 07/24/2025 Refill [facility] [address] [place], [place] [phone] Vero Molina PharmD 07/12/2025 Results Follow-Up [facility] [address] [place] [phone] ORBIT BI WO CONTRAST, CT Head w/o Contrast 07/08/2025 Telephone [facility] [address] [place] [address] [phone] Mary Ballard RN Imaging Order 07/08/2025 Telephone [facility] [address] [place] [address] [phone] Mt Guerrero MD Referral 07/07/2025 2:45 PM EST Office Visit [facility] [address] [place] [address] [phone] China Taylor ANP Injury of head, initial encounter (Primary Dx) 07/07/2025 1:30 PM EST Office Visit [facility] [address] [place] [address] Danis Lewis 07/07/2025 Travel 07/06/[address] [phone] Fransico George FNP chart prep 07/06/[address] [address] Mt Guerrero MD Chart Prep 07/06/[address] [address] Mt Guerrero MD Nurse Triage 06/22/2025 Orders Only GENERIC EXTERNAL DATA DEPARTMENT Provider, Generic External Data 06/21/2025 9:30 AM EST Office Visit [facility] [address] [place] [address] Karri Guerrero Dental calculus (Primary Dx) 06/07/2025 Orders Only [facility] [address] [place] [address] Curtis Bain MD 06/01/2025 Refill [facility] [address] [place] [address] Vero Molina, PharmD 06/01/2025 Refill [facility] [address] [place] [address] Mt Guerrero MD from Last 3 Months [...] Sign Reading Time Taken Comments Blood Pressure 115/62 07/07/2025 2:49 PM EST Pulse 81 07/07/2025 2:49 PM EST Temperature 37 C (98.6 F) 07/07/2025 2:49 PM EST Respiratory Rate 23 07/07/2025 2:49 PM EST Oxygen Saturation 99% 07/07/2025 2:49 PM EST Inhaled Oxygen Concentration - - Weight 61.6 kg (135 lb 12.8 oz) 07/07/2025 2:49 PM EST Height 165.1 cm (5' 5 ) 07/07/2025 2:49 PM EST Body Mass Index 22.6 07/07/2025 2:49 PM EST Plan of Treatment Upcoming Encounters Date Type Department Care Team (Late st Contact Info) Description 08/05/2025 10:00 AM EST Medication Management [facility] [address] [place] [address] Vero Molina, PharmD [address] [place] [address] Health Maintenance Due Date Last Done Comments CT Colonography 1955 FIT DNA/Cologuard 1955 FIT 1955 FOBT 1955 Sigmoidoscopy 1955 COVID-19 Vaccine ( season) 2025 05/12/2024, 01/30/2021, 01/09/2021 Influenza Vaccine (#1) 2025 , 08/07/2022, 04/30/2019, Additional history exists Diabetes: Hemoglobin A1C 07/15/202504/15/2 025, 12/22/2024, 09/24/2024, Additional history exists Alcohol/Substance Use Screening 09/24/2025 09/24/2024 Depression Screening 09/24/2025 09/24/2024, 09/24/19 SDOH Screening 09/24/2025 09/24/2024 Dental Oral Exam 12/20/2025 06/21/2025, 08/2023, 04/26/2023, Additional history exists Dental Prophylaxis 12/20/2025 06/21/2025, 1 08/30/2023, 04/26/2023, Additional history exists Diabetes: Foot Exam 12/22/2025 12/22/2024 Diabetes: Urine Protein Screening 12/22/2025 12/22/2024, 09/24/2024 Lipid Panel 12/22/2025 12/22/2024, 02/20/2024 Colonoscopy 01/03/2026 05/12/2024, 07/0 09/2022, 01/02/2023 Colorectal Cancer Screening 01/03/2026 Eye Exam 06/04/2026 06/04/2025 Dental X-Ray: Bitewings 06/22/2026 06/21/20 25, 04/07/2025, 06/29/2024, Additional history exists Tobacco Screening 07/07/2026 07/07/2025 Dental X-Ray: Full Mouth 10/09/2026 024, 04/26/2023, [...] on patient's age to complete this topic Goals Goal Patient Goal Type Associated Problems Recent Progress Patient-Stated? Author Help patients manage their type 2 diabetes Care Plan Help patients manage their type 2 diabetes No George, Fransico, [employer] FIN[employer] INSPECTOR Weekly blood pressure task Care Plan Weekly blood pressure task No George, Fransico, [employer] FINAL INSPECTOR Help patients manage their type 2 diabetes Care Plan Help patients manage their type 2 diabetes No George, Fransico, [employer] FINAL INSPECTOR Patient has chronic kidney disease Care Plan Patient has chronic kidney disease No George, Fransico, [employer] FINAL INSPECTOR Weekly blood pressure task Care Plan Weekly blood pressure task No George, Fransico, [employer] FINAL INSPECTOR Patient has chronic kidney disease Care Plan Patient has chronic kidney disease No George, Fransico, [employer]OR[employer] FINAL INSPECTOR Procedures Procedure Name Priority Date/Time Associated Diagnosis Comments MAGNESIUM Routine 07/26/2025 10:17 AM EST COMPREHENSIVE METABOLIC PANEL Routine 07/26/2025 10:17 AM EST CBC WITH AUTO DIFFERENTIAL Routine 07/26/2025 10:[address] HEAD WO CONTRAST STAT 07/12/2025 3 :01 PM EST Injury of head, initial encounter CT ORBIT BI WO CONTRAST STAT 07/12/2025 3:01 PM EST Injury of head, initial encounter CONSULTATION - DIAGNOSTIC SERVICE PROVIDED BY DENTIST OR PHYSICIAN OTHER THAN REQUESTING DENTIST OR PHYSICIAN Routine 07/07/2025 1:30 PM EST 18,19 INTRAORAL - PERIAPICAL FIRST RADIOGRAPHIC IMAGE Routine 07/07/2025 1:30 PM EST CULTURE, URINE, ROUTINE Routine 06/22/2025 9:51 AM EST PERIODIC ORAL EVALUATION - ESTABLISHED PATIENT Routine 06/21/2025 9:30 AM EST INTRAORAL - PERIAPICAL FIRST [...] insulin (CMS/HCC) ALBUMIN, RANDOM URINE W/CREATININE Routine 12/22/2024 10:00 [...] without long-term current use of insulin (CMS/HCC) COLONOSCOPY Routine 05/12/2024 3:09 PM EDT PANORAMIC RADIOGRAPHIC IMAGE Routine 10/09/2023 9:30 AM EDT from Last 3 Months or Most Recently Relevant to Health Maintenance Results * (ABNORMAL) CBC auto differential (07/26/2025 10:17 AM EST) White Blood Count 5.7 4.8 - 10.8 X10*3/uL [facility] Red Blood Count 4.74 4.60 - 5.80 X10*6/uL [facility] Hemoglobin 13.5(L) 14.0 - 18.0 g/dl [facility] Hematocrit 39.9(L) 42.0 - 52.0 % [facility] Mean Corpuscular Volume 84.2 80.0 - 98.0 fL [facility] Mean Corpuscular Hemoglobin 28.5 27.0 - 33.0 pg [facility] Mean Corpuscular HGB Conc 33.8 31.0 - 36.0 g/dl [facility] Red Cell Distribution Width 12.6 11.0 - 16.0 % [facility] Platelet Count 198 160 - 400 X10*3/uL [facility] Mean Platelet Volume 10.0 9.4 - 12.4 fL [facility] Neutrophils Percent Auto 51.3 45 - 73 % [facility] Imm Gran Pct Auto 0.3 0.0 - 0.4 % [facility] Lymphocytes Percent Auto 37.8 20 - 40 % [facility] Monocytes Percent Auto 7.3 2 - 11 % [facility] Eosinophils Percent Auto 2.4 0 - 4 % [facility] Basophils Percent Auto 0.9 0 - 2 % [facility] NRBC Pct Auto 0.0 0.0 - 0.2 /100WBC [facility] Neutrophils Absolute Auto 2.9 2.0 - 8.3 x10*3/uL [facility] Imm Gran Abs Auto 0.02 0.00 - 0.03 X10*3/uL [facility] Lymphocytes Absolute Auto 2.2 1.2 - 4.9 X10*3/uL [facility] Monocytes Absolute Auto 0.4 0.1 - 1.2 X10*3/uL [facility] Eosinophils Absolute Auto 0.1 0.0 - 0.4 X10*3/uL [facility] Basophils Absolute Auto 0.1 0.0 - 0.2 X10*3/uL [facility] NRBC Abs Auto 0.000 0.0 - 0.012 X10*3/uL [facility] 07/26/2025 10:1 7 AM EST 07/26/2025 10:20 AM EST us Generic External Data Provider LAB BLOOD ORDERAB LES Final Result Performing Organization Address City/[facility]/ZIP Co de Phone Number [facility] [address] [place] [address] [phone] * Magnesium (07/26/2025 10:17 AM EST) Pathologist [facility] Magnesium 1.9 1.6 - 2.6 mg/dL [facility] 07/26/2025 10:1 7 AM EST 07/26/2025 10:20 AM EST us Generic External Data Provider LAB BLOOD ORDERAB LES Final Result Performing Organization Address [facility] Co de Phone Number [facility] [address] [place] [address] [phone] * (ABNORMAL) Comprehensive Metabolic Panel (07/26/2025 10:17 AM EST) Sodium 143 135 - 145 mmol/L [facility] Potassium 3.9 3.3 - 5.1 mmol/L [facility] Chloride 110(H) 96 - 108 mmol/L [facility] Carbon Dioxide 28 22 - 29 mmol/L [facility] Anion Gap 9(L) 12 - 20 [facility] Urea Nitrogen (BUN) 20(H) 9 - 16 mg/dL [facility] Creatinine, Serum 0.73 0.5 - 1.4 mg/dL [facility] Creatinine Clr Calc Pharmacy 81.9 [facility] Comment:eGFR (calculated fro m the MDRD study equation) and eCrCl(calculated from the Cockcroft-Gault equation) are based ondifferent parameters and may not yield comparable results.If eCrCl result is absurd, please check patient'sheight/weight. Estimated Glomerular Filt Rate >60 [facility] Comment:Chronic Kidney Disea se: Estimated GFR < 60 mL/min/1.10f4Fmegeo Kidney Disease: Estimated GFR < 15 mL/min/1.73m2 Glucose 168(H) 60 - 115 mg/dL [facility] Calcium 9.3 8.4 - 10.2 mg/dL [facility] Bilirubin, Total 0.4 0.0 - 1.0 mg/dL [facility] Aspartate Amino Transferase 26 5 - 37 U/L [facility] Alanine Aminotransferase 28 0 - 40 U/L [facility] Total Protein 6.8 6.5 - 8.0 g/dL [facility] Albumin Level 3.9 3.5 - 5.0 g/dL [facility] Alkaline Phosphatase 95 39 - 117 U/L [facility] 07/26/2025 10:1 7 AM EST 07/26/2025 10:20 AM EST us Generic External Data Provider LAB BLOOD ORDERAB LES Final Result Performing Organization Address City/State/[facility] Co de Phone Number [facility] [address] [place] [address] [phone] * CT ORBIT BI WO CONTRAST (07/12/2025 3:01 PM EST) Anatomical Region Laterality Modality Head, Neck Computed Tomogra phy 07/12/2025 3:01 PM EST Narrative 07/12/2025 3:48 PM EST [place] [address] CT Scan Report Signed Patient: Mendez Yepez MR#: [id number] 199 : 1955 Acct:[id number] Age/Sex: 69 / M ADM Date: 07/12/25 Loc: HO.CT Attending Dr: China Taylor RN LAB Ordering Physician: CHINA TAYLOR NP Date of Service: 07/12/25 Procedure(s): CT orbit BI wo IV con Accession Number(s): [id number] cc: Mt Guerrero MD; CHINA TAYLOR NP Report Number: [id number]: Total DLP = 969.60 mGy-cm Reason for Exam: Head injury w/ raccoon sign Saturday EXAMINATION: CT ORBIT WITHOUT CONTRAST CLINICAL INFORMATION: Head injury 2 days ago w/ raccoon sign COMPARISON: None available. TECHNIQUE: Axial CT was performed through the facial bones without contrast. Coronal and sagittal reformatted images were generated from the original axial data set. ALARA: The examination used one or more of the following radiation dose reduction techniques: Automated exposure control, iterative reconstruction, and/or adjustment of mA and/or KV. FINDINGS: There is lucency through the lateral wall of the right maxillary sinus, posterior inferiorly, most consistent with a vascular channel. No definite fractures are identified. Paranasal sinuses are clear. Orbits are unremarkable. CT/CT orbit BI wo IV con IMPRESSION: No acute bony abnormality. Electronically signed by: Ketan Larios MD 07/12/2025 03:45 PM EST Dictated By: Ketan Larios MD Signed By: <Electronically signed by Ketan Larios MD in OV> 07/12/25 1545 DD/ 1501 TD/TT: 07/12/25 1531 Convention Manager: Procedure Note Donotuseinterpreter, Image - 07/12/[address] [place] [address] [address] Scan Report Signed Patient: Mendez YepezMR#: [id number] 199 : 5Acct:[id number] Age/Sex: 69 / MADM Date: 07/12/25 Loc: HO.CT Attending Dr: China Taylor NP Ordering Physician: CHINA TAYLOR NP Date of Service: 07/12/25 Procedure(s): CT orbit BI wo IV con Accession Number(s): [id number] cc: Mt Guerrero MD; CHINA TAYLOR NP Report Number: [id number]: Total DLP = 969.60 mGy-cm Reason for Exam: Head injury w/ raccoon sign Saturday EXAMINATION: CT ORBIT WITHOUT CONTRAST CLINICAL INFORMATION: Head injury 2 days ago w/ raccoon sign COMPARISON: None available. TECHNIQUE: Axial CT was performed through the facial bones without contrast. Coronal and sagittal reformatted images were generated from the original axial data set. ALARA: The examination used one or more of the following radiation dose reduction techniques: Automated exposure control, iterative reconstruction, and/or adjustment of mA and/or KV. FINDINGS: There is lucency through the lateral wall of the right maxillary sinus, posterior inferiorly, most consistent with a vascular channel. No definite fractures are identified. Paranasal sinuses are clear. Orbits are unremarkable. CT/CT orbit BI wo IV con IMPRESSION: No acute bony abnormality. Electronically signed by: Ketan Larios MD 07/12/2025 03:45 PM EST RP Dictated By: Ketan Larios MD Signed By: <Electronically signed by Ketan Larios MD in OV> 07/12/25 1545 DD/ 1501 TD/TT: 07/12/25 1531 Convention Manager: China Taylor ANP IM CT PROCEDURES Final Result * CT Head w/o Contrast (07/12/2025 3:01 PM EST) Anatomical Region Laterality Modality Head, Neck Computed Tomogra phy 07/12/2025 3:01 PM EST Narrative 07/12/2025 3:45 PM EST [place] [address] CT Scan Report Signed Patient: Mendez Yepez MR#: [id number] 199 : 1955 Acct:[id number] Age/Sex: 69 / M ADM Date: 07/12/25 Loc: HO.CT Attending Dr: China Taylor NP Ordering Physician: CHINA TAYLOR NP Date of Service: 07/12/25 Procedure(s): CT head/brain wo IV con Accession Number(s): [id number] cc: Mt Guerrero MD; CHINA TAYLOR NP Report Number: [id number]: Total DLP = 0.00 mGy-cm Reason for Exam: Recent head injury with racoon sign EXAMINATION: CT HEAD WITHOUT CONTRAST CLINICAL INFORMATION: Head trauma, racoon sign COMPARISON: 05/21/2020 TECHNIQUE: Contiguous axial imaging was performed from the skull base to vertex without intravenous administration of contrast. This CT examination was performed using dose optimization techniques as appropriate, variously including the following: *Automated exposure control *Adjustment of mA and/or kV according to patient size (this includes techniques or standardized protocols for targeted exams where dose is matched to indication/reason for exam; i.e. extremities or head) *Use of iterative reconstruction technique FINDINGS: There is no acute ischemic change. There is no intracranial hemorrhage. There is no mass-effect or midline shift. Basal cisterns and ventricles are within normal limits for age/cerebral volume. Orbits are symmetrical and unremarkable. Paranasal sinuses and mastoid air cells are pneumatized. There are no bony abnormalities. CT/CT head/brain wo IV con IMPRESSION: No acute intracranial abnormality. Electronically signed by: Ketan Larios MD 07/12/2025 03:41 PM [facility] Dictated By: Ketan Larios MD Signed By: <Electronically signed by Ketan Larios MD in OV> 07/12/25 1541 DD/ 1501 TD/TT: 07/12/25 1531 Convention Manager: Procedure Note Donotuseinterpreter, Image - 07/12/[address] [place] [address] [address] Scan Report Signed Patient: Mendez YepezMR#: [id number] [birth year] : 5Acct:[id number] Age/Sex: 69 / MADM Date: 07/12/25 Loc: HO.CT Attending Dr: China Taylor NP Ordering Physician: CHINA TAYLOR NP Date of Service: 07/12/25 Procedure(s): CT head/brain wo IV con Accession Number(s): [id number] cc: Mt Guerrero MD; CHINA TAYLOR NP Report Number: [id number]: Total DLP = 0.00 mGy-cm Reason for Exam: Recent head injury with racoon sign EXAMINATION: CT HEAD WITHOUT CONTRAST CLINICAL INFORMATION: Head trauma, racoon sign COMPARISON: 05/21/2020 TECHNIQUE: Contiguous axial imaging was performed from the skull base to vertex without intravenous administration of contrast. This CT examination was performed using dose optimization techniques as appropriate, variously including the following: *Automated exposure control *Adjustment of mA and/or kV according to patient size (this includes techniques or standardized protocols for targeted exams where dose is matched to indication/reason for exam; i.e. extremities or head) *Use of iterative reconstruction technique FINDINGS: There is no acute ischemic change. There is no intracranial hemorrhage. There is no mass-effect or midline shift. Basal cisterns and ventricles are within normal limits for age/cerebral volume. Orbits are symmetrical and unremarkable. Paranasal sinuses and mastoid air cells are pneumatized. There are no bony abnormalities. CT/CT head/brain wo IV con IMPRESSION: No acute intracranial abnormality. Electronically signed by: Ketan Larios MD 07/12/2025 03:41 PM EST RP Dictated By: Ketan Larios MD Signed By: <Electronically signed by Ketan Larios MD in OV> 07/12/25 1541 DD/ 1501 TD/TT: 07/12/25 1531 Convention Manager: us China WALTER IMG CT PROCEDURES Final Result * Culture, Urine, Routine (06/22/2025 9:51 AM EST) Urine Urine specimen obtained by clean catch procedure / Unknown 06/22/2025 9:51 AM EST 06/22/2025 5:37 PM EST Comment:[facility] Narrative [facility] - 06/24/2025 8:32 AM EST Escherichia coli Quant > 100,000 cfu/mL Escherichia coli: Ampicillin >=32(R) Escherichia coli: Cefazolin (Urine) <=1(S) Escherichia coli: Cefepime <=0.12(S) Escherichia coli: Ceftriaxone <=0.25(S) Escherichia coli: Ciprofloxacin >=4(R) Escherichia coli: Gentamicin >=16(R) Escherichia coli: Nitrofurantoin <=16(S) Escherichia coli: Trimethoprim/Sulfamethoxazole >=320(R) Specimen Source: Urine clean catch us Generic External Data Provider LAB MICROBIOLOGY - GENERAL ORDERABLES Final Result [facility] [address] [place] [phone] * Diabetes Eye Exam (06/04/2025 9:55 AM EST) Historical Provider HEALTH MAINTENANCE Final Result * (ABNORMAL) POCT A1c (04/15/2025 10:38 AM EDT) Hemoglobin A1C 7.5(A) 4.0 - 5.7 % QC Media Lot # [id number] Lot# Expiration Date ,695,729 Blood 04/15/2025 10:3 8 AM EDT Mt Guerrero MD POINT OF CARE TEST ENTER/ED IT ORDERABLES Final Result * Albumin, Random Urine W/Creatinine (12/22/2024 10:00 AM EDT) Creatinine, Urine 58.24 mg/dL [facility] Microalbumin Urine 16.0 mg/L [facility] Microalbum Creatinine Ratio Ur 27.4 <30 ug/mg cr [facility] Comment:Albumin/Creatinine R atio Reference Ranges: Normal: < 30 ug/mg creatinine Microalbuminuria: 30 - 300 ug/mg creatinineClinical Albuminuria: > 300 ug/mg creatinine Urine (Urine, Random) 12/22/2024 10:00 AM EDT 12/22/2024 2:32 PM EDT Mt Guerrero MD LAB URINE ORDERABLES Final Result [facility] [address] [place] [phone] * (ABNORMAL) Lipid Panel, Standard (12/22/2024 12:00 AM EDT) Triglycerides 141 <150 mg/dL [facility] Comment:Desirable Triglyceri de: less than 150 mg/dLBorderline High Triglyceride 150-199 mg/dLHigh Triglyceride: 200-499 mg/dLVery High Triglyceride: greater than or equal to 5OO mg/dL Cholesterol 194 <200 mg/dL [facility] Comment:Desirable Cholestero l: less than 200 mg/dLBorderline High Cholesterol: 200-239 mg/dLHigh Cholesterol: greater than 239 mg/dL LDL Cholesterol Calculated 121(H) <100 mg/dL [facility] Comment:Desirable LDL: less than 100 mg/dLNear Optimal/Above Optimal LDL: 110- 129 mg/dLBorderline High LDL: 130-159 mg/dLHigh LDL: 160-189 mg/dLVery High LDL: greater than or equal to 190 mg/dL HDL Cholesterol 45 >40 mg/dL [facility] Comment:Desirable HDL: great er than 40 mg/dL Note: This HDL assay may give artificially low results in patients with liver disease. Blood Venous blood specimen / Unknown 12/22/2024 12/22/2024 us Mt Guerrero MD LAB BLOOD ORDERABLES Final Result Performing Organization Address [facility] Co de Phone Number [facility] [address] [place] [phone] * Hepatitis C Antibody with Reflex to HCV, RNA, Quantitative, Real-Time PCR (09/24/2024 12:04 PM EST) Hepatitis C Antibody Nonreactive Nonreactive [facility] Comment:Antibodies to HCV no t detected; does not exclude early acuteHCV infection. Blood Venous blood specimen / Unknown 09/24/2024 12:04 PM EST 09/24/2024 2:20 PM EST us Mt Guerrero MD LAB BLOOD ORDERABLES Final Result Performing Organization Address [facility] Co de Phone Number [facility] [address] [place] [address] [phone] * Hm Colonoscopy (01/28/2023 3:17 PM EDT) us Mt Guerrero MD HEALTH MAINTENANCE Final Re sult from Last 3 Months or Most Recently Relevant to Health Maintenance Additional Health Concerns Active Problems Noted Date Diagnosed Date Help patients manage their type 2 diabetes 07/07 Weekly blood pressure task 07/07/2025 Help patients manage their type 2 diabetes 07/07 Patient has chronic kidney disease 07/07/2025 Weekly blood pressure task 07/07/2025 Patient has chronic kidney disease 07/07/2025 Insurance [facility] (O D-SNP) [facility] [address] [address] Care Teams Director Treasurer Relationship Specialty Start Date End Date Mt Guerrero MD [address] [place] [address] PCP - General Internal Medicine 02/19/24 Vero Molina PharmD [address] [place] [phone] Pharmacist Internal Medicine 12/03/24
--- OUTSIDE RECORDS SUMMARY | 2025-07-26 11:34 | XMS_ITS | Encounter Summary ---
Author Organization [employer] Address [address] [place] [address] 7t [place] [address] Care Team Providers Care Rn Gastroenterology Name Role Phone Mt Guerrero MD Primary Care Provider Vero Molina PharmD Unavailable [phone] Encounter Details Date Type Department Care Team (Late Contact Info) Description 06/07/2023 Abstract [facility] ADULT DENTAL [address] [place] [address] Bertha Edwards DDS [address] [place] [address] Social History Tobacco Use Types Packs/Day Years [...] 10:00 AM EST Medication Management [facility] MED & PEDS [address] [place] [address] Vero Molina, PharmD [address] [place], [place] [phone] documented as of this encounter Visit Diagnoses Not on filedocumented in this encounter Care Teams Rn Gastroenterology Relationship Specialty Start Date End Date Mt Guerrero MD 505 [place] [address] PCP - General Internal Medicine 02/19/24 Vero Molina PharmD 230 [place] [address] Pharmacist Internal Medicine 12/03/24 documented as of this encounter
--- OUTSIDE RECORDS SUMMARY | 2025-07-26 11:34 | XMS_ITS | Encounter Summary ---
Author Organization [employer] Address [address] [place] [address] 7t [place] [address] Care Team Providers Care Process Improvement Analyst Name Role Phone Mt Guerrero MD Primary Care Provider +1- [phone] Vero Molina PharmD Unavailable [phone] Encounter Details Date Type Department Care Team (Late Contact Info) Description 08/07/2023 Abstract [facility] ADULT DENTAL 505 [place] [address] Bertha Edwards DDS 505 [place] [address] Social History Tobacco Use Types Packs/Day Years [...] Description 08/05/2025 10:00 AM EST Medication Management [facility] MED & PEDS 505 [place] [address] Vero Molina, PharmD [address] [place], [place] [phone] documented as of this encounter Visit Diagnoses Not on filedocumented in this encounter Care Teams Process Improvement Analyst Relationship Specialty Start Date End Date Mt Guerrero MD 505 [place] [address] PCP - General Internal Medicine 02/19/24 Vero Molina PharmD 230 [place] [address] Pharmacist Internal Medicine 12/03/24 documented as of this encounter
--- OUTSIDE RECORDS SUMMARY | 2025-07-26 11:34 | XMS_ITS | Encounter Summary ---
Author Organization [employer] Address [address] [place] [address] 7t [place] [address] Care Team Providers Care Education Adviser Name Role Phone Mt Guerrero MD Primary Care Provider [phone]- [phone] Vero Molina PharmD Unavailable [phone] Encounter Details Date Type Department Care Team (Late Contact Info) Description 02/20/2024 Orders Only [facility] Information Management [address] [place] [address] Provider, MD Curtis Social History Tobacco Use [...] Description 08/05/2025 10:00 AM EST Medication Management [facility] CHC MED & PEDS 505 [place] [address] Molina, Rosanne Pham 230 [place] [address] documented as of this encounter Procedures Procedure [...] documented as of this encounter Care Teams Education Adviser Relationship Specialty Start Date End Date Mt Guerrero MD [address] [place] [address] PCP - General Internal Medicine 02/19/24 Vero Molina PharmD 230 [place] [address] Pharmacist Internal Medicine 12/03/24 documented as of this encounter
--- OUTSIDE RECORDS SUMMARY | 2025-07-26 11:34 | XMS_ITS | Encounter Summary ---
Author Organization [employer] Address [address] 7t [place] [address] Care Team Providers Care Reimbursement Spec Name Role Phone Mt Guerrero MD Primary Care Provider [phone] Vero Molina PharmD Unavailable [phone] Reason for Visit * Reason Comments Med Refill Encounter Details Date Type Department Care Team ([facility] st Contact Info) Description 07/24/2025 Refill [facility] CHC MED & PEDS [address] [place] [address] Vero Molina, PharmD [address] [place] [address] Social History Tobacco Use Types Packs/Day Years [...] - [facility] 505 [place] [address] Vero Molina, PharmD 230 [place] [address] documented as of this encounter Goals Goal Patient Goal Type Associated Problems Recent Progress Patient-Stated? Author Help patients manage their type 2 diabetes Care Plan Help patients manage their type 2 diabetes No Fransico George FNP Weekly blood pressure task Care Plan Weekly blood pressure task No Fransico George FNP Help patients manage their type 2 diabetes Care Plan Help patients manage their type 2 diabetes No Fransico George FNP Patient has chronic kidney disease Care Plan Patient has chronic kidney disease No Fransico George FNP Weekly blood pressure task Care Plan Weekly blood pressure task No Fransico George FNP Patient has chronic kidney disease Care Plan Patient has chronic kidney disease No Fransico George FNP documented as of this encounter Visit Diagnoses Not on filedocumented in this encounter Additional Health Concerns Active Problems Noted Date Diagnosed Date Help patients manage their type 2 diabetes 07/07 Weekly blood pressure task 07/07/2025 Help patients manage their type 2 diabetes 07/07 Patient has chronic kidney disease 07/07/2025 Weekly blood pressure task 07/07/2025 Patient has chronic kidney disease 07/07/2025 Assessment Noted Time PHQ-9 Depression Total Score: 1 09/24/19 11:38 AM EST documented as of this encounter Care Teams Reimbursement Spec Relationship Specialty Start Date End Date Mt Guerrero MD [address] [place] [address] PCP - General Internal Medicine 02/19/24 Vero Molina PharmD [address] [place] [address] Pharmacist Internal Medicine 12/03/24 documented as of this encounter
--- OUTSIDE RECORDS SUMMARY | 2025-07-26 11:34 | XMS_ITS | Encounter Summary ---
Author Organization [employer] Address [address] [facility] 7t [place] [address] Care Team Providers Care Agricultural Economics Teacher Name Role Phone Mt Guerrero MD Primary Care Provider [phone] Vero Molina PharmD Unavailable [phone] Reason for Visit * Reason Comments Med Refill Encounter Details Date Type Department Care Team (Late Contact Info) Description 06/24/2024 Refill [facility] MEDICINE 230 [place] [address] Mt Guerrero MD 505 [place] [address] Social History Tobacco Use Types Packs/Day Years [...] Description 08/05/2025 10:00 AM EST Medication Management [facility] MED & PEDS 505 [place] [address] Vero Molina PharmD 230 [place] [address] documented as of this encounter Visit Diagnoses Not on filedocumented in this encounter Additional Health Concerns Assessment Noted Time PHQ-9 Depression Total Score: 8 02/19/20 10:12 AM EDT documented as of this encounter Care Teams Agricultural Economics Teacher Relationship Specialty Start Date End Date Mt Guerrero MD 505 [place] [address] PCP - General Internal Medicine 02/19/24 Vero Molina, Rosanne 230 [place] [address] Pharmacist Internal Medicine 12/03/24 documented as of this encounter
--- OUTSIDE RECORDS SUMMARY | 2025-07-26 11:34 | XMS_ITS | Encounter Summary ---
Author Organization [employer] Address [address] [place] [address] 7t [place] [address] Care Team Providers Care Knuckler Name Role Phone Mt Guerrero MD Primary Care Provider [phone]- [phone] Veor Molina PharmD Unavailable [phone] Encounter Details Date Type Department Care Team (Latest Contact Info) Description 09/14/2020 Abstract [facility] CONVERSIONS Dental, Provider, DDS Social History [...] Description 08/05/2025 10:00 AM EST Medication Management [facility] CHC MED & PEDS 505 [place] [address] Vero Molina, PharmD 230 [place] [address] documented as of this encounter Visit Diagnoses Not on filedocumented in this encounter Care Teams Knuckler Relationship Specialty Start Date End Date Mt Guerrero MD 505 [place] [address] PCP - General Internal Medicine 02/19/24 Vero Molina, VanessaD 230 [place] [address] Pharmacist Internal Medicine 12/03/24 documented as of this encounter
--- OUTSIDE RECORDS SUMMARY | 2025-07-26 11:34 | XMS_ITS | Encounter Summary ---
Author Organization [employer] Address [address] [facility] 7t [place] [address] Care Team Providers Care Electric Motor Analyst Name Role Phone Mt Guerrero MD Primary Care Provider [phone] Vero Molina PharmD Unavailable [phone] Reason for Visit * Reason Comments Med Refill Encounter Details Date Type Department Care Team (Late Contact Info) Description 06/24/2024 Refill [facility] MEDICINE 230 [place] [address] Mt Guerrero MD 505 [place] [address] Social History Tobacco Use Types Packs/Day Years [...] Description 08/05/2025 10:00 AM EST Medication Management [facility] MED & PEDS 505 [place] [address] Vero Molina PharmD 230 [place] [address] documented as of this encounter Visit Diagnoses Not on filedocumented in this encounter Additional Health Concerns Assessment Noted Time PHQ-9 Depression Total Score: 8 02/19/20 10:12 AM EDT documented as of this encounter Care Teams Electric Motor Analyst Relationship Specialty Start Date End Date Mt Guerrero MD 505 [place] [address] PCP - General Internal Medicine 02/19/24 Vero Molina, Rosanne 230 [place] [address] Pharmacist Internal Medicine 12/03/24 documented as of this encounter
--- OUTSIDE RECORDS SUMMARY | 2025-07-26 11:34 | XMS_ITS | Encounter Summary ---
Author Organization [employer] Address [address] [facility] 7t [place] [address] Care Team Providers Care Residential Life Director Name Role Phone Mt Guerrero MD Primary Care Provider [phone] Vero Molina PharmD Unavailable [phone] Encounter Details Date Type Department Care Team ([facility] Contact Info) Description 07/26/2025 Orders Only GENERIC EXTERNAL DATA DEPARTMENT Provider, Generic External Data Social History Tobacco Use Types Packs/Day Years [...] [facility] MED & PEDS 505 [place] [address] Vero Molina, PharmD 230 [place] [address] documented as of this encounter Goals Goal Patient Goal Type Associated Problems Recent Progress Patient-Stated? Author Help patients manage their type 2 diabetes Care Plan Help patients manage their type 2 diabetes No GeorgeUsmanic, RADIATION PHYSICIST Weekly blood pressure task Care Plan Weekly blood pressure task No George, Fransico, RADIATION PHYSICIST Help patients manage their type 2 diabetes Care Plan Help patients manage their type 2 diabetes No George, Fransico, RADIATION PHYSICIST Patient has chronic kidney disease Care Plan Patient has chronic kidney disease No George, Fransico, RADIATION PHYSICIST Weekly blood pressure task Care Plan Weekly blood pressure task No George, Fransico, RADIATION PHYSICIST Patient has chronic kidney disease Care Plan Patient has chronic kidney disease No George, Fransico, RADIATION PHYSICIST documented as of this encounter Procedures Procedure Name Priority Date/Time Associated Diagnosis Comments CBC WITH AUTO DIFFERENTIAL Routine 07/26/2025 10:17 AM EST MAGNESIUM Routine 07/26/2025 10:17 AM EST COMPREHENSIVE METABOLIC PANEL Routine 07/26/2025 10:17 AM EST documented in this encounter Results * Magnesium (07/26/2025 10:17 AM EST) Magnesium 1.9 1.6 - 2.6 mg/dL [facility] 07/26/2025 10:1 7 AM EST 07/26/2025 10:20 AM EST us Generic External Data Provider LAB BLOOD ORDERAB LES Final Result [facility] [address] [place] [address] [phone] * (ABNORMAL) Comprehensive Metabolic Panel (07/26/2025 10:17 AM EST) Sodium 143 135 - 145 mmol/L [facility] Potassium 3.9 3.3 - 5.1 mmol/L [facility] Chloride 110(H) 96 - 108 mmol/L [facility] Carbon Dioxide 28 22 - 29 mmol/L [facility] Anion Gap 9(L) 12 - [address] [facility] Urea Nitrogen (BUN) 20(H) 9 - 16 mg/dL [facility] Creatinine, Serum 0.73 0.5 - 1.4 mg/dL [facility] Creatinine Clr Calc Pharmacy 81.[address] [facility] Comment:eGFR (calculated fro m the MDRD study equation) and eCrCl(calculated from the Cockcroft-Gault equation) are based ondifferent parameters and may not yield comparable results.If eCrCl result is absurd, please check patient'sheight/weight. Estimated Glomerular Filt Rate >[address] [facility] Comment:Chronic Kidney Disea se: Estimated GFR < 60 mL/min/[id number] Kidney Disease: Estimated GFR < 15 mL/min/1.73m2 Glucose 168(H) 60 - 115 mg/dL [facility] Calcium 9.3 8.4 - 10.2 mg/dL [facility] Bilirubin, Total 0.4 0.0 - 1.0 mg/dL [facility] Aspartate Amino Transferase 26 5 - 37 U/L [facility] Alanine Aminotransferase 28 0 - 40 U/L [facility] Total Protein 6.8 6.5 - 8.0 g/dL [facility] Albumin Level 3.9 3.5 - 5.0 g/dL [facility] Alkaline Phosphatase 95 39 - 117 U/L [facility] 07/26/2025 10:1 7 AM EST 07/26/2025 10:20 AM EST us Generic External Data Provider LAB BLOOD ORDERAB LES Final Result [facility] [address] [place], [place] [phone] * (ABNORMAL) CBC auto differential (07/26/2025 10:17 AM EST) White Blood Count 5.7 4.8 - 10.8 X10*3/uL [facility] Red Blood Count 4.74 4.60 - 5.80 X10*6/uL [facility] Hemoglobin 13.5(L) 14.0 - 18.0 g/dl [facility] Hematocrit 39.9(L) 42.0 - 52.0 % [facility] Mean Corpuscular Volume 84.2 80.0 - 98.[address] [facility] Mean Corpuscular Hemoglobin 28.5 27.0 - 33.[address] [facility] Mean Corpuscular HGB Conc 33.8 31.0 - 36.0 g/dl [facility] Red Cell Distribution Width 12.6 11.0 - 16.0 % [facility] Platelet Count 198 160 - 400 X10*3/uL [facility] Mean Platelet Volume 10.0 9.4 - 12.[address] [facility] Neutrophils Percent Auto 51.3 45 - 73 % [facility] Imm Gran Pct Auto 0.3 0.0 - 0.4 % [facility] Lymphocytes Percent Auto 37.8 20 - 40 % [facility] Monocytes Percent Auto 7.3 2 - 11 % [facility] Eosinophils Percent Auto 2.4 0 - 4 % [facility] Basophils Percent Auto 0.9 0 - 2 % [facility] NRBC Pct Auto 0.0 0.0 - 0.2 /100WBC [facility] Neutrophils Absolute Auto 2.9 2.0 - 8.3 x10*3/uL [facility] Imm Gran Abs Auto 0.02 0.00 - 0.03 X10*3/uL [facility] Lymphocytes Absolute Auto 2.2 1.2 - 4.9 X10*3/uL [facility] Monocytes Absolute Auto 0.4 0.1 - 1.2 X10*3/uL [facility] Eosinophils Absolute Auto 0.1 0.0 - 0.4 X10*3/uL [facility] Basophils Absolute Auto 0.1 0.0 - 0.2 X10*3/uL [facility] NRBC Abs Auto 0.000 0.0 - 0.012 X10*3/uL [facility] 07/26/2025 10:1 7 AM EST 07/26/2025 10:20 AM EST us Generic External Data Provider LAB BLOOD ORDERAB LES Final Result Performing Organization Address City/State/[facility] Co de Phone Number [facility] [address] [place] [address] [phone] documented in this encounter Visit Diagnoses Not [...] documented as of this encounter Care Teams Residential Life Director Relationship Specialty Start Date End Date Mt Guerrero MD [address] [place] [address] PCP - General Internal Medicine 02/19/24 Vero Molina, Rosanne [address] [place] [address] Pharmacist Internal Medicine 12/03/24 documented as of this encounter
--- OUTSIDE RECORDS SUMMARY | 2025-07-26 11:34 | XMS_ITS | Encounter Summary ---
Author Organization [employer] Address [address] [facility] 7t [place] [address] Care Team Providers Care Hull Molder Name Role Phone Mt Guerrero MD Primary Care Provider [phone]- [phone] Vero Molina PharmD Unavailable [phone] Encounter Details Date Type Department Care Team ([facility] Contact Info) Description 05/12/2024 Orders Only [facility] CHC MED & PEDS 505 [place], [place] [phone] Mt Guerrero MD 505 [place] [address] Social History Tobacco Use Types Packs/Day Years [...] Upcoming Encounters Date Type Department Care Team ([facility] Contact Info) Description 08/05/2025 10:00 AM EST Medication Management [facility] CHC MED & PEDS 505 [place] [address] Vero Molina PharmD 230 [place] [address] documented as of this encounter Procedures Procedure [...] documented as of this encounter Care Teams Hull Molder Relationship Specialty Start Date End Date Mt Guerrero MD 505 [place] [address] PCP - General Internal Medicine 02/19/24 Vero Molina PharmD 230 [place] [address] Pharmacist Internal Medicine 12/03/24 documented as of this encounter
--- OUTSIDE RECORDS SUMMARY | 2025-07-26 11:35 | XMS_ITS | Encounter Summary ---
Author Organization [employer] Address [address] [place] [address] 7t [place] [address] Care Team Providers Care Press Department Manager Name Role Phone Mt Guerrero MD Primary Care Provider [phone]- [phone] Vero Molina PharmD Unavailable [phone] Encounter Details Date Type Department Care Team (Latest Contact Info) Description 04/17/2019 Abstract [facility] CONVERSIONS Dental, Provider, DDS Social History Tobacco [...] Description 08/05/2025 10:00 AM EST Medication Management [facility] CHC MED & PEDS [address] [place] [address] Vero Molina, PharmD 230 [place] [address] documented as of this encounter Visit Diagnoses Not on filedocumented in this encounter Care Teams Press Department Manager Relationship Specialty Start Date End Date Mt Guerrero MD 505 [place] [address] PCP - General Internal Medicine 02/19/24 Vero Molina, VanessaD 230 [place] [address] Pharmacist Internal Medicine 12/03/24 documented as of this encounter
--- OUTSIDE RECORDS SUMMARY | 2025-07-26 11:35 | XMS_ITS | Encounter Summary ---
Author Organization [employer] Address [address] [place] [address] 7t [place] [address] Care Team Providers Care Senior Test Engineer Name Role Phone Mt Guerrero MD Primary Care Provider [phone]- [phone] Vero Molina PharmD Unavailable [phone] Reason for Referral * Imaging (Routine) - Authorized Specialty Diagnoses / Procedures Referred By Contac t Referred To Contact Radiology Diagnoses Hypertrophy of bile duct (any) Procedures MRI Liver w/wo Contrast Mt Guerrero MD [address] [place] [address] Phone: tel: fax: [address] [address] Phone: tel: fax: Referral ID Status Reason Start Date Expiration Date V isits Requested Visits Authorized [id number] Authorized 03/16/2025 03/16/2026 1 1 Encounter Details Date Type Department Care Team (Late st Contact Info) Description 03/16/2025 Orders Only [facility] MED & PEDS 505 [place], [place] [phone] Mt Guerrero MD [address] [place], [place] [phone] Hypertrophy of bile duct (any) (Primary Dx) [...] Description 08/05/2025 10:00 AM EST Medication Management [facility] MED & PEDS 505 [place] [address] Vero Molina, PharmD 230 [place], [place] [phone] Scheduled Orders Name Type Priority Associated Diagnoses [...] AM EDT Narrative 04/08/2025 11:44 AM EDT [place] [address] Magnetic Resonance Report Signed Patient: Mendez Yepez MR#: [id number] : 1955 Acct:[id number] Age/Sex: 69 / M ADM Date: 04/08/25 Loc: HO.MRI Attending Dr: Mt Guerrero MD Ordering Physician: Mt Guerrero MD Date of Service: 04/08/25 Procedure(s): MR abdomen wo/w con Accession Number(s): [id number] cc: Mt Guerrero MD Reason for Exam: [...] 04/08/25 1140 DD/ 1046 TD/TT: 04/08/25 1111 Superintendent Of Generation: Procedure Note Donotuseinterpreter, Image - 04/08/2025 [place] [address] Magnetic Resonance Report Signed Patient: Mendez YepezMR#: [id number] : 5Acct:[id number] Age/Sex: 69 / MADM Date: 04/08/25 Loc: HO.MRI Attending Dr: Mt Guerrero MD Ordering Physician: Mt Guerrero MD Date of Service: 04/08/25 Procedure(s): MR abdomen wo/w con Accession Number(s): [id number] cc: Mt Guerrero MD Reason for Exam: [...] 04/08/25 1140 DD/ 1046 TD/TT: 04/08/25 1111 Superintendent Of Generation: Mt Guerrero MD [facility] [place] PROCEDURES Final Re sult documented in this encounter Visit Diagnoses Diagnosis Hypertrophy of bile duct (any)- Primary Other specified disorders of biliary tract documented in this encounter Additional Health Concerns Assessment Noted Time PHQ-9 Depression Total Score: 1 09/24/19 11:38 AM EST documented as of this encounter Care Teams Senior Test Engineer Relationship Specialty Start Date End Date Mt Guerrero MD [address] [place] [address] PCP - General Internal Medicine 02/19/24 Vero Molina PharmD [address] [place] [address] Pharmacist Internal Medicine 12/03/24 documented as of this encounter
--- OUTSIDE RECORDS SUMMARY | 2025-07-26 11:35 | XMS_ITS | Encounter Summary ---
Author Organization [employer] Address [address] [facility] 7t [place] [address] Care Team Providers Care Glove Parts Inspector Name Role Phone Mt Guerrero MD Primary Care Provider [phone]- [phone] Vero Molina PharmD Unavailable [phone] Reason for Visit * Reason Onset Date Comments Dr. Debbie Kaur from [facility] dental lab speak with provider 02/17/2025 Encounter Details Date Type Department Care Team ([facility] st Contact Info) Description 02/17/2025 Telephone [facility] ADULT DENTAL [address] [place], [place] [phone] Danis Lewis [address] [place], [place] [phone] Dr. Debbie Kaur from [facility] dental lab [...] EDT Message for Dr. Debbie Kaur from [facility] lab called stating that they would like to speak provider directly concerning dental case. Please reach out to Natasha at [phone]. documented in this encounter Plan of Treatment Upcoming Encounters Date Type Department Care Team (Late st Contact Info) Description 08/05/2025 10:00 AM EST Medication Management [facility] MED & PEDS [address] [place] [address] Vero Molina PharmD 230 [place] [address] documented as of this encounter Visit Diagnoses Not on filedocumented in this encounter Additional Health Concerns Assessment Noted Time PHQ-9 Depression Total Score: 1 09/24/19 25 11:38 AM EST documented as of this encounter Care Teams Glove Parts Inspector Relationship Specialty Start Date End Date Mt Guerrero MD 505 [place] [address] PCP - General Internal Medicine 02/19/24 Vero Molina PharmD [address] [place] [address] Pharmacist Internal Medicine 12/03/24 documented as of this encounter
--- OUTSIDE RECORDS SUMMARY | 2025-07-26 11:35 | XMS_ITS | Clinical Summary ---
Author Organization [address] [facility] Address [address] [place] [address] Phone Care Team Providers Care Surveyor Geodetic Name Role Phone Mt Guerrero MD Primary Care Provider [phone] Allergies Active Allergy Reactions Criticality Noted Date [...] Upcoming Encounters Date Type Department Care Team ([facility] Contact Info) Description 10/07/2025 9:45 AM EDT Office Visit Orthopedic Surgery [place] [address] [address] Brenden Longoria, DPM [address] [address] Health Maintenance Due Date Last [...] this topic Insurance [employer] Care Teams Surveyor Geodetic Relationship Specialty Start Date End Date Mt Guerrero MD [address] [place] [address] PCP - General 04/15/24
--- OUTSIDE RECORDS SUMMARY | 2025-07-26 11:35 | XMS_ITS | Encounter Summary ---
Author Organization [employer] Address [address]t [place] [address] Care Team Providers Care Optometry Teacher Name Role Phone Mt Guerrero MD Primary Care Provider [phone] Vero Molina PharmD Unavailable [phone] Encounter Details Date Type Department Care Team ([facility] st Contact Info) Description 06/07/2025 Orders Only [facility] CHC MED & PEDS [address] [place] [address] Provider, MD Curtis Social History Tobacco Use [...] [facility] MED & PEDS [address] [place], [place] [phone] Vero Molina PharmD [address] [place] [address] documented as of this encounter Procedures Procedure [...] documented as of this encounter Care Teams Optometry Teacher Relationship Specialty Start Date End Date Mt Guerrero MD [address] [place], [place] [phone] PCP - General Internal Medicine 02/19/24 Vero Molina PharmD [address] [place] [address] Pharmacist Internal Medicine 12/03/24 documented as of this encounter
--- OUTSIDE RECORDS SUMMARY | 2025-07-26 11:35 | XMS_ITS | Encounter Summary ---
Author Organization [employer] Address [address] [place] [address] 7t [place] [address] Care Team Providers Care Aperture Mask Etcher Name Role Phone Mt Guerrero MD Primary Care Provider [phone] Vero Molina PharmD Unavailable [phone] Reason for Referral * Imaging (Routine) - Closed Specialty Diagnoses / Procedures Referred By Jonathan beaulieu Referred To Contact Radiology Diagnoses Transaminitis Procedures US Abdomen Complete Mt Guerrero MD [address] [place] [address] Phone: tel: fax: [address] [phone] Phone: tel: fax: Referral ID Status Reason Start Date Expiration Date Visits Re quested Visits Authorized [id number] Closed 12/22/2024 12/22/2025 1 1 Encounter Details Date Type Department Care Team (Late st Contact Info) Description 12/22/2024 Orders Only [facility] CHC MED & PEDS [address] [place], [place] [phone] Mt Guerrero MD [address] [place], [place] [phone] Transaminitis (Primary Dx) Social History Tobacco Use [...] Description 08/05/2025 10:00 AM EST Medication Management [facility] CHC MED & PEDS [address] [place] [address] Vero Molina, PharmD [address] [place], [place] [phone] Scheduled Orders Name Type Priority Associated Diagnoses [...] PM EDT Narrative 02/20/2025 2:34 PM EDT [place] [address] Ultrasound Report Signed Patient: Mendez Yepez MR#: [id number] : 1955 Acct:[id number] Age/Sex: 69 / M ADM Date: 02/19/25 Loc: HO.US Attending Dr: Mt Guerrero MD Ordering Physician: Mt Guerrero MD Date of Service: 02/19/25 Procedure(s): US abdomen complete Accession Number(s): [id number] cc: Mt Guerrero MD CLINICAL HISTORY: Transaminitis [...] 02/20/25 1433 DD/ 1432 TD/TT: 02/20/25 1432 Ship Fitter: Procedure Note Donotuseinterpreter, Image - 02/20/[address] [address] Ultrasound Report Signed Patient: Mendez YepezMR#: [id number] : 5Acct:[id number] Age/Sex: 69 / MADM Date: 02/19/25 Loc: HO.US Attending Dr: Mt Guerrero MD Ordering Physician: Mt Guerrero MD Date of Service: 02/19/25 Procedure(s): US abdomen complete Accession Number(s): [id number] cc: Mt Guerrero MD CLINICAL HISTORY: Transaminitis [...] 02/20/25 1433 DD/ 1432 TD/TT: 02/20/25 1432 Ship Fitter: us Mt Guerrero MD IMG US PROCEDURES Final Res ult documented in this encounter Visit Diagnoses Diagnosis Transaminitis- Primary Nonspecific elevation of levels of transaminase or lactic acid dehydrogenase (LDH) documented in this encounter Additional Health Concerns Assessment Noted Time PHQ-9 Depression Total Score: 1 09/24/19 25 11:38 AM EST documented as of this encounter Care Teams Aperture Mask Etcher Relationship Specialty Start Date End Date Mt Guerrero MD [address] [place] [address] PCP - General Internal Medicine 02/19/24 Vero Molina PharmD [address] [place] [address] Pharmacist Internal Medicine 12/03/24 documented as of this encounter
--- OUTSIDE RECORDS SUMMARY | 2025-07-26 11:35 | XMS_ITS | Encounter Summary ---
Author Organization [employer] Address [address] [place] [address] 7t [place] [address] Care Team Providers Care Commissary Helper Name Role Phone Mt Guerrero MD Primary Care Provider [phone] Vero Molina PharmD Unavailable [phone] Reason for Referral * Imaging (Routine) - Canceled Specialty Diagnoses / Procedures Referred By Jonathan beaulieu Referred To Contact Radiology Diagnoses Common bile duct dilatation Procedures MR Liver w/ Contrast Mt Guerrero MD [address] [place] [address] Phone: tel: fax: [facility] [address] [place] [phone] Phone: tel: fax: Referral ID Status Reason Start Date Expiration Date V isits Requested Visits Authorized [id number] Canceled 02/22/2025 02/22/2026 1 1 Encounter Details Date Type Department Care Team (Late st Contact Info) Description 02/22/2025 Orders Only [facility] MED & PEDS [address] [place], [place] [phone] Mt Guerrero MD [address] [place], [place] [phone] Common bile duct dilatation (Primary Dx) Social [...] Description 08/05/2025 10:00 AM EST Medication Management [facility] CHC MED & PEDS [address] [place] [address] Vero Molina, PharmD [address] [place], [place] [phone] Scheduled Orders Name Type Priority Associated Diagnoses [...] documented as of this encounter Care Teams Commissary Helper Relationship Specialty Start Date End Date Mt Guerrero MD [address] [place] [address] PCP - General Internal Medicine 02/19/24 Vero Molina PharmD [address] [place] [address] Pharmacist Internal Medicine 12/03/24 documented as of this encounter
--- OUTSIDE RECORDS SUMMARY | 2025-07-26 11:35 | XMS_ITS | Encounter Summary ---
Author Organization [employer] Address [address] [place] [address] 7t [place] [address] Care Team Providers Care Top Coater Name Role Phone Mt Guerrero MD Primary Care Provider [phone] Vero Molina PharmD Unavailable [phone] Encounter Details Date Type Department Care Team (Latest Contact Info) Description 09/22/2018 Abstract [facility] CONVERSIONS Dental, Provider, DDS Social History Tobacco [...] Description 08/05/2025 10:00 AM EST Medication Management [facility] CHC MED & PEDS [address] [place] [address] Vero Molina, PharmD [address] [place] [address] documented as of this encounter Visit Diagnoses Not on filedocumented in this encounter Care Teams Top Coater Relationship Specialty Start Date End Date Mt Guerrero MD [address] [place] [address] PCP - General Internal Medicine 02/19/24 Vero Molina, VanessaD [address] [place] [address] Pharmacist Internal Medicine 12/03/24 documented as of this encounter
--- OUTSIDE RECORDS SUMMARY | 2025-07-26 11:35 | XMS_ITS | Encounter Summary ---
Author Organization [employer] Address [address] [place] [address] Care Team Providers Care Building Rental Manager Name Role Phone Mt Guerrero MD Primary Care Provider [phone] Vero Molina PharmD Unavailable [phone] Reason for Visit * Reason Comments Med Refill Encounter Details Date Type Department Care Team ([facility] st Contact Info) Description 12/03/2024 Refill [facility] [address] [place] [address] Mt Guerrero MD [address] [place] [address] Social History Tobacco Use Types Packs/Day Years [...] Description 08/05/2025 10:00 AM EST Medication Management [facility] MED & PEDS [address] [place] [address] Vero Molina PharmD [address] [place] [address] documented as of this encounter Visit Diagnoses Not on filedocumented in this encounter Additional Health Concerns Assessment Noted Time PHQ-9 Depression Total Score: 1 09/24/19 25 11:38 AM EST documented as of this encounter Care Teams Building Rental Manager Relationship Specialty Start Date End Date Mt Guerrero MD [address] [place] [address] PCP - General Internal Medicine 02/19/24 Vero Molina PharmD [address] [place] [address] Pharmacist Internal Medicine 12/03/24 documented as of this encounter
[2025-07-26 16:50] VITALS: BP 125/65; PULSE 75
[2025-07-26 16:52] VITALS: BP 133/72; PULSE 76
[2025-07-26 16:54] VITALS: BP 115/61; PULSE 77
[2025-07-26 17:16] LABS: Appearance Urine Clear; Glucose Urine UA Negative (Negative); PH 5.0 (5.0-9.0); Specific Gravity - Urine 1.025 (1.005-1.025); UMIC TRIGGER UACC YES
[2025-07-26 17:35] LABS: UACC Culture Trigger YES
[2025-07-26 17:37] LABS: Troponin-I High Sensitivity < 2.7 ng/L (<3.5-35.0)
--- NOTE | 2025-07-26 17:57 | ED.DIZZY ---
HPI - Dizziness General Chief Complaint: Dizziness Stated Complaint: Dizziness, Blurry Vision Time Seen by Provider: 07/26/25 16:46 Source: patient and equipment tech Mode of arrival: ambulatory Limitations: no limitations History of Present Illness ED Provider: DR. Dunbar HPI Narrative: A 69-year-old male PMHx HTN, HLD, dm, BPH, poliomyelitis, and prostatitis came in for evaluation of feeling dizzy and room spinning around, symptoms started on Saturday 2 days ago symptoms worse with changing position, patient did not seek immediate medical attention because his was sick and he wanted to make sure she is okay. Otherwise no weakness, no numbness, no blurry vision, no slurred speech. As a result of dizziness patient fell in the bathroom this morning. Patient is also complaining of left ear pain. Related Data Home Medications ?Medication ?Instructions ?Recorded ?Confirmed blood sugar diagnostic #10 ea 12/27/20 05/26/24 lancets 28 gauge #100 ea 12/27/20 05/26/24 blood-glucose meter (FreeStyle #1 ea 05/24/21 05/26/24 Cass Lite kit) alcohol swabs (Easy Touch Alcohol 1 pad topical TID 06/04/22 05/26/24 Prep Pads) Previous Rx's ?Medication ?Instructions ?Recorded adult diapers pull-ups #240 ea 11/01/22 disposable gloves #100 ea 11/01/22 personal wipes #200 ea 11/01/22 left foot brace/Kafo adjustment #1 ea 01/07/23 Ventolin HFA 90 mcg/actuation 2 puff inhalation DAILY 30 days 01/24/23 aerosol inhaler (albuterol sulfate) #18 grams docusate calcium 240 mg capsule 240 mg PO BEDTIME PRN constipation 01/24/23 90 days #90 caps fluticasone furoate 50 1 inh inhalation DAILY 30 days #30 07/26/23 mcg/actuation blister powder for ea inhalation (Arnuity Ellipta) meloxicam 15 mg tablet 15 mg PO DAILY 30 days #30 tabs 08/29/23 fluticasone propionate 110 2 puff inhalation BID 30 days #12 10/23/23 mcg/actuation HFA aerosol inhaler grams lisinopril 10 mg tablet 10 mg PO DAILY 90 days #90 tabs 08/26/24 sitagliptin phosphate 50 mg tablet 50 mg PO DAILY 90 days #90 tabs 03/23/24 (Januvia) acetaminophen 650 mg 650 mg PO DAILY PRN fever or pain 04/13/24 tablet,extended release (8 Hour 90 days #90 tabs Pain Reliever) aspirin 81 mg tablet,delayed 81 mg PO DAILY 90 days #90 tabs 04/20/24 release lidocaine 5 % topical patch 1 patch topical DAILY #15 ea 05/11/24 atorvastatin 80 mg tablet 80 mg PO BEDTIME 90 days #90 tabs 11/29/24 oxybutynin chloride 10 mg 10 mg PO DAILY #90 tabs 12/23/24 tablet,extended release 24 hr finasteride 5 mg tablet 5 mg PO DAILY 90 days #90 tabs 01/20/25 ascorbic acid (vitamin C) 1,000 mg 1,000 mg PO DAILY 90 days #90 tabs 06/22/25 tablet methenamine hippurate 1 gram tablet 1 g PO DAILY 90 days #90 tabs 06/22/25 nitrofurantoin macrocrystal 100 mg 100 mg PO BID 7 days #14 caps 06/22/25 capsule Allergies Allergy/AdvReac Type Severity Reaction Status Date / Time Penicillins Allergy Intermediate RASH, itchy Verified 07/26/25 09:52 Review of Systems Review of Systems: All other systems are reviewed and are negative Constitutional: Reports as per HPI and Reports no additional constitutional complaints Eyes: Reports as per HPI and Reports no additional eye complaints Reports system reviewed and no additional complaints, except as documented Cardiovascular: Reports as per HPI and Reports no additional cardiovascular complaints Respiratory: Reports as per HPI and Reports no additional respiratory complaints Gastrointestinal: Reports as per HPI and Reports no additional gastrointestinal complaints Genitourinary: Reports no additional female genitourinary complaints Musculoskeletal: Reports no additional musculoskeletal complaints Skin/Breast: Reports system reviewed and no additional complaints, except as docu Psychiatric: Reports no additional psychiatric complaints Endocrine: Reports no additional endocrine complaints Hematologic/Lymphatic: Reports no additional hematologic/lymphatic complaints Allergic/Immunologic: Reports no additional allergic/immunologic complaints Reports system reviewed and no additional complaints, except as documented and Reports Abnormal speech present [facility] Past Medical History Medical History Overactive bladder BPH (benign prostatic hyperplasia) Diabetes Asthma Polio Surgical History History of surgery on lower extremity Hx of colonoscopy History of surgery Family History Family History Father Substance use disorder Mother Diabetes Hypertension Asthma Brother No problems noted. Social History Social History Household Members: Spouse Housing: House Are you a primary caretaker to a significant other at home: No Do you presently have visiting nurse or other home services: No Alcohol intake: never Patient Tobacco Use Status: Never used Tobacco e-Cigarette/Vaping Use: Never Used Second Hand Smoke Exposure: No Advance Directives: Yes Advance Directives on File: Yes Advance Directives Date on File: 04/18/22 Do you have a plan to hurt others: No Plan service: No Current occupational status: disabled Cognitive needs: Yes Hearing needs: No Vision needs: No Physical Exam Vital Signs: Vital Signs: Last Vital Signs Temp 97.6 F 07/26/25 09:43 Pulse 77 07/26/25 16:54 Resp 18 07/26/25 09:43 BP 115/61 07/26/25 16:54 Pulse Ox 99 07/26/25 09:43 O2 Del Method Room Air 07/26/25 09:43 BMI result Body Mass Index 22.9 NIH Stroke Scale Level of Consciousness: Alert Level of Consciousness Questions: Answers both questions correctly Level of Consciousness Commands: Performs both tasks correctly Best Gaze: Normal Visual: No visual loss Facial Palsy: Normal Motor Arm (Right): No drift Motor Arm (Left): No drift Motor Leg (Right): No drift Motor Leg (Left): No drift Limb Ataxia: Absent Sensory: Normal Best Language: No aphasia Dysarthia: Normal Extinction and Inattention: No abnormality Score: 0 Medical Decision Making Lab Data 07/26/25 10:17 07/26/25 10:17 Labs: Lab Results 07/26/25 07/26/25 Range/Units 10:17 17:07 WBC 5.7 (4.8-10.8) X10*3/uL RBC 4.74 (4.60-5.80) X10*6/uL Hgb 13.5 L (14.0-18.0) g/dl Hct 39.9 L (42.0-52.0) % MCV 84.2 (80.0-98.0) fL MCH 28.5 (27.0-33.0) pg MCHC 33.8 (31.0-36.0) g/dl RDW 12.6 (11.0-16.0) % Plt Count 198 (160-400) X10*3/uL MPV 10.0 (9.4-12.4) fL Immature Gran % (Auto) 0.3 (0.0-0.4) % Neut % (Auto) 51.3 (45-73) % Lymph % (Auto) 37.8 (20-40) % [place] % (Auto) 7.3 (2-11) % Eos % (Auto) 2.4 (0-4) % Baso % (Auto) 0.9 (0-2) % Lymph # (Auto) 2.2 (1.2-4.9) X10*3/uL [place] # (Auto) 0.4 (0.1-1.2) X10*3/uL Eos # (Auto) 0.1 (0.0-0.4) X10*3/uL Baso # (Auto) 0.1 (0.0-0.2) X10*3/uL Abs Immat Gran (auto) 0.02 (0.00-0.03) X10*3/uL Absolute Neuts (auto) 2.9 (2.0-8.3) x10*3/uL Absolute Nucleated RBC 0.000 (0.0-0.012) X10*3/uL Nucleated RBC % (auto) 0.0 (0.0-0.2) /100WBC Sodium 143 (135-145) mmol/L Potassium 3.9 (3.3-5.1) mmol/L Chloride 110 H (96-108) mmol/L Carbon Dioxide 28 (22-29) mmol/L Anion Gap 9 L (12-20) BUN 20 H (9-16) mg/dL Creatinine 0.73 (0.5-1.4) mg/dL Estim Creat Clear Calc 81.9 Estimated GFR > 60 Random Glucose 168 H (60-115) mg/dL Calcium 9.3 (8.4-10.2) mg/dL Magnesium 1.9 (1.6-2.6) mg/dL Total Bilirubin 0.4 (0.0-1.0) mg/dL AST 26 (5-37) U/L ALT 28 (0-40) U/L Alkaline Phosphatase 95 (39-117) U/L Troponin I High Sens < 2.7 (<3.5-35.0) ng/L Total Protein 6.8 (6.5-8.0) g/dL Albumin 3.9 (3.5-5.0) g/dL Urine Color Yellow Urine Appearance Clear Urine pH 5.0 (5.0-9.0) Ur Specific [place] 1.025 (1.005-1.025) Urine Protein Negative (Neg-Trace) mg/dL Urine Glucose (UA) Negative (Negative) mg/dL Urine Ketones Negative (Negative) mg/dL Urine Blood Trace H (Negative) Urine Nitrite Negative (Negative) Ur Leukocyte Esterase Small (1+) H (Negative) Urine RBC 0-2 (0-2) /HPF Urine WBC 21-50 H (0-5) /HPF Ur Squamous Epith Cells 3-5 (0-2) /HPF Urine Bacteria Trace (None Seen) Hyaline Casts 0-2 (0-2) /LPF Discharge Plan Discharge Prescriptions: No Action (DME) adult diapers pull-ups small See Rx Instructions .Route .MEDSUPPLY Qty: 240 11RF Rx Instructions: As directed (DME) disposable gloves Package See Rx Instructions .Route Qty: 100 11RF Rx Instructions: As directed (DME) personal wipes See Rx Instructions .Route .MEDSUPPLY Qty: 200 11RF Rx Instructions: As directed (DME) left foot brace/Kafo adjustment See Rx Instructions .Route .MEDSUPPLY Qty: 1 0RF Rx Instructions: As directed albuterol sulfate [Ventolin HFA] 90 mcg/actuation HFA aerosol inhaler 2 puff inhalation DAILY 30 Days Qty: 18 2RF docusate calcium 240 mg capsule 240 mg PO BEDTIME PRN (Reason: constipation) 90 Days Qty: 90 1RF Arnuity Ellipta 50 mcg/actuation blister with device 1 inh inhalation DAILY 30 Days Qty: 30 4RF meloxicam 15 mg tablet 15 mg PO DAILY 30 Days Qty: 30 0RF fluticasone propionate 110 mcg/actuation HFA aerosol inhaler 2 puff inhalation BID 30 Days Qty: 12 3RF lisinopril 10 mg tablet 10 mg PO DAILY 90 Days Qty: 90 5RF Januvia 50 mg tablet 50 mg PO DAILY 90 Days Qty: 90 5RF acetaminophen [8 Hour Pain Reliever] 650 mg tablet extended release 650 mg PO DAILY PRN (Reason: fever or pain) 90 Days Qty: 90 8RF aspirin 81 mg tablet,delayed release (DR/EC) 81 mg PO DAILY 90 Days Qty: 90 5RF atorvastatin 80 mg tablet 80 mg PO BEDTIME 90 Days Qty: 90 1RF finasteride 5 mg tablet 5 mg PO DAILY 90 Days Qty: 90 1RF lidocaine 5 % adhesive patch,medicated 1 patch topical DAILY Qty: 15 0RF Rx Instructions: leave on most painful area for up to 12 hrs (DME) lancets 28 gauge misc See Rx Instructions topical TID Qty: 100 Rx Instructions: As directed (DME) blood sugar diagnostic Strip See Rx Instructions Not Applicable .MEDSUPPLY Qty: 10 Rx Instructions: As directed (DME) blood-glucose meter [FreeStyle Cass Lite] Kit See Rx Instructions .ROUTE .MEDSUPPLY Qty: 1 Rx Instructions: As directed alcohol swabs [Easy Touch Alcohol Prep Pads] Pads, Medicated 1 pad topical TID oxybutynin chloride 10 mg tablet extended release 24hr 10 mg PO DAILY Qty: 90 3RF ascorbic acid (vitamin C) 1,000 mg tablet 1,000 mg PO DAILY 90 Days Qty: 90 1RF methenamine hippurate 1 gram tablet 1 g PO DAILY 90 Days Qty: 90 1RF nitrofurantoin macrocrystal 100 mg capsule 100 mg PO BID 7 Days Qty: 14 0RF Print Language: Korean
[2025-07-26 18:26] VITALS: BP 133/79; PULSE 72; RESP 16; TEMP 36.4; O2SAT 98
[2025-07-26 20:25] VITALS: BP 133/79; PULSE 72; RESP 16; TEMP 36.4; O2SAT 98
== END 2025-07-26 20:26 | disposition home or self-care (01) ==
PROVIDERS: Physician Assistant Medical; Emergency Provider Emergency Medicine; PCP Internal Medicine
DX: R42 Dizziness and giddiness (principal); N39.0 Urinary tract infection, site not specified; R94.31 Abnormal electrocardiogram [ECG] [EKG]; I44.7 Left bundle-branch block, unspecified; H92.02 Otalgia, left ear; H53.8 Other visual disturbances; I10 Essential (primary) hypertension; Z79.899 Other long term (current) drug therapy
CPT/HCPCS: 36415; 70450; 70551; 80053; 81001; 83735; 84484; 85025; 87086; 87088; 87186; 93005; 99284

== ENCOUNTER → 2025-07-26 09:54 | Outpatient (BNV) | payer OTHER, SELFPAY | PROVIDERS: Emergency Provider Emergency Medicine; PCP Internal Medicine; Visit Provider Internal Medicine | DX: I44.7 Left bundle-branch block, unspecified (principal) | CPT/HCPCS: 93010 ==

== ENCOUNTER → 2025-07-26 16:46 | Outpatient (BNV) | payer OTHER, SELFPAY | PROVIDERS: Emergency Provider Emergency Medicine; PCP Internal Medicine; Visit Provider Radiology Diagnostic Radiology | DX: R42 Dizziness and giddiness (principal); H53.8 Other visual disturbances | CPT/HCPCS: 70450; 70551 ==